=== PATIENT | female | born 1950 | race Caucasian/White ===

== ENCOUNTER → 2017-11-01 13:33 | Outpatient (CLI) | payer MEDICARE, BC, SELFPAY | PROVIDERS: Family Provider Internal Medicine; PCP Internal Medicine; Visit Provider Orthopaedic Surgery | DX: Z53.9 Procedure and treatment not carried out, unspecified reason (principal) ==

== ENCOUNTER → 2017-12-16 15:31 | Outpatient (CLI) | payer MEDICARE, BC, SELFPAY ==
[2017-12-16 17:37] LABS: Absolute Lymphocyte Count 2.44 X10^3/ul (0.83-4.51); Absolute Neutrophil Count 8.4 X10^3/uL (2.0-7.7); Basophil# 0.02 X10^3/uL; Basophil% 0.2 % (0-1); Eosinophil# 0.11 X10^3/uL; Eosinophils% 0.9 % (0-5); Hematocrit 42.9 % (37-47); Hemoglobin 13.9 g/dl (12.0-15.0); Lymphocyte # 2.44 X10^3/ul (4.0); Lymphocyte % 20.2 % (19-41); Mean Corp Hgb Conc 32.4 g/gl (32-36); Mean Corpuscular Hgb 31.2 pg (27.0-32.0); Mean Corpuscular Volume 96.2 fL (81-99); Mean Platelet Vol. 9.8 fl (6.2-12.0); Monocyte# 0.98 X10^3/uL; Monocyte% 8.1 % (0-10); Neutrophil # 8.43 X10^3/uL (2.7-7.7); Neutrophil % 69.7 % (47-70); Platelet Count 197 K/mm3 (150-450); RBC Distribution Width CV 15.1 % (11.6-14.6); RBC Distribution Width SD 51.6 fl (35.1-43.9); Red Blood Count 4.46 M/mm3 (4.2-5.4); White Blood Count 12.1 K/mm3 (4.4-11.0)
[2017-12-16 17:42] LABS: POSITIVE COUNT NO; POSITIVE DIFFERENTIAL NO; POSITIVE MORPHOLOGY NO
[2017-12-16 18:12] LABS: Anion Gap 9 (5-15); BUN 19 mg/dL (7-18); BUN/Creat Ratio 24.1 RATIO (10-20); Calcium,Total 8.1 mg/dL (8.5-10.1); Chloride 110 mmol/L (98-107); Creatinine, Serum 0.79 mg/dL (0.55-1.02); EST Glomerular Filtration Rate 78 mL/min (>60); Est Glom Filt Rate - Afr Amer 94 mL/min (>60); Glucose 142 mg/dL (74-106); Sodium Level 140 mmol/L (136-145); Thyroid Stim Hormone (TSH) 2.82 uIU/mL (0.358-3.74)
== END ==
PROVIDERS: Family Provider Family Medicine; PCP Family Medicine; Visit Provider Family Medicine
DX: I10 Essential (primary) hypertension (principal); E11.9 Type 2 diabetes mellitus without complications; E66.01 Morbid (severe) obesity due to excess calories
CPT/HCPCS: 36415; 80048; 84443; 85025

== ENCOUNTER → 2018-02-28 15:35 | Outpatient (CLI) | payer MEDICARE, BC, SELFPAY | PROVIDERS: Family Provider Family Medicine; PCP Family Medicine; Visit Provider Family Medicine | DX: R31.9 Hematuria, unspecified (principal); R80.9 Proteinuria, unspecified; R82.2 Biliuria | CPT/HCPCS: 87086; 87088; 87186 ==

== ENCOUNTER → 2019-03-29 | Outpatient (CLI) | payer MEDICARE, BC, SELFPAY ==
[2019-03-29 16:59] LABS: Absolute Lymphocyte Count 2.39 X10^3/uL (0.83-4.51); Absolute Neutrophil Count 4.1 X10^3/uL (2.0-7.7); Basophil# 0.04 X10^3/uL; Basophil% 0.5 % (0-1); Eosinophil# 0.24 X10^3/uL; Eosinophils% 3.1 % (0-5); Hematocrit 38.4 % (37-47); Hemoglobin 12.2 g/dL (12.0-15.0); Lymphocyte # 2.39 X10^3/ul (4.0); Lymphocyte % 31.4 % (19-41); Mean Corp Hgb Conc 31.8 g/dL (32-36); Mean Corpuscular Volume 97.5 fL (81-99); Mean Platelet Vol. 9.1 fl (6.2-12.0); Monocyte# 0.78 X10^3/uL; Monocyte% 10.2 % (0-10); NRBC Flagged by Analyzer 0 % (0-5); Neutrophil % 53.9 % (47-70); Platelet Count 329 K/mm3 (150-450); Red Blood Count 3.94 M/mm3 (4.2-5.4); White Blood Count 7.6 K/mm3 (4.4-11.0)
[2019-03-29 18:26] LABS: ALB/GLOB Ratio 0.7 RATIO (0.9-2.4); AST(SGOT) 27 U/L (15-37); Alanine Aminotransfer ALT/SGPT 28 U/L (13-56); Albumin, Serum 2.8 g/dL (3.2-5.0); Alkaline Phosphatase 110 U/L (45-117); Anion Gap 8 (5-15); BUN 17 mg/dL (7-18); BUN/Creat Ratio 26.2 RATIO (10-20); Calcium,Total 8.8 mg/dL (8.5-10.1); Chloride 109 mmol/L (98-107); Creatinine, Serum 0.65 mg/dL (0.55-1.02); EST Glomerular Filtration Rate 97 mL/min (>60); Est Glom Filt Rate - Afr Amer 117 mL/min (>60); Globulin 4.3 g/dL (2.2-4.2); Glucose 81 mg/dL (74-106); Potassium 3.8 mmol/L (3.5-5.1); Protein, Total 7.1 g/dL (6.4-8.2); Sodium Level 143 mmol/L (136-145); Thyroid Stim Hormone (TSH) 2.75 uIU/mL (0.358-3.74)
== END | disposition home or self-care (01) ==
LOC: BFHLAB 15:24
PROVIDERS: Family Provider Family Medicine; PCP Family Medicine; Visit Provider Family Medicine
DX: E11.9 Type 2 diabetes mellitus without complications (principal); I10 Essential (primary) hypertension; E66.01 Morbid (severe) obesity due to excess calories
CPT/HCPCS: 36415; 80053; 84443; 85025

== ENCOUNTER 2020-03-19 13:42 | Emergency (ER) | payer MEDICARE, BC, SELFPAY ==
[2020-03-19 13:43] VITALS: TEMP 36.7; BMI 62.4
[2020-03-19 14:05] VITALS: BP 100/83; PULSE 82; RESP 18; TEMP 36.7; O2SAT 97; BMI 62.4
--- NOTE | 2020-03-19 14:07 | ED.RN ---
PT ENTERED BY MISTAKE. NAME SPELLED WRONG.
[2020-03-19 14:08] VITALS: BP 100/83; PULSE 82; RESP 18; TEMP 36.7; O2SAT 97
[2020-03-19 15:07] VITALS: BP 100/83; PULSE 82; RESP 18; TEMP 36.7; O2SAT 97
[2020-03-19] MEDS: Ondansetron 4 MG/2 ML Vial IV (15:41)
[2020-03-19] MEDS: Morphine 4 MG/ML Syringe IV (15:41)
[2020-03-19] MEDS: Furosemide 40 MG/4 ML Vial IV (15:41)
[2020-03-19] MEDS: Cefazolin 1 GM/50 ML BAG IV (15:42)
[2020-03-19 16:09] VITALS: BP 132/103; PULSE 135; RESP 26; O2SAT 95
[2020-03-19 16:11] LABS: Anion Gap 9 (5-15); BUN 23 mg/dL (7-18); Calcium,Total 8.7 mg/dL (8.5-10.1); Chloride 102 mmol/L (98-107); Creatinine, Serum 1.44 mg/dL (0.55-1.02); EST Glomerular Filtration Rate 39 mL/min (>60); Est Glom Filt Rate - Afr Amer 47 mL/min (>60); Estimated Creatinine Clearance 33.65 ml/min; Glucose 82 mg/dL (74-106); Potassium 3.7 mmol/L (3.5-5.1); Sodium Level 135 mmol/L (136-145)
--- NOTE | 2020-03-19 17:47 | ED.VISSUMM ---
- ER Visit Summary Date of Service: 03/19/20 Chief Complaint: Left leg redness and swelling History of Present Illness: The patient is a 70 F who presents with redness and swelling to her left leg that has been getting worse over the past 2 days. Patient states she noted a reddened area over the anterior lower leg 2 days ago and it is gotten worse. Patient describes her pain is burning. Patient states the pain is localized to the left lower leg. Patient states nothing makes it better or worse. Patient denies any fevers or chills. Patient admits to some serous drainage from the left lower leg but denies any purulent drainage. Patient denies any abscess formation. Physical Examination: Vital signs are stable. Patient is afebrile. Patient is in no acute distress. Oral mucosa is pink and moist. Neck is supple. Trachea is midline. There is no JVD. Heart was regular rate and rhythm. Lungs are clear and equal bilaterally. Abdomen is soft. Bowel sounds are normal. There is no tenderness. Cranial nerves II through XII are intact. There are no focal motor or sensory deficits noted. Extremities are intact. There is 4+ edema of the lower extremities bilaterally. There is erythema and warmth over the anterior aspect of the left lower leg. There is some mild serous drainage. There is no abscess formation noted. There is no purulent drainage. Test Results: Basic metabolic profile shows slightly elevated creatinine of 1.44 and a BUN of 23. Potassium was normal. CBC showed a slight leukocytosis of 11.2. Emergency Department Course and Treatment: Patient was given a dose of Ancef. Patient was also given a dose of morphine and Zofran. Patient had minimal relief of her pain with this. Patient was given a dose of Dilaudid. Patient was given prescriptions for Keflex and Percocet. Patient was instructed to continue her Lasix as prescribed. Patient was instructed to keep her legs elevated. Patient was instructed to follow-up with her primary care physician in 5 to 7 days. Patient understood and was agreeable with the plan. All questions were answered. Disposition: Discharge home Impression: 1. Cellulitis left lower leg This note was generated with [employer] dictation software. It may contain incorrect words, spelling, and punctuation that were not noted in review of the chart prior to signing ED Disposition - Plan for ED Patient: Disposition: Home or Assisted Living Diagnosis: Cellulitis of left leg Instructions: ED Cellulitis Prescriptions: Cephalexin [Keflex] 500 mg PO Q6 #40 cap Prescription Printed Oxycodone HCl/Acetaminophen [Percocet 5/325] 1 tab PO Q6H PRN PRN 3 Days #12 tab PRN Reason: Pain Prescription Printed Referrals: Kenzie Aceves MD [Primary Care Provider] - 5-7 Days
[2020-03-19] MEDS: HYDROmorphone 0.5 MG/0.5 ML SYRINGE IV (17:53)
[2020-03-19 17:55] LABS: Basophil# 0.09 X10^3/uL; Eosinophil# 0.91 X10^3/uL; Hematocrit 40.8 % (37-47); Mean Corp Hgb Conc 31.9 g/dL (32-36); Mean Corpuscular Hgb 32.7 pg (27.0-32.0); Mean Corpuscular Volume 102.8 fL (81-99); Mean Platelet Vol. 8.6 fl (6.2-12.0); Monocyte# 0.29 X10^3/uL; NRBC Flagged by Analyzer 0 % (0-5); POSITIVE DIFFERENTIAL YES; POSITIVE MORPHOLOGY YES; Platelet Count 277 K/mm3 (150-450); RBC Distribution Width CV 13.4 % (11.6-14.6); RBC Distribution Width SD 51.1 fl (35.1-43.9); Red Blood Count 3.97 M/mm3 (4.2-5.4); White Blood Count 11.2 K/mm3 (4.4-11.0)
[2020-03-19 18:07] LABS: Differential Indicated SCAN CRITERIA MET
[2020-03-19 18:25] LABS: Scan Smear per Review Criteria MANUAL DIFF
[2020-03-19 18:26] VITALS: BP 125/84; PULSE 89; RESP 18; O2SAT 99
[2020-03-19 18:26] LABS: Lymphocyte 4 % (19-41); Monocyte 2 % (0-10); Neutrophil-Band 59 % (0-5); Neutrophil-Segmented 35 % (47-70)
[2020-03-19 18:27] LABS: Platelet Estimate ADEQUATE (ADEQ); Red Cell Morphology NORM C+C NORMAL (NORM C&C)
[2020-03-19 18:28] LABS: Neutrophil # 10.53 X10^3/uL (2.7-7.7)
[2020-03-19 18:29] LABS: Absolute Lymphocyte Count 0.45 X10^3/uL (0.83-4.51); Absolute Neutrophil Count 10.5 X10^3/uL (2.0-7.7); Lymphocyte # 0.45 X10^3/ul (4.0)
[2020-03-20 14:09] LABS: Pathologist Review Reviewed
== END 2020-03-19 18:27 | disposition home or self-care (01) ==
PROVIDERS: Emergency Provider Emergency Medicine; PCP Family Medicine
DX: L03.116 Cellulitis of left lower limb (principal); I11.0 Hypertensive heart disease with heart failure; I50.9 Heart failure, unspecified
CPT/HCPCS: 80048; 85025; 96365; 96375; 99284; J7050; A4216; J1940; J2405

== ENCOUNTER 2020-05-30 13:13 | Inpatient (IN) | payer MEDICARE, BC, SELFPAY ==
[2020-05-30 13:14] VITALS: BP 159/130; PULSE 95; RESP 18; TEMP 37.1; O2SAT 97; BMI 53.1
--- NOTE | 2020-05-30 13:31 | ED.DCSUM_ITS ---
History of Present Illness Chief Complaint: Edema Detail of Chief Complaint: Dyspnea and anasarca Informant: Patient, Talent Acquisition Director, SN[facility] Onset: Days Context: Gradual Onset Timing: Continuous Quality: Total body with clear fluid draining from upper extremities Location: Dental eyes Current Severity: Severe Maximum Severity: Severe Worsened by: History of obstructive sleep apnea and pulmonary hypertension Relieved by: Nothing Associated Symptoms: No chest pain, no constitutional symptoms Narrative: Patient is a morbidly obese 70-year-old woman with multiple medical problems who presents because of anasarca and shortness of breath. Her last hospitalization was at [facility]. She is presently at the [facility]. She states she was accepted at they have been you and his only been there 1 day. Per report her Lasix was discontinued. She denies fever, chills night sweats. She denies ocular, visual auditory symptoms. She denies chest pain. She does report orthopnea. She denies GI symptoms. She has an indwelling Perez. She also reports wound right leg/calf region. Prior similar symptoms: Yes Recent Illness/Hospitalization: Yes - Past Medical History (1) History of obstructive sleep apnea Status: Acute (2) Arthritis Status: Acute (3) Diabetes Status: Acute (4) GERD (gastroesophageal reflux disease) Status: Acute (5) Gall stones Status: Acute (6) History of kidney stones Status: Acute (7) Morbid obesity Status: Acute (8) Umbilical hernia Status: Acute (9) Hypertension Status: Chronic Past Medical History - Allergies and Home Meds Allergies/Adverse Reactions: Allergies hydromorphone Allergy (Verified 05/30/20 13:21) PT UNSURE OF REACTION piperacillin Allergy (Verified 05/30/20 13:21) PT UNSURE OF REACTION Primary Care Physician: Kenzie Aceves MD [STAFF PHYSICIAN] - Prior records reviewed: Yes Lives: [facility] Smoking Status: Never smoker Alcohol: None Drugs: None Review of Systems General: Reports: Malaise, - - Weight gain. Denies: Chills, Fever, Subjective, Sweats Eyes: Denies: Visual changes - bilaterally, Blurred Vision - bilaterally ENT: Denies: Bilateral ear pain, Rhinorrhea, Sore throat Cardiovascular: Denies: Chest pain, Palpitations Respiratory: Reports: Dyspnea, Orthopnea. Denies: Cough, Sputum Gastrointestinal: Denies: Abdominal pain, Nausea, Vomiting, Diarrhea Genitourinary: Reports: - - Indwelling Perez Musculoskeletal: Reports: Swelling. Denies: Myalgias, Arthralgias, Neck pain, Back pain, Extremity Pain, -, - Skin: Reports: Wounds. Denies: Rash Neurological: Reports: Weakness. Denies: Headache Psych: Reports: Depression Allergy: Denies: Uticaria, Swelling of the mouth, Swelling of the tongue Physical Exam Vital Signs/Narrative: Vital Signs Temp Pulse Resp BP Pulse Ox 05/30/20 13:14 98.8 F 95 18 159/130 H 97 General: Well nourished, Well developed, Obese, No Acute Distress Head: Normocephalic, Atraumatic Eyes: Perrl, EOMI. Negative for: Pale conjunctiva, Scleral icterus ENT: No rhinorrhea, TM's clear Neck: Supple, Nontender, No lymphadenopathy, No JVD Cardiovascular: Regular rate, Regular rhythm, No murmurs, Normal S1, Normal S2 Respiratory: No distress, Chest nontender, Rales. Negative for: CTA bilaterally Abdomen: Soft, Nontender, Nondistended, Normal bowel sounds, Umbilical hernia, Hernia reducible Rectal: Deferred Extremities: Nontender, Edema, - - And has a wound VAC medial mid left calf. Skin: Pallor. Negative for: Normal color Neurological: Alert, Oriented x3, Cranial nerves II-XII grossly intact, Normal Strength, Normal Sensation. Negative for: Normal Gait Psychological: Depressed Diagnostic/Tx/Re-eval Chest X-Ray - ED: 1 View, Read by ED Physician, Normal, Mediastinum, Bony Structures, No Acute Disease, - - X-ray was interpreted by me at 1420. Film is suboptimal due to poor inspiratory volume. There is no cephalization. There is no curly B-lines. There is no effusion. There is no obvious infiltrate. Impressions Chest X-Ray 05/30/20 13:45 IMPRESSION: Borderline cardiomegaly. Mild degree of increased linear markings at the lung bases suggests subsegmental atelectasis. Electronically Signed: Venkat Swan, at 14:23 EDT , Service support , 05/30/20 13:45 Chest 1 View (Portable) [RAD] Stat Laboratory Results 05/30/20 05/30/20 05/30/20 14:00 14:00 14:00 WBC 12.1 H RBC 2.68 L Hgb 8.3 L Hct 27.3 L MCV 101.9 H MCH 31.0 MCHC 30.4 L RDW Std Deviation 61.5 H RDW Coeff of Galindo 16.7 H Plt Count 365 MPV 7.9 Immature Gran % (Auto) 4.600 H Neut % (Auto) 65.3 Lymph % (Auto) 13.6 L Ogle % (Auto) 11.7 H Eos % (Auto) 4.2 Baso % (Auto) 0.6 Absolute Neuts (auto) 7.9 H Absolute Lymphs (auto) 1.64 Nucleated RBC % 0.2 Sodium 139 Potassium 4.5 Chloride 108 H Carbon Dioxide 28.0 Anion Gap 3 L BUN 22 H Creatinine 0.79 Estim Creat Clear Calc 52.36 Est GFR (MDRD) Af Amer 94 Est GFR (MDRD) Non-Af 77 BUN/Creatinine Ratio 28.0 H Glucose 108 H Calcium 8.3 L Total Bilirubin 0.40 AST 83 H ALT 37 Alkaline Phosphatase 113 Troponin I < 0.015 B-Natriuretic Peptide 92.4 Total Protein 5.8 L Albumin 1.4 L Globulin 4.4 H Albumin/Globulin Ratio 0.3 L Blood work is remarkable for anemia with a hemoglobin 8.3. BUN to creatinine ratio is elevated at 28-1. BNP is normal. Troponin is normal. Albumin is only 1.4. White count is elevated which is nonspecific. MCV is elevated. Therefo re doubt anemia is due to blood loss. - EKG Initial EKG Interpretation: Sinus Rhythm - Sinus rhythm with first-degree AV block. Ventricular rate is 95. CA interval is 232 ms. QRS duration 52 ms. QT duration 340 ms. Spencer is normal. There is evidence of low voltage in the limb leads. The computer is reading ST-T wave abnormality which is nonspecific. In my opinion this is artifa - Medical Decision Making Patient has anasarca. This may be due to malnutrition, obstructive sleep apnea, discontinuation of diuretic need to rule out cardiac etiology. Chest x-ray, appropriate labs were ordered. She received 40 mg of Lasix. ED Disposition - Plan for ED Patient: Disposition: Acute Care Hospital [facility] Diagnosis: Anasarca, Macrocytic anemia, Edema due to hypoalbuminemia, History of obstructive sleep apnea Referrals: Kenzie Aceves MD [STAFF PHYSICIAN] -
--- NOTE | 2020-05-30 13:45 | RAD_ITS ---
STUDY: X-RAY CHEST REASON FOR EXAM: Female, 70 years old. EDEMA TECHNIQUE: Single AP portable view of the chest. COMPARISON: None. FINDINGS: EKG electrodes are seen. A left-sided PICC line catheter is seen with the tip at the junction of the superior vena cava and left brachiocephalic vein. Minimal increased markings at the lung bases suggestive of a linear atelectasis. There is no demonstrated pleural abnormality. There is borderline cardiomegaly. Normal mediastinum and dimitrios. Normal visualized pulmonary arteries. Normal visualized aortic arch and descending thoracic aorta. There are diffuse degenerative changes of the visualized thoracic spine. Deformity of the left humeral head. There is no demonstrated abnormality of the visualized soft tissue structures of the upper abdomen. RAD/Chest 1 View (Portable) IMPRESSION: Borderline cardiomegaly. Mild degree of increased linear markings at the lung bases suggests subsegmental atelectasis. Electronically Signed: Venkat Swan, at 14:23 EDT , Service support ,
[2020-05-30] MEDS: Furosemide 40 MG/4 ML Vial IV (13:58)
[2020-05-30 14:15] LABS: Absolute Lymphocyte Count 1.64 X10^3/uL (0.83-4.51); Absolute Neutrophil Count 7.9 X10^3/uL (2.0-7.7); Basophil# 0.07 X10^3/uL; Basophil% 0.6 % (0-1); Eosinophil# 0.51 X10^3/uL; Eosinophils% 4.2 % (0-5); Hematocrit 27.3 % (37-47); Hemoglobin 8.3 g/dL (12.0-15.0); Lymphocyte # 1.64 X10^3/ul (4.0); Lymphocyte % 13.6 % (19-41); Mean Corp Hgb Conc 30.4 g/dL (32-36); Mean Corpuscular Volume 101.9 fL (81-99); Mean Platelet Vol. 7.9 fl (6.2-12.0); Monocyte# 1.41 X10^3/uL; Monocyte% 11.7 % (0-10); NRBC Flagged by Analyzer 0.2 % (0-5); Neutrophil # 7.88 X10^3/uL (2.7-7.7); Neutrophil % 65.3 % (47-70); Platelet Count 365 K/mm3 (150-450); RBC Distribution Width CV 16.7 % (11.6-14.6); RBC Distribution Width SD 61.5 fl (35.1-43.9); Red Blood Count 2.68 M/mm3 (4.2-5.4); White Blood Count 12.1 K/mm3 (4.4-11.0)
--- NOTE | 2020-05-30 14:23 | NURSING ---
NO OLD EKGS
[2020-05-30 14:31] LABS: ALB/GLOB Ratio 0.3 RATIO (0.9-2.4); AST(SGOT) 83 U/L (15-37); Alanine Aminotransfer ALT/SGPT 37 U/L (13-56); Albumin, Serum 1.4 g/dL (3.2-5.0); Alkaline Phosphatase 113 U/L (45-117); Anion Gap 3 (5-15); BUN 22 mg/dL (7-18); Calcium,Total 8.3 mg/dL (8.5-10.1); Chloride 108 mmol/L (98-107); Creatinine, Serum 0.79 mg/dL (0.55-1.02); EST Glomerular Filtration Rate 77 mL/min (>60); Est Glom Filt Rate - Afr Amer 94 mL/min (>60); Estimated Creatinine Clearance 52.36 ml/min; Globulin 4.4 g/dL (2.2-4.2); Glucose 108 mg/dL (74-106); Potassium 4.5 mmol/L (3.5-5.1); Protein, Total 5.8 g/dL (6.4-8.2); Sodium Level 139 mmol/L (136-145)
[2020-05-30 14:34] LABS: BNP,B-Type NATRIURETIC PEPTIDE 92.4 pg/mL (0-100)
[2020-05-30 14:41] VITALS: BP 110/55; PULSE 88; RESP 18; O2SAT 97
--- NOTE | 2020-05-30 14:52 | NURSING ---
DR LAMAR FOR DR HERNANDEZ
--- NOTE | 2020-05-30 15:09 | NURSING ---
MED SURG WILLARD SAMSON, EDEMA DUE TO HYPOALBUMINEMIA, MACRECYTIC ANEMIA
--- NOTE | 2020-05-30 15:36 | HP.PCM_ITS ---
Problem List (1) Hypoalbuminemia Status: Acute (2) Microcytic anemia Status: Acute (3) Anasarca Status: Acute (4) Nonhealing left calf ulcer Status: Acute (5) Cognitive impairment Status: Chronic (6) Depression Status: Chronic (7) COPD (chronic obstructive pulmonary disease) Status: Chronic (8) Hyperlipidemia Status: Chronic (9) Paroxysmal atrial fibrillation Status: Chronic (10) Chronic acquired lymphedema Status: Chronic (11) History of kidney stones Status: Chronic (12) Morbid obesity Status: Chronic (13) Hypertension Status: Chronic (14) GERD (gastroesophageal reflux disease) Status: Chronic History of Present Illness Date of Admission: 05/30/20 Chief Complaint: Leg swelling, and swelling. The patient is a 70 year old F with past medical history as mentioned above [facility] because of increasing generalized edema. [facility] because of increasing bilateral leg edema and swelling as well as swelling of both hands, associated with drainage of clear fluids from both upper and lower extremities as well as mild exertional shortness of breath and no aggravating or relieving factors. Patient states that she was taken off Lasix recently because of increasing kidney function. She denied chest pain, orthopnea or PND. She denied cough or sputum production. She denied fever or chills. She has chronic indwelling Perez catheter. She has chronic nonhealing ulcer of the posterior aspect of the left calf, status post wound VAC insertion and currently, she is on IV ciprofloxacin and IV clindamycin. She had a history of paroxysmal A. fib and she has been on digoxin and metoprolol for rate control and on Eliquis for anticoagulation. She will history of hypertension which has been under control with lisinopril and metoprolol. In the emergency department, her vital signs were stable. Her routine blood work was remarkable for WBC of 12.1, hemoglobin of 8.3 g/dL. LFT was unremarkable, serum albumin was 1.4 which is very low. EKG revealed normal sinus rhythm with low voltage QRS, no acute changes. Tr oponin and BNP were unremarkable. Chest x-ray revealed mild cardiomegaly, no obvious infiltrate or consolidation. She is being admitted for generalized edema/anasarca probably multifactorial secondary to hypoalbuminemia, discontinuation of diuretics recently and also found to have macrocytic anemia and she is being admitted for evaluation and treatment. Past Medical History Past Medical History (Chronic Problems): Chronic Problems (This Medical Record has been edited. Action required.) Cognitive impairment (Chronic) Depression (Chronic) COPD (chronic obstructive pulmonary disease) (Chronic) Hyperlipidemia (Chronic) Paroxysmal atrial fibrillation (Chronic) Chronic acquired lymphedema (Chronic) History of kidney stones (Chronic) Morbid obesity (Chronic) Hypertension (Chronic) GERD (gastroesophageal reflux disease) (Chronic) Medical History: Medical History (This Medical Record has been edited. Action required.) History of kidney stones (Chronic) Z87.442 Morbid obesity (Chronic) E66.01 Hypertension (Chronic) I10 GERD (gastroesophageal reflux disease) (Chronic) K21.9 Allergies hydromorphone Allergy (Verified 05/30/20 13:21) PT UNSURE OF REACTION piperacillin Allergy (Verified 05/30/20 13:21) PT UNSURE OF REACTION Home Medications: Ambulatory Orders Medication Instructions Recorded Lisinopril [Prinivil] 10 mg PO DAILY 03/19/20 Albuterol IH (ProAir) [Proair Hfa 2 puff INHALATION Q6H PRN PRN 05/30/20 (SP)Vent Pts] Apixaban [Eliquis] 5 mg PO BID 05/30/20 Aspirin [Aspirin, Baby] 81 mg PO DAILY@0800 05/30/20 Atorvastatin Calcium [Lipitor] 20 mg PO QHS 05/30/20 Bumetanide 1 mg PO DAILY 05/30/20 Ciprofloxacin in 5 % Dextrose 400 mg IV BID 05/30/20 [Ciprofloxacn-D5w 400 mg/200 ml] Clindamycin in 0.9 % Sod Chlor 600 mg IV TID 05/30/20 [Clindamycin 600 mg/50 ml-Ns] Digoxin 125 mcg PO DAILY 05/30/20 Gabapentin [Neurontin] 100 mg PO DAILY 05/30/20 Magnesium Oxide [Magox 400] 400 mg PO DAILY 05/30/20 Metoprolol Tartrate [Lopressor 25 mg PO BID 05/30/20 (Beta Abiola)] Montelukast Sodium 10 mg PO QHS 05/30/20 Pantoprazole Sodium [Protonix] 40 mg PO DAILY 05/30/20 Potassium Chloride 20 meq PO DAILY 05/30/20 Quetiapine Fumarate [Seroquel] 25 mg PO BID 10/30/20 traMADol [Ultram (G)] 50 mg PO Q6H PRN PRN 05/30/20 Surgical History: Surgical History (This Medical Record has been edited. Action required.) Hx of appendectomy (Inactive) Z90.49 Hx of tubal ligation (Inactive) Z98.51 Surgical History: appendectomy, - - Tubal ligation. Psychiatric History: Depression Lives: [facility] Smoking Status: Never smoker Alcohol: None Drugs: None - *Family History Maternal Family History: Family History (This Medical Record has been edited. Action required.) Sister Diabetes Mother Diabetes Father Heart disease Myocardial infarction Review of Systems Constitutional: Denies: Anorexia, Chills, Fever, Weakness Eyes: Denies: Blurred vision, Double vision, Drainage, Redness HEENT: Denies: Difficulty Hearing, Ear Pain, Eye Pain, Nasal Congestion, Sore Throat Cardiovascular: Reports: Edema. Denies: Chest Pain, Claudication, Chest Pressure, Chest Tightness, Heaviness, Light Headedness, Palpitations, Paroxysmal Noc. Dyspnea, Syncope Respiratory: Reports: Shortness of breath upon exertion. Denies: Cough, Pleuritic Pain, Shortness of Breath, Sputum production, Wheezing Gastrointestinal: Denies: Abdominal Pain, Constipation, Diarrhea, Nausea, Vomiting Genitourinary: Denies: Dysuria, Frequency, Hematuria Musculoskeletal: Denies: Arm Pain, Back Pain, Foot Pain Skin: Denies: Dryness, Rash Neurological: Denies: Balance problems, Double vision, Change in Speech, Slurred speech, Confusion, Focal weakness, Incoordination, Numbness Psychiatric: Reports: Depression. Denies: Anxiety Endocrine: Denies: Change in Body Habitus, Polydipsia, Polyuria VTE Information - Inpt Only VTE Present on Admission: No VTE Mechan Device Prophylaxis: None VTE Pharm Prophylaxis ordered?: No Patient Problems: Active and Suspected Problems (This Medical Record has been edited. Action required.) Hypoalbuminemia (Acute) Microcytic anemia (Acute) Anasarca (Acute) Nonhealing left calf ulcer (Acute) - Physical Exam Vitals/I&O's: Vital Signs Temp Pulse Resp BP Pulse Ox 98.8 F 88 18 110/55 L 97 05/30/20 13:14 05/30/20 14:41 05/30/20 14:41 05/30/20 14:41 05/30/20 14:41 Oxygen Delivery Method Room Air Weight: 339 lb 4.662 oz Body Mass Index (BMI) 53.1 General: Alert, Oriented x3, Cooperative, No apparent distress HEENT: Atraumatic, PERRLA, EOMI, Normocephalic Oral: Moist Mucosa, No Gingival or Mucosal Lesions/ Ulcerations Neck: Supple, No JVD, Negative Carotid Bruits, Trachea Midline, Thyroid Normal Size and Texture Lungs: Clear to auscultation, Normal air movement, No rhonchi, No wheeze, No rales, Diminished Cardiovascular: Regular rate, Regular Rhythm, Normal S1, Normal S2, PMI Normal Abdomen: Bowel Sounds Present, Soft, Non Tender, Non-Distended, No Hepato- splenomegaly, Obese - Morbidly obese. Extremities: No clubbing, No cyanosis, Edema - +++ Edema, lymphedema. Skin: No rashes, Ulcer/ Wound - Left leg: Large defect on the posterior aspect of the left calf, wound VAC in place. Left leg is mildly warm to palpation, minimal erythema. Lymphatic: No Cervical, Supraclavicular, or Inguinal Adenopathy Neurological: Cranial nerves II-XII grossly intact, Motor Exam 5/5 strength throughout Psych/Mental Status: Normal Affect, Appropriate, Alert and oriented to time, place, person, mood and affect Laboratory Results 05/30/20 14:00: WBC 12.1 H, RBC 2.68 L, Hgb 8.3 L, Hct 27.3 L, MCV 101.9 H, MCH 31.0, MCHC 30.4 L, RDW Std Deviation 61.5 H, RDW Coeff of Galindo 16.7 H, Plt Count 365, MPV 7.9, Immature Gran % (Auto) 4.600 H, Neut % (Auto) 65.3, Lymph % (Auto) 13.6 L, [place] % (Auto) 11.7 H, Eos % (Auto) 4.2, Baso % (Auto) 0.6, Absolute Neuts (auto) 7.9 H, Absolute Lymphs (auto) 1.64, Nucleated RBC % 0.2 05/30/20 14:00: Sodium 139, Potassium 4.5, Chloride 108 H, Carbon Dioxide 28.0, Anion Gap 3 L, BUN 22 H, Creatinine 0.79, Estim Creat Clear Calc 52.36, Est GFR (MDRD) Af Amer 94, Est GFR (MDRD) Non-Af 77, BUN/Creatinine Ratio 28.0 H, Glucose 108 H, Calcium 8.3 L, Total Bilirubin 0.40, AST 83 H, ALT 37, Alkaline Phosphatase 113, Troponin I < 0.015, Total Protein 5.8 L, Albumin 1.4 L, Globulin 4.4 H, Albumin/Globulin Ratio 0.3 L 05/30/20 14:00: B-Natriuretic Peptide 92.4 Clinical Impression(s) from Imaging Studies Chest X-Ray 05/30/20 13:45 IMPRESSION: Borderline cardiomegaly. Mild degree of increased linear markings at the lung bases suggests subsegmental atelectasis. Electronically Signed: Venkat Sosa, at 14:23 EDT , Service support , Assessment/Plan All Active Problems (This Medical Record has been edited. Action required.) Hypoalbuminemia (Acute) Microcytic anemia (Acute) Anasarca (Acute) Nonhealing left calf ulcer (Acute) This is a 70 years old female patient [facility] because of increasing bilateral leg edema and swelling as well as swelling of both hands, found to have severe hypoalbuminemia as well as microcytic anemia, had history of nonhealing left leg ulcer status post wound VAC placement and currently on IV antibiotics. #1 generalized edema/anasarca: It is probably multifactorial secondary to severe hypoalbuminemia, recent discontinuation of Lasix and her body habitus. No cardiac history, no CHF. EKG reviewed, troponin and BNP were unremarkable. Chest x-ray reviewed as well. Plan: Admit to MedSurg floor, start IV Lasix for diuresis, IV albumin, input output chart, fluid restriction to less than 1500 cc daily, urinalysis, urine culture, check TSH, repeat CBC and CMP tomorrow morning, PT OT evaluation and treatment. #2 severe hypoalbuminemia: Probably due to nutritional deficiency and hypervolemia. Plan: Check serum prealbumin, nutrition consult, IV albumin along with IV Lasix for diuresis, repeat CMP tomorrow morning. #3 microcytic anemia: This is fairly acute, hemoglobin was 13 g/dL 2 months ago. Patient denied black stool, melena or hematochezia. She does have pink urine in the urine bag, no sybil hematuria. It is microcytic anemia, MCV is high. Again, could be related to hyperkalemia. Plan: B12, RBC folate, iron, ferritin, TIBC, pro time and INR, stool for occult blood. #4 chronic nonhealing left calf ulcer status post wound VAC placement: Currently, she is on IV clindamycin and ciprofloxacin and according to [facility]iary documents, intake is May 31, it was started on May 28. She does have a wound VAC in place. She is afebrile, minimal leukocytosis. Plan: Stat wound culture, wound MRSA screen by PCR, IV clindamycin, wound care nurse consult. #5 hypertension: Blood pressure stable, continue lisinopril and metoprolol. #6 COPD: Clinically stable, pulse ox is maintained on room air. Plan for albuterol nebulizer as needed. #7 paroxysmal atrial fibrillation: Rate is controlled, continue digoxin and metoprolol for rate control. Hold Eliquis for now because of anemia, check pro time with INR. #8 GERD: Continue PPI. #9 depression: Continue Seroquel. #11 hyperlipidemia: Continue statins. #12 DVT prophylaxis: Subcu Lovenox. This note was generated with [employer] dictation software. It may contain incorrect words, spelling, and punctuation that were not noted in checking the note before signing. Inpatient E&M: 82369 Init Hosp L3
[2020-05-30 16:02] VITALS: BP 101/69; PULSE 100; RESP 18; TEMP 36.6; O2SAT 95
[2020-05-30 17:30] VITALS: PULSE 68; RESP 18; O2SAT 95; BMI 54.2
[2020-05-30 17:33] LABS: Bacteria 0 SEEN /hpf (None Seen); Mucous, Urine 0 SEEN /hpf (<or=2+); Squamous Epithelial Cells - UA 0 SEEN /hpf (5-10)
[2020-05-30 17:39] LABS: Color, Urine Yellow (Yellow); Glucose, Dipstick Normal (Normal); Ketone-Dipstick Negative (Negative); Leukocyte Esterase-Dipstick 500 /ul (Negative); Nitrite-Dipstick Negative (Negative); Occult Blood-Urine 250 /ul (Negative); Protein-Dipstick 30 mg/dl (Negative); Specific Gravity, Urine 1.005 (1.002-1.030); Urine Bilirubin Dipstick Negative (Negative); Urine Clarity Cloudy (Clear); Urine Urobilinogen Normal (Normal)
[2020-05-30 17:46] LABS: Ferritin 368 ng/mL (8-252); Iron 30 ug/dL (50-170); Iron Binding Capacity,Total 152 ug/dL (250-450); PERCENT IRON SATURATION 19.7 % (15.0-55.0); Prealbumin 8.5 mg/dL (20.0-40.0); Thyroid Stim Hormone (TSH) 6.76 uIU/mL (0.358-3.74)
[2020-05-30 17:50] LABS: Red Blood Cells-Urine > 100 SEEN /hpf (0-5)
[2020-05-30 17:51] LABS: White Blood Cells 0-5 SEEN /hpf (0-5)
[2020-05-30 17:54] LABS: International Normalized Ratio 1.4
[2020-05-30 18:18] LABS: Vitamin B12 349 pg/mL (211-911)
[2020-05-30] MEDS: Albumin Human 25% (100 mL) 25 GM/100 ML BAG IV (18:31)
[2020-05-30] MEDS: Furosemide 100 MG/10 ML Vial 60 MG IV (21:20)
[2020-05-30] MEDS: QUEtiapine 25 MG Tablet PO (22:02)
[2020-05-30] MEDS: traMADol 50 MG Tablet PO (22:02)
[2020-05-30 22:03] VITALS: PULSE 99
[2020-05-30] MEDS: Montelukast 10 MG Tablet PO (22:03)
[2020-05-30] MEDS: Metoprolol Tartrate 25 MG Tablet PO (22:03)
[2020-05-30] MEDS: Atorvastatin Calcium 20 MG Tablet PO (22:04)
[2020-05-31] VITALS (20 sets, daily range): BP systolic 83–97; BP diastolic 33–74; PULSE 38–96; RESP 16–18; TEMP 36.7–37.2; O2SAT 93–95
[2020-05-31 01:02] LABS: M R Staph aureus DNA By PCR Negative (Negative); Probe Check PASS; Specimen Processing Control PASS; Staph aureus DNA By PCR NEGATIVE (Negative)
--- NOTE | 2020-05-31 04:35 | NURSING ---
[address] Rasheed, hospitalist of [address] here for anasarca- pt BP is 94/45 with monitor. took a manual and got 92/40 Lasix scheduled 0600 60mg IV. pt albumin 1.4 yesterday. skin is seeping with fluid to the touch.....Ilir [id number].....Dr. Rasheed called this RN back and stated that he still wants to give 60mg IV lasix.
[2020-05-31] MEDS: traMADol 50 MG Tablet PO (06:29)
--- NOTE | 2020-05-31 07:22 | NURSING ---
This RN rounded with dayshift RNLacy. Discussed pts blood pressure, with the latest reading at 0631 of 94/40. Discussed contacting Dr. Rasheed about BP and scheduled 60 mg IV lasix at 0600. pts albumin was 1.4 yesterday. This RN sought opinion of [facility] of whether she wanted me to give the lasix or not. Lacy said that she would discuss with Dr. Rai during dayshift and Lacy told this RN to hold off on giving the Lasix.
[2020-05-31] MEDS: Furosemide 100 MG/10 ML Vial 60 MG IV ×3 (08:49→22:25)
[2020-05-31] MEDS: 0.9% Saline Lock 10 ML Syringe IV ×2 (08:50→22:29)
[2020-05-31] MEDS: Magnesium Chloride 64 MG Delay Rel.Tablet 128 MG PO (08:51)
[2020-05-31] MEDS: Aspirin 81 MG TAB.CHEW PO (08:52)
[2020-05-31] MEDS: Metoprolol Tartrate 25 MG Tablet PO ×2 (08:54→22:23)
[2020-05-31] MEDS: Pantoprazole Sodium 40 MG Tablet PO ×2 (08:54→08:55)
[2020-05-31] MEDS: Gabapentin 100 MG Capsule PO (08:55)
[2020-05-31] MEDS: Lisinopril 10 MG Tablet PO (08:55)
[2020-05-31] MEDS: Enoxaparin 40 MG/0.4 ML Syringe SC (08:56)
[2020-05-31] MEDS: Digoxin 125 MCG Tablet PO (08:56)
[2020-05-31 09:09] LABS: Absolute Lymphocyte Count 1.82 X10^3/uL (0.83-4.51); Absolute Neutrophil Count 5.6 X10^3/uL (2.0-7.7); Basophil# 0.07 X10^3/uL; Basophil% 0.7 % (0-1); Eosinophil# 0.68 X10^3/uL; Eosinophils% 6.9 % (0-5); Hematocrit 25.8 % (37-47); Hemoglobin 7.8 g/dL (12.0-15.0); Lymphocyte # 1.82 X10^3/ul (4.0); Lymphocyte % 18.4 % (19-41); Mean Corp Hgb Conc 30.2 g/dL (32-36); Mean Corpuscular Hgb 30.8 pg (27.0-32.0); Monocyte% 13.1 % (0-10); NRBC Flagged by Analyzer 0.2 % (0-5); Neutrophil # 5.64 X10^3/uL (2.7-7.7); Platelet Count 329 K/mm3 (150-450); RBC Distribution Width CV 16.5 % (11.6-14.6); RBC Distribution Width SD 61.1 fl (35.1-43.9); Red Blood Count 2.53 M/mm3 (4.2-5.4); White Blood Count 9.9 K/mm3 (4.4-11.0)
[2020-05-31 09:36] LABS: ALB/GLOB Ratio 0.5 RATIO (0.9-2.4); AST(SGOT) 56 U/L (15-37); Alanine Aminotransfer ALT/SGPT 28 U/L (13-56); Albumin, Serum 1.8 g/dL (3.2-5.0); Alkaline Phosphatase 92 U/L (45-117); Anion Gap 5 (5-15); BUN 23 mg/dL (7-18); BUN/Creat Ratio 28.5 RATIO (10-20); Calcium,Total 8.3 mg/dL (8.5-10.1); Chloride 108 mmol/L (98-107); Creatinine, Serum 0.81 mg/dL (0.55-1.02); EST Glomerular Filtration Rate 75 mL/min (>60); Est Glom Filt Rate - Afr Amer 91 mL/min (>60); Estimated Creatinine Clearance 59.81 ml/min; Globulin 3.7 g/dL (2.2-4.2); Glucose 86 mg/dL (74-106); Potassium 4.1 mmol/L (3.5-5.1); Protein, Total 5.5 g/dL (6.4-8.2); Sodium Level 140 mmol/L (136-145)
--- NOTE | 2020-05-31 13:00 | CASEMGMT ---
Addendum entered by Imelda White 05/31/20 13:30: Updates faxed, green sheet with transport and covid forms on chart. FLORENTINO Zartae Original Note: SW reviewed chart, met w/pt in room. Pt confirmed plan is to return to [facility] at discharge. Pt's daughter Lynn Perez([phone]) is pt's main contact, though she states her sons and are also contacts and all on the same page. SW called daughter Lynn and confirmed the plan to return to [facility]. She explains pt has been in and out of the hospital and to different facilities for months. Daughter states she thinks pt has about 20 days left under Medicare. SW did ask about plan once the days have been exhausted. Daughter states is not sure. SW encouraged daughter to speak w/vacation planner at [facility] about it, to see about if pt needs more than the last 20 days left it pt can afford to private pay or may qualify for Medicaid. SW encouraged daughter to start talking w/[facility] about this now and not wait. Daughter states understanding. SW called [facility], a COVID test will be needed prior to pt's return. SW let chargeback specialist know. SW will place green sheet, transport forms and COVID transfer tool on chart, and will fax updates to [facility] today. FLORENTINO Zarate
[2020-05-31] MEDS: Albumin Human 25% (100 mL) 25 GM/100 ML BAG IV (13:30)
--- NOTE | 2020-05-31 15:07 | PCM.PN.HOSP ---
Patient Problems: Active and Suspected Problems (This Medical Record has been edited. Action required.) Anasarca (Acute) Macrocytic anemia (Acute) Edema due to hypoalbuminemia (Acute) History of obstructive sleep apnea (Acute) Hypoalbuminemia (Acute) Microcytic anemia (Acute) Anasarca (Acute) Nonhealing left calf ulcer (Acute) Reason for Visit: anasarca Subjective: Still seeping from right arm. Vitals/I&O's: Vital Signs Temp Pulse Resp BP Pulse Ox 36.8 C 74 18 83/35 L 93 05/31/20 13:39 05/31/20 13:39 05/31/20 13:39 05/31/20 13:39 05/31/20 13:39 Oxygen Delivery Method Room Air Weight: 147.8 kg Body Mass Index (BMI) 54.2 Intake and Output for Last 24 Hours 05/29/20 05/30/20 05/31/20 23:59 23:59 23:59 Intake Total 556 / 556 756 / 756 Output Total 1450 / 1450 700 / 700 Balance -894 / -894 56 / 56 General: Alert, No apparent distress HEENT: Atraumatic, Normocephalic Neck: No Nodes, Thyroid Normal Size and Texture Lungs: Clear to auscultation, Normal air movement, No rhonchi, No wheeze, No rales Cardiovascular: Regular rate, Regular Rhythm, Normal S1, Normal S2, No murmurs Abdomen: Bowel Sounds Present, Soft, Non Tender, Non-Distended, No Hepato-splenomegaly, Obese Extremities: Edema - diffuse anasarca Skin: No rashes, No breakdown Psych/Mental Status: Normal Affect, Appropriate Microbiology Past 72 Hours 05/30/20 23:05 Wound - Leg, Left Gram Stain - Final 05/30/20 17:25 Urine Catheter - Perez Urine Culture - Preliminary Culture exhibits no growth. Laboratory Results 05/30/20 14:00: Iron 30 L, TIBC 152 L, Iron Saturation 19.7, Ferritin 368 H, Prealbumin 8.5 L, TSH 6.76 H 05/30/20 14:00: Vitamin B12 349 05/30/20 14:00: RBC Folate Hemolysate Pending, RBC Folate Pending, Hematocrit Pending 05/30/20 17:25: Urine Color Yellow, Urine Clarity Cloudy, Urine pH 7.0, Ur Specific Butner 1.005, Urine Protein 30 H, Urine Glucose (UA) Normal, Urine Ketones Negative, Urine Occult Blood 250 H, Urine Nitrite Negative, Urine Bilirubin Negative, Urine Urobilinogen Normal, Ur Leukocyte Esterase 500 H, Urine RBC > 100 SEEN, Urine WBC 0-5 SEEN, Ur Squamous Epith Cells 0 SEEN, Urine Bacteria 0 SEEN, Urine Mucus 0 SEEN 05/30/20 17:32: PT 17.0 H, INR 1.4 05/30/20 18:00: S.aureus Protein A PCR Cancelled, MRSA (PCR) Cancelled 05/30/20 23:05: S.aureus Protein A PCR NEGATIVE, MRSA (PCR) Negative 05/31/20 08:50: WBC 9.9, RBC 2.53 L, Hgb 7.8 L, Hct 25.8 L, MCV 102.0 H, MCH 30.8, MCHC 30.2 L, RDW Std Deviation 61.1 H, RDW Coeff of Galindo 16.5 H, Plt Count 329, MPV 8.0, Immature Gran % (Auto) 3.900 H, Neut % (Auto) 57.0, Lymph % (Auto) 18.4 L, Chaves % (Auto) 13.1 H, Eos % (Auto) 6.9 H, Baso % (Auto) 0.7, Absolute Neuts (auto) 5.6, Absolute Lymphs (auto) 1.82, Nucleated RBC % 0.2 05/31/20 08:50: Sodium 140, Potassium 4.1, Chloride 108 H, Carbon Dioxide 27.0, Anion Gap 5, BUN 23 H, Creatinine 0.81, Estim Creat Clear Calc 59.81, Est GFR (MDRD) Af Amer 91, Est GFR (MDRD) Non-Af 75, BUN/Creatinine Ratio 28.5 H, Glucose 86, Calcium 8.3 L, Total Bilirubin 0.60, AST 56 H, ALT 28, Alkaline Phosphatase 92, Total Protein 5.5 L, Albumin 1.8 L, Globulin 3.7, Albumin/Globulin Ratio 0.5 L 05/31/20 08:50: Total Protein (PEP) Pending, Albumin (PEP) Pending, Globulin (PEP) Pending, Albumin/Globulin (PEP) Pending, Smtvn-8-Kyqhqnpom Pending, Udyau-5-Tgupqyyfn Pending, Beta Globulins Pending, Gamma Globulins Pending, M-Jose Manuel Pending, Ur Total Protein 24 Hr Pending, Urine Total Protein Pending, Urine Albumin Pending, U Ajila-8-Zaigadpq Pending, U Jdrfr-7-Xjryuzbj Pending, U Beta Globulin Pending, U Gamma Globulin Pending Current Medications Acetaminophen (Acetaminophen 325 Mg Tablet) 650 mg PO Q6H PRN PRN PRN Reason: Pain Score 1-10/Temp > 100.7 F Albuterol Sulfate (Albuterol 2.5 Mg/3 Ml Vial.Neb.) 2.5 mg INHALATION Q4H PRN PRN PRN Reason: Shortness of breath, wheezing Aspirin (Aspirin 81 Mg Tab.Chew) 81 mg PO DAILY@0800 [facility] Last Admin: 05/31/20 08:52 Dose: 81 mg Documented by: Atorvastatin Calcium (Atorvastatin Calcium 20 Mg Tablet) 20 mg PO QHS [facility] Last Admin: 05/30/20 22:04 Dose: 20 mg Documented by: Digoxin (Digoxin 125 Mcg Tablet) 125 mcg PO DAILY [facility] Last Admin: 05/31/20 08:56 Dose: 125 mcg Documented by: Enoxaparin Sodium (Enoxaparin 40 Mg/0.4 Ml Syringe) 40 mg SC DAILY [facility] Last Admin: 05/31/20 08:56 Dose: 40 mg Documented by: Furosemide (Furosemide 100 Mg/10 Ml Vial) 60 mg IV Q8 [facility] Last Admin: 05/31/20 08:49 Dose: 60 mg Documented by: Gabapentin (Gabapentin 100 Mg Capsule) 100 mg PO DAILY [facility] Last Admin: 05/31/20 08:55 Dose: 100 mg Documented by: Clindamycin Phosphate 900 mg/ (Dextrose) 106 mls @ 150 mls/hr IV Q8 [facility] Last Infusion: 05/31/20 07:25 Dose: Infused Documented by: Lisinopril (Lisinopril 10 Mg Tablet) 10 mg PO DAILY [facility] Last Admin: 05/31/20 08:55 Dose: 10 mg Documented by: Magnesium Chloride (Magnesium Chloride 64 Mg Delay Rel.Tablet) 128 mg PO DAILY [facility] Last Admin: 05/31/20 08:51 Dose: 128 mg Documented by: Metoprolol Tartrate (Metoprolol Tartrate 25 Mg Tablet) 25 mg PO BID [facility] Last Admin: 05/31/20 08:54 Dose: 25 mg Documented by: Montelukast Sodium (Montelukast 10 Mg Tablet) 10 mg PO QHS [facility] Last Admin: 05/30/20 22:03 Dose: 10 mg Documented by: Ondansetron HCl (Ondansetron 4 Mg/2 Ml Vial) 4 mg IV Q8H PRN PRN PRN Reason: NAUSEA/VOMITING Pantoprazole Sodium (Pantoprazole Sodium 40 Mg Tablet) 40 mg PO DAILY [facility] Last Admin: 05/31/20 08:55 Dose: 40 mg Documented by: Potassium Chloride (Potassium Chloride 20 Meq Tablet) 20 meq PO DAILYCM [facility] Last Admin: 05/31/20 08:51 Dose: 20 meq Documented by: Quetiapine Fumarate (Quetiapine 25 Mg Tablet) 25 mg PO BID [facility] Last Admin: 05/31/20 09:04 Dose: Not Given Documented by: Senna/Docusate Sodium (Senna/Docusate Sodium 1 Tablet) 2 tablet PO BID PRN PRN PRN Reason: Constipation Sodium Chloride (0.9% Saline Lock 10 Ml Syringe) 10 - 40 ml IV UD PRN PRN Reason: SALINE FLUSH Last Admin: 05/31/20 08:50 Dose: 10 ml Documented by: Tramadol HCl (Tramadol 50 Mg Tablet) 50 mg PO Q6H PRN PRN PRN Reason: Pain 1-10 or Fever Last Admin: 05/31/20 06:29 Dose: 50 mg Documented by: Zolpidem Tartrate (Zolpidem Tartrate 5 Mg Tablet) 5 mg PO QHS PRN PRN PRN Reason: INSOMNIA STROKE Vital Signs/Narrative: Vital Signs Temp Pulse Resp BP Pulse Ox 05/31/20 13:39 36.8 C 74 18 83/35 L 93 05/31/20 12:36 36.9 C 73 18 89/44 L 94 Medical Necessity - Tobacco Use Smoking Status: Never smoker Assessment/Plan All Active Problems (This Medical Record has been edited. Action required.) Anasarca (Acute) Macrocytic anemia (Acute) Edema due to hypoalbuminemia (Acute) History of obstructive sleep apnea (Acute) Hypoalbuminemia (Acute) Microcytic anemia (Acute) Anasarca (Acute) Nonhealing left calf ulcer (Acute) 1. anasarca: continue with diuresis and fluid restriction. 2. proteinuria: 24 h urine protein, if greater than 3g, consult nephrology. check SPEP and UPEP. Received albumin (50g). Continue lisinopril. 3. Hypoalbuminemia: 2/2 #2. Received albumin 4. microcytic anemia: drop of Hg of 13 to 7.8. Likely anemia of CD. Iron low, but ferritin high. Start ferrous sulfate. 5. Hypothyroidism: TSH high. Check FT4 and FT3. 6. Calf ulcer: on clinda and cipro through today. Wound care 7. VTE prophylaxis: LMWH. Inpatient E&M: 89956 Subs Hosp L2
[2020-05-31 16:22] LABS: Free T3 2.3 pg/mL (2.18-3.98); T4 Free Direct 1.28 ng/dL (0.76-1.46)
[2020-05-31] MEDS: Ferrous Sulfate 325 MG Tablet PO (17:26)
[2020-05-31 21:29] LABS: Probe Check PASS; Specimen Processing Control PASS
[2020-05-31] MEDS: Atorvastatin Calcium 20 MG Tablet PO (22:23)
[2020-05-31] MEDS: QUEtiapine 25 MG Tablet PO (22:23)
[2020-05-31] MEDS: Montelukast 10 MG Tablet PO (22:23)
[2020-05-31] MEDS: Acetaminophen 325 MG Tablet 650 MG PO (22:23)
[2020-06-01] VITALS (21 sets, daily range): BP systolic 80–124; BP diastolic 28–89; PULSE 29–119; RESP 16–18; TEMP 36.6–37.6; O2SAT 91–98
--- NOTE | 2020-06-01 03:45 | NURSING ---
Respiratory called to obtain EKG on this pt d/t bradycardia.
--- NOTE | 2020-06-01 04:10 | EKG12_ITS ---
Test Reason : POSS 2ND DEGREE BLK Blood Pressure : / mmHG Vent. Rate : 075 BPM Atrial Rate : 075 BPM P-R Int : 214 ms QRS Dur : 096 ms QT Int : 362 ms P-R-T Axes : 044 033 031 degrees QTc Int : 404 ms Sinus rhythm with sinus arrhythmia with 1st degree A-V block Low voltage QRS Borderline ECG Confirmed by APUL NEUMANN, KAREN ([id number]), editor dictionary JEFF SHEPPARD ([id number]) on 06/04/2020 10:49:50 AM Referred By: DR MOYA Confirmed By:KAREN MILLER MD
--- NOTE | 2020-06-01 04:27 | PCM.PN.BLA ---
Progress Note Patient with Wenckebach on monitor. Twelve-lead EKG showed sinus rhythm with first-degree AV block. Will discontinue metoprolol. Cardiology consult. Pacer pads and monitor to be placed on patient. STROKE Vital Signs/Narrative: Vital Signs Temp Pulse Resp BP Pulse Ox 06/01/20 03:50 97.9 F 96 18 88/32 L 95 06/01/20 02:35 98 F 87 16 92/37 L 96
[2020-06-01 06:09] LABS: Absolute Lymphocyte Count 1.78 X10^3/uL (0.83-4.51); Absolute Neutrophil Count 5.2 X10^3/uL (2.0-7.7); Basophil# 0.06 X10^3/uL; Basophil% 0.6 % (0-1); Eosinophil# 0.69 X10^3/uL; Eosinophils% 7.4 % (0-5); Hematocrit 22.9 % (37-47); Hemoglobin 7.1 g/dL (12.0-15.0); Lymphocyte # 1.78 X10^3/ul (4.0); Mean Platelet Vol. 8.1 fl (6.2-12.0); Monocyte# 1.14 X10^3/uL; Monocyte% 12.2 % (0-10); NRBC Flagged by Analyzer 0.2 % (0-5); Neutrophil # 5.23 X10^3/uL (2.7-7.7); Platelet Count 297 K/mm3 (150-450); RBC Distribution Width CV 16.7 % (11.6-14.6); RBC Distribution Width SD 60.9 fl (35.1-43.9); Red Blood Count 2.29 M/mm3 (4.2-5.4); White Blood Count 9.4 K/mm3 (4.4-11.0)
[2020-06-01 06:27] LABS: Anion Gap 6 (5-15); BUN 25 mg/dL (7-18); BUN/Creat Ratio 28.1 RATIO (10-20); Calcium,Total 8.2 mg/dL (8.5-10.1); Chloride 107 mmol/L (98-107); Creatinine, Serum 0.89 mg/dL (0.55-1.02); EST Glomerular Filtration Rate 67 mL/min (>60); Est Glom Filt Rate - Afr Amer 81 mL/min (>60); Estimated Creatinine Clearance 54.44 ml/min; Glucose 87 mg/dL (74-106); Potassium 4.4 mmol/L (3.5-5.1); Sodium Level 140 mmol/L (136-145)
[2020-06-01] MEDS: Furosemide 100 MG/10 ML Vial 60 MG IV ×3 (06:51→22:28)
[2020-06-01] MEDS: 0.9% Saline Lock 10 ML Syringe IV ×3 (06:51→21:16)
--- NOTE | 2020-06-01 10:21 | PCM.CONS.C ---
Problem List (1) Paroxysmal atrial fibrillation Status: Chronic (2) Macrocytic anemia Status: Acute Reason for Consult Date of Consultation: 06/01/20 Reason for Consultation: Second-degree Wenckebach AV conduction History of Present Illness: The patient is a 70 year old F was admitted 3 days ago for weakness and swelling of the lower extremities. Incidental finding of severe anemia with macrocytic index. Compared to 2 months ago patient did have a drastic drop in H&H. She denies any chest pain. She denies any history of myocardial infarction or CVA. She is known to have obesity, hypertension and hyperlipidemia. 6 months ago patient had sepsis with cellulitis of the left leg with ulcers and renal failure. She has been in rehab for a long period of time since then. January patient was seen in [facility] and had a lot of cardiac work-up according to her. She was told that she has had paroxysmal atrial fibrillation with normal cardiac work-up otherwise. She has been put on Eliquis since then. She denies any abdominal pain, vomiting of blood or melena. On admission stool for occult blood was taken and was negative. Ferritin level and iron saturation were normal. In a good day, patient cannot walk that well because of severe degenerative arthritis of both knees and obesity. She is a non-smoker and nondrinker. There has been no history of palpitation or CVA [] Past Medical History Allergies/Adverse Reactions: Allergies hydromorphone Allergy (Verified 05/30/20 13:21) PT UNSURE OF REACTION piperacillin Allergy (Verified 05/30/20 13:21) PT UNSURE OF REACTION Home Medications: Ambulatory Orders Medication Instructions Recorded Lisinopril [Prinivil] 10 mg PO DAILY 03/19/20 Albuterol IH (ProAir) [Proair Hfa 2 puff INHALATION Q6H PRN PRN 05/30/20 (SP)Vent Pts] Apixaban [Eliquis] 5 mg PO BID 05/30/20 Aspirin [Aspirin, Baby] 81 mg PO DAILY@0800 05/30/20 Atorvastatin Calcium [Lipitor] 20 mg PO QHS 05/30/20 Bumetanide 1 mg PO DAILY 05/30/20 Ciprofloxacin in 5 % Dextrose 400 mg IV BID 05/30/20 [Ciprofloxacn-D5w 400 mg/200 ml] Clindamycin in 0.9 % Sod Chlor 600 mg IV TID 05/30/20 [Clindamycin 600 mg/50 ml-Ns] Digoxin 125 mcg PO DAILY 05/30/20 Gabapentin [Neurontin] 100 mg PO DAILY 05/30/20 Magnesium Oxide [Magox 400] 400 mg PO DAILY 05/30/20 Metoprolol Tartrate [Lopressor 25 mg PO BID 05/30/20 (Beta Abiola)] Montelukast Sodium 10 mg PO QHS 05/30/20 Pantoprazole Sodium [Protonix] 40 mg PO DAILY 05/30/20 Potassium Chloride 20 meq PO DAILY 05/30/20 Quetiapine Fumarate [Seroquel] 25 mg PO BID 05/30/20 traMADol [Ultram (G)] 50 mg PO Q6H PRN PRN 05/30/20 Past Medical History (Chronic Problems): Chronic Problems (This Medical Record has been edited. Action required.) Paroxysmal atrial fibrillation (Chronic) Cognitive impairment (Chronic) Depression (Chronic) COPD (chronic obstructive pulmonary disease) (Chronic) Hyperlipidemia (Chronic) Paroxysmal atrial fibrillation (Chronic) Chronic acquired lymphedema (Chronic) History of kidney stones (Chronic) Morbid obesity (Chronic) Hypertension (Chronic) GERD (gastroesophageal reflux disease) (Chronic) Surgical History: appendectomy, - - Tubal ligation. Psychiatric History: Depression - *Family History Maternal Family History: Family History (This Medical Record has been edited. Action required.) Sister Diabetes Mother Diabetes Father Heart disease Myocardial infarction Lives: Senior Living Smoking Status: Never smoker Alcohol: None Drugs: None Review of Systems - Review of Systems Cardiovascular: Reports: Shortness of Breath. Denies: Chest Discomfort, PND Respiratory: Reports: Shortness of Breath Gastrointestinal: Denies: Hematemesis, Hematochezia, Melena Muscoloskeletal: Reports: Muscle Weakness, - - Severe degenerative arthritis of both knees Neurological: Denies: Dizziness, Vertigo Objective: Vital Signs Temp Pulse Resp BP Pulse Ox 98.7 F 94 18 114/89 H 98 06/01/20 10:06/01/20 10:00 06/01/20 10:00 06/01/20 10:00 06/01/20 10:00 Oxygen Delivery Method Room Air Weight: 325 lb 13.491 oz Body Mass Index (BMI) 54.2 Intake and Output for Last 24 Hours 05/30/20 05/31/20 06/01/20 23:59 23:59 22:59 Intake Total 556 / 556 1268 / 1508 586 / 586 Output Total 1450 / 1450 850 / 1200 850 / 850 Balance -894 / -894 418 / 308 -264 / -264 General: Healthy Appearing, Awake, Alert, Oriented x 3, Cooperative, No Acute Distress Neck: Supple Lungs: Clear to auscultation Cardiovascular: Regular Rhythm - Heart sounds distant, Normal S1, Normal S2, No Murmurs, No Rubs, No Gallops Abdomen: Soft, Non Tender, Obese Extremities: Bilaterel Edema +4 Neurological: No Focal Motor or Sensory Deficit Psych/Mental Status: Appropriate, Normal Affect 06/01/20 05:34: WBC 9.4, RBC 2.29 L, Hgb 7.1 L, Hct 22.9 L, MCV 100.0 H, MCH 31.0, MCHC 31.0 L, Plt Count 297, MPV 8.1, Immature Gran % (Auto) 4.800 H, Neut % (Auto) 56.0, Lymph % (Auto) 19.0, Williamson % (Auto) 12.2 H, Eos % (Auto) 7.4 H, Baso % (Auto) 0.6, Absolute Neuts (auto) 5.2, Nucleated RBC % 0.2 06/01/20 05:34: Sodium 140, Potassium 4.4, Chloride 107, Carbon Dioxide 27.0, Anion Gap 6, BUN 25 H, Creatinine 0.89, Est GFR (MDRD) Af Amer 81, Est GFR (MDRD) Non-Af 67, BUN/Creatinine Ratio 28.1 H, Glucose 87, Calcium 8.2 L Rhythm: EKG: ECHO: Stress Test: Cardiac Cath: PCI: CT Surgery: Holter monitor: EPS: PPM: CXR: Chest CT Scan: Assessment/Plan #1 AV Wenckebach conduction, at this point patient does not need pacemaker. I agree with stopping the digoxin and metoprolol and continue cardiac monitoring. TSH is normal. Echocardiogram will be repeated Tuesday. Patient had a lot of cardiac work-up according to her in January [facility], she was told that everything was normal. #2 paroxysmal atrial fibrillation on Eliquis since March. Because of the severe drop in hematocrit over 2 months, Eliquis has been appropriately discontinued #3 severe drop in hemoglobin, despite the fact that it was macrocytic index, I would highly recommend GI work-up. You have put the patient appropriately on Protonix. 1 units of blood transfusion should be given because of the sinus tachycardia. Cardiology will sign off unless there is further symptomatic bradycardia arrhythmia
--- NOTE | 2020-06-01 10:44 | ECHOCS_ITS ---
Reason For Study: ATRIAL FIB-FLUTTER Procedure This was a 2D Doppler, Color Flow transthoracic echocardiogram. The study was technically difficult. Due to body habitus and arrhythmia. Contrast injection was performed. Exam performed portable in patient room. Left Ventricle Normal LV size. Left ventricular systolic function is normal. The estimated ejection fraction is 60 %. No regional wall motion abnormalities noted. Right Ventricle Normal RV size. Normal systolic function. Atria Normal left atrium. Normal right atrium. Mitral Valve Normal mitral valve. Tricuspid Valve Normal tricuspid valve. Mild (1+) tricuspid valve insufficiency. Aortic Valve Trisinus/trileaflet aortic valve. Pulmonic Valve Normal pulmonic valve. Great Vessels Normal aortic root. The pulmonary artery is normal size. Normal inferior vena cava. Pericardium/Pleural No pericardial effusion. Medication Diluted definity 5.0ml given slow IV push to enhance endocardial definition. MMode/2D Measurements & Calculations LVIDd: 4.4 cm IVSd: 0.95 cm Ao root diam: 2.9 cm LVIDs: 2.8 cm LVPWd: 1.0 cm FS: 35.9 % LAV(MOD-bp): 69.9 ml LA A4 area: 22.3 cm2 LA dimension(2D): 4.0 cm LAV(MOD-bp) Indexed: 28.7 ml/m2 LAV(MOD-sp2): 68.5 ml LAV(MOD-sp4): 68.1 ml RA A4 area: 12.8 cm2 Doppler Measurements & Calculations MV E max maria luisa: 105.1 cm/sec Ao V2 max: 157.8 cm/sec LV V1 max: 135.0 cm/sec Ao max P.0 mmHg LV V1 max P.3 mmHg PA V2 max: 128.2 cm/sec TR max maria luisa: 246.8 cm/sec TR max P.4 mmHg Interpretation Summary Normal LV size. Left ventricular systolic function is normal. The estimated ejection fraction is 60 %. Mild (1+) tricuspid valve insufficiency. Normal left atrium. Contrast injection was performed. Ordering Physician: Galo Burr Referring Physician: Owen Snyder Performed By: iVelka Wong RDCS, RVT
[2020-06-01] MEDS: Magnesium Chloride 64 MG Delay Rel.Tablet 128 MG PO (10:53)
[2020-06-01] MEDS: Gabapentin 100 MG Capsule PO (10:54)
[2020-06-01] MEDS: Aspirin 81 MG TAB.CHEW PO (10:54)
[2020-06-01] MEDS: Lisinopril 10 MG Tablet PO (10:54)
[2020-06-01] MEDS: Enoxaparin 40 MG/0.4 ML Syringe SC (10:54)
[2020-06-01] MEDS: Acetaminophen 325 MG Tablet 650 MG PO ×2 (12:04→22:45)
[2020-06-01] MEDS: Senna/Docusate Sodium 1 Tablet 2 TABLET PO (12:05)
[2020-06-01] MEDS: Ferrous Sulfate 325 MG Tablet PO (12:05)
--- NOTE | 2020-06-01 12:29 | PCM.PN.HOSP ---
<Declan Brush - Last Filed: 06/01/20 12:29> Patient Problems: Active and Suspected Problems (This Medical Record has been edited. Action required.) Anasarca (Acute) Macrocytic anemia (Acute) Edema due to hypoalbuminemia (Acute) History of obstructive sleep apnea (Acute) Hypoalbuminemia (Acute) Microcytic anemia (Acute) Anasarca (Acute) Nonhealing left calf ulcer (Acute) Reason for Visit: anasarca Subjective: upper extremity swelling improved. Pt feels legs are more swollen. no SOB or cough. No CP. catheter in place. had wenkebach overnight. back to normal now. Vitals/I&O's: Vital Signs Temp Pulse Resp BP Pulse Ox 98.7 F 94 18 114/89 H 98 06/01/20 10:00 06/01/20 10:00 06/01/20 10:00 06/01/20 10:00 06/01/20 10:00 Oxygen Delivery Method Room Air Weight: 325 lb 13.491 oz Body Mass Index (BMI) 54.2 Intake and Output for Last 24 Hours 05/30/20 05/31/20 06/01/20 23:59 23:59 22:59 Intake Total 556 / 556 1268 / 1508 986 / 986 Output Total 1450 / 1450 850 / 1200 2450 / 2450 Balance -894 / -894 418 / 308 -1464 / -1464 General: Alert, Oriented x3, Cooperative HEENT: Atraumatic, PERRLA, EOMI, Normocephalic Neck: Supple, No JVD, Negative Carotid Bruits Lungs: Clear to auscultation, Normal air movement Cardiovascular: Regular rate, No murmurs Abdomen: Bowel Sounds Present, Soft, Non Tender, Obese Extremities: Capillary Refill Less than 3 Seconds, Edema - severe upper and lower extremity edema, lower > upper. Skin: No rashes, No breakdown Musculoskeletal: No Tenderness to Palpation of Joints or Extremities Neurological: Cranial nerves II-XII grossly intact Psych/Mental Status: Normal Affect, Appropriate, Alert and oriented to time, place, person, mood and affect Microbiology Past 72 Hours 05/31/20 22:05 Stool Stool Occult Blood (SAUL) - Final 05/30/20 23:05 Wound - Leg, Left Gram Stain - Final 05/30/20 17:25 Urine Catheter - Perez Urine Culture - Preliminary Culture exhibits no growth. Laboratory Results 05/31/20 08:50: Free T4 1.28, Free T3 pg/dL 2.3 05/31/20 17:57: COVID-19 (MICHAEL) Not Detected 06/01/20 05:34: WBC 9.4, RBC 2.29 L, Hgb 7.1 L, Hct 22.9 L, MCV 100.0 H, MCH 31.0, MCHC 31.0 L, RDW Std Deviation 60.9 H, RDW Coeff of Galindo 16.7 H, Plt Count 297, MPV 8.1, Immature Gran % (Auto) 4.800 H, Neut % (Auto) 56.0, Lymph % (Auto) 19.0, [place] % (Auto) 12.2 H, Eos % (Auto) 7.4 H, Baso % (Auto) 0.6, Absolute Neuts (auto) 5.2, Absolute Lymphs (auto) 1.78, Nucleated RBC % 0.2 06/01/20 05:34: Sodium 140, Potassium 4.4, Chloride 107, Carbon Dioxide 27.0, Anion Gap 6, BUN 25 H, Creatinine 0.89, Estim Creat Clear Calc 54.44, Est GFR (MDRD) Af Amer 81, Est GFR (MDRD) Non-Af 67, BUN/Creatinine Ratio 28.1 H, Glucose 87, Calcium 8.2 L 06/01/20 08:00: Urine Collection Time Cancelled, Timed Urine Volume Cancelled, Ur Total Protein 24 Hr Cancelled, Urine Total Protein Cancelled Current Medications Acetaminophen (Acetaminophen 325 Mg Tablet) 650 mg PO Q6H PRN PRN PRN Reason: Pain Score 1-10/Temp > 100.7 F Last Admin: 06/01/20 12:04 Dose: 650 mg Documented by: Albuterol Sulfate (Albuterol 2.5 Mg/3 Ml Vial.Neb.) 2.5 mg INHALATION Q4H PRN PRN PRN Reason: Shortness of breath, wheezing Aspirin (Aspirin 81 Mg Tab.Chew) 81 mg PO DAILY@0800 [facility] Last Admin: 06/01/20 10:54 Dose: 81 mg Documented by: Atorvastatin Calcium (Atorvastatin Calcium 20 Mg Tablet) 20 mg PO QHS [facility] Last Admin: 05/31/20 22:23 Dose: 20 mg Documented by: Enoxaparin Sodium (Enoxaparin 40 Mg/0.4 Ml Syringe) 40 mg SC DAILY [facility] Last Admin: 06/01/20 10:54 Dose: 40 mg Documented by: Ferrous Sulfate (Ferrous Sulfate 325 Mg Tablet) 325 mg PO DAILY@1200 [facility] Last Admin: 06/01/20 12:05 Dose: 325 mg Documented by: Furosemide (Furosemide 100 Mg/10 Ml Vial) 60 mg IV Q8 [facility] Last Admin: 06/01/20 06:51 Dose: 60 mg Documented by: Gabapentin (Gabapentin 100 Mg Capsule) 100 mg PO DAILY [facility] Last Admin: 06/01/20 10:54 Dose: 100 mg Documented by: Lisinopril (Lisinopril 10 Mg Tablet) 10 mg PO DAILY [facility] Last Admin: 06/01/20 10:54 Dose: 10 mg Documented by: Magnesium Chloride (Magnesium Chloride 64 Mg Delay Rel.Tablet) 128 mg PO DAILY [facility] Last Admin: 06/01/20 10:53 Dose: 128 mg Documented by: Montelukast Sodium (Montelukast 10 Mg Tablet) 10 mg PO QHS [facility] Last Admin: 05/31/20 22:23 Dose: 10 mg Documented by: Ondansetron HCl (Ondansetron 4 Mg/2 Ml Vial) 4 mg IV Q8H PRN PRN PRN Reason: NAUSEA/VOMITING Pantoprazole Sodium (Pantoprazole Sodium 40 Mg Tablet) 40 mg PO DAILY [facility] Last Admin: 05/31/20 08:55 Dose: 40 mg Documented by: Potassium Chloride (Potassium Chloride 20 Meq Tablet) 20 meq PO DAILYCM [facility] Last Admin: 06/01/20 10:53 Dose: 20 meq Documented by: Quetiapine Fumarate (Quetiapine 25 Mg Tablet) 25 mg PO BID [facility] Last Admin: 06/01/20 10:56 Dose: Not Given Documented by: Senna/Docusate Sodium (Senna/Docusate Sodium 1 Tablet) 2 tablet PO BID PRN PRN PRN Reason: Constipation Last Admin: 06/01/20 12:05 Dose: 2 tablet Documented by: Sodium Chloride (0.9% Saline Lock 10 Ml Syringe) 10 - 40 ml IV UD PRN PRN Reason: SALINE FLUSH Last Admin: 06/01/20 06:51 Dose: 10 ml Documented by: Tramadol HCl (Tramadol 50 Mg Tablet) 50 mg PO Q6H PRN PRN PRN Reason: Pain 1-10 or Fever Last Admin: 05/31/20 06:29 Dose: 50 mg Documented by: Zolpidem Tartrate (Zolpidem Tartrate 5 Mg Tablet) 5 mg PO QHS PRN PRN PRN Reason: INSOMNIA STROKE Vital Signs/Narrative: Vital Signs Temp Pulse Resp BP Pulse Ox 06/01/20 10:00 98.7 F 94 18 114/89 H 98 Medical Necessity - Tobacco Use Smoking Status: Never smoker Assessment/Plan All Active Problems (This Medical Record has been edited. Action required.) Anasarca (Acute) Macrocytic anemia (Acute) Edema due to hypoalbuminemia (Acute) History of obstructive sleep apnea (Acute) Hypoalbuminemia (Acute) Microcytic anemia (Acute) Anasarca (Acute) Nonhealing left calf ulcer (Acute) 1. Anasarca - possibly due to nephrotic syndome - hypoalbuminemia. urine proteins pending. continue lasix 60 mg IV q8. mildly elevated BUN, Cr normal. UA with elevated urine protein. BNP normal. No resp symptoms. 2. 2nd degree AV block, wenkeback - cardiology consulted. resolved. metoprolol and digoxin stopped. echo pending. 3, Macrocytic anemia - b12/folate pending. stool occult neg. tsh elevated but t4/t3 normal. per cardiology transfuse 1 unit prbc. low iron, low TIBC, high ferritin, normal Iron sat. 4. pAfib - again - off metoprolol and dig as above. recently taken off eliquis due to anemia. 5. Hypotension resolved 6. 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 7. Calf ulcer - completed abx regimen DVT ppx: SCDs DC planning: Pt states difficulty walking due to swelling. will need PTOT. This patient was seen by Declan Brush PA-C under the supervision of Doctor Fredi. <Galo Rai - Last Filed: 06/01/20 13:41> Vitals/I&O's: Vital Signs Temp Pulse Resp BP Pulse Ox 37.1 C 96 18 114/89 H 98 06/01/20 10:00 06/01/20 10:00 06/01/20 10:00 06/01/20 10:00 06/01/20 10:00 Oxygen Delivery Method Room Air Weight: 147.8 kg Body Mass Index (BMI) 54.2 Intake and Output for Last 24 Hours 05/30/20 05/31/20 06/01/20 23:59 23:59 22:59 Intake Total 556 / 556 1268 / 1508 986 / 986 Output Total 1450 / 1450 850 / 1200 2450 / 2450 Balance -894 / -894 418 / 308 -1464 / -1464 General: Alert, Cooperative HEENT: Atraumatic, Normocephalic Lungs: Clear to auscultation, Normal air movement Cardiovascular: Regular rate, No murmurs Abdomen: Bowel Sounds Present, Soft, Non Tender Extremities: Capillary Refill Less than 3 Seconds, Edema Psych/Mental Status: Normal Affect, Appropriate Microbiology Past 72 Hours 05/30/20 23:05 Wound - Leg, Left Gram Stain - Final 05/30/20 23:05 Wound - Leg, Left Wound Culture - Preliminary Staphylococcus species Gram negative dasha 05/31/20 22:05 Stool Stool Occult Blood (SAUL) - Final 05/30/20 17:25 Urine Catheter - Perez Urine Culture - Preliminary Culture exhibits no growth. Laboratory Results 05/31/20 08:50: Free T4 1.28, Free T3 pg/dL 2.3 05/31/20 17:57: COVID-19 (MICHAEL) Not Detected 06/01/20 05:34: WBC 9.4, RBC 2.29 L, Hgb 7.1 L, Hct 22.9 L, MCV 100.0 H, MCH 31.0, MCHC 31.0 L, RDW Std Deviation 60.9 H, RDW Coeff of Galindo 16.7 H, Plt Count 297, MPV 8.1, Immature Gran % (Auto) 4.800 H, Neut % (Auto) 56.0, Lymph % (Auto) 19.0, [place] % (Auto) 12.2 H, Eos % (Auto) 7.4 H, Baso % (Auto) 0.6, Absolute Neuts (auto) 5.2, Absolute Lymphs (auto) 1.78, Nucleated RBC % 0.2 06/01/20 05:34: Sodium 140, Potassium 4.4, Chloride 107, Carbon Dioxide 27.0, Anion Gap 6, BUN 25 H, Creatinine 0.89, Estim Creat Clear Calc 54.44, Est GFR (MDRD) Af Amer 81, Est GFR (MDRD) Non-Af 67, BUN/Creatinine Ratio 28.1 H, Glucose 87, Calcium 8.2 L 06/01/20 08:00: Urine Collection Time Cancelled, Timed Urine Volume Cancelled, Ur Total Protein 24 Hr Cancelled, Urine Total Protein Cancelled 06/01/20 12:55: Blood Type Pending, Antibody Screen Pending, Crossmatch See Detail Current Medications Acetaminophen (Acetaminophen 325 Mg Tablet) 650 mg PO Q6H PRN PRN PRN Reason: Pain Score 1-10/Temp > 100.7 F Last Admin: 06/01/20 12:04 Dose: 650 mg Documented by: Albuterol Sulfate (Albuterol 2.5 Mg/3 Ml Vial.Neb.) 2.5 mg INHALATION Q4H PRN PRN PRN Reason: Shortness of breath, wheezing Aspirin (Aspirin 81 Mg Tab.Chew) 81 mg PO DAILY@0800 [facility] Last Admin: 06/01/20 10:54 Dose: 81 mg Documented by: Atorvastatin Calcium (Atorvastatin Calcium 20 Mg Tablet) 20 mg PO QHS [facility] Last Admin: 05/31/20 22:23 Dose: 20 mg Documented by: Ferrous Sulfate (Ferrous Sulfate 325 Mg Tablet) 325 mg PO DAILY@1200 [facility] Last Admin: 06/01/20 12:05 Dose: 325 mg Documented by: Furosemide (Furosemide 100 Mg/10 Ml Vial) 60 mg IV Q8 [facility] Last Admin: 06/01/20 06:51 Dose: 60 mg Documented by: Gabapentin (Gabapentin 100 Mg Capsule) 100 mg PO DAILY [facility] Last Admin: 06/01/20 10:54 Dose: 100 mg Documented by: Lisinopril (Lisinopril 10 Mg Tablet) 10 mg PO DAILY [facility] Last Admin: 06/01/20 10:54 Dose: 10 mg Documented by: Magnesium Chloride (Magnesium Chloride 64 Mg Delay Rel.Tablet) 128 mg PO DAILY [facility] Last Admin: 06/01/20 10:53 Dose: 128 mg Documented by: Montelukast Sodium (Montelukast 10 Mg Tablet) 10 mg PO QHS [facility] Last Admin: 05/31/20 22:23 Dose: 10 mg Documented by: Ondansetron HCl (Ondansetron 4 Mg/2 Ml Vial) 4 mg IV Q8H PRN PRN PRN Reason: NAUSEA/VOMITING Pantoprazole Sodium (Pantoprazole Sodium 40 Mg Tablet) 40 mg PO DAILY [facility] Last Admin: 05/31/20 08:55 Dose: 40 mg Documented by: Potassium Chloride (Potassium Chloride 20 Meq Tablet) 20 meq PO DAILYCM [facility] Last Admin: 06/01/20 10:53 Dose: 20 meq Documented by: Quetiapine Fumarate (Quetiapine 25 Mg Tablet) 25 mg PO BID [facility] Last Admin: 06/01/20 10:56 Dose: Not Given Documented by: Senna/Docusate Sodium (Senna/Docusate Sodium 1 Tablet) 2 tablet PO BID PRN PRN PRN Reason: Constipation Last Admin: 06/01/20 12:05 Dose: 2 tablet Documented by: Sodium Chloride (0.9% Saline Lock 10 Ml Syringe) 10 - 40 ml IV UD PRN PRN Reason: SALINE FLUSH Last Admin: 06/01/20 06:51 Dose: 10 ml Documented by: Tramadol HCl (Tramadol 50 Mg Tablet) 50 mg PO Q6H PRN PRN PRN Reason: Pain 1-10 or Fever Last Admin: 05/31/20 06:29 Dose: 50 mg Documented by: Zolpidem Tartrate (Zolpidem Tartrate 5 Mg Tablet) 5 mg PO QHS PRN PRN PRN Reason: INSOMNIA STROKE Vital Signs/Narrative: Vital Signs Temp Pulse Resp BP Pulse Ox 06/01/20 10:00 37.1 C 96 18 114/89 H 98 Assessment/Plan Patient seen and examined independently. Data reviewed. I agree with the above note by the physician dental assistant. 1. anasarca: continue with diuresis and fluid restriction. Strict Is/Os. 2. proteinuria: 24h urine collection has to be redone as was collected in wrong container. 24 h urine protein, if greater than 3g, consult nephrology. check SPEP and UPEP. Received albumin (50g). Continue lisinopril. 3. Hypoalbuminemia: 2/2 #2. Received albumin 4. microcytic anemia: drop of Hg of 13 to 7.1. Likely anemia of CD. Iron low, but ferritin high. Start ferrous sulfate. Will give 1 unit PRBCs. May need GI eval prior to DC. 5. Hypothyroidism: TSH high. Check FT4 and FT3. 6. Calf ulcer: on clinda and cipro through today. Wound care 7. VTE prophylaxis: LMWH. 8. Mobitz I Type 2 HB. hold dig and metoprolol. Cardiology seen. echo pending. Inpatient E&M: 59722 Subs Hosp L2
[2020-06-01] MEDS: traMADol 50 MG Tablet PO (21:15)
[2020-06-01] MEDS: QUEtiapine 25 MG Tablet PO (21:15)
[2020-06-01] MEDS: Atorvastatin Calcium 20 MG Tablet PO (21:15)
[2020-06-01] MEDS: Montelukast 10 MG Tablet PO (21:15)
[2020-06-02] VITALS (14 sets, daily range): BP systolic 98–129; BP diastolic 48–65; PULSE 93–110; RESP 18; TEMP 36.6–37.2; O2SAT 94–95
--- NOTE | 2020-06-02 05:19 | NURSING ---
James RN and I went into patient's room to change her PICC dressing. Patient is refusing the dressing change at this time. She said I don't know why you need to change it. Last time they didn't change it for 4 months. James and I tried to explain to patient that it was the hospital's policy to change them every 7 days but she still refused.
--- NOTE | 2020-06-02 05:28 | NURSING ---
primer charger Adriana in pt room to change her picc line drsg. explained to pt it has to be changed every 7 days to prevent infection pt refused to change her drsg and states let go of my arm.
[2020-06-02] MEDS: Furosemide 100 MG/10 ML Vial 60 MG IV ×3 (05:35→22:52)
[2020-06-02] MEDS: 0.9% Saline Lock 10 ML Syringe IV ×4 (05:36→23:04)
[2020-06-02] MEDS: traMADol 50 MG Tablet PO (05:49)
[2020-06-02 05:54] LABS: Absolute Lymphocyte Count 1.83 X10^3/uL (0.83-4.51); Absolute Neutrophil Count 5.5 X10^3/uL (2.0-7.7); Basophil# 0.08 X10^3/uL; Basophil% 0.8 % (0-1); Eosinophil# 0.59 X10^3/uL; Eosinophils% 6.1 % (0-5); Hematocrit 27.8 % (37-47); Hemoglobin 8.4 g/dL (12.0-15.0); Lymphocyte # 1.83 X10^3/ul (4.0); Lymphocyte % 18.8 % (19-41); Mean Corp Hgb Conc 30.2 g/dL (32-36); Mean Corpuscular Hgb 29.6 pg (27.0-32.0); Mean Corpuscular Volume 97.9 fL (81-99); Monocyte# 1.29 X10^3/uL; Monocyte% 13.2 % (0-10); NRBC Flagged by Analyzer 0.2 % (0-5); Neutrophil # 5.47 X10^3/uL (2.7-7.7); Neutrophil % 56.1 % (47-70); Platelet Count 330 K/mm3 (150-450); RBC Distribution Width CV 17.7 % (11.6-14.6); RBC Distribution Width SD 63.7 fl (35.1-43.9); Red Blood Count 2.84 M/mm3 (4.2-5.4); White Blood Count 9.8 K/mm3 (4.4-11.0)
[2020-06-02 06:10] LABS: Anion Gap 5 (5-15); BUN 20 mg/dL (7-18); BUN/Creat Ratio 36.2 RATIO (10-20); Calcium,Total 8.4 mg/dL (8.5-10.1); Chloride 109 mmol/L (98-107); Creatinine, Serum 0.55 mg/dL (0.55-1.02); EST Glomerular Filtration Rate 116 mL/min (>60); Est Glom Filt Rate - Afr Amer 141 mL/min (>60); Estimated Creatinine Clearance 48.45 ml/min; Glucose 86 mg/dL (74-106); Sodium Level 143 mmol/L (136-145)
[2020-06-02] MEDS: Aspirin 81 MG TAB.CHEW PO (07:51)
[2020-06-02] MEDS: Magnesium Chloride 64 MG Delay Rel.Tablet 128 MG PO (07:52)
[2020-06-02] MEDS: Pantoprazole Sodium 40 MG Tablet PO (07:52)
[2020-06-02] MEDS: Gabapentin 100 MG Capsule PO (07:53)
[2020-06-02] MEDS: Lisinopril 10 MG Tablet PO (07:53)
[2020-06-02] MEDS: Sodium Ferric Gluconat 250 MG in 0.9% Normal Saline 250 ML 135 MG IV (10:34)
--- NOTE | 2020-06-02 10:47 | NURSING ---
wound photo: left posterior lower leg
--- NOTE | 2020-06-02 10:48 | NURSING ---
wound photo: left lateral knee crease
--- NOTE | 2020-06-02 10:48 | NURSING ---
wound photo: left anterolateral lower leg
--- NOTE | 2020-06-02 10:49 | NURSING ---
wound photo: buttocks/ cleft
--- NOTE | 2020-06-02 10:50 | NURSING ---
wound photo: right lateral lower leg
--- NOTE | 2020-06-02 11:50 | CASEMGMT ---
Addendum entered by Mickie Loaiza 06/02/20 13:23: JOE faxed updated clinicals to [facility]. Original Note: Social Work Note SW updated that pt is now stating she wants a different SNF. SW in to speak with pt. SW introduced self and role at [facility]. Pt on the phone with her daughter Lynn. SW introduced self and role at [facility]. Pt confirms that she came from [facility], would like to see if [facility] has any beds available. SW asked pt if she plans on being in a SNF exterminator helper and pt denied. SW explained that this worker would have to check on bed availability. JOE placed a call to Matilde at [facility]. Matilde states pt was at [facility] for about a day or two. Matilde states pt has 98 days left for Medicare coverage. JOE then updated that physician was in to speak with pt, pt and Lynn all agreeable to returning to [facility]. SW back in to speak with pt. Pt states she doesn't know what to do and requested that this worker call her daughter Lynn. JOE placed a call to Lynn and spoke with Lynn regarding discharge plans. Lynn states she had spoken to pt and other family members who all agree pt will return to [facility] at discharge. Lynn states pt has been overwhelmed and confused about SNF process. JOE in to speak with pt. SW updated pt that Lynn and other family members agree on pt returning to [facility]. Pt states she's gotten such good care here at [facility] and it's hard to leave a five star rated facility to go to a three star rated facility. Pt states I don't want to make anyone mad if I don't return to [facility]. SW explained that it wouldn't make anyone mad, and then she has the right to choose where she goes at discharge. Pt states it seems everyone is pushing me to return there. JOE explained that typically it is recommended that when a pt comes from a facility to have the pt return to that same facility but again reiterated that pt can choose different SNF if she would like. SW explained that this worker is just providing her with her options. SW spoke with pt about how she was only at [facility] for about a day and it is hard to get a complete picture of what it will be like for her at [facility]. Pt states it was just a bunch of young people there who acted like they didn't know what they were doing. SW informed pt that she could have young staff at any SNF that she goes to. SW informed pt that this worker cannot guarantee she would get the same staff members on TCU that are working with pt on inpatient side and she too could get young staff members on TCU. Pt agreeable to returning to [facility] at this time. SW informed pt that if she decides to change her mind to let this worker know. Pt states understanding. Plan: Return to [facility] once medically cleared Mickie Loaiza FUND CONTROLLER, INTERIOR DESIGNER
[2020-06-02] MEDS: Ferrous Sulfate 325 MG Tablet PO (13:30)
--- NOTE | 2020-06-02 13:32 | PN_ITS ---
Patient Problems: Active and Suspected Problems (This Medical Record has been edited. Action required.) Anasarca (Acute) Macrocytic anemia (Acute) Edema due to hypoalbuminemia (Acute) History of obstructive sleep apnea (Acute) Hypoalbuminemia (Acute) Microcytic anemia (Acute) Anasarca (Acute) Nonhealing left calf ulcer (Acute) Reason for Visit: anasarca Subjective: upper and lower extremity edema improved. no sob, no CP. estrada in place. urine output is significant. Vitals/I&O's: Vital Signs Temp Pulse Resp BP Pulse Ox 97.8 F 95 18 129/60 H 94 06/02/20 09:30 06/02/20 11:00 06/02/20 09:30 06/02/20 09:30 06/02/20 09:30 Oxygen Flow Rate (L/min) 2 Oxygen Delivery Method Room Air Weight: 316 lb 12.868 oz Body Mass Index (BMI) 54.2 Intake and Output for Last 24 Hours 06/01/20 06/01/20 06/02/20 00:59 23:59 23:59 Intake Total 620 / 620 Output Total 3250 / 3250 Balance -2630 / -2630 General: Alert, Oriented x3, Cooperative HEENT: Atraumatic, PERRLA, EOMI, Normocephalic Neck: Supple, No JVD, Negative Carotid Bruits Lungs: Clear to auscultation, Normal air movement Cardiovascular: Regular rate, No murmurs Abdomen: Bowel Sounds Present, Soft, Non Tender, Obese Extremities: Capillary Refill Less than 3 Seconds, Edema - BL LE edema 2-3+ Skin: No rashes, No breakdown Musculoskeletal: No Tenderness to Palpation of Joints or Extremities Neurological: Cranial nerves II-XII grossly intact Psych/Mental Status: Anxious, Alert and oriented to time, place, person, mood and affect Microbiology Past 72 Hours 05/30/20 17:25 Urine Catheter - Estrada Urine Culture - Final Culture exhibits no growth. 05/30/20 23:05 Wound - Leg, Left Gram Stain - Final 05/30/20 23:05 Wound - Leg, Left Wound Culture - Preliminary Staphylococcus capitis Pseudomonas mendocina 05/31/20 22:05 Stool Stool Occult Blood (SAUL) - Final Laboratory Results 06/01/20 12:55: Blood Type A POSITIVE, Antibody Screen NEGATIVE, Crossmatch See Detail 06/02/20 05:25: WBC 9.8, RBC 2.84 L, Hgb 8.4 L, Hct 27.8 L, MCV 97.9, MCH 29.6, MCHC 30.2 L, RDW Std Deviation 63.7 H, RDW Coeff of Galindo 17.7 H, Plt Count 330, MPV 8.0, Immature Gran % (Auto) 5.000 H, Neut % (Auto) 56.1, Lymph % (Auto) 18.8 L, [place] % (Auto) 13.2 H, Eos % (Auto) 6.1 H, Baso % (Auto) 0.8, Absolute Neuts (auto) 5.5, Absolute Lymphs (auto) 1.83, Nucleated RBC % 0.2 06/02/20 05:25: Sodium 143, Potassium 4.0, Chloride 109 H, Carbon Dioxide 29.0, Anion Gap 5, BUN 20 H, Creatinine 0.55, Estim Creat Clear Calc 48.45, Est GFR (MDRD) Af Amer 141, Est GFR (MDRD) Non-Af 116, BUN/Creatinine Ratio 36.2 H, Glucose 86, Calcium 8.4 L Current Medications Acetaminophen (Acetaminophen 325 Mg Tablet) 650 mg PO Q6H PRN PRN PRN Reason: Pain Score 1-10/Temp > 100.7 F Last Admin: 06/01/20 22:45 Dose: 650 mg Documented by: Albuterol Sulfate (Albuterol 2.5 Mg/3 Ml Vial.Neb.) 2.5 mg INHALATION Q4H PRN PRN PRN Reason: Shortness of breath, wheezing Aspirin (Aspirin 81 Mg Tab.Chew) 81 mg PO DAILY@0800 [facility] Last Admin: 06/02/20 07:51 Dose: 81 mg Documented by: Atorvastatin Calcium (Atorvastatin Calcium 20 Mg Tablet) 20 mg PO QHS [facility] Last Admin: 06/01/20 21:15 Dose: 20 mg Documented by: Ferrous Sulfate (Ferrous Sulfate 325 Mg Tablet) 325 mg PO DAILY@1200 [facility] Last Admin: 06/02/20 13:30 Dose: 325 mg Documented by: Furosemide (Furosemide 100 Mg/10 Ml Vial) 60 mg IV Q8 [facility] Last Admin: 06/02/20 13:27 Dose: 60 mg Documented by: Gabapentin (Gabapentin 100 Mg Capsule) 100 mg PO DAILY [facility] Last Admin: 06/02/20 07:53 Dose: 100 mg Documented by: Lisinopril (Lisinopril 10 Mg Tablet) 10 mg PO DAILY [facility] Last Admin: 06/02/20 07:53 Dose: 10 mg Documented by: Magnesium Chloride (Magnesium Chloride 64 Mg Delay Rel.Tablet) 128 mg PO DAILY [facility] Last Admin: 06/02/20 07:52 Dose: 128 mg Documented by: Montelukast Sodium (Montelukast 10 Mg Tablet) 10 mg PO QHS [facility] Last Admin: 06/01/20 21:15 Dose: 10 mg Documented by: Ondansetron HCl (Ondansetron 4 Mg/2 Ml Vial) 4 mg IV Q8H PRN PRN PRN Reason: NAUSEA/VOMITING Pantoprazole Sodium (Pantoprazole Sodium 40 Mg Tablet) 40 mg PO DAILY [facility] Last Admin: 06/02/20 07:52 Dose: 40 mg Documented by: Potassium Chloride (Potassium Chloride 20 Meq Tablet) [facility] Last Admin: 06/02/20 07:51 Dose: 20 meq Documented by: Quetiapine Fumarate (Quetiapine 25 Mg Tablet) 25 mg PO QHS [facility] Senna/Docusate Sodium (Senna/Docusate Sodium 1 Tablet) 2 tablet PO BID PRN PRN PRN Reason: Constipation Last Admin: 06/01/20 12:05 Dose: 2 tablet Documented by: Sodium Chloride (0.9% Saline Lock 10 Ml Syringe) 10 - 40 ml IV UD PRN PRN Reason: SALINE FLUSH Last Admin: 06/02/20 10:34 Dose: 10 ml Documented by: Sodium Hypochlorite (Dakin's Luana Half Strength (=0.25%)) 1 applic TOPICAL DAILY [facility]; Protocol Tramadol HCl (Tramadol 50 Mg Tablet) 50 mg PO Q6H PRN PRN PRN Reason: Pain 1-10 or Fever Last Admin: 06/02/20 05:49 Dose: 50 mg Documented by: Zolpidem Tartrate (Zolpidem Tartrate 5 Mg Tablet) 5 mg PO QHS PRN PRN PRN Reason: INSOMNIA STROKE Vital Signs/Narrative: Vital Signs Pulse 06/02/20 11:00 95 06/02/20 10:00 95 Medical Necessity - Tobacco Use Smoking Status: Never smoker Assessment/Plan All Active Problems (This Medical Record has been edited. Action required.) Anasarca (Acute) Macrocytic anemia (Acute) Edema due to hypoalbuminemia (Acute) History of obstructive sleep apnea (Acute) Hypoalbuminemia (Acute) Microcytic anemia (Acute) Anasarca (Acute) Nonhealing left calf ulcer (Acute) 1. Anasarca - possibly due to nephrotic syndome - hypoalbuminemia. urine proteins pending. continue lasix 60 mg IV q8. mildly elevated BUN, Cr normal. UA with elevated urine protein. BNP normal. No resp symptoms. 2. 2nd degree AV block, wenkeback - cardiology consulted. resolved. metoprolol and digoxin stopped. echo pending. 3, Macrocytic anemia - b12/folate pending. stool occult neg. tsh elevated but t4/t3 normal. received 1 unit PRBC yesterday. low iron, low TIBC, high ferritin, normal Iron sat. Start Venofer. 4. pAfib - again - off metoprolol and dig as above. recently taken off eliquis due to anemia. 5. Hypotension resolved 6. 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 7. Calf ulcer (L)- completed abx regimen. resume wound vac when appropriate. wound care following. DVT ppx: SCDs DC planning: Return to SN[facility]. This patient was seen by Declan Brush PA-C under the supervision of Doctor Dubon
[2020-06-02] MEDS: 0.9 % NaCl (Sterile) Posiflush 10 mL IV ×2 (14:18→16:49)
[2020-06-02] MEDS: Acetaminophen 325 MG Tablet 650 MG PO (16:47)
[2020-06-02] MEDS: QUEtiapine 25 MG Tablet PO (22:53)
[2020-06-02] MEDS: Atorvastatin Calcium 20 MG Tablet PO (22:53)
[2020-06-03] VITALS (8 sets, daily range): BP systolic 108–119; BP diastolic 49–65; PULSE 68–120; RESP 18; TEMP 36.8; O2SAT 92–99
[2020-06-03] MEDS: traMADol 50 MG Tablet PO ×2 (00:20→07:56)
[2020-06-03] MEDS: Furosemide 100 MG/10 ML Vial 60 MG IV (05:28)
[2020-06-03] MEDS: 0.9% Saline Lock 10 ML Syringe IV ×5 (05:28→09:25)
[2020-06-03 06:34] LABS: Anion Gap 8 (5-15); BUN 17 mg/dL (7-18); BUN/Creat Ratio 32.5 RATIO (10-20); Calcium,Total 8.4 mg/dL (8.5-10.1); Chloride 106 mmol/L (98-107); Creatinine, Serum 0.52 mg/dL (0.55-1.02); EST Glomerular Filtration Rate 124 mL/min (>60); Est Glom Filt Rate - Afr Amer 150 mL/min (>60); Estimated Creatinine Clearance 48.45 ml/min; Glucose 82 mg/dL (74-106); Potassium 3.9 mmol/L (3.5-5.1); Sodium Level 141 mmol/L (136-145)
[2020-06-03] MEDS: Aspirin 81 MG TAB.CHEW PO (07:51)
[2020-06-03] MEDS: Ondansetron 4 MG/2 ML Vial IV (09:16)
[2020-06-03] MEDS: Magnesium Chloride 64 MG Delay Rel.Tablet 128 MG PO (09:21)
[2020-06-03] MEDS: Lisinopril 10 MG Tablet PO (09:21)
[2020-06-03] MEDS: Metoprolol Tartrate 25 MG Tablet PO (09:21)
[2020-06-03] MEDS: Pantoprazole Sodium 40 MG Tablet PO (09:21)
[2020-06-03] MEDS: DAKIN'S SOL HALF STRENGTH (=0.25%) 1 APPLIC TOPICAL (10:20)
--- NOTE | 2020-06-03 10:59 | PCM.EXTCARCO ---
- Diet 05/30/20 16:44 Diet: Cardiac - Heart Healthy Food consistency:: Regular Liquid Consistency:: Regular/Thin Dietary Modifications:: Sodium Restricted Fluid restriction:: 1500 mL - Routine Orders/Code Status Suppository Type: Dulcolax 10mg Suppository Frequency: Daily PRN Routine Lab Work: CBC - 5 days, BMP - 5 days, UA - 5 days Code Status: Full Code - Wound(s) left calf Wound Type: Open Surgical Wound Dressing Change: Dakins moistened gauze right calf outer aspect Wound Type: Abrasion Dressing Change: Adaptic L lateral knee Wound Type: Abrasion Dressing Change: Adaptic buttocks Wound Type: multiple open areas/skin tears left buttock Wound Type: Pressure Injury Dressing Change: new Mepilex to be applied right buttock Wound Type: Pressure Injury Dressing Change: Mepilex to be applied boogie cleft Wound Type: moisture relaed open area Dressing Change: new Mepilex to be applied left anterolateral lower leg Wound Type: Abrasion Dressing Change: Adaptic - Therapies Physical Therapy: Eval and Treat Occupational Therapy: Eval and Treat - Problem/Diagnosis (1) Anasarca Status: Acute (2) Wenckebach second degree AV block Status: Acute (3) Edema due to hypoalbuminemia Status: Acute (4) Macrocytic anemia Status: Chronic (5) History of obstructive sleep apnea Status: Acute (6) Paroxysmal atrial fibrillation Status: Chronic (7) Nonhealing left calf ulcer Status: Acute (8) Hypoalbuminemia Status: Acute (9) Cognitive impairment Status: Chronic (10) Depression Status: Chronic (11) COPD (chronic obstructive pulmonary disease) Status: Chronic (12) Hyperlipidemia Status: Chronic (13) Paroxysmal atrial fibrillation Status: Chronic (14) Chronic acquired lymphedema Status: Chronic (15) Morbid obesity Status: Chronic (16) Hypertension Status: Chronic (17) GERD (gastroesophageal reflux disease) Status: Chronic - Allergies/Procedures Done in Hospital Allergies/Adverse Reactions: Allergies hydromorphone Allergy (Verified 05/30/20 13:21) PT UNSURE OF REACTION piperacillin Allergy (Verified 05/30/20 13:21) PT UNSURE OF REACTION Procedures: 2-D Echocardiogram - Type of Care/Length of Stay Estimated LOS: Convalescent Care Less Than 30 days Type of Care Needed: Skilled Rehab Potential: Fair Prognosis: Fair - Additional Orders/Day of Discharge Day of Discharge: 06/03/20 - Dietary and Speech Recommendations Dietitian Recommendations/Changes: Will change diet to Cardiac / low sodium w/ 1500 cc fluid restriction / day. Will provide ensure pudding w/ lunch and dinner for increased pro if consumed. Will order Campos bid to help w/ healing. - Follow Up Care Primary Care Physician: Kenzie Aceves MD [STAFF PHYSICIAN] - Please follow up with your Primary Care Physician in: 2 weeks Please Follow Up With: Wound care center When: 1 week Please Follow Up With: Oj Clemens MD - afib, 2nd degree av block When: 4 weeks
[2020-06-03] MEDS: Ferrous Sulfate 325 MG Tablet PO (11:13)
--- NOTE | 2020-06-03 12:00 | CASEMGMT ---
Social Work Note Pt is medically cleared for discharge today. JOE placed a call to Matilde at [facility] and updated her on discharge today. JOE updated pt on discharge back to [facility] today, pt agreeable to returning to [facility]. SW updated pt that this worker will call her daughter Lynn and give her an update. Pt agreeable to this worker calling her daughter Lynn. Pt then asked this worker about her being able to vote. JOE updated pt that this worker is not sure, will speak with Charge Nurse. JOE placed a call to pt's daughter Lynn and updated her on discharge back to [facility] today and transportation. Lynn also asked about pt being able to vote. SW explained that this worker didn't know about voting, would speak with staff. Lynn states understanding. JOE spoke with Charge Nurse, Nurse Telephone Lineworker Jensen, voting personal regarding voting for pt. JOE updated that in order for pt to use [facility] voting, pt would've had to admit to [facility] Tuesday afternoon. Pt admitted Tuesday to [facility] so pt doesn't qualify for voting at [facility]. Board of Elections state that pt's family could've got absentee voting ballot prior for pt. This is Board of Elections Rules and Guidelines. JOE placed a call to Matilde at [facility] and updated her that pt was asking about voting and that pt didn't qualify for [facility] Voting. Matilde states ballots had already been collected at [facility] today so she is not sure if they would return to picker tender helper pt's ballot. Matilde states pt initially got ballots last Tuesday/ when pt was getting admitted to [facility]. Matilde is not sure if pt was updated on that or not. Matilde states she will speak with staff and activities to determine if pt is able to vote once pt returns to [facility]. JOE updated pt that she doesn't qualify for [facility] voting but Matilde at [facility] was checking on voting there. Pt states understanding. SW to fax discharge paperwork once completed. JOE spoke with RN, pt can transport via cot, requests transportation be arranged for 2:00pm as pt has iron running. JOE placed a call to [facility] and arranged transportation via cot for 2:00pm. Transportation form on SNF folder and copy on pt's chart. SW updated RN and pt on transportation time. Plan: Return to [facility] with [facility] transporting via cot at 2:00pm Mickie FAN, SPACE OPERATIONS OFFICER
--- NOTE | 2020-06-03 13:45 | CASEMGMT ---
Social Work Note SW faxed completed discharge paperwork to [facility] including transfer to extended care facility, signed medication list, any scripts, negative COVID test, and COVID screening tool. Original in SNF folder and copy on pt's chart. Transportation form completed and placed on SNF folder and copy on pt's chart. Plan: Return to [facility] skilled [facility] pt at 2:00pm Mickie FAN, OBSERVER GRAVITY PROSPECTING
--- NOTE | 2020-06-03 14:02 | NURSING ---
REPORT CALLED TO [facility]- TALKED WITH KEYANNA COE
--- NOTE | 2020-06-03 15:42 | PCM.DC.SUM ---
Discharge Date and Diagnosis - Problem List Patient Problems: Active and Suspected Problems (This Medical Record has been edited. Action required.) Anasarca (Acute) Edema due to hypoalbuminemia (Acute) History of obstructive sleep apnea (Acute) Wenckebach second degree AV block (Acute) Hypoalbuminemia (Acute) Microcytic anemia (Acute) Anasarca (Acute) Nonhealing left calf ulcer (Acute) Date of Admission: 05/30/20 Date of Discharge: 06/03/20 - Primary Discharge Diagnosis Acute Problems: Active Problems (This Medical Record has been edited. Action required.) Anasarca due to hypoalbuminemia Second-degree AV block, Wenckebach Paroxysmal atrial fibrillation Iron deficiency anemia Left lower extremity nonhealing wound - Secondary Discharge Diagnosis Chronic Problems: Chronic Problems (This Medical Record has been edited. Action required.) Macrocytic anemia (Chronic) Paroxysmal atrial fibrillation (Chronic) Cognitive impairment (Chronic) Depression (Chronic) COPD (chronic obstructive pulmonary disease) (Chronic) Hyperlipidemia (Chronic) Paroxysmal atrial fibrillation (Chronic) Chronic acquired lymphedema (Chronic) History of kidney stones (Chronic) Morbid obesity (Chronic) Hypertension (Chronic) GERD (gastroesophageal reflux disease) (Chronic) Hospital Course and Treatment Imaging Results: RAD/Chest 1 View (Portable) IMPRESSION: Borderline cardiomegaly. Mild degree of increased linear markings at the lung bases suggests subsegmental atelectasis. 2D TTE: Interpretation Summary Normal LV size. Left ventricular systolic function is normal. The estimated ejection fraction is 60 %. Mild (1+) tricuspid valve insufficiency. Normal left atrium. Contrast injection was performed. Consultations 05/30/20 16:42 Consult: Onc/Wound/industrial truck mechanic Routine Comment: Consults: Cardiology - Lo Operations: None Procedures: 2-D Echocardiogram Summary of Care Provided: Hospital Course: The patient is a 70 year old F past medical history as above notably for recent admission [facility] for left lower extremity wound with subsequent wound VAC placement discharge [facility] jail, who presented 1 day after being in jail for increased lower and upper extremity edema. Patient was found to have generalized anasarca with hypoalbuminemia. She had been recently taken off of Lasix due to worsening of her kidney function. She was admitted to the medical surgical floor. She was placed on IV Lasix for anasarca. She had significant improvement with IV lasix. Her home bumex dose was increased at discharge. While here she continued and completed her prior course of IV Cipro and clindamycin for her left lower extremity wound wound. TSH was elevated but t4 and t3 were normal. UA showed 30 protein. Urine protein electrophoresis is pending. She will need a repeat UA in 1 week. Also while here she had worsening of chronic macrocytic anemia. She was transfused with 1 unit PRBC. She was deficient in iron and iron was supplementation was provided. Also while here she had an episode of bradycardia with 2nd degree AV block wenkebach. Cardiology was consulted. Digoxin and metoprolol were stopped with resolution of her bradycardia. She later developed tachycardia and metoprolol was resumed. Echo was obtained with no acute findings. She was discharged back to SNF in stable condition. She will need follow up with cardiology in 3-4 weeks, PCP in 1-2 weeks, the wound care center in 1 week, and will need to continue daily dressing changes. Wound culture here showed Staph capitis and Pseudomonas mendocina. She will need to continue to utilize dakins solution daily. This patient was seen by Declan Brush PA-C under the supervision of Dr. Dubon [] Patient Problems: Active and Suspected Problems (This Medical Record has been edited. Action required.) Anasarca (Acute) Edema due to hypoalbuminemia (Acute) History of obstructive sleep apnea (Acute) Wenckebach second degree AV block (Acute) Hypoalbuminemia (Acute) Microcytic anemia (Acute) Anasarca (Acute) Nonhealing left calf ulcer (Acute) - Physical Exam Vitals/I&O's: Vital Signs Temp Pulse Resp BP Pulse Ox 98.2 F 80 18 108/65 93 06/03/20 12:42 06/03/20 12:42 06/03/20 12:42 06/03/20 12:42 06/03/20 12:42 Oxygen Flow Rate (L/min) 2 Oxygen Delivery Method Room Air Weight: 316 lb 12.868 oz Body Mass Index (BMI) 54.2 Intake and Output for Last 24 Hours 06/01/20 06/02/20 06/03/20 23:59 23:59 23:59 Intake Total 1740 / 1740 760 / 760 Output Total 4850 / 4850 750 / 750 Balance -3110 / -3110 General: Alert, Oriented x3, Cooperative HEENT: Atraumatic, PERRLA, EOMI, Normocephalic Neck: Supple, No JVD, Negative Carotid Bruits Lungs: Clear to auscultation, Normal air movement Cardiovascular: Regular rate, No murmurs Abdomen: Bowel Sounds Present, Soft, Non Tender, Obese Extremities: Capillary Refill Less than 3 Seconds, Edema - 2+ pitting edema BLE Skin: No rashes, No breakdown Musculoskeletal: No Tenderness to Palpation of Joints or Extremities Neurological: Cranial nerves II-XII grossly intact Psych/Mental Status: Normal Affect, Appropriate Microbiology Past 72 Hours 05/30/20 17:25 Urine Catheter - Perez Urine Culture - Final Culture exhibits no growth. 05/30/20 23:05 Wound - Leg, Left Gram Stain - Final 05/30/20 23:05 Wound - Leg, Left Wound Culture - Preliminary Staphylococcus capitis Pseudomonas mendocina 05/31/20 22:05 Stool Stool Occult Blood (SAUL) - Final Laboratory Results 06/03/20 05:10: Sodium 141, Potassium 3.9, Chloride 106, Carbon Dioxide 27.0, Anion Gap 8, BUN 17, Creatinine 0.52 L, Estim Creat Clear Calc 48.45, Est GFR (MDRD) Af Amer 150, Est GFR (MDRD) Non-Af 124, BUN/Creatinine Ratio 32.5 H, Glucose 82, Calcium 8.4 L Home Medications: Medications to take at Discharge Lisinopril [Prinivil] 10 mg PO DAILY 03/19/20 Albuterol IH (ProAir) [Proair Hfa] 2 puff INHALATION Q6H PRN PRN 05/30/20 Apixaban [Eliquis] 5 mg PO BID 05/30/20 Atorvastatin Calcium [Lipitor] 20 mg PO QHS 05/30/20 Magnesium Oxide [Magox 400] 400 mg PO DAILY 05/30/20 Metoprolol Tartrate [Lopressor (beta robert)] 25 mg PO BID 05/30/20 Pantoprazole Sodium [Protonix] 40 mg PO DAILY 05/30/20 Potassium Chloride 20 meq PO DAILY 05/30/20 traMADol [Ultram] 50 mg PO Q6H PRN PRN 05/30/20 Acetaminophen [Tylenol Tablet] 650 mg PO Q6H PRN PRN tab 06/03/20 Bumetanide [Bumex] 1 mg PO BID #60 tab 06/03/20 Ferrous Sulfate 325 mg PO DAILY@1200 #30 tab 06/03/20 Potassium Chloride [K-Dur] 20 meq PO DAILYCM tab 06/03/20 Quetiapine Fumarate [Seroquel] 25 mg PO QHS tab 06/03/20 Sodium Hypochlorite [Dakins Solution 0.25% (1/2 Strength)] 1 applic TOPICAL DAILY bottle 06/03/20 Following Prescriptions Were Given to Patient: Bumetanide [Bumex] 1 mg PO BID #60 tab Ferrous Sulfate 325 mg PO DAILY@1200 #30 tab Primary Care Physician: Kenzie Aceves MD [STAFF PHYSICIAN] - Please follow up with your Primary Care Physician in: 2 weeks Please Follow Up With: Wound care center When: 1 week Please Follow Up With: Oj Clemens MD - afib, 2nd degree av block When: 4 weeks Medical Necessity - Tobacco Use Smoking Status: Never smoker Meaningful Use Info Meaningful Use Diagnoses (Choose all that apply): None applicable
[2020-06-03 16:08] LABS: Folate, RBC (Hct) Test 27.6 % (34.0-46.6)
[2020-06-04 09:14] LABS: Folates, RBC Test 848 ng/mL (>498)
== END 2020-06-03 14:15 | DRG 844 ==
LOC: ED 15:16 → MS3 15:40
PROVIDERS: Physician Assistant; Admitting Provider Hospitalist; Emergency Provider Emergency Medicine; PCP Family Medicine; Visit Provider Internal Medicine
DX: E88.09 Other disorders of plasma-protein metabolism, not elsewhere classified (principal); L97.229 Non-pressure chronic ulcer of left calf with unspecified severity; Z68.43 Body mass index [BMI] 50.0-59.9, adult; E11.622 Type 2 diabetes mellitus with other skin ulcer; I44.1 Atrioventricular block, second degree; G47.33 Obstructive sleep apnea (adult) (pediatric); D50.9 Iron deficiency anemia, unspecified; I48.0 Paroxysmal atrial fibrillation; K21.9 Gastro-esophageal reflux disease without esophagitis; E66.01 Morbid (severe) obesity due to excess calories; I10 Essential (primary) hypertension; J44.9 Chronic obstructive pulmonary disease, unspecified; E78.5 Hyperlipidemia, unspecified; F32.9 Major depressive disorder, single episode, unspecified; I27.20 Pulmonary hypertension, unspecified; M19.90 Unspecified osteoarthritis, unspecified site; R41.89 Other symptoms and signs involving cognitive functions and awareness; E03.9 Hypothyroidism, unspecified; D63.8 Anemia in other chronic diseases classified elsewhere; R80.9 Proteinuria, unspecified; D53.9 Nutritional anemia, unspecified; I95.9 Hypotension, unspecified; R00.0 Tachycardia, unspecified; R00.1 Bradycardia, unspecified
CPT/HCPCS: 36415; 71045; 80048; 80053; 81001; 82274; 82607; 82728; 82747; 83540; 83550; 83880; 84134; 84165; 84166; 84439; 84443; 84481; 84484; 85014; 85025; 85610; 86850; 86900; 86901; 86920; 86922; 87070; 87077; 87086; 87184; 87186; 87205; 87635; 87640; 93005; 93306; 97110; 97162; 97166; 97535; 97802; 99285; J7040; J7050; P9016; P9047; Q9957; A4216; C8929; J1940; J2405; J2916; U0002

== ENCOUNTER 2020-06-06 18:10 | Emergency (ER) | payer MEDICARE, BC, SELFPAY ==
[2020-05-30 17:30] VITALS: BMI 54.2
[2020-06-06 18:11] VITALS: BP 105/41; PULSE 102; RESP 16; TEMP 36.8; O2SAT 94; BMI 52.8
[2020-06-06 18:18] VITALS: BP 105/41; PULSE 101; RESP 16; O2SAT 93
--- NOTE | 2020-06-06 18:27 | EKG12_ITS ---
Test Reason : EDEMA Blood Pressure : / mmHG Vent. Rate : 093 BPM Atrial Rate : 093 BPM P-R Int : 168 ms QRS Dur : 088 ms QT Int : 354 ms P-R-T Axes : 021 -25 018 degrees QTc Int : 440 ms Normal sinus rhythm Low voltage QRS Inferior infarct , age undetermined Possible Anterolateral infarct , age undetermined Abnormal ECG Confirmed by PAUL NEUMANN, KAREN ([id number]), health editor KEVIN SANDOVAL ([id number]) on 06/09/2020 2:13:49 PM Referred By: MARIE Confirmed By:KAREN MILLER MD
--- NOTE | 2020-06-06 18:35 | ED.DCSUM_ITS ---
History of Present Illness Chief Complaint: Edema Informant: Patient Narrative: 70-year-old female with extensive past medical history occluding COPD, CHF, neuropathy, depression, GERD, hypertension presents with concern for edema. Patient is currently in a nursing facility recovering from cellulitis as well as multiple open wounds. Patient states that she has had increased swelling over the past 2 days. They were concerned so sent her to the emergency department. No other symptoms including no chest pain, shortness of breath, nausea, vomiting, diaphoresis, urinary symptoms. Past Medical History - Allergies and Home Meds Allergies/Adverse Reactions: Allergies hydromorphone Allergy (Verified 06/06/20 18:11) PT UNSURE OF REACTION piperacillin Allergy (Verified 06/06/20 18:11) PT UNSURE OF REACTION Primary Care Physician: Owen Snyder MD [Primary Care Provider] - Prior records reviewed: Yes Past Medical History: - - HTN, COPD, CHF, wounds Surgical History: appendectomy, - - Tubal ligation. Lives: Correction Smoking Status: Never smoker Alcohol: None Drugs: None Review of Systems General: Denies: Chills, Fever, Sweats Eyes: Denies: Visual changes - bilaterally, Diplopia ENT: Denies: Rhinorrhea, Sore throat Cardiovascular: Denies: Chest pain, Palpitations Respiratory: Denies: Dyspnea, Cough, Dyspnea on exertion Gastrointestinal: Denies: Abdominal pain, Nausea, Vomiting, Diarrhea, Melena, Hematochezia Genitourinary: Denies: Dysuria, Hematuria, Frequency Musculoskeletal: Reports: Swelling. Denies: Back pain, Extremity Pain Skin: Denies: Rash, Wounds Neurological: Denies: Headache, Weakness, Numbness Physical Exam Vital Signs/Narrative: Vital Signs Temp Pulse Resp BP Pulse Ox 06/06/20 18:18 101 H 16 105/41 L 93 06/06/20 18:11 98.2 F 102 H 16 105/41 L 94 Inital Vital Signs reviewed: Yes General: Well nourished, Well developed, No Acute Distress Head: Normocephalic, Atraumatic Eyes: Perrl, EOMI ENT: Moist mucous membranes, No rhinorrhea Neck: Supple, Nontender Cardiovascular: Regular rate, Regular rhythm, No murmurs Respiratory: No distress, CTA bilaterally, Chest nontender Abdomen: Soft, Nontender, Nondistended, Normal bowel sounds Back: Nontender, Normal Inspection Extremities: Nontender, Edema Skin: Normal color, No rash Neurological: Alert, Oriented x3, Cranial nerves II-XII grossly intact, Normal Strength, Normal Sensation Psychological: Normal affect, Normal Mood Diagnostic/Tx/Re-eval Chest X-Ray - ED: 1 View, Read by ED Physician, Normal Clinical Impression(s) from Imaging Studies Chest X-Ray 06/06/20 19:32 IMPRESSION: No acute cardiopulmonary disease or nature interval change. Electronically Signed: Aknit Herrera DO at 19:58 EST Tel [phone], Service support , Laboratory Data 06/06/20 06/06/20 06/06/20 19:07 19:07 19:07 WBC 10.6 RBC 3.38 L Hgb 10.2 L Hct 34.0 L MCV 100.6 H MCH 30.2 MCHC 30.0 L RDW Std Deviation 63.4 H RDW Coeff of Galindo 17.8 H Plt Count 505 H MPV 8.7 Immature Gran % (Auto) 5.000 H Neut % (Auto) 58.2 Lymph % (Auto) 16.3 L [place] % (Auto) 13.5 H Eos % (Auto) 6.0 H Baso % (Auto) 1.0 Absolute Neuts (auto) 6.2 Absolute Lymphs (auto) 1.72 Nucleated RBC % 0.2 Sodium Cancelled Potassium Cancelled Chloride Cancelled Carbon Dioxide Cancelled Anion Gap Cancelled BUN Cancelled Creatinine Cancelled Estim Creat Clear Calc Cancelled Est GFR (MDRD) Af Amer Cancelled Est GFR (MDRD) Non-Af Cancelled BUN/Creatinine Ratio Cancelled Glucose Cancelled Calcium Cancelled Troponin I Cancelled B-Natriuretic Peptide 24.4 06/06/20 20:50 WBC RBC Hgb Hct MCV MCH MCHC RDW Std Deviation RDW Coeff of Galindo Plt Count MPV Immature Gran % (Auto) Neut % (Auto) Lymph % (Auto) [place] % (Auto) Eos % (Auto) Baso % (Auto) Absolute Neuts (auto) Absolute Lymphs (auto) Nucleated RBC % Sodium 142 Potassium 4.3 Chloride 103 Carbon Dioxide 31.0 Anion Gap 8 BUN 28 H Creatinine 0.68 Estim Creat Clear Calc 48.45 Est GFR (MDRD) Af Amer 110 Est GFR (MDRD) Non-Af 91 BUN/Creatinine Ratio 40.9 H Glucose 121 H Calcium 9.1 Troponin I < 0.015 B-Natriuretic Peptide - Rhythm Strip Rhythm Strip: Sinus Rhythm Rate: 93 Ectopy: None - EKG Initial EKG Interpretation: Sinus Rhythm - Sinus rhythm at 93 bpm. W[place] interval 168 ms. QTC of [address] ms. No evidence of ST elevation or depression at this time. - Medical Decision Making Appears well nontoxic. Vital signs within normal limits. Patient's wounds are in a state of healing. He has wound care at the nursing facility. BNP not significantly elevated. Chest x-ray negative. Troponin negative. EKG nonischemic. Patient will be discharged back to the nursing facility. Impression: 1. Edema 2. Chronic wounds ED Disposition - Plan for ED Patient: Disposition: Home or Assisted Living Instructions: ED Peripheral Edema, Bilateral Referrals: Owen Snyder MD [Primary Care Provider] - 2 Days
[2020-06-06 19:12] LABS: Absolute Lymphocyte Count 1.72 X10^3/uL (0.83-4.51); Absolute Neutrophil Count 6.2 X10^3/uL (2.0-7.7); Basophil# 0.11 X10^3/uL; Eosinophil# 0.63 X10^3/uL; Hemoglobin 10.2 g/dL (12.0-15.0); Lymphocyte # 1.72 X10^3/ul (4.0); Lymphocyte % 16.3 % (19-41); Mean Corpuscular Hgb 30.2 pg (27.0-32.0); Mean Corpuscular Volume 100.6 fL (81-99); Mean Platelet Vol. 8.7 fl (6.2-12.0); Monocyte# 1.43 X10^3/uL; Monocyte% 13.5 % (0-10); NRBC Flagged by Analyzer 0.2 % (0-5); Neutrophil # 6.15 X10^3/uL (2.7-7.7); Neutrophil % 58.2 % (47-70); Platelet Count 505 K/mm3 (150-450); RBC Distribution Width CV 17.8 % (11.6-14.6); RBC Distribution Width SD 63.4 fl (35.1-43.9); Red Blood Count 3.38 M/mm3 (4.2-5.4); White Blood Count 10.6 K/mm3 (4.4-11.0)
--- NOTE | 2020-06-06 19:32 | RAD_ITS ---
STUDY: X-RAY CHEST REASON FOR EXAM: Female, 70 years old. Increasing edema of all 4 extremities. TECHNIQUE: Single AP portable view of the chest. COMPARISON: 05/30/2020. FINDINGS: Telemetry wires overlie the chest. The lungs are clear and expanded. Is improved aeration at the right lung base. There is no demonstrated pleural abnormality. Normal size heart. Normal mediastinum and dimitrios. Normal visualized pulmonary arteries. Normal visualized aortic arch and descending thoracic aorta. There are diffuse degenerative changes of the visualized thoracic spine. There is degenerative osteoarthritis of the bilateral shoulders. There is no demonstrated abnormality of the visualized soft tissue structures of the upper abdomen. RAD/Chest 1 View (Portable) IMPRESSION: No acute cardiopulmonary disease or nature interval change. Electronically Signed: Ankit Herrera DO at 19:58 EST Tel [phone], Service support ,
[2020-06-06 19:37] LABS: BNP,B-Type NATRIURETIC PEPTIDE 24.4 pg/mL (0-100)
[2020-06-06 20:02] VITALS: O2SAT 96
[2020-06-06 20:41] VITALS: BP 119/58; PULSE 102; RESP 20; O2SAT 93
[2020-06-06 21:24] LABS: Anion Gap 8 (5-15); BUN 28 mg/dL (7-18); BUN/Creat Ratio 40.9 RATIO (10-20); Calcium,Total 9.1 mg/dL (8.5-10.1); Chloride 103 mmol/L (98-107); Creatinine, Serum 0.68 mg/dL (0.55-1.02); EST Glomerular Filtration Rate 91 mL/min (>60); Est Glom Filt Rate - Afr Amer 110 mL/min (>60); Estimated Creatinine Clearance 48.45 ml/min; Glucose 121 mg/dL (74-106); Potassium 4.3 mmol/L (3.5-5.1); Sodium Level 142 mmol/L (136-145)
[2020-06-06 23:13] VITALS: BP 109/58; PULSE 107; RESP 20; O2SAT 95
--- NOTE | 2020-06-06 23:14 | ED.RN ---
PT GIVEN WRITTEN AND VERBAL DISCHARGE INSTRUCTIONS AND HOME GOING PAPERWORK. PT IV D/C AND COVERED WITH 2X2 GAUZE. PT AND DAUGHTER INFORMED OF D/C INSTRUCTIONS. THIS RN CALLED REPORT BACK TO THE AVEN[facility] AND GAVE REPORT TO NURSE FONTANA. PT TO FOLLOW UP WITH PCP IN 2 DAYS. PT AWAITING TRANSPORT BACK TO [facility].
== END 2020-06-07 | disposition skilled nursing facility (03) ==
PROVIDERS: Emergency Provider Emergency Medicine; PCP Family Medicine
DX: R60.9 Edema, unspecified (principal); I11.0 Hypertensive heart disease with heart failure; I50.9 Heart failure, unspecified; K21.9 Gastro-esophageal reflux disease without esophagitis
CPT/HCPCS: 71045; 80048; 83880; 84484; 85025; 93005; 99285; A4216

== ENCOUNTER 2020-06-30 10:55 | Inpatient (IN) | payer MEDICARE, BC, SELFPAY ==
[2020-06-30] VITALS (7 sets, daily range): BP systolic 93–133; BP diastolic 50–111; PULSE 74–108; RESP 18–29; TEMP 36.4–37.2; O2SAT 93–99; BMI 49.1; BMI 49.2; BMI 47.2
--- NOTE | 2020-06-30 11:27 | ED.VIS.GEN ---
History of Present Illness Chief Complaint: Cellulitis Informant: Patient Narrative: 70-year-old female presenting with diffuse bilateral leg pain as well as wounds on her right posterior calf and left foot. She states that the pain does go all the way up her legs. She states she was recently inpatient and went to rehab but upon getting back home she is not doing as well. She feels like she is ill. She complains of nausea. She is not having chest pain, palpitations, shortness of breath. She was recently tested for Covid?19 and was negative. Her family brought her to the emergency room today in the back of a box truck to drop her off. 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 Lives: With Family Smoking Status: Never smoker Alcohol: None Drugs: None Review of Systems General: Reports: Malaise. Denies: Chills, Fever Eyes: Denies: Visual changes - bilaterally, Diplopia ENT: Denies: Rhinorrhea, Sore throat Cardiovascular: Denies: Chest pain, Palpitations Respiratory: Denies: Dyspnea, Cough, Dyspnea on exertion Gastrointestinal: Reports: Nausea, Vomiting. Denies: Abdominal pain Genitourinary: Denies: Dysuria, Hematuria Musculoskeletal: Denies: Myalgias, Arthralgias Skin: Reports: Rash, Wounds, - - Open wounds to bilateral legs. Neurological: Denies: Headache, Numbness Psych: Denies: Depression, Anxiety, Suicidal thoughts, Suicidal ideations Physical Exam Vital Signs/Narrative: Vital Signs Temp Pulse Resp BP Pulse Ox 06/30/20 10:58 97.5 F L 108 H 19 H 101/74 97 General: Unkempt, No Acute Distress Head: Normocephalic, Atraumatic Eyes: Perrl, EOMI ENT: Moist mucous membranes, No rhinorrhea Cardiovascular: Regular rate, Regular rhythm Respiratory: No distress, CTA bilaterally Abdomen: Soft, Nontender, Nondistended Extremities: - - Diffuse tenderness to palpation to the bilateral legs. This spans from the thighs all the way down to the calves. Skin: - - Patient has open wound on the right posterior calf with some cellulitic change surrounding this. She also has a wound on the left distal calf which is draining. There is no cellulitic change surrounding this wound. Neurological: Alert, Oriented x3 Psychological: Normal affect, Normal Mood Diagnostic/Tx/Re-eval Clinical Impression(s) from Imaging Studies Chest X-Ray 06/30/20 12:22 IMPRESSION: Cardiomegaly. Electronically Signed: Venkat Swan, at 14:07 EST , Service support , Laboratory Data 06/30/20 06/30/20 12:15 12:15 Urine Color Yellow Urine Clarity Clear Urine pH 5.0 Ur Specific [place] 1.015 Urine Protein 15 H Urine Glucose (UA) Normal Urine Ketones Negative Urine Occult Blood Negative Urine Nitrite Positive H Urine Bilirubin Negative Urine Urobilinogen Normal Ur Leukocyte Esterase 500 H Urine RBC 0 SEEN Urine WBC 25-50 SEEN Ur Squamous Epith Cells 0-5 SEEN Urine Bacteria 2+ Urine Mucus 0 SEEN Urine Opiates Screen NEGATIVE Urine Methadone Screen NEGATIVE Ur Barbiturates Screen NEGATIVE Ur Phencyclidine Scrn NEGATIVE Ur Amphetamines Screen NEGATIVE U Methamphetamin-MDMA NEGATIVE U Benzodiazepines Scrn NEGATIVE Urine Cocaine Screen NEGATIVE U Cannabinoids Screen NEGATIVE Ur Drug Screen Comment - Rhythm Strip Rhythm Strip: Sinus Rhythm Rate: 93 - Medical Decision Making Patient presents with draining wounds as well as cellulitic change on her right ulcer. She has diffuse pain in her legs bilaterally. She has negative DVT studies of the bilateral legs. Wounds were cleaned and redressed. Patient was found to have a urinary tract infection and Rocephin was started. After multiple attempts to obtain IV access to draw blood eventually had to call in the PICC line team. She has so much pain in her legs I can barely touch them and I felt uncomfortable trying to do a femoral stick. For this reason her care was delayed. Blood work is still pending. It was noted that she dropped her blood pressure into the 90s so fluids were ordered and lactic acid, procalcitonin, blood cultures were ordered i initial work-up. She also had a urine culture. She did have an EKG which is sinus rhythm at 93 bpm. There is no sign of ischemic change. Patient has a slight leukocytosis as well as a UTI and likely cellulitis on her right wound. She was given meropenem given her Zosyn allergy. She will be admitted to the hospital for further treatment. Impression: 1. UTI 2. Cellulitis 3. Hypotension ED Disposition - Plan for ED Patient: Referrals: Care Physician,No Primary [Primary Care Provider] -
--- NOTE | 2020-06-30 11:33 | VDLE_ITS ---
Reason For Study: Pain RIGHT LEFT GSV is normal. GSV is normal. CFV is compressible, spontaneous, phasic, CFV is compressible, spontaneous, phasic, competent and demonstrates normal competent, and demonstrates normal augmentation. augmentation. FV prox is compessible. Normal venous FV prox is comrpessible. Normal venous dopplers noted. FV mid-distal is visualized dopplers noted. FV mid-distal is visualized with color only and appears patent. with color only and appears patent. PopV and T/P Trunk are visualized with color POP V is compressible, spontaneous, phasic, only and appears patent. Normal venous competent and demonstrates normal doppler noted. augmentation. PTV is compressible. T/P Trunk is compressible. RT PerV is compressible. PTV is compressible. Procedure LT PerV is compressible. This is a venous duplex using B-mode, color flow and spectral Doppler. Exam performed portable in ED. Technically difficult study due to pt body habitus and unable to tolerate compressions. A preliminary report was called and/or faxed to [facility]. Interpretation Summary No evidence for acute deep venous thrombosis bilateral lower extremities with patent and compressible bilateral great saphenous veins. Technical limitations as noted. Body habitus and pain making visualization and compression of listed veins not possible Ordering Physician: Charly Kitchen Performed By: Mickie Riddle RVT
--- NOTE | 2020-06-30 12:22 | RAD_ITS ---
STUDY: X-RAY CHEST REASON FOR EXAM: Female, 70 years old. PAIN AND CELLULITIS BILAT LEGS, N/V THIS AM TECHNIQUE: Single AP portable view of the chest. COMPARISON: Comparison is made with prior study done 06/06/2020. FINDINGS: EKG electrodes are seen. The lungs are clear and expanded. There is no demonstrated pleural abnormality. There is moderate cardiac enlargement. Normal mediastinum and dimitrios. Normal visualized pulmonary arteries. There is atherosclerotic calcification of the aortic arch with tortuosity. There are diffuse degenerative changes of the visualized thoracic spine. 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 There is no demonstrated abnormality of the visualized soft tissue structures of the upper abdomen. RAD/Chest 1 View (Portable) IMPRESSION: Cardiomegaly. Electronically Signed: Venkat Swan, at 14:07 EST , Service support ,
[2020-06-30 12:47] LABS: Amphetamine Urine VISTA NEGATIVE (<1000 ng/mL); Barbiturate Urine VISTA NEGATIVE (< 200 ng/mL); Benzodiazepine Urine VISTA NEGATIVE (< 200 ng/mL); Cocaine Urine VISTA NEGATIVE (< 300 ng/mL); Ecstacy Urine VISTA NEGATIVE (< 500 ng/mL); Methadone Urine VISTA NEGATIVE (< 300 ng/mL); PCP Urine VISTA NEGATIVE (< 25 ng/mL); THC Urine VISTA NEGATIVE (< 50 ng/mL); Vista UDS pH Range 5
[2020-06-30 12:53] LABS: Mucous, Urine 0 SEEN /hpf (<or=2+); Red Blood Cells-Urine 0 SEEN /hpf (0-5)
[2020-06-30 13:00] LABS: Color, Urine Yellow (Yellow); Glucose, Dipstick Normal (Normal); Ketone-Dipstick Negative (Negative); Leukocyte Esterase-Dipstick 500 /ul (Negative); Nitrite-Dipstick Positive (Negative); Occult Blood-Urine Negative /ul (Negative); Protein-Dipstick 15 mg/dl (Negative); Specific Gravity, Urine 1.015 (1.002-1.030); Urine Bilirubin Dipstick Negative (Negative); Urine Clarity Clear (Clear); Urine Urobilinogen Normal (Normal)
[2020-06-30 13:15] LABS: Bacteria 2+ /hpf (None Seen); Squamous Epithelial Cells - UA 0-5 SEEN /hpf (5-10); White Blood Cells 25-50 SEEN /hpf (0-5)
--- NOTE | 2020-06-30 13:34 | ED.RN ---
Multiple attempts to get blood work from pt. Lab and three nurses have tried. Dr. Kitchen made aware. He would like to see if pt could get a picc line placed.
--- NOTE | 2020-06-30 13:42 | ED.RN ---
[employer]NAGER [employer] CONTACTED FOR VENOUS ACCESS
[2020-06-30] MEDS: Ondansetron 4 MG/2 ML Vial IV (13:46)
--- NOTE | 2020-06-30 13:50 | CM.ED ---
Social Work Consult: No PCP Informant: Self Referral Met with patient in room. Introduced self and social insurance administrator role. Patient agreeable to speak with this social insurance administrator. Patient reports to have recently discharged from [facility] about a week ago. Patient states to be wheelchair bound. Patient states to have a wheelchair, 3-in-1 commode, and Cricket lift in the home. Patient states to be working on getting a hospital bed set up. Patient unsure if patient has home health services for wound care. Patient states a [facility] was out to the home. Patient state to live at home with spouse and two adult sons. Patient states that patient children are patient's HCPOA's. Patient states to have been brought to the hospital today via box truck as we were not able to get a wheelchair van. This social insurance administrator inquiring about patient calling 911 as patient needed to come to the ED. Patient states to have not wanted to call 911 as patient wanted to come to [facility] and patient lives in [place] [facility]. This social insurance administrator voiced understanding but engaged with patient in conversation about safety for transportation. Patient agreeable to this social insurance administrator calling patient [facility] to discuss further wheelchair transportation options. Patient reports to be unsure of who patient will be following for primary care physician. Patient states to have had a optical effects layout person appointment today but to have missed this due to ED visit. Patient also is working on getting set up with a Warehouse Distribution Manager, Urologist, and Wound Center. Patient unsure of which doctors as my family knows all that. Patient state that patient children provide all care for patient and do such a good job. Patient states main concern is wound care management. Patient is not interested in returning to a shelter setting and plans to return to home with family once medically cleared. Telephone call to patient [facility]. Introduced self and social insurance administrator role. Best agreeable to speak with this social insurance administrator. Best confirms to provide all care for patient and to be changing patient dressings daily. Best states concern with transportation as well and confirms that patient was transported in a box truck in a wheelchair to the ED today. Best states to have secured the wheelchair. This social insurance administrator able to provide Best with contact information for [facility] transportation. This social insurance administrator was able to confirm that [facility] would provide nonemergent transportation for patient to appointments. Best states concern for patient catheter and possibly needing this changed. This social insurance administrator educated Best that nursing will be notified of catheter concerns. Best states that patient has home health nursing through [facility] and [facility] the nurse was out this week. Best reports to be working on getting patient set up with multiple specialist and a primary care physician. Best denies need for information and appears to understand resources and who needs contacted as evidenced by Best being able to identify multiple specialist and PCP options and voicing to have Warehouse Distribution Manager appointment set up in a few weeks. Best also reports that patient has appointment with Wound Center tomorrow. Best denies concerns on patient returning to home and ability to be able to care for patient but more concerned with getting patient to doctors appointments. Best thanked this social insurance administrator for transportation option. This social insurance administrator updated nursing staff on Best concerns about catheter. Medical team updated on above. PLAN: Undetermined. Pending medical work-up. Will continue to follow as needed. Abraham FAN, FLORENTINO
[2020-06-30] MEDS: Ceftriaxone 1 GM/50 ML BAG IV (15:26)
[2020-06-30] MEDS: traMADol 50 MG Tablet PO ×2 (15:27→21:46)
--- NOTE | 2020-06-30 15:37 | EKG12_ITS ---
Test Reason : DYSRHYTHMIA Blood Pressure : / mmHG Vent. Rate : 093 BPM Atrial Rate : 093 BPM P-R Int : 174 ms QRS Dur : 088 ms QT Int : 382 ms P-R-T Axes : 036 -29 035 degrees QTc Int : 474 ms Normal sinus rhythm Inferior infarct , age undetermined Abnormal ECG Confirmed by RANI NEUMANN, KATT ([id number]), order editor JEFF SHEPPARD ([id number]) on 07/02/2020 9:37:30 AM Referred By: MARITZA Confirmed By:KATT SARAVIA MD
[2020-06-30] MEDS: 0.9% Normal Saline 1,000 ML 999 ML IV (16:14)
[2020-06-30 16:17] LABS: Absolute Lymphocyte Count 1.57 X10^3/uL (0.83-4.51); Absolute Neutrophil Count 9.4 X10^3/uL (2.0-7.7); Basophil# 0.07 X10^3/uL; Basophil% 0.5 % (0-1); Eosinophil# 0.35 X10^3/uL; Eosinophils% 2.7 % (0-5); Hematocrit 41.3 % (37-47); Hemoglobin 13.1 g/dL (12.0-15.0); Lymphocyte # 1.57 X10^3/ul (4.0); Lymphocyte % 12.2 % (19-41); Mean Corp Hgb Conc 31.7 g/dL (32-36); Mean Corpuscular Hgb 30.5 pg (27.0-32.0); Mean Corpuscular Volume 96.3 fL (81-99); Mean Platelet Vol. 8.7 fl (6.2-12.0); Monocyte# 1.13 X10^3/uL; Monocyte% 8.8 % (0-10); NRBC Flagged by Analyzer 0 % (0-5); Neutrophil # 9.43 X10^3/uL (2.7-7.7); Neutrophil % 73.7 % (47-70); Platelet Count 457 K/mm3 (150-450); RBC Distribution Width CV 16.3 % (11.6-14.6); RBC Distribution Width SD 57.1 fl (35.1-43.9); Red Blood Count 4.29 M/mm3 (4.2-5.4); White Blood Count 12.8 K/mm3 (4.4-11.0)
[2020-06-30 16:29] LABS: ALB/GLOB Ratio 0.4 RATIO (0.9-2.4); AST(SGOT) 35 U/L (15-37); Alanine Aminotransfer ALT/SGPT 27 U/L (13-56); Albumin, Serum 2.3 g/dL (3.2-5.0); Alkaline Phosphatase 128 U/L (45-117); Anion Gap 6 (5-15); BUN 68 mg/dL (7-18); BUN/Creat Ratio 58.1 RATIO (10-20); Calcium,Total 10.3 mg/dL (8.5-10.1); Chloride 101 mmol/L (98-107); Creatinine, Serum 1.17 mg/dL (0.55-1.02); EST Glomerular Filtration Rate 49 mL/min (>60); Est Glom Filt Rate - Afr Amer 59 mL/min (>60); Estimated Creatinine Clearance 41.41 ml/min; Globulin 6.3 g/dL (2.2-4.2); Glucose 103 mg/dL (74-106); Potassium 4.2 mmol/L (3.5-5.1); Protein, Total 8.6 g/dL (6.4-8.2); Sodium Level 138 mmol/L (136-145)
[2020-06-30 16:37] LABS: Procalcitonin 0.44 ng/mL (0.00-0.09)
--- NOTE | 2020-06-30 16:44 | PCM.HP.STD ---
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 (8) Hypoalbuminemia Status: Chronic (9) Microcytic anemia Status: Chronic (10) Nonhealing left calf ulcer Status: Chronic (11) Cognitive impairment Status: Chronic (12) Depression Status: Chronic (13) COPD (chronic obstructive pulmonary disease) Status: Chronic (14) Hyperlipidemia Status: Chronic (15) Paroxysmal atrial fibrillation Status: Chronic (16) Morbid obesity Status: Chronic (17) Hypertension Status: Chronic (18) GERD (gastroesophageal reflux disease) Status: Chronic History of Present Illness Date of Admission: 06/30/20 Chief Complaint: leg pain The patient is a 70 year old F with pmhx of chronic BL LE calf wounds, morbid obesity, debility, chronically nonambulatory, multiple other issues as above, who presents to the ER with leg pain and malaise. She was recently admitted for anasarca and treated with aggressive diuresis. She had recently completed abx for her LE wounds and was provided wound care. She was dischargd to SNF. She left the SNF about a week ago stating that they did not do anything for her there and wouldnt address her legs. She states the pain in her legs bilaterally has worsened. It is severe at night. She also states she just does not feel right and thinks she is sick. She feels as if she is having fevers and chills. She states she is very weak and fatigued. She has a catheter that she states was never changed at the SNF. She denies abdominal pain. She has no nausea/vomiting/diarrhea. She states her family has been taking care of her and changing her wound dressings since going home from SNF. [] Past Medical History Past Medical History (Chronic Problems): Chronic Problems (This Medical Record has been edited. Action required.) Anasarca (Chronic) Macrocytic anemia (Chronic) Edema due to hypoalbuminemia (Chronic) History of obstructive sleep apnea (Chronic) Paroxysmal atrial fibrillation (Chronic) Wenckebach second degree AV block (Chronic) Hypoalbuminemia (Chronic) Microcytic anemia (Chronic) Nonhealing left calf ulcer (Chronic) Cognitive impairment (Chronic) Depression (Chronic) COPD (chronic obstructive pulmonary disease) (Chronic) Hyperlipidemia (Chronic) Paroxysmal atrial fibrillation (Chronic) Chronic acquired lymphedema (Chronic) History of kidney stones (Chronic) Morbid obesity (Chronic) Hypertension (Chronic) GERD (gastroesophageal reflux disease) (Chronic) Medical History: Medical History (This Medical Record has been edited. Action required.) History of kidney stones (Chronic) Z87.442 Morbid obesity (Chronic) E66.01 Hypertension (Chronic) I10 GERD (gastroesophageal reflux disease) (Chronic) K21.9 Allergies hydromorphone Allergy (Verified 06/30/20 11:17) PT UNSURE OF REACTION piperacillin Allergy (Verified 06/30/20 11:17) PT UNSURE OF REACTION Home Medications: Ambulatory Orders Medication Instructions Recorded Lisinopril [Prinivil] 10 mg PO DAILY 03/19/20 Atorvastatin Calcium [Lipitor] 20 mg PO QHS 05/30/20 Magnesium Oxide [Magox 400] 400 mg PO DAILY 05/30/20 traMADol [Ultram] 50 mg PO Q6H PRN PRN 05/30/20 Bumetanide 1 mg PO BID 06/06/20 Ferrous Sulfate 325 mg PO DAILY 06/06/20 Multivitamin 1 tab PO DAILY 06/06/20 Potassium Chloride [K-Dur] 20 meq PO DAILYCM 06/06/20 Acetaminophen [Tylenol Extra 1,000 mg PO BID 06/30/20 Strength] Metoprolol Tartrate 25 mg PO DAILY 06/30/20 Surgical History: Surgical History (This Medical Record has been edited. Action required.) Hx of appendectomy (Inactive) Z90.49 Hx of tubal ligation (Inactive) Z98.51 Surgical History: appendectomy, - - Tubal ligation. Psychiatric History: Depression CASH PROCESSING SPECIALIST History: No pertinent CASH PROCESSING SPECIALIST history Lives: With Family Smoking Status: Never smoker Alcohol: None Drugs: None - *Family History Maternal Family History: Family History (This Medical Record has been edited. Action required.) Sister Diabetes Mother Diabetes Father Heart disease Myocardial infarction Review of Systems Constitutional: Reports: Chills, Fever, Malaise, Weakness, Fatigue. Denies: Weight Change HEENT: Denies: Head Aches, Sinus Congestion, Sinus Drainage Cardiovascular: Denies: Chest Pain, Light Headedness, Palpitations Respiratory: Denies: Cough, Shortness of Breath, Shortness of breath at rest, Sputum production Gastrointestinal: Denies: Abdominal Pain, Diarrhea, Nausea, Vomiting Genitourinary: Reports: - - has estrada cath. Denies: Dysuria, Hesitancy, Urgency Musculoskeletal: Reports: Leg Pain. Denies: Joint Pain, Joint Tenderness, Muscle pain Skin: Reports: Wounds. Denies: Lesions, Rash Neurological: Denies: Numbness, Tingling, Focal weakness Psychiatric: Denies: Anxiety, Depression, Homicidal Ideations, Suicidal Ideations Hematologic/ Lymphatic: Denies: Easy Bruising, Easy Bleeding VTE Information - Inpt Only VTE Present on Admission: No VTE Mechan Device Prophylaxis: None VTE Pharm Prophylaxis ordered?: Yes - Physical Exam Vitals/I&O's: Vital Signs Temp Pulse Resp BP Pulse Ox 98.0 F 97 26 H 93/74 95 06/30/20 16:12 06/30/20 16:12 06/30/20 16:12 06/30/20 16:12 06/30/20 16:12 Oxygen Delivery Method Room Air Weight: 295 lb 10.238 oz Body Mass Index (BMI) 49.1 Intake and Output for Last 24 Hours 06/28/20 06/29/20 06/30/20 23:59 23:59 23:59 Intake Total 550 / 550 Balance 550 / 550 General: Alert, Oriented x3, Cooperative HEENT: Atraumatic, PERRLA, EOMI, Normocephalic Neck: Supple, No JVD, Negative Carotid Bruits Lungs: Clear to auscultation, Normal air movement Cardiovascular: Regular rate, No murmurs Abdomen: Bowel Sounds Present, Soft, Non Tender, Obese Extremities: No edema, Capillary Refill Less than 3 Seconds Skin: No rashes, No breakdown, Ulcer/ Wound - open wounds with no sybil discharge. mild erythema at wound borders. no increased warmth. severe tenderness to light palp around outside of wounds Musculoskeletal: No Tenderness to Palpation of Joints or Extremities Neurological: Cranial nerves II-XII grossly intact Psych/Mental Status: Normal Affect, Appropriate, Alert and oriented to time, place, person, mood and affect Laboratory Results 06/30/20 12:15: Urine Opiates Screen NEGATIVE, Urine Methadone Screen NEGATIVE, Ur Barbiturates Screen NEGATIVE, Ur Phencyclidine Scrn NEGATIVE, Ur Amphetamines Screen NEGATIVE, U Methamphetamin-MDMA NEGATIVE, U Benzodiazepines Scrn NEGATIVE, Urine Cocaine Screen NEGATIVE, U Cannabinoids Screen NEGATIVE, Ur Drug Screen Comment 06/30/20 12:15: Urine Color Yellow, Urine Clarity Clear, Urine pH 5.0, Ur Specific [place] 1.015, Urine Protein 15 H, Urine Glucose (UA) Normal, Urine Ketones Negative, Urine Occult Blood Negative, Urine Nitrite Positive H, Urine Bilirubin Negative, Urine Urobilinogen Normal, Ur Leukocyte Esterase 500 H, Urine RBC 0 SEEN, Urine WBC 25-50 SEEN, Ur Squamous Epith Cells 0-5 SEEN, Urine Bacteria 2+, Urine Mucus 0 SEEN 06/30/20 15:55: WBC 12.8 H, RBC 4.29, Hgb 13.1, Hct 41.3, MCV 96.3, MCH 30.5, MCHC 31.7 L, RDW Std Deviation 57.1 H, RDW Coeff of [place] 16.3 H, Plt Count 457 H, MPV 8.7, Immature Gran % (Auto) 2.100 H, Neut % (Auto) 73.7 H, Lymph % (Auto) 12.2 L, [place] % (Auto) 8.8, Eos % (Auto) 2.7, Baso % (Auto) 0.5, Absolute Neuts (auto) 9.4 H, Absolute Lymphs (auto) 1.57, Nucleated RBC % 0 06/30/20 15:55: Sodium 138, Potassium 4.2, Chloride 101, Carbon Dioxide 31.0, Anion Gap 6, BUN 68 H, Creatinine 1.17 H, Estim Creat Clear Calc 41.41, Est GFR (MDRD) Af Amer 59 L, Est GFR (MDRD) Non-Af 49 L, BUN/Creatinine Ratio 58.1 H, Glucose 103, Calcium 10.3 H, Total Bilirubin 0.50, AST 35, ALT 27, Alkaline Phosphatase 128 H, Total Protein 8.6 H, Albumin 2.3 L, Globulin 6.3 H, Albumin/Globulin Ratio 0.4 L 06/30/20 15:55: Lactic Acid Pending 06/30/20 15:55: Procalcitonin 0.44 H 06/30/20 15:55: Troponin I < 0.015 Current Medications Meropenem 1 gm/ Sodium (Chloride) 120 mls @ 33 mls/hr IV X1 ONE Stop: 06/30/20 20:04 Assessment/Plan All Active Problems (This Medical Record has been edited. Action required.) UTI (urinary tract infection) (Acute) Sepsis (Acute) Anasarca (Acute) 1. Acute sepsis 2/2 cellulitis/chronic wounds, possible UTI - hx multiple Pseudomonas species, Staph capitis. allergic to zosyn. consult ID. start shaw in the meantime. Obtain wound cultures, MRSA/MSSA screen. Sepsis as evidenced by leukocytosis, pulse >90, cellulitis. Consult wound care. Culture urine. Change estrada. Covid neg, CXR neg. -venous duplex LE is negative for dvt. 2. Hx Anasarca/Lymphedema, hypoalbuminemia - continue bumex 3. Hx pAfib, 2nd degree AV block - metoprolol, not on OAC. 4. Hx iron def anemia - continue ferrous sulfate 5. Chronic debility - chronically nonambulatory 6. COPD - no exacerbation - prn aerosols. 7. Morbid obesity - philosophy specialist eval DVT ppx: Lovenox [place] planning: [place] return [place] at [place], recently left SNF. This patient was seen by Declan Brush PA-C under the supervision of Dr. Dubon.
[2020-06-30 16:47] LABS: Lactic Acid 2.1 mmol/L (0.4-1.9)
[2020-06-30] MEDS: 0.9% Normal Saline 1,000 ML 75 ML IV (19:46)
[2020-06-30] MEDS: Acetaminophen 325 MG Tablet 650 MG PO (19:52)
[2020-06-30 20:08] LABS: Reflex Lactate? Y
[2020-06-30 21:32] LABS: Lactic Acid 1.6 mmol/L (0.4-1.9)
[2020-06-30] MEDS: APIXABAN 5 MG TABLET PO (21:45)
[2020-06-30] MEDS: Bumetanide 0.5 MG Tablet PO (21:46)
[2020-06-30] MEDS: Menthol/Lanolin/Calamine/Znox 113 GM Tube 1 APPLIC TOPICAL (21:46)
[2020-06-30] MEDS: Atorvastatin Calcium 20 MG Tablet PO (21:46)
[2020-07-01 02:30] VITALS: BP 114/60; PULSE 98; RESP 18; TEMP 36; O2SAT 94
[2020-07-01 05:45] LABS: Absolute Lymphocyte Count 1.79 X10^3/uL (0.83-4.51); Absolute Neutrophil Count 7.4 X10^3/uL (2.0-7.7); Basophil# 0.06 X10^3/uL; Basophil% 0.5 % (0-1); Eosinophil# 0.71 X10^3/uL; Eosinophils% 6.2 % (0-5); Hematocrit 31.7 % (37-47); Hemoglobin 9.8 g/dL (12.0-15.0); Lymphocyte # 1.79 X10^3/ul (4.0); Lymphocyte % 15.7 % (19-41); Mean Corp Hgb Conc 30.9 g/dL (32-36); Mean Corpuscular Hgb 30.1 pg (27.0-32.0); Mean Corpuscular Volume 97.2 fL (81-99); Mean Platelet Vol. 8.7 fl (6.2-12.0); Monocyte# 1.18 X10^3/uL; Monocyte% 10.4 % (0-10); NRBC Flagged by Analyzer 0 % (0-5); Neutrophil # 7.42 X10^3/uL (2.7-7.7); Neutrophil % 65.3 % (47-70); Platelet Count 383 K/mm3 (150-450); RBC Distribution Width CV 16.3 % (11.6-14.6); RBC Distribution Width SD 58.4 fl (35.1-43.9); Red Blood Count 3.26 M/mm3 (4.2-5.4); White Blood Count 11.4 K/mm3 (4.4-11.0)
[2020-07-01 06:13] LABS: Anion Gap 3 (5-15); BUN 63 mg/dL (7-18); BUN/Creat Ratio 58.9 RATIO (10-20); Calcium,Total 8.9 mg/dL (8.5-10.1); Chloride 106 mmol/L (98-107); Creatinine, Serum 1.07 mg/dL (0.55-1.02); EST Glomerular Filtration Rate 54 mL/min (>60); Est Glom Filt Rate - Afr Amer 66 mL/min (>60); Estimated Creatinine Clearance 45.28 ml/min; Glucose 84 mg/dL (74-106); Potassium 4.6 mmol/L (3.5-5.1); Sodium Level 137 mmol/L (136-145)
[2020-07-01] MEDS: Multivitamins,Therapeutic Tablet 1 TABLET PO (08:05)
[2020-07-01] MEDS: 0.9% Normal Saline 1,000 ML 75 ML IV ×2 (08:06→20:54)
[2020-07-01] MEDS: traMADol 50 MG Tablet PO ×2 (08:12→20:54)
[2020-07-01 09:00] VITALS: BP 118/70; PULSE 88; RESP 18; TEMP 37.2; O2SAT 95
--- NOTE | 2020-07-01 09:49 | NURSING ---
wound photo: right lateral lower leg
--- NOTE | 2020-07-01 09:50 | NURSING ---
wound photo: left posterior lower leg
--- NOTE | 2020-07-01 09:53 | NURSING ---
While providing wound care to bilateral lower legs, patient states she left the [facility] because their food was awful, and they were not doing anything for me. Pt told this nurse numerous things she did not like about the prison and states my sons take much better care of me. Pt states she has not been able to stand for over a year and a half d/t arthritic knees. patient very painful with minimal movement. discussed with patient that with arthritis often, the more movement you get the better. asked about therapy. pt states I don't like the therapy here. they make me do too much. pt was scheduled to go to the wound center today and states she will reschedule after discharge. states she is hoping to be able to get more home health when she gets home.
[2020-07-01 10:03] VITALS: BP 114/70; PULSE 82
[2020-07-01] MEDS: Lisinopril 10 MG Tablet PO (10:03)
[2020-07-01] MEDS: Acetaminophen 500 MG Tablet 1000 MG PO ×2 (10:03→21:22)
[2020-07-01] MEDS: Metoprolol Tartrate 25 MG Tablet PO (10:03)
[2020-07-01] MEDS: Menthol/Lanolin/Calamine/Znox 113 GM Tube 1 APPLIC TOPICAL ×2 (10:03→20:56)
[2020-07-01] MEDS: Magnesium Chloride 64 MG Delay Rel.Tablet 128 MG PO (10:04)
[2020-07-01] MEDS: Bumetanide 0.5 MG Tablet PO ×2 (10:04→18:53)
[2020-07-01] MEDS: APIXABAN 5 MG TABLET PO ×2 (10:04→21:22)
[2020-07-01 10:53] LABS: M R Staph aureus DNA By PCR Negative (Negative); Probe Check PASS; Specimen Processing Control PASS; Staph aureus DNA By PCR NEGATIVE (Negative)
--- NOTE | 2020-07-01 12:28 | CON.PCM_ITS ---
Problem List (1) Nonhealing left calf ulcer Status: Chronic Reason for Consult: L calf ulcer Consulted by: Dr. Dubon History of Present Illness: The patient is a 70 year old F with obesity, 4 admissions to different hospitals since March with worsening Bilat calf ulcers. Left [facility] about 4 days ago, repeated covid tests neg there. Has chronic estrada in place, no new dysuria or abd pain. Does report some new chills, nausea, aches over past few days. Came to ED, started on meropenem. Feeling a little better today. Full ROS performed and neg except as noted above. - Medical History Past Medical History (Chronic Problems): Chronic Problems (This Medical Record has been edited. Action required.) Anasarca (Chronic) Macrocytic anemia (Chronic) Edema due to hypoalbuminemia (Chronic) History of obstructive sleep apnea (Chronic) Paroxysmal atrial fibrillation (Chronic) Wenckebach second degree AV block (Chronic) Hypoalbuminemia (Chronic) Microcytic anemia (Chronic) Nonhealing left calf ulcer (Chronic) Cognitive impairment (Chronic) Depression (Chronic) COPD (chronic obstructive pulmonary disease) (Chronic) Hyperlipidemia (Chronic) Paroxysmal atrial fibrillation (Chronic) Chronic acquired lymphedema (Chronic) History of kidney stones (Chronic) Morbid obesity (Chronic) Hypertension (Chronic) GERD (gastroesophageal reflux disease) (Chronic) Allergies/Adverse Reactions: Allergies hydromorphone Allergy (Verified 06/30/20 11:17) PT UNSURE OF REACTION piperacillin Allergy (Verified 06/30/20 11:17) PT UNSURE OF REACTION Home Medications: Ambulatory Orders Medication Instructions Recorded Lisinopril [Prinivil] 10 mg PO DAILY 03/19/20 Atorvastatin Calcium [Lipitor] 20 mg PO QHS 05/30/20 traMADol [Ultram] 50 mg PO Q6H PRN PRN 05/30/20 Bumetanide 1 mg PO BID 06/06/20 Potassium Chloride [K-Dur] 20 meq PO DAILYCM 06/06/20 Acetaminophen [Tylenol Extra 1,000 mg PO BID PRN PRN 06/30/20 Strength] Apixaban [Eliquis] 5 mg PO BID 06/30/20 Metoprolol Tartrate 25 mg PO DAILY 06/30/20 - Social History Tobacco Use: non-smoker Vital Signs Temp Pulse Resp BP Pulse Ox 96.8 F L 82 18 114/70 94 12/01/20 02:30 07/01/20 10:03 07/01/20 02:30 07/01/20 10:03 07/01/20 02:30 Oxygen Delivery Method Room Air Weight: 128.6 kg Body Mass Index (BMI) 47.2 Microbiology Past 72 Hours 07/01/20 08:40 Gram Stain - Final Wound - Aerobic & Anaerobic Swabs Laboratory Tests Past 24 Hrs 06/30/20 06/30/20 06/30/20 12:15 12:15 15:55 WBC 12.8 H RBC 4.29 Hgb 13.1 Hct 41.3 MCV 96.3 MCH 30.5 MCHC 31.7 L RDW Std Deviation 57.1 H RDW Coeff of Galindo 16.3 H Plt Count 457 H MPV 8.7 Immature Gran % (Auto) 2.100 H Neut % (Auto) 73.7 H Lymph % (Auto) 12.2 L [place] % (Auto) 8.8 Eos % (Auto) 2.7 Baso % (Auto) 0.5 Absolute Neuts (auto) 9.4 H Absolute Lymphs (auto) 1.57 Nucleated RBC % 0 Sodium Potassium Chloride Carbon Dioxide Anion Gap BUN Creatinine Estim Creat Clear Calc Est GFR (MDRD) Af Amer Est GFR (MDRD) Non-Af BUN/Creatinine Ratio Glucose Lactic Acid Calcium Total Bilirubin AST ALT Alkaline Phosphatase Troponin I Total Protein Albumin Globulin Albumin/Globulin Ratio Procalcitonin Urine Color Yellow Urine Clarity Clear Urine pH 5.0 Ur Specific [place] 1.015 Urine Protein 15 H Urine Glucose (UA) Normal Urine Ketones Negative Urine Occult Blood Negative Urine Nitrite Positive H Urine Bilirubin Negative Urine Urobilinogen Normal Ur Leukocyte Esterase 500 H Urine RBC 0 SEEN Urine WBC 25-50 SEEN Ur Squamous Epith Cells 0-5 SEEN Urine Bacteria 2+ Urine Mucus 0 SEEN Urine Opiates Screen NEGATIVE Urine Methadone Screen NEGATIVE Ur Barbiturates Screen NEGATIVE Ur Phencyclidine Scrn NEGATIVE Ur Amphetamines Screen NEGATIVE U Methamphetamin-MDMA NEGATIVE U Benzodiazepines Scrn NEGATIVE Urine Cocaine Screen NEGATIVE U Cannabinoids Screen NEGATIVE S.aureus Protein A PCR MRSA (PCR) 06/30/20 06/30/20 06/30/20 15:55 15:55 15:55 WBC RBC Hgb Hct MCV MCH MCHC RDW Std Deviation RDW Coeff of Galindo Plt Count MPV Immature Gran % (Auto) Neut % (Auto) Lymph % (Auto) [place] % (Auto) Eos % (Auto) Baso % (Auto) Absolute Neuts (auto) Absolute Lymphs (auto) Nucleated RBC % Sodium 138 Potassium 4.2 Chloride 101 Carbon Dioxide 31.0 Anion Gap 6 BUN 68 H Creatinine 1.17 H Estim Creat Clear Calc 41.41 Est GFR (MDRD) Af Amer 59 L Est GFR (MDRD) Non-Af 49 L BUN/Creatinine Ratio 58.1 H Glucose 103 Lactic Acid 2.1 H* Calcium 10.3 H Total Bilirubin 0.50 AST 35 ALT 27 Alkaline Phosphatase 128 H Troponin I Total Protein 8.6 H Albumin 2.3 L Globulin 6.3 H Albumin/Globulin Ratio 0.4 L Procalcitonin 0.44 H Urine Color Urine Clarity Urine pH Ur Specific [place] Urine Protein Urine Glucose (UA) Urine Ketones Urine Occult Blood Urine Nitrite Urine Bilirubin Urine Urobilinogen Ur Leukocyte Esterase Urine RBC Urine WBC Ur Squamous Epith Cells Urine Bacteria Urine Mucus Urine Opiates Screen Urine Methadone Screen Ur Barbiturates Screen Ur Phencyclidine Scrn Ur Amphetamines Screen U Methamphetamin-MDMA U Benzodiazepines Scrn Urine Cocaine Screen U Cannabinoids Screen S.aureus Protein A PCR MRSA (PCR) 06/30/20 06/30/20 07/01/20 15:55 20:49 05:18 WBC 11.4 H RBC 3.26 L Hgb 9.8 L Hct 31.7 L MCV 97.2 MCH 30.1 MCHC 30.9 L RDW Std Deviation 58.4 H RDW Coeff of Galindo 16.3 H Plt Count 383 MPV 8.7 Immature Gran % (Auto) 1.900 H Neut % (Auto) 65.3 Lymph % (Auto) 15.7 L [place] % (Auto) 10.4 H Eos % (Auto) 6.2 H Baso % (Auto) 0.5 Absolute Neuts (auto) 7.4 Absolute Lymphs (auto) 1.79 Nucleated RBC % 0 Sodium Potassium Chloride Carbon Dioxide Anion Gap BUN Creatinine Estim Creat Clear Calc Est GFR (MDRD) Af Amer Est GFR (MDRD) Non-Af BUN/Creatinine Ratio Glucose Lactic Acid 1.6 Calcium Total Bilirubin AST ALT Alkaline Phosphatase Troponin I < 0.015 Total Protein Albumin Globulin Albumin/Globulin Ratio Procalcitonin Urine Color Urine Clarity Urine pH Ur Specific [place] Urine Protein Urine Glucose (UA) Urine Ketones Urine Occult Blood Urine Nitrite Urine Bilirubin Urine Urobilinogen Ur Leukocyte Esterase Urine RBC Urine WBC Ur Squamous Epith Cells Urine Bacteria Urine Mucus Urine Opiates Screen Urine Methadone Screen Ur Barbiturates Screen Ur Phencyclidine Scrn Ur Amphetamines Screen U Methamphetamin-MDMA U Benzodiazepines Scrn Urine Cocaine Screen U Cannabinoids Screen S.aureus Protein A PCR MRSA (PCR) 07/01/20 07/01/20 05:18 08:40 WBC RBC Hgb Hct MCV MCH MCHC RDW Std Deviation RDW Coeff of Galindo Plt Count MPV Immature Gran % (Auto) Neut % (Auto) Lymph % (Auto) [place] % (Auto) Eos % (Auto) Baso % (Auto) Absolute Neuts (auto) Absolute Lymphs (auto) Nucleated RBC % Sodium 137 Potassium 4.6 Chloride 106 Carbon Dioxide 28.0 Anion Gap 3 L BUN 63 H Creatinine 1.07 H Estim Creat Clear Calc 45.28 Est GFR (MDRD) Af Amer 66 Est GFR (MDRD) Non-Af 54 L BUN/Creatinine Ratio 58.9 H Glucose 84 Lactic Acid Calcium 8.9 Total Bilirubin AST ALT Alkaline Phosphatase Troponin I Total Protein Albumin Globulin Albumin/Globulin Ratio Procalcitonin Urine Color Urine Clarity Urine pH Ur Specific [place] Urine Protein Urine Glucose (UA) Urine Ketones Urine Occult Blood Urine Nitrite Urine Bilirubin Urine Urobilinogen Ur Leukocyte Esterase Urine RBC Urine WBC Ur Squamous Epith Cells Urine Bacteria Urine Mucus Urine Opiates Screen Urine Methadone Screen Ur Barbiturates Screen Ur Phencyclidine Scrn Ur Amphetamines Screen U Methamphetamin-MDMA U Benzodiazepines Scrn Urine Cocaine Screen U Cannabinoids Screen S.aureus Protein A PCR NEGATIVE MRSA (PCR) Negative - Other Studies Radiology: [] reviewed Other Studies: [] Route of nutrition/ use of supplements: [] Nutritional Intake: [] IV Site: [] Estrada Catheter: [] - Physical Exam General: Alert, Oriented x3, Cooperative, No apparent distress HEENT: Atraumatic, PERRLA, EOMI Neck: Supple, No Nodes Lungs: Clear to auscultation, Normal air movement Cardiovascular: Tachycardic Abdomen: Soft, Non Tender, Non-Distended Extremities: Edema Skin: Ulcer/ Wound - Large ulcer on L calf, smaller on R calf IV Site: Peripheral, without redness Musculoskeletal: No Tenderness to Palpation of Joints or Extremities Neurological: Cranial nerves II-XII grossly intact - Assessment/Plan Antibiotics: [] Assessment/Plan: [] Active and Suspected Problems (This Medical Record has been edited. Action required.) UTI (urinary tract infection) (Acute) Sepsis (Acute) Chronic estrada, so abnormal UA may just represent colonization. No ucx sent, will order one now. Several months of worsening bilat calf ulcers, particularly on L. Wound cx here 05/30/20 with MR-CoNs and Pseudomonas x2, but gram stain with no organisms or purulence seen so hard to know if those were true pathogens. Wound cx now is pending. Given extent of the ulcer, will consult Dr. Pedersen for eval. Will follow, thank you
[2020-07-01] MEDS: Doxycycline 100 MG CAPSULE PO ×2 (12:40→21:21)
[2020-07-01] MEDS: Ferrous Sulfate 325 MG Tablet PO (12:40)
--- NOTE | 2020-07-01 12:56 | CASEMGMT ---
Addendum entered by Mickie San 07/01/20 13:17: Received call from Pooja at Tomeka Adams's office. Patient is new and active. RN ROCÍO will updated PCP information in system. RN ROCÍO updated patient regarding PCP information. Original Note: SARAVANAN ALFORD called [facility] to confirm services. Patient is active with [facility] for mcc, PT, SW, [employer]LECT[employer]ER , and wound care. PCP signing for [facility] is Tomeka Adams CNP. SARAVANAN ALFORD called and left message with Tomeka Adams' medical scribe. CM will continue to follow this patient and plan for a safe discharge.
--- NOTE | 2020-07-01 14:42 | NURSING ---
Pt had large amount of purulent drainage noted around catheter this am. pt denies burning or itching. states she has noticed the drainage for the last couple of days. laura care provided at that time.
--- NOTE | 2020-07-01 14:55 | PN_ITS ---
<Declan Brush - Last Filed: 07/01/20 14:55> Patient Problems: Active and Suspected Problems (This Medical Record has been edited. Action required.) UTI (urinary tract infection) (Acute) Sepsis (Acute) Reason for Visit: UTI, nonhealing leg wounds Subjective: Ongoing LE pain. Catheter was changed and there was noted a large amount of pus/discharge around the catheter and legs. No fever/chills overnight. No SOB/cough. No n/v/d. Pt states her legs have severe nerve pain that feels like s he is being stung by a swarm of bees. Vitals/I&O's: Vital Signs Temp Pulse Resp BP Pulse Ox 96.8 F L 82 18 114/70 94 07/01/20 02:30 07/01/20 10:03 07/01/20 02:30 07/01/20 10:03 07/01/20 02:30 Oxygen Delivery Method Room Air Weight: 283 lb 8.231 oz Body Mass Index (BMI) 47.2 Intake and Output for Last 24 Hours 06/29/20 06/30/20 07/01/20 23:59 23:59 23:59 Intake Total 2230 / 2230 1735 / 1735 Output Total 1400 / 1400 Balance 2230 / 1780 335 / 335 General: Alert, Oriented x3, Cooperative HEENT: Atraumatic, PERRLA, EOMI, Normocephalic Neck: Supple, No JVD, Negative Carotid Bruits Lungs: Clear to auscultation, Normal air movement Cardiovascular: Regular rate, No murmurs Abdomen: Bowel Sounds Present, Soft, Non Tender, Obese Extremities: No edema, Capillary Refill Less than 3 Seconds Skin: - - wounds without significant surrounding cellulitic changes. Musculoskeletal: No Tenderness to Palpation of Joints or Extremities Neurological: Cranial nerves II-XII grossly intact Psych/Mental Status: Normal Affect, Appropriate Microbiology Past 72 Hours 07/01/20 08:40 Wound - Aerobic & Anaerobic Swabs Gram Stain - Final Laboratory Results 06/30/20 15:55: WBC 12.8 H, RBC 4.29, Hgb 13.1, Hct 41.3, MCV 96.3, MCH 30.5, MCHC 31.7 L, RDW Std Deviation 57.1 H, RDW Coeff of Galindo 16.3 H, Plt Count 457 H, MPV 8.7, Immature Gran % (Auto) 2.100 H, Neut % (Auto) 73.7 H, Lymph % (Auto) 12.2 L, [place] % (Auto) 8.8, Eos % (Auto) 2.7, Baso % (Auto) 0.5, Absolute Neuts (auto) 9.4 H, Absolute Lymphs (auto) 1.57, Nucleated RBC % 0 06/30/20 15:55: Sodium 138, Potassium 4.2, Chloride 101, Carbon Dioxide 31.0, Anion Gap 6, BUN 68 H, Creatinine 1.17 H, Estim Creat Clear Calc 41.41, Est GFR (MDRD) Af Amer 59 L, Est GFR (MDRD) Non-Af 49 L, BUN/Creatinine Ratio 58.1 H, Glucose 103, Calcium 10.3 H, Total Bilirubin 0.50, AST 35, ALT 27, Alkaline P hosphatase 128 H, Total Protein 8.6 H, Albumin 2.3 L, Globulin 6.3 H, Albumin/Globulin Ratio 0.4 L 06/30/20 15:55: Lactic Acid 2.1 H* 06/30/20 15:55: Procalcitonin 0.44 H 06/30/20 15:55: Troponin I < 0.015 06/30/20 20:49: Lactic Acid 1.6 07/01/20 05:18: WBC 11.4 H, RBC 3.26 L, Hgb 9.8 L, Hct 31.7 L, MCV 97.2, MCH 30.1, MCHC 30.9 L, RDW Std Deviation 58.4 H, RDW Coeff of Galindo 16.3 H, Plt Count 383, MPV 8.7, Immature Gran % (Auto) 1.900 H, Neut % (Auto) 65.3, Lymph % (Auto) 15.7 L, [place] % (Auto) 10.4 H, Eos % (Auto) 6.2 H, Baso % (Auto) 0.5, Absolute Neuts (auto) 7.4, Absolute Lymphs (auto) 1.79, Nucleated RBC % 0 07/01/20 05:18: Sodium 137, Potassium 4.6, Chloride 106, Carbon Dioxide 28.0, Anion Gap 3 L, BUN 63 H, Creatinine 1.07 H, Estim Creat Clear Calc 45.28, Est GFR (MDRD) Af Amer 66, Est GFR (MDRD) Non-Af 54 L, BUN/Creatinine Ratio 58.9 H, Glucose 84, Calcium 8.9 07/01/20 08:40: S.aureus Protein A PCR NEGATIVE, MRSA (PCR) Negative Current Medications Acetaminophen (Acetaminophen 500 Mg Tablet) 1,000 mg PO BID [facility] Last Admin: 07/01/20 10:03 Dose: 1,000 mg Documented by: Acetaminophen (Acetaminophen 325 Mg Tablet) 650 mg PO Q6H PRN PRN PRN Reason: Pain Score 1-10/Temp > 100.7 F Last Admin: 06/30/20 19:52 Dose: 650 mg Documented by: Apixaban (Apixaban 5 Mg Tablet) 5 mg PO BID [facility] Last Admin: 07/01/20 10:04 Dose: 5 mg Documented by: Atorvastatin Calcium (Atorvastatin Calcium 20 Mg Tablet) 20 mg PO QHS [facility] Last Admin: 06/30/20 21:46 Dose: 20 mg Documented by: Bumetanide (Bumetanide 0.5 Mg Tablet) 0.5 mg PO BIDLX [facility] Last Admin: 07/01/20 10:04 Dose: 0.5 mg Documented by: Calamine/Phenol (Menthol/Lanolin/Calamine/Znox 113 Gm Tube) 1 applic TOPICAL BID [facility]; Protocol Last Admin: 07/01/20 10:03 Dose: 1 applicatio Documented by: Doxycycline Monohydrate (Doxycycline 100 Mg Capsule) 100 mg PO BID [facility] Last Admin: 07/01/20 12:40 Dose: 100 mg Documented by: Ferrous Sulfate (Ferrous Sulfate 325 Mg Tablet) 325 mg PO DAILY@1200 [facility] Last Admin: 07/01/20 12:40 Dose: 325 mg Documented by: Meropenem 500 mg/ Sodium (Chloride) 60 mls @ 100 mls/hr IV Q8 [facility] Last Admin: 07/01/20 14:25 Dose: 100 mls/hr Documented by: Sodium Chloride () 1,000 mls @ 75 mls/hr IV .[id number] [facility] Last Admin: 07/01/20 08:06 Dose: 75 mls/hr Documented by: Lisinopril (Lisinopril 10 Mg Tablet) 10 mg PO DAILY [facility] Last Admin: 07/01/20 10:03 Dose: 10 mg Documented by: Magnesium Chloride (Magnesium Chloride 64 Mg Delay Rel.Tablet) 128 mg PO DAILY [facility] Last Admin: 07/01/20 10:04 Dose: 128 mg Documented by: Metoprolol Tartrate (Metoprolol Tartrate 25 Mg Tablet) 25 mg PO DAILY [facility] Last Admin: 07/01/20 10:03 Dose: 25 mg Documented by: Multivitamins (Multivitamins,Therapeutic Tablet) 1 tablet PO DAILY@0800 [facility] Last Admin: 07/01/20 08:05 Dose: 1 tablet Documented by: Ondansetron HCl (Ondansetron 4 Mg/2 Ml Vial) 4 mg IV Q8H PRN PRN PRN Reason: NAUSEA/VOMITING Potassium Chloride (Potassium Chloride 20 Meq Tablet) 20 meq PO DAILYCM [facility] Last Admin: 07/01/20 08:04 Dose: 20 meq Documented by: Sodium Chloride (0.9% Saline Lock 10 Ml Syringe) 10 - 40 ml IV UD PRN PRN Reason: SALINE FLUSH Sodium Hypochlorite (Dakin's Luana Half Strength (=0.25%)) 1 applic TOPICAL BID [facility]; Protocol Last Admin: 07/01/20 12:35 Dose: Not Given Documented by: Tramadol HCl (Tramadol 50 Mg Tablet) 50 mg PO Q6H PRN PRN PRN Reason: Pain 1-10 Last Admin: 07/01/20 08:12 Dose: 50 mg Documented by: Medical Necessity - Tobacco Use Smoking Status: Never smoker Assessment/Plan All Active Problems (This Medical Record has been edited. Action required.) UTI (urinary tract infection) (Acute) Sepsis (Acute) Anasarca (Acute) 1. Acute sepsis 2/2 cellulitis/chronic wounds, possible UTI - hx multiple Pseudomonas species, Staph capitis. allergic to zosyn. consult ID. On shaw, doxy. minimal cellulitic changes around wounds. Perez changed, notably pus around site and legs. Urine culture pending. Blood cx pending. ID has placed consult to Dr. Pedersen. Prior wound debridement was at [facility]. -WBC improved. -Afebrile. -LA resolved. 2. Hx Anasarca/Lymphedema, hypoalbuminemia - continue bumex 3. Hx pAfib, 2nd degree AV block - metoprolol, not on OAC. 4. Hx iron def anemia - continue ferrous sulfate. Hgb 13.1-->9.8 overnight with no obvious bleeding. Recheck CBC in AM. 5. Chronic debility - chronically nonambulatory 6. COPD - no exacerbation - prn aerosols. 7. Morbid obesity - brands editor eval DVT ppx: Lovenox [place] planning: [place], recently left SNF. This patient was seen by Declan Brush PA-C under the supervision of Dr. Capps <Scarlet Capps - Last Filed: 07/01/20 15:20> Vitals/I&O's: Vital Signs Temp Pulse Resp BP Pulse Ox 96.8 F L 82 18 114/70 94 07/01/20 02:30 07/01/20 10:03 07/01/20 02:30 07/01/20 10:03 07/01/20 02:30 Oxygen Delivery Method Room Air Weight: 283 lb 8.231 oz Body Mass Index (BMI) 47.2 Intake and Output for Last 24 Hours 06/29/20 06/30/20 07/01/20 23:59 23:59 23:59 Intake Total 2230 / 2230 1735 / 1735 Output Total 1400 / 1400 Balance 2230 / 1780 335 / 335 Microbiology Past 72 Hours 07/01/20 08:40 Wound - Aerobic & Anaerobic Swabs Gram Stain - Final Laboratory Results 06/30/20 15:55: WBC 12.8 H, RBC 4.29, Hgb 13.1, Hct 41.3, MCV 96.3, MCH 30.5, MCHC 31.7 L, RDW Std Deviation 57.1 H, RDW Coeff of Galindo 16.3 H, Plt Count 457 H, MPV 8.7, Immature Gran % (Auto) 2.100 H, Neut % (Auto) 73.7 H, Lymph % (Auto) 12.2 L, [place] % (Auto) 8.8, Eos % (Auto) 2.7, Baso % (Auto) 0.5, Absolute Neuts (auto) 9.4 H, Absolute Lymphs (auto) 1.57, Nucleated RBC % 0 06/30/20 15:55: Sodium 138, Potassium 4.2, Chloride 101, Carbon Dioxide 31.0, Anion Gap 6, BUN 68 H, Creatinine 1.17 H, Estim Creat Clear Calc 41.41, Est GFR (MDRD) Af Amer 59 L, Est GFR (MDRD) Non-Af 49 L, BUN/Creatinine Ratio 58.1 H, Glucose 103, Calcium 10.3 H, Total Bilirubin 0.50, AST 35, ALT 27, Alkaline Phosphatase 128 H, Total Protein 8.6 H, Albumin 2.3 L, Globulin 6.3 H, Albumin/Globulin Ratio 0.4 L 06/30/20 15:55: Lactic Acid 2.1 H* 06/30/20 15:55: Procalcitonin 0.44 H 06/30/20 15:55: Troponin I < 0.015 06/30/20 20:49: Lactic Acid 1.6 07/01/20 05:18: WBC 11.4 H, RBC 3.26 L, Hgb 9.8 L, Hct 31.7 L, MCV 97.2, MCH 30.1, MCHC 30.9 L, RDW Std Deviation 58.4 H, RDW Coeff of Galindo 16.3 H, Plt Count 383, MPV 8.7, Immature Gran % (Auto) 1.900 H, Neut % (Auto) 65.3, Lymph % (Auto) 15.7 L, [place] % (Auto) 10.4 H, Eos % (Auto) 6.2 H, Baso % (Auto) 0.5, Absolute Neuts (auto) 7.4, Absolute Lymphs (auto) 1.79, Nucleated RBC % 0 07/01/20 05:18: Sodium 137, Potassium 4.6, Chloride 106, Carbon Dioxide 28.0, Anion Gap 3 L, BUN 63 H, Creatinine 1.07 H, Estim Creat Clear Calc 45.28, Est GFR (MDRD) Af Amer 66, Est GFR (MDRD) Non-Af 54 L, BUN/Creatinine Ratio 58.9 H, Glucose 84, Calcium 8.9 07/01/20 08:40: S.aureus Protein A PCR NEGATIVE, MRSA (PCR) Negative Current Medications Acetaminophen (Acetaminophen 500 Mg Tablet) 1,000 mg PO BID [facility] Last Admin: 07/01/20 10:03 Dose: 1,000 mg Documented by: Acetaminophen (Acetaminophen 325 Mg Tablet) 650 mg PO Q6H PRN PRN PRN Reason: Pain Score 1-10/Temp > 100.7 F Last Admin: 06/30/20 19:52 Dose: 650 mg Documented by: Albuterol Sulfate (Albuterol 2.5 Mg/3 Ml Vial.Neb.) 2.5 mg INHALATION Q2H PRN PRN PRN Reason: SOB &/OR WHEEZING Apixaban (Apixaban 5 Mg Tablet) 5 mg PO BID [facility] Last Admin: 07/01/20 10:04 Dose: 5 mg Documented by: Atorvastatin Calcium (Atorvastatin Calcium 20 Mg Tablet) 20 mg PO QHS [facility] Last Admin: 06/30/20 21:46 Dose: 20 mg Documented by: Bumetanide (Bumetanide 0.5 Mg Tablet) 0.5 mg PO BIDLX [facility] Last Admin: 07/01/20 10:04 Dose: 0.5 mg Documented by: Calamine/Phenol (Menthol/Lanolin/Calamine/Znox 113 Gm Tube) 1 applic TOPICAL BID [facility]; Protocol Last Admin: 07/01/20 10:03 Dose: 1 applicatio Documented by: Doxycycline Monohydrate (Doxycycline 100 Mg Capsule) 100 mg PO BID [facility] Last Admin: 07/01/20 12:40 Dose: 100 mg Documented by: Ferrous Sulfate (Ferrous Sulfate 325 Mg Tablet) 325 mg PO DAILY@1200 [facility] Last Admin: 07/01/20 12:40 Dose: 325 mg Documented by: Gabapentin (Gabapentin 100 Mg Capsule) 100 mg PO BIDCM [facility] Meropenem 500 mg/ Sodium (Chloride) 60 mls @ 100 mls/hr IV Q8 [facility] Last Admin: 07/01/20 14:25 Dose: 100 mls/hr Documented by: Sodium Chloride () 1,000 mls @ 75 mls/hr IV .[id number] [facility] Last Admin: 07/01/20 08:06 Dose: 75 mls/hr Documented by: Lisinopril (Lisinopril 10 Mg Tablet) 10 mg PO DAILY [facility] Last Admin: 07/01/20 10:03 Dose: 10 mg Documented by: Magnesium Chloride (Magnesium Chloride 64 Mg Delay Rel.Tablet) 128 mg PO DAILY [facility] Last Admin: 07/01/20 10:04 Dose: 128 mg Documented by: Metoprolol Tartrate (Metoprolol Tartrate 25 Mg Tablet) 25 mg PO DAILY [facility] Last Admin: 07/01/20 10:03 Dose: 25 mg Documented by: Multivitamins (Multivitamins,Therapeutic Tablet) 1 tablet PO DAILY@0800 [facility] Last Admin: 07/01/20 08:05 Dose: 1 tablet Documented by: Ondansetron HCl (Ondansetron 4 Mg/2 Ml Vial) 4 mg IV Q8H PRN PRN PRN Reason: NAUSEA/VOMITING Potassium Chloride (Potassium Chloride 20 Meq Tablet) 20 meq PO DAILYCM [facility] Last Admin: 07/01/20 08:04 Dose: 20 meq Documented by: Sodium Chloride (0.9% Saline Lock 10 Ml Syringe) 10 - 40 ml IV UD PRN PRN Reason: SALINE FLUSH Sodium Hypochlorite (Dakin's Luana Half Strength (=0.25%)) 1 applic TOPICAL BID [facility]; Protocol Last Admin: 07/01/20 12:35 Dose: Not Given Documented by: Tramadol HCl (Tramadol 50 Mg Tablet) 50 mg PO Q6H PRN PRN PRN Reason: Pain 1-10 Last Admin: 07/01/20 08:12 Dose: 50 mg Documented by: Assessment/Plan Patient seen by Declan Brush PA-C under my supervision Patient was admitted with a complaint of bilateral lower extremity pain. She has been admitted for sepsis due to cellulitis of the lower extremities. She does have a history of cellulitis of the lower extremities and she is currently on IV meropenem and doxycycline. Patient seen and examined. She still complains of pain in her lower extremities and says this is chronic. She was recently in a [facility] but says she left AMA because they were not doing anything for her. She denies any fever, chills, nausea vomiting and review of systems otherwise negative. O/E: Vital Signs Temp Pulse Resp BP Pulse Ox 96.8 F L 82 18 114/70 94 07/01/20 02:30 07/01/20 10:03 07/01/20 02:30 07/01/20 10:03 07/01/20 02:30 General: Alert, Oriented x3, Cooperative, morbidly obese HEENT: Atraumatic, PERRLA, EOMI, Normocephalic Neck: Supple, No JVD, Negative Carotid Bruits Lungs: Clear to auscultation, Normal air movement Cardiovascular: Regular rate, No murmurs Abdomen: Bowel Sounds Present, Soft, Non Tender, Obese Extremities: No edema, Capillary Refill Less than 3 Seconds Skin: - - both LEs wrapped in ADEN bandage. Musculoskeletal: No Tenderness to Palpation of Joints or Extremities Neurological: Cranial nerves II-XII grossly intact Psych/Mental Status: Normal Affect, Appropriate Plan is continue IV antibiotics. Await wound and blood cultures. ID on board. Urine cultures ordered. Plastic surgery consulted for evaluation due to extent of lower extremity wounds. PT OT on board. Wound care consulted. Rest as per Declan Brush PA-C's notes which I reviewed and endorsed. Inpatient E&M: [id number] Subs Hosp L2
--- NOTE | 2020-07-01 15:30 | CON.PCM_ITS ---
Reason for Consult Date of Consultation: 07/01/20 Reason for Consultation: Nonhealing infected ulcers bilateral legs. REFERRING PHYSICIAN: Dr. Capps. SHIPPING SUPPORT CLERK: Dr. Pedersen. History of Present Illness: The patient is a 70 year old F who was admitted for sepsis and cellulitis bilateral leg ulcers. She has a history of chronic venous insufficiency. She states she hasn't been able to ambulate for the past 2 years. She was recently in an ECF. She had a recent wound culture on 05/30/20 which showed Methicillin resistant Staphylococcus capitis and Pseudomonas mendocina. Her WBC was 12.8. Lactate was 2.1. She was started on Meropenem. Wound care was started with Dakin's dressing changes. Venous doppler ultrasound was negative for DVT. [facility] for [facility] that was cancelled due to the admission. I was asked to evaluate the patient for surgical options for treatment. Past Medical History Past Medical History (Chronic Problems): Chronic Problems (This Medical Record has been edited. Action required.) Venous insufficiency of both lower extremities (Chronic) On apixaban therapy (Chronic) Anasarca (Chronic) Macrocytic anemia (Chronic) Edema due to hypoalbuminemia (Chronic) History of obstructive sleep apnea (Chronic) Paroxysmal atrial fibrillation (Chronic) Wenckebach second degree AV block (Chronic) Hypoalbuminemia (Chronic) Microcytic anemia (Chronic) Nonhealing left calf ulcer (Chronic) Cognitive impairment (Chronic) Depression (Chronic) COPD (chronic obstructive pulmonary disease) (Chronic) Hyperlipidemia (Chronic) Paroxysmal atrial fibrillation (Chronic) Chronic acquired lymphedema (Chronic) History of kidney stones (Chronic) Morbid obesity (Chronic) Hypertension (Chronic) GERD (gastroesophageal reflux disease) (Chronic) Medical History: Medical History (This Medical Record has been edited. Action required.) History of kidney stones (Chronic) Z87.442 Morbid obesity (Chronic) E66.01 Hypertension (Chronic) I10 GERD (gastroesophageal reflux disease) (Chronic) K21.9 Allergies hydromorphone Allergy (Verified 06/30/20 11:17) PT UNSURE OF REACTION piperacillin Allergy (Verified 06/30/20 11:17) PT UNSURE OF REACTION Home Medications: Ambulatory Orders Medication Instructions Recorded Lisinopril [Prinivil] 10 mg PO DAILY 03/19/20 Atorvastatin Calcium [Lipitor] 20 mg PO QHS 05/30/20 traMADol [Ultram] 50 mg PO Q6H PRN PRN 05/30/20 Bumetanide 1 mg PO BID 06/06/20 Potassium Chloride [K-Dur] 20 meq PO DAILYCM 06/06/20 Acetaminophen [Tylenol Extra 1,000 mg PO BID PRN PRN 06/30/20 Strength] Apixaban [Eliquis] 5 mg PO BID 06/30/20 Metoprolol Tartrate 25 mg PO DAILY 06/30/20 Surgical History: Surgical History (This Medical Record has been edited. Action required.) Hx of appendectomy (Inactive) Z90.49 Hx of tubal ligation (Inactive) Z98.51 Surgical History: appendectomy, - - Tubal ligation. 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 Action required.) Sister Diabetes Mother Diabetes Father Heart disease Myocardial infarction Review of Systems Comment: Constitutional: Reports: Chills, Fever, Malaise, Weakness, Fatigue. D enies: Weight Change. HEENT: Denies: Head Aches, Sinus Congestion, Sinus Drainage. Cardiovascular: Denies: Chest Pain, Light Headedness, Palpitations. Respiratory: Denies: Cough, Shortness of Breath, Shortness of breath at rest, Sputum production. Gastrointestinal: Denies: Abdominal Pain, Diarrhea, Nausea, Vomiting. Genitourinary: Reports: - - has estrada cath. Denies: Dysuria, Hesitancy, Urgency. Musculoskeletal: Reports: Leg Pain. Denies: Joint Pain, Joint Tenderness, Muscle pain. Skin: Reports: Wounds. Denies: Lesions, Rash. Neurological: Denies: Numbness, Tingling, Focal weakness. Psychiatric: Denies: Anxiety, Depression, Homicidal Ideations, Suicidal Ideations. Hematologic/ Lymphatic: Denies: Easy Bruising, Easy Bleeding Patient Problems: Active and Suspected Problems (This Medical Record has been edited. Action required.) UTI (urinary tract infection) (Acute) Sepsis (Acute) - Physical Exam Vitals/I&O's: General: Alert, Oriented x3, Cooperative HEENT: PERRLA, EOMI. Neck: Supple, nontender. No cervical adenopathy. Lungs: Clear to auscultation. Cardiovascular: Regular rate. Abdomen: Soft, Nondistended, Obese. Extremities: Mild edema. On the left posterior leg is a nonhealing ulcer. Some exudate present. Some nonviable tissue present. Tender to palpation. Surrounding cellulitis. Measures 8 x 10 x 3 cm. On the right lateral leg is a nonhealing ulcer. Skin necrosis present. Tender to palpation. Surrounding cellulitis. Measures 6 x 2.2 cm. Neurological: Cranial nerves II-XII grossly intact. Psych/Mental Status: Normal Affect, Appropriate. Vital Signs Temp Pulse Resp BP Pulse Ox 96.8 F L 82 18 114/70 94 07/01/20 02:30 07/01/20 10:03 07/01/20 02:30 07/01/20 10:03 07/01/20 02:30 Oxygen Delivery Method Room Air Weight: 283 lb 8.231 oz Body Mass Index (BMI) 47.2 Intake and Output for Last 24 Hours 06/29/20 06/30/20 07/01/20 23:59 23:59 23:59 Intake Total 2230 / 2230 1735 / 1735 Output Total 1400 / 1400 Balance 2230 / 1780 335 / 335 Microbiology Past 72 Hours 07/01/20 08:40 Wound - Aerobic & Anaerobic Swabs Gram Stain - Final Laboratory Results 06/30/20 15:55: WBC 12.8 H, RBC 4.29, Hgb 13.1, Hct 41.3, MCV 96.3, MCH 30.5, MCHC 31.7 L, RDW Std Deviation 57.1 H, RDW Coeff of Galindo 16.3 H, Plt Count 457 H, MPV 8.7, Immature Gran % (Auto) 2.100 H, Neut % (Auto) 73.7 H, Lymph % (Auto) 12.2 L, Antelope % (Auto) 8.8, Eos % (Auto) 2.7, Baso % (Auto) 0.5, Absolute Neuts (auto) 9.4 H, Absolute Lymphs (auto) 1.57, Nucleated RBC % 0 06/30/20 15:55: Sodium 138, Potassium 4.2, Chloride 101, Carbon Dioxide 31.0, Anion Gap 6, BUN 68 H, Creatinine 1.17 H, Estim Creat Clear Calc 41.41, Est GFR (MDRD) Af Amer 59 L, Est GFR (MDRD) Non-Af 49 L, BUN/Creatinine Ratio 58.1 H, Glucose 103, Calcium 10.3 H, Total Bilirubin 0.50, AST 35, ALT 27, Alkaline Phosphatase 128 H, Total Protein 8.6 H, Albumin 2.3 L, Globulin 6.3 H, Albumin/Globulin Ratio 0.4 L 06/30/20 15:55: Lactic Acid 2.1 H* 06/30/20 15:55: Procalcitonin 0.44 H 06/30/20 15:55: Troponin I < 0.015 06/30/20 20:49: Lactic Acid 1.6 07/01/20 05:18: WBC 11.4 H, RBC 3.26 L, Hgb 9.8 L, Hct 31.7 L, MCV 97.2, MCH 30.1, MCHC 30.9 L, RDW Std Deviation 58.4 H, RDW Coeff of Galindo 16.3 H, Plt Count 383, MPV 8.7, Immature Gran % (Auto) 1.900 H, Neut % (Auto) 65.3, Lymph % (Auto) 15.7 L, Antelope % (Auto) 10.4 H, Eos % (Auto) 6.2 H, Baso % (Auto) 0.5, Absolute Neuts (auto) 7.4, Absolute Lymphs (auto) 1.79, Nucleated RBC % 0 07/01/20 05:18: Sodium 137, Potassium 4.6, Chloride 106, Carbon Dioxide 28.0, Anion Gap 3 L, BUN 63 H, Creatinine 1.07 H, Estim Creat Clear Calc 45.28, Est GFR (MDRD) Af Amer 66, Est GFR (MDRD) Non-Af 54 L, BUN/Creatinine Ratio 58.9 H, Glucose 84, Calcium 8.9 07/01/20 08:40: S.aureus Protein A PCR NEGATIVE, MRSA (PCR) Negative Current Medications Acetaminophen (Acetaminophen 500 Mg Tablet) 1,000 mg PO BID LIBIA Last Admin: 07/01/20 10:03 Dose: 1,000 mg Documented by: Acetaminophen (Acetaminophen 325 Mg Tablet) 650 mg PO Q6H PRN PRN PRN Reason: Pain Score 1-10/Temp > 100.7 F Last Admin: 06/30/20 19:52 Dose: 650 mg Documented by: Albuterol Sulfate (Albuterol 2.5 Mg/3 Ml Vial.Neb.) 2.5 mg INHALATION Q2H PRN PRN PRN Reason: SOB &/OR WHEEZING Apixaban (Apixaban 5 Mg Tablet) 5 mg PO BID [facility] Last Admin: 07/01/20 10:04 Dose: 5 mg Documented by: Atorvastatin Calcium (Atorvastatin Calcium 20 Mg Tablet) 20 mg PO QHS [facility] Last Admin: 06/30/20 21:46 Dose: 20 mg Documented by: Bumetanide (Bumetanide 0.5 Mg Tablet) 0.5 mg PO BIDLX [facility] Last Admin: 07/01/20 10:04 Dose: 0.5 mg Documented by: Calamine/Phenol (Menthol/Lanolin/Calamine/Znox 113 Gm Tube) 1 applic TOPICAL BID [facility]; Protocol Last Admin: 07/01/20 10:03 Dose: 1 applicatio Documented by: Doxycycline Monohydrate (Doxycycline 100 Mg Capsule) 100 mg PO BID [facility] Last Admin: 07/01/20 12:40 Dose: 100 mg Documented by: Ferrous Sulfate (Ferrous Sulfate 325 Mg Tablet) 325 mg PO DAILY@1200 [facility] Last Admin: 07/01/20 12:40 Dose: 325 mg Documented by: Gabapentin (Gabapentin 100 Mg Capsule) 100 mg PO BIDCM [facility] Meropenem 500 mg/ Sodium (Chloride) 60 mls @ 100 mls/hr IV Q8 [facility] Last Admin: 07/01/20 14:25 Dose: 100 mls/hr Documented by: Sodium Chloride () 1,000 mls @ 75 mls/hr IV .[id number] [facility] Last Admin: 07/01/20 08:06 Dose: 75 mls/hr Documented by: Lisinopril (Lisinopril 10 Mg Tablet) 10 mg PO DAILY [facility] Last Admin: 07/01/20 10:03 Dose: 10 mg Documented by: Magnesium Chloride (Magnesium Chloride 64 Mg Delay Rel.Tablet) 128 mg PO DAILY [facility] Last Admin: 07/01/20 10:04 Dose: 128 mg Documented by: Metoprolol Tartrate (Metoprolol Tartrate 25 Mg Tablet) 25 mg PO DAILY [facility] Last Admin: 07/01/20 10:03 Dose: 25 mg Documented by: Multivitamins (Multivitamins,Therapeutic Tablet) 1 tablet PO DAILY@0800 [facility] Last Admin: 12/01/20 08:05 Dose: 1 tablet Documented by: Ondansetron HCl (Ondansetron 4 Mg/2 Ml Vial) 4 mg IV Q8H PRN PRN PRN Reason: NAUSEA/VOMITING Potassium Chloride (Potassium Chloride 20 Meq Tablet) 20 meq PO DAILYCM [facility] Last Admin: 07/01/20 08:04 Dose: 20 meq Documented by: Sodium Chloride (0.9% Saline Lock 10 Ml Syringe) 10 - 40 ml IV UD PRN PRN Reason: SALINE FLUSH Sodium Hypochlorite (Dakin's Luana Half Strength (=0.25%)) 1 applic TOPICAL BID [facility]; Protocol Last Admin: 07/01/20 12:35 Dose: Not Given Documented by: Tramadol HCl (Tramadol 50 Mg Tablet) 50 mg PO Q6H PRN PRN PRN Reason: Pain 1-10 Last Admin: 07/01/20 08:12 Dose: 50 mg Documented by: Assessment/Plan All Active Problems (This Medical Record has been edited. Action required.) Cellulitis of right lower leg (Acute) Skin necrosis (Acute) Cellulitis of left lower leg (Acute) Nonhealing ulcer of right lower extremity with fat layer exposed (Acute) Nonhealing ulcer of left lower extremity with fat layer exposed (Acute) UTI (urinary tract infection) (Acute) Sepsis (Acute) Anasarca (Acute) 1. Nonhealing painful infected ulcer left posterior leg. 2. Nonhealing painful infected ulcer right lateral leg with skin necrosis. 3. Sepsis. 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 5. Chronic venous insufficiency with ulceration. 6. Obesity. Continue Meropenem. Wound culture is pending. Previous culture in May showed Methicillin resistant Staphylococcus capitis and Pseudomonas mendocina. Continue Dakin's dressing changes. She will need operative intervention with surgical preparation bilateral legs with incision and drainage and excisional debridement nonhealing infected ulcers with skin necrosis. Will send tissue to Pathology for analysis to rule out carcinoma and to Microbiology for culture. A positive culture will necessitate antibiotic therapy. Postoperative wound care will be with the VAC. After discharge will followup at the [facility]. If there is a plateau in the healing process, can proceed with delayed closure with skin grafting. Anticipate increased metabolic demands from the infection. Will check a Prealbumin and encourage nutritional supplementation with protein to help the healing process. Patient was informed of the risks and complications of the procedure including alternatives to surgery. These were discussed with the patient personally. Patient voices understanding and wishes to proceed. Will schedule the surgery in a few days under general anesthesia. Inpatient E&M: 84311 Init Hosp L2 - ICD-10 - L97.912, L03.115, I96, L97.922, L03.116, A41.9, Z79.01, I87.2, E66.01
[2020-07-01] MEDS: Gabapentin 100 MG Capsule PO (16:07)
[2020-07-01 16:15] VITALS: BP 95/51; PULSE 82; RESP 18; TEMP 36.6; O2SAT 95
[2020-07-01 20:50] VITALS: BP 110/57; PULSE 88; RESP 16; TEMP 36.4; O2SAT 94
[2020-07-01] MEDS: Nystatin Powder 15gm Bottle 1 APPLIC TOPICAL (20:56)
[2020-07-01] MEDS: DAKIN'S SOL HALF STRENGTH (=0.25%) 1 APPLIC TOPICAL (21:17)
[2020-07-01] MEDS: Atorvastatin Calcium 20 MG Tablet PO (21:22)
[2020-07-02 02:30] VITALS: BP 109/47; PULSE 82; RESP 16; TEMP 36.9; O2SAT 95
[2020-07-02] MEDS: traMADol 50 MG Tablet PO (05:09)
[2020-07-02] MEDS: 0.9% Saline Lock 10 ML Syringe IV (05:16)
[2020-07-02 06:48] LABS: Absolute Lymphocyte Count 1.77 X10^3/uL (0.83-4.51); Absolute Neutrophil Count 6.8 X10^3/uL (2.0-7.7); Basophil# 0.07 X10^3/uL; Basophil% 0.6 % (0-1); Eosinophil# 0.82 X10^3/uL; Eosinophils% 7.6 % (0-5); Hematocrit 31.2 % (37-47); Hemoglobin 9.6 g/dL (12.0-15.0); Lymphocyte # 1.77 X10^3/ul (4.0); Lymphocyte % 16.4 % (19-41); Mean Corp Hgb Conc 30.8 g/dL (32-36); Mean Corpuscular Hgb 30.6 pg (27.0-32.0); Mean Corpuscular Volume 99.4 fL (81-99); Mean Platelet Vol. 8.5 fl (6.2-12.0); Monocyte# 1.05 X10^3/uL; Monocyte% 9.7 % (0-10); NRBC Flagged by Analyzer 0 % (0-5); Neutrophil # 6.82 X10^3/uL (2.7-7.7); Neutrophil % 63.3 % (47-70); Platelet Count 382 K/mm3 (150-450); RBC Distribution Width CV 16.3 % (11.6-14.6); RBC Distribution Width SD 59.5 fl (35.1-43.9); Red Blood Count 3.14 M/mm3 (4.2-5.4); White Blood Count 10.8 K/mm3 (4.4-11.0)
[2020-07-02 07:10] LABS: Anion Gap 5 (5-15); BUN 60 mg/dL (7-18); BUN/Creat Ratio 63.3 RATIO (10-20); Chloride 107 mmol/L (98-107); Creatinine, Serum 0.95 mg/dL (0.55-1.02); EST Glomerular Filtration Rate 62 mL/min (>60); Est Glom Filt Rate - Afr Amer 75 mL/min (>60); Glucose 86 mg/dL (74-106); Potassium 4.2 mmol/L (3.5-5.1); Sodium Level 138 mmol/L (136-145)
[2020-07-02 07:56] VITALS: BP 94/52; PULSE 98; RESP 16; TEMP 36.6; O2SAT 95
[2020-07-02] MEDS: Multivitamins,Therapeutic Tablet 1 TABLET PO (08:07)
[2020-07-02] MEDS: Acetaminophen 500 MG Tablet 1000 MG PO ×2 (08:07→20:21)
[2020-07-02] MEDS: Gabapentin 100 MG Capsule PO ×2 (08:07→17:37)
[2020-07-02] MEDS: 0.9% Normal Saline 1,000 ML 75 ML IV (10:48)
[2020-07-02] MEDS: Bumetanide 0.5 MG Tablet PO ×2 (10:50→17:37)
[2020-07-02] MEDS: Doxycycline 100 MG CAPSULE PO ×2 (10:51→20:21)
[2020-07-02] MEDS: Menthol/Lanolin/Calamine/Znox 113 GM Tube 1 APPLIC TOPICAL ×2 (10:51→20:23)
[2020-07-02] MEDS: APIXABAN 5 MG TABLET PO ×2 (10:52→20:22)
[2020-07-02 10:53] VITALS: PULSE 98
[2020-07-02] MEDS: Metoprolol Tartrate 25 MG Tablet PO (10:53)
[2020-07-02] MEDS: Magnesium Chloride 64 MG Delay Rel.Tablet 128 MG PO (10:53)
[2020-07-02] MEDS: Lisinopril 10 MG Tablet PO (10:54)
[2020-07-02] MEDS: Nystatin Powder 15gm Bottle 1 APPLIC TOPICAL ×2 (10:54→20:23)
[2020-07-02] MEDS: Ferrous Sulfate 325 MG Tablet PO (10:55)
--- NOTE | 2020-07-02 13:16 | PCM.PN.HOSP ---
<Declan Brush - Last Filed: 07/02/20 13:16> Patient Problems: Active and Suspected Problems (This Medical Record has been edited. Action required.) UTI (urinary tract infection) (Acute) Sepsis (Acute) Reason for Visit: wound pain Subjective: Pain overnight. When examined today she denied any pain. No fever/chills. No cough/SOB. Vitals/I&O's: Vital Signs Temp Pulse Resp BP Pulse Ox 97.8 F 98 16 94/52 L 95 07/02/20 07:56 07/02/20 10:53 07/02/20 07:56 07/02/20 07:56 07/02/20 07:56 Oxygen Flow Rate (L/min) 2 Oxygen Delivery Method Room Air Weight: 283 lb 8.231 oz Body Mass Index (BMI) 47.2 Intake and Output for Last 24 Hours 06/30/20 07/01/20 07/02/20 23:59 23:59 23:59 Intake Total 2230 / 2230 3565 / 3565 1060 / 1060 Output Total 2650 / 2650 250 / 250 Balance 2230 / 1780 915 / 915 810 / 810 General: Alert, Oriented x3, Cooperative HEENT: Atraumatic, PERRLA, EOMI, Normocephalic Neck: Supple, No JVD, Negative Carotid Bruits Lungs: Clear to auscultation, Normal air movement Cardiovascular: Regular rate, No murmurs Abdomen: Bowel Sounds Present, Soft, Non Tender Extremities: No edema, Capillary Refill Less than 3 Seconds Skin: No rashes, No breakdown Musculoskeletal: No Tenderness to Palpation of Joints or Extremities Neurological: Cranial nerves II-XII grossly intact Psych/Mental Status: Normal Affect, Appropriate, Alert and oriented to time, place, person, mood and affect Microbiology Past 72 Hours 07/01/20 08:40 Wound - Aerobic & Anaerobic Swabs Gram Stain - Final 07/01/20 08:40 Wound - Aerobic & Anaerobic Swabs Wound Culture - Preliminary GNR Poss Pseudomonas sp Laboratory Results 07/02/20 06:44: WBC 10.8, RBC 3.14 L, Hgb 9.6 L, Hct 31.2 L, MCV 99.4 H, MCH 30.6, MCHC 30.8 L, RDW Std Deviation 59.5 H, RDW Coeff of Galindo 16.3 H, Plt Count 382, MPV 8.5, Immature Gran % (Auto) 2.400 H, Neut % (Auto) 63.3, Lymph % (Auto) 16.4 L, Greer % (Auto) 9.7, Eos % (Auto) 7.6 H, Baso % (Auto) 0.6, Absolute Neuts (auto) 6.8, Absolute Lymphs (auto) 1.77, Nucleated RBC % 0 07/02/20 06:44: Sodium 138, Potassium 4.2, Chloride 107, Carbon Dioxide 26.0, Anion Gap 5, BUN 60 H, Creatinine 0.95, Estim Creat Clear Calc 51.00, Est GFR (MDRD) Af Amer 75, Est GFR (MDRD) Non-Af 62, BUN/Creatinine Ratio 63.3 H, Glucose 86, Calcium 9.0 Current Medications Acetaminophen (Acetaminophen 500 Mg Tablet) 1,000 mg PO BID [facility] Last Admin: 07/02/20 08:07 Dose: 1,000 mg Documented by: Acetaminophen (Acetaminophen 325 Mg Tablet) 650 mg PO Q6H PRN PRN PRN Reason: Pain Score 1-10/Temp > 100.7 F Last Admin: 06/30/20 19:52 Dose: 650 mg Documented by: Albuterol Sulfate (Albuterol 2.5 Mg/3 Ml Vial.Neb.) 2.5 mg INHALATION Q2H PRN PRN PRN Reason: SOB &/OR WHEEZING Apixaban (Apixaban 5 Mg Tablet) 5 mg PO BID [facility] Last Admin: 07/02/20 10:52 Dose: 5 mg Documented by: Atorvastatin Calcium (Atorvastatin Calcium 20 Mg Tablet) 20 mg PO QHS [facility] Last Admin: 07/01/20 21:22 Dose: 20 mg Documented by: Bumetanide (Bumetanide 0.5 Mg Tablet) 0.5 mg PO BIDLX [facility] Last Admin: 07/02/20 10:50 Dose: 0.5 mg Documented by: Calamine/Phenol (Menthol/Lanolin/Calamine/Znox 113 Gm Tube) 1 applic TOPICAL BID [facility]; Protocol Last Admin: 07/02/20 10:51 Dose: 1 applicatio Documented by: Doxycycline Monohydrate (Doxycycline 100 Mg Capsule) 100 mg PO BID [facility] Last Admin: 07/02/20 10:51 Dose: 100 mg Documented by: Ferrous Sulfate (Ferrous Sulfate 325 Mg Tablet) 325 mg PO DAILY@1200 [facility] Last Admin: 07/02/20 10:55 Dose: 325 mg Documented by: Gabap[facility] ([facility] 100 [facility]ule) [facility] Last Admin: 07/02/20 08:07 Dose: 100 mg Documented by: Meropenem 500 mg/ Sodium (Chloride) 60 mls @ 100 mls/hr IV Q8 [facility] Last Infusion: 07/02/20 05:52 Dose: Infused Documented by: Sodium Chloride () 1,000 mls @ 75 mls/hr IV .[id number] [facility] Last Admin: 07/02/20 10:48 Dose: 75 mls/hr Documented by: Lisinopril (Lisinopril 10 Mg Tablet) 10 mg PO DAILY [facility] Last Admin: 07/02/20 10:54 Dose: 10 mg Documented by: Magnesium Chloride (Magnesium Chloride 64 Mg Delay Rel.Tablet) 128 mg PO DAILY [facility] Last Admin: 07/02/20 10:53 Dose: 128 mg Documented by: Metoprolol Tartrate (Metoprolol Tartrate 25 Mg Tablet) 25 mg PO DAILY [facility] Last Admin: 07/02/20 10:53 Dose: 25 mg Documented by: Multivitamins (Multivitamins,Therapeutic Tablet) 1 tablet PO DAILY@0800 [facility] Last Admin: 07/02/20 08:07 Dose: 1 tablet Documented by: Nystatin (Nystatin Powder 15gm Bottle) 1 applic TOPICAL BID [facility]; Protocol Last Admin: 07/02/20 10:54 Dose: 1 applicatio Documented by: Ondansetron HCl (Ondansetron 4 Mg/2 Ml Vial) 4 mg IV Q8H PRN PRN PRN Reason: NAUSEA/VOMITING Potassium Chloride (Potassium Chloride 20 Meq Tablet) [facility] Last Admin: 07/02/20 08:07 Dose: 20 meq Documented by: Sodium Chloride (0.9% Saline Lock 10 Ml Syringe) 10 - 40 ml IV UD PRN PRN Reason: SALINE FLUSH Last Admin: 07/02/20 05:16 Dose: 10 ml Documented by: Sodium Hypochlorite (Dakin's Luana Half Strength (=0.25%)) 1 applic TOPICAL BID [facility]; Protocol Last Admin: 07/01/20 21:17 Dose: 1 applicatio Documented by: Tramadol HCl (Tramadol 50 Mg Tablet) 50 mg PO Q6H PRN PRN PRN Reason: Pain 1-10 Last Admin: 07/02/20 05:09 Dose: 50 mg Documented by: STROKE Vital Signs/Narrative: Vital Signs Pulse 07/02/20 10:53 98 Medical Necessity - Tobacco Use Smoking Status: Never smoker Assessment/Plan All Active Problems (This Medical Record has been edited. Action required.) Cellulitis of right lower leg (Acute) Skin necrosis (Acute) Cellulitis of left lower leg (Acute) Nonhealing ulcer of right lower extremity with fat layer exposed (Acute) Nonhealing ulcer of left lower extremity with fat layer exposed (Acute) UTI (urinary tract infection) (Acute) Sepsis (Acute) Anasarca (Acute) 1. Acute sepsis 2/2 cellulitis/chronic wounds, possible UTI - hx multiple Pseudomonas species, Staph capitis. allergic to zosyn. consult ID. On shaw, doxy. minimal cellulitic changes around wounds. Perez changed, notably pus around site and legs. Urine culture pending. Blood cx pending. ID has placed consult to Dr. Pedersen. Prior wound debridement was at [facility]. -WBC improved. -Afebrile. -LA resolved. -pain improved with gabapentin. 2. Hx Anasarca/Lymphedema, hypoalbuminemia - continue bumex 3. Hx pAfib, 2nd degree AV block - metoprolol, not on OAC. 4. Hx iron def anemia - continue ferrous sulfate. Hgb 13.1-->9.8 --> 9.6. Trend CBC 5. Chronic debility - chronically nonambulatory 6. COPD - no exacerbation - prn aerosols. 7. 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 Pts physical activity goal is to be able to transfer into her scooter. This patient was seen by Declan Brush PA-C under the supervision of Dr. Capps <Scarlet Capps - Last Filed: 07/02/20 17:49> Vitals/I&O's: Vital Signs Temp Pulse Resp BP Pulse Ox 97.8 F 82 16 91/58 L 96 07/02/20 14:14 07/02/20 14:14 07/02/20 14:14 07/02/20 14:14 07/02/20 14:14 Oxygen Flow Rate (L/min) 2 Oxygen Delivery Method Room Air Weight: 283 lb 8.231 oz Body Mass Index (BMI) 47.2 Intake and Output for Last 24 Hours 06/30/20 07/01/20 07/02/20 23:59 23:59 23:59 Intake Total 2230 / 2230 3565 / 3565 1060 / 1060 Output Total 2650 / 2650 250 / 250 Balance 2230 / 1780 915 / 915 810 / 810 Microbiology Past 72 Hours 07/01/20 08:40 Wound - Aerobic & Anaerobic Swabs Gram Stain - Final 07/01/20 08:40 Wound - Aerobic & Anaerobic Swabs Wound Culture - Preliminary GNR Poss Pseudomonas sp Laboratory Results 07/02/20 06:44: WBC 10.8, RBC 3.14 L, Hgb 9.6 L, Hct 31.2 L, MCV 99.4 H, MCH 30.6, MCHC 30.8 L, RDW Std Deviation 59.5 H, RDW Coeff of Galindo 16.3 H, Plt Count 382, MPV 8.5, Immature Gran % (Auto) 2.400 H, Neut % (Auto) 63.3, Lymph % (Auto) 16.4 L, Greer % (Auto) 9.7, Eos % (Auto) 7.6 H, Baso % (Auto) 0.6, Absolute Neuts (auto) 6.8, Absolute Lymphs (auto) 1.77, Nucleated RBC % 0 07/02/20 06:44: Sodium 138, Potassium 4.2, Chloride 107, Carbon Dioxide 26.0, Anion Gap 5, BUN 60 H, Creatinine 0.95, Estim Creat Clear Calc 51.00, Est GFR (MDRD) Af Amer 75, Est GFR (MDRD) Non-Af 62, BUN/Creatinine Ratio 63.3 H, Glucose 86, Calcium 9.0 Current Medications Acetaminophen (Acetaminophen 500 Mg Tablet) 1,000 mg PO BID [facility] Last Admin: 07/02/20 08:07 Dose: 1,000 mg Documented by: Acetaminophen (Acetaminophen 325 Mg Tablet) 650 mg PO Q6H PRN PRN PRN Reason: Pain Score 1-10/Temp > 100.7 F Last Admin: 06/30/20 19:52 Dose: 650 mg Documented by: Albuterol Sulfate (Albuterol 2.5 Mg/3 Ml Vial.Neb.) 2.5 mg INHALATION Q2H PRN PRN PRN Reason: SOB &/OR WHEEZING Apixaban (Apixaban 5 Mg Tablet) 5 mg PO BID [facility] Last Admin: 07/02/20 10:52 Dose: 5 mg Documented by: Atorvastatin Calcium (Atorvastatin Calcium 20 Mg Tablet) 20 mg PO QHS [facility] Last Admin: 07/01/20 21:22 Dose: 20 mg Documented by: Bumetanide (Bumetanide 0.5 Mg Tablet) 0.5 mg PO BIDLX [facility] Last Admin: 07/02/20 17:37 Dose: 0.5 mg Documented by: Calamine/Phenol (Menthol/Lanolin/Calamine/Znox 113 Gm Tube) 1 applic TOPICAL BID [facility]; Protocol Last Admin: 07/02/20 10:51 Dose: 1 applicatio Documented by: Doxycycline Monohydrate (Doxycycline 100 Mg Capsule) 100 mg PO BID [facility] Last Admin: 07/02/20 10:51 Dose: 100 mg Documented by: Ferrous Sulfate (Ferrous Sulfate 325 Mg Tablet) 325 mg PO DAILY@1200 [facility] Last Admin: 07/02/20 10:55 Dose: 325 mg Documented by: Gabapentin (Gabapentin 100 Mg Capsule) 100 mg PO BIDCM [facility] Last Admin: 07/02/20 17:37 Dose: 100 mg Documented by: Meropenem 500 mg/ Sodium (Chloride) 60 mls @ 100 mls/hr IV Q8 [facility] Last Infusion: 07/02/20 05:52 Dose: Infused Documented by: Sodium Chloride () 1,000 mls @ 75 mls/hr IV .[id number] [facility] Last Admin: 07/02/20 10:48 Dose: 75 mls/hr Documented by: Lisinopril (Lisinopril 10 Mg Tablet) 10 mg PO DAILY [facility] Last Admin: 07/02/20 10:54 Dose: 10 mg Documented by: Magnesium Chloride (Magnesium Chloride 64 Mg Delay Rel.Tablet) 128 mg PO DAILY [facility] Last Admin: 07/02/20 10:53 Dose: 128 mg Documented by: Metoprolol Tartrate (Metoprolol Tartrate 25 Mg Tablet) 25 mg PO DAILY [facility] Last Admin: 07/02/20 10:53 Dose: 25 mg Documented by: Multivitamins (Multivitamins,Therapeutic Tablet) 1 tablet PO DAILY@0800 [facility] Last Admin: 07/02/20 08:07 Dose: 1 tablet Documented by: Nystatin (Nystatin Powder 15gm Bottle) 1 applic TOPICAL BID [facility]; Protocol Last Admin: 07/02/20 10:54 Dose: 1 applicatio Documented by: Ondansetron HCl (Ondansetron 4 Mg/2 Ml Vial) 4 mg IV Q8H PRN PRN PRN Reason: NAUSEA/VOMITING Potassium Chloride (Potassium Chloride 20 Meq Tablet) 20 meq PO DAILYCM [facility] Last Admin: 07/02/20 08:07 Dose: 20 meq Documented by: Sodium Chloride (0.9% Saline Lock 10 Ml Syringe) 10 - 40 ml IV UD PRN PRN Reason: SALINE FLUSH Last Admin: 07/02/20 05:16 Dose: 10 ml Documented by: Sodium Hypochlorite (Dakin's Luana Half Strength (=0.25%)) 1 applic TOPICAL BID [facility]; Protocol Last Admin: 07/01/20 21:17 Dose: 1 applicatio Documented by: Tramadol HCl (Tramadol 50 Mg Tablet) 50 mg PO Q6H PRN PRN PRN Reason: Pain 1-10 Last Admin: 07/02/20 05:09 Dose: 50 mg Documented by: STROKE Vital Signs/Narrative: Vital Signs Temp Pulse Resp BP Pulse Ox 07/02/20 14:14 97.8 F 82 16 91/58 L 96 Assessment/Plan Patient seen by Declan Brush PA-C under my supervision Patient seen and examined. She says she had a bad night on account of pain in her lower extremities. Review of systems otherwise negative. O/E: Vital Signs Temp Pulse Resp BP Pulse Ox 97.8 F 82 16 91/58 L 96 07/02/20 14:14 07/02/20 14:14 07/02/20 14:14 07/02/20 14:14 07/02/20 14:14 General: Alert, Oriented x3, Cooperative, morbidly obese HEENT: Atraumatic, PERRLA, EOMI, Normocephalic Neck: Supple, No JVD, Negative Carotid Bruits Lungs: Clear to auscultation, Normal air movement Cardiovascular: Regular rate, No murmurs Abdomen: Bowel Sounds Present, Soft, Non Tender, Obese Extremities: No edema, Capillary Refill Less than 3 Seconds Skin: - - both LEs wrapped in ADEN bandage. Musculoskeletal: No Tenderness to Palpation of Joints or Extremities Neurological: Cranial nerves II-XII grossly intact Psych/Mental Status: Normal Affect, Appropriate Plastic surgery consulted. Patient to have debridement by [place]. Continue IV meropenem and doxycycline. Started on gabapentin for pain in her lower extremities and pain is improving. Rest as per Declan Brush PA-C's notes which I reviewed and endorsed. Inpatient E&M: 96229 Subs Hosp L2
[2020-07-02 14:14] VITALS: BP 91/58; PULSE 82; RESP 16; TEMP 36.6; O2SAT 96
--- NOTE | 2020-07-02 16:37 | NURSING ---
AccessRN called at this time for PICC line placement. Will call back with time for nurse arrival for placement.
--- NOTE | 2020-07-02 16:47 | PCM.PN.ID ---
Patient Problems: Active and Suspected Problems (This Medical Record has been edited. Action required.) UTI (urinary tract infection) (Acute) Sepsis (Acute) Subjective: Feeling ok but having a lot of leg pain. No n/v/d. No fever. - Physical Exam Vitals/I&O's: Vital Signs Temp Pulse Resp BP Pulse Ox 97.8 F 82 16 91/58 L 96 07/02/20 14:14 07/02/20 14:14 07/02/20 14:14 07/02/20 14:14 07/02/20 14:14 Oxygen Flow Rate (L/min) 2 Oxygen Delivery Method Room Air Weight: 128.6 kg Body Mass Index (BMI) 47.2 Intake and Output for Last 24 Hours 06/30/20 07/01/20 07/02/20 23:59 23:59 23:59 Intake Total 2230 / 2230 3565 / 3565 1060 / 1060 Output Total 2650 / 2650 250 / 250 Balance 2230 / 1780 915 / 915 810 / 810 General: Alert, Cooperative, No apparent distress Lungs: Clear to auscultation, Normal air movement Cardiovascular: Regular rate, Regular Rhythm Abdomen: Soft, Non Tender, Non-Distended Skin: No rashes Microbiology Past 72 Hours 07/01/20 08:40 Wound - Aerobic & Anaerobic Swabs Gram Stain - Final 07/01/20 08:40 Wound - Aerobic & Anaerobic Swabs Wound Culture - Preliminary GNR Poss Pseudomonas sp Laboratory Results 07/02/20 06:44: WBC 10.8, RBC 3.14 L, Hgb 9.6 L, Hct 31.2 L, MCV 99.4 H, MCH 30.6, MCHC 30.8 L, RDW Std Deviation 59.5 H, RDW Coeff of Galindo 16.3 H, Plt Count 382, MPV 8.5, Immature Gran % (Auto) 2.400 H, Neut % (Auto) 63.3, Lymph % (Auto) 16.4 L, [place] % (Auto) 9.7, Eos % (Auto) 7.6 H, Baso % (Auto) 0.6, Absolute Neuts (auto) 6.8, Absolute Lymphs (auto) 1.77, Nucleated RBC % 0 07/02/20 06:44: Sodium 138, Potassium 4.2, Chloride 107, Carbon Dioxide 26.0, Anion Gap 5, BUN 60 H, Creatinine 0.95, Estim Creat Clear Calc 51.00, Est GFR (MDRD) Af Amer 75, Est GFR (MDRD) Non-Af 62, BUN/Creatinine Ratio 63.3 H, Glucose 86, Calcium 9.0 Current Medications Acetaminophen (Acetaminophen 500 Mg Tablet) 1,000 mg PO BID [facility] Last Admin: 07/02/20 08:07 Dose: 1,000 mg Documented by: Acetaminophen (Acetaminophen 325 Mg Tablet) 650 mg PO Q6H PRN PRN PRN Reason: Pain Score 1-10/Temp > 100.7 F Last Admin: 06/30/20 19:52 Dose: 650 mg Documented by: Albuterol Sulfate (Albuterol 2.5 Mg/3 Ml Vial.Neb.) 2.5 mg INHALATION Q2H PRN PRN PRN Reason: SOB &/OR WHEEZING Apixaban (Apixaban 5 Mg Tablet) 5 mg PO BID [facility] Last Admin: 07/02/20 10:52 Dose: 5 mg Documented by: Atorvastatin Calcium (Atorvastatin Calcium 20 Mg Tablet) 20 mg PO QHS [facility] Last Admin: 07/01/20 21:22 Dose: 20 mg Documented by: Bumetanide (Bumetanide 0.5 Mg Tablet) 0.5 mg PO BIDLX [facility] Last Admin: 07/02/20 10:50 Dose: 0.5 mg Documented by: Calamine/Phenol (Menthol/Lanolin/Calamine/Znox 113 Gm Tube) 1 applic TOPICAL BID [facility]; Protocol Last Admin: 07/02/20 10:51 Dose: 1 applicatio Documented by: Doxycycline Monohydrate (Doxycycline 100 Mg Capsule) 100 mg PO BID [facility] Last Admin: 07/02/20 10:51 Dose: 100 mg Documented by: Ferrous Sulfate (Ferrous Sulfate 325 Mg Tablet) 325 mg PO DAILY@1200 [facility] Last Admin: 07/02/20 10:55 Dose: 325 mg Documented by: Gabapentin (Gabapentin 100 Mg Capsule) 100 mg PO BIDCM [facility] Last Admin: 07/02/20 08:07 Dose: 100 mg Documented by: Meropenem 500 mg/ Sodium (Chloride) 60 mls @ 100 mls/hr IV Q8 [facility] Last Infusion: 07/02/20 05:52 Dose: Infused Documented by: Sodium Chloride () 1,000 mls @ 75 mls/hr IV .[id number] [facility] Last Admin: 07/02/20 10:48 Dose: 75 mls/hr Documented by: Lisinopril (Lisinopril 10 Mg Tablet) 10 mg PO DAILY [facility] Last Admin: 07/02/20 10:54 Dose: 10 mg Documented by: Magnesium Chloride (Magnesium Chloride 64 Mg Delay Rel.Tablet) 128 mg PO DAILY [facility] Last Admin: 07/02/20 10:53 Dose: 128 mg Documented by: Metoprolol Tartrate (Metoprolol Tartrate 25 Mg Tablet) 25 mg PO DAILY [facility] Last Admin: 07/02/20 10:53 Dose: 25 mg Documented by: Multivitamins (Multivitamins,Therapeutic Tablet) 1 tablet PO DAILY@0800 [facility] Last Admin: 07/02/20 08:07 Dose: 1 tablet Documented by: Nystatin (Nystatin Powder 15gm Bottle) 1 applic TOPICAL BID [facility]; Protocol Last Admin: 07/02/20 10:54 Dose: 1 applicatio Documented by: Ondansetron HCl (Ondansetron 4 Mg/2 Ml Vial) 4 mg IV Q8H PRN PRN PRN Reason: NAUSEA/VOMITING Potassium Chloride (Potassium Chloride 20 Meq Tablet) 20 meq PO DAILYCM [facility] Last Admin: 07/02/20 08:07 Dose: 20 meq Documented by: Sodium Chloride (0.9% Saline Lock 10 Ml Syringe) 10 - 40 ml IV UD PRN PRN Reason: SALINE FLUSH Last Admin: 07/02/20 05:16 Dose: 10 ml Documented by: Sodium Hypochlorite (Dakin's Luana Half Strength (=0.25%)) 1 applic TOPICAL BID [facility]; Protocol Last Admin: 07/01/20 21:17 Dose: 1 applicatio Documented by: Tramadol HCl (Tramadol 50 Mg Tablet) 50 mg PO Q6H PRN PRN PRN Reason: Pain 1-10 Last Admin: 07/02/20 05:09 Dose: 50 mg Documented by: Medical Necessity - Tobacco Use Smoking Status: Never smoker Route of nutrition/ use of supplements: [] Nutritional Intake: [] IV Site: [] Estrada Catheter: [] - Assessment/Plan Antibiotics: [] Assessment/Plan: [] Active and Suspected Problems (This Medical Record has been edited. Action required.) UTI (urinary tract infection) (Acute) Sepsis (Acute) Chronic estrada, so abnormal UA may just represent colonization. Ucx pending. Several months of worsening bilat calf ulcers, particularly on L. Wound cx here 05/30/20 with MR-CoNs and Pseudomonas x2, but gram stain with no organisms or purulence seen so hard to know if those were true pathogens. Wound cx now with some pseudomonas. Given extent of the ulcer, consulted Dr. Pedersen, OR planned for 07/04. Will follow
[2020-07-02 20:18] VITALS: BP 97/50; PULSE 78; RESP 16; TEMP 36.5; O2SAT 97
[2020-07-02] MEDS: Atorvastatin Calcium 20 MG Tablet PO (20:21)
[2020-07-02] MEDS: DAKIN'S SOL HALF STRENGTH (=0.25%) 1 APPLIC TOPICAL (20:22)
[2020-07-03 02:18] VITALS: BP 109/57; PULSE 96; RESP 16; TEMP 36.7; O2SAT 96
[2020-07-03] MEDS: traMADol 50 MG Tablet PO ×4 (06:58→23:13)
[2020-07-03 07:40] LABS: Absolute Lymphocyte Count 1.96 X10^3/uL (0.83-4.51); Absolute Neutrophil Count 6.8 X10^3/uL (2.0-7.7); Basophil# 0.07 X10^3/uL; Basophil% 0.7 % (0-1); Eosinophil# 0.88 X10^3/uL; Eosinophils% 8.2 % (0-5); Hematocrit 36.6 % (37-47); Hemoglobin 10.8 g/dL (12.0-15.0); Lymphocyte # 1.96 X10^3/ul (4.0); Lymphocyte % 18.3 % (19-41); Mean Corp Hgb Conc 29.5 g/dL (32-36); Mean Corpuscular Volume 98.1 fL (81-99); Mean Platelet Vol. 8.7 fl (6.2-12.0); Monocyte# 0.87 X10^3/uL; Monocyte% 8.1 % (0-10); NRBC Flagged by Analyzer 0 % (0-5); Neutrophil # 6.75 X10^3/uL (2.7-7.7); Neutrophil % 62.8 % (47-70); Platelet Count 436 K/mm3 (150-450); RBC Distribution Width CV 16.3 % (11.6-14.6); RBC Distribution Width SD 58.7 fl (35.1-43.9); Red Blood Count 3.73 M/mm3 (4.2-5.4); White Blood Count 10.7 K/mm3 (4.4-11.0)
[2020-07-03 08:08] LABS: Anion Gap 3 (5-15); BUN 59 mg/dL (7-18); BUN/Creat Ratio 66.4 RATIO (10-20); Calcium,Total 9.3 mg/dL (8.5-10.1); Chloride 108 mmol/L (98-107); Creatinine, Serum 0.89 mg/dL (0.55-1.02); EST Glomerular Filtration Rate 67 mL/min (>60); Est Glom Filt Rate - Afr Amer 81 mL/min (>60); Estimated Creatinine Clearance 54.44 ml/min; Glucose 79 mg/dL (74-106); Potassium 4.8 mmol/L (3.5-5.1); Prealbumin 12.8 mg/dL (20.0-40.0); Sodium Level 139 mmol/L (136-145)
[2020-07-03 09:16] VITALS: BP 101/54; PULSE 105; RESP 18; TEMP 36.3; O2SAT 93
[2020-07-03 09:20] VITALS: PULSE 105
[2020-07-03] MEDS: Bumetanide 0.5 MG Tablet PO ×2 (09:20→17:10)
[2020-07-03] MEDS: Gabapentin 100 MG Capsule PO ×2 (09:20→17:10)
[2020-07-03] MEDS: Metoprolol Tartrate 25 MG Tablet PO (09:20)
[2020-07-03] MEDS: Doxycycline 100 MG CAPSULE PO ×2 (09:20→21:45)
[2020-07-03] MEDS: Multivitamins,Therapeutic Tablet 1 TABLET PO (09:20)
[2020-07-03] MEDS: Lisinopril 10 MG Tablet PO (09:21)
[2020-07-03] MEDS: Acetaminophen 500 MG Tablet 1000 MG PO ×2 (09:21→23:13)
[2020-07-03] MEDS: Magnesium Chloride 64 MG Delay Rel.Tablet 128 MG PO (09:21)
[2020-07-03] MEDS: Nystatin Powder 15gm Bottle 1 APPLIC TOPICAL ×2 (09:21→21:38)
[2020-07-03] MEDS: APIXABAN 5 MG TABLET PO (09:22)
[2020-07-03] MEDS: Menthol/Lanolin/Calamine/Znox 113 GM Tube 1 APPLIC TOPICAL ×2 (09:22→21:35)
[2020-07-03] MEDS: DAKIN'S SOL HALF STRENGTH (=0.25%) 1 APPLIC TOPICAL (09:23)
--- NOTE | 2020-07-03 09:45 | PCM.PN.SRG ---
Patient Problems: Active and Suspected Problems (This Medical Record has been edited. Action required.) UTI (urinary tract infection) (Acute) Sepsis (Acute) Subjective: Patient resting in bed. - Physical Exam Vitals/I&O's: Vital Signs Temp Pulse Resp BP Pulse Ox 97.3 F L 105 H 18 101/54 L 93 07/03/20 09:16 07/03/20 09:20 07/03/20 09:16 07/03/20 09:16 07/03/20 09:16 Oxygen Flow Rate (L/min) 2 Oxygen Delivery Method Room Air Weight: 283 lb 8.231 oz Body Mass Index (BMI) 47.2 Intake and Output for Last 24 Hours 07/01/20 07/02/20 07/03/20 23:59 23:59 23:59 Intake Total 3565 / 3565 2010 / 2490 780 / 780 Output Total 2650 / 2650 250 / 650 750 / 750 Balance 915 / 915 1760 / 1840 30 / 30 General: Alert, Oriented x3, Cooperative HEENT: Atraumatic Oral: Moist Mucosa Lungs: Normal air movement Cardiovascular: Regular rate Abdomen: Obese Extremities: Edema, Tenderness Skin: Ulcer/ Wound - Right lateral leg ulcer with eschar present. Wound nurse placed adaptic and Dakin's solution wet to dry dressing. Left lateral leg ulcer is painful with significant amount of slough, surrounded by redness. Dakin's moistened gauze dressing applied. Musculoskeletal: Tenderness Neurological: Cranial nerves II-XII grossly intact Psych/Mental Status: Normal Affect, Appropriate Microbiology Past 72 Hours 07/01/20 16:20 Urine Catheter - Perez Urine Culture - Final Culture exhibits no growth. 06/30/20 17:20 Blood Culture (Wb) - Arm Left Blood Culture - Preliminary No growth in 48 hours. 06/30/20 15:55 Blood Culture (Wb) - Right Forearm Blood Culture - Preliminary No growth in 48 hours. 07/01/20 08:40 Wound - Aerobic & Anaerobic Swabs Gram Stain - Final 07/01/20 08:40 Wound - Aerobic & Anaerobic Swabs Wound Culture - Final Pseudomonas aeroginosa 07/01/20 08:40 Wound - Aerobic & Anaerobic Swabs Anaerobic Culture - Preliminary Checking for anaerobes, further studies to follow. Laboratory Results 07/03/20 06:45: WBC 10.7, RBC 3.73 L, Hgb 10.8 L, Hct 36.6 L, MCV 98.1, MCH 29.0, MCHC 29.5 L, RDW Std Deviation 58.7 H, RDW Coeff of Galindo 16.3 H, Plt Count 436, MPV 8.7, Immature Gran % (Auto) 1.900 H, Neut % (Auto) 62.8, Lymph % (Auto) 18.3 L, [place] % (Auto) 8.1, Eos % (Auto) 8.2 H, Baso % (Auto) 0.7, Absolute Neuts (auto) 6.8, Absolute Lymphs (auto) 1.96, Nucleated RBC % 0 07/03/20 06:45: Sodium 139, Potassium 4.8, Chloride 108 H, Carbon Dioxide 28.0, Anion Gap 3 L, BUN 59 H, Creatinine 0.89, Estim Creat Clear Calc 54.44, Est GFR (MDRD) Af Amer 81, Est GFR (MDRD) Non-Af 67, BUN/Creatinine Ratio 66.4 H, Glucose 79, Calcium 9.3, Prealbumin 12.8 L Current Medications Acetaminophen (Acetaminophen 500 Mg Tablet) 1,000 mg PO BID [facility] Last Admin: 07/03/20 09:21 Dose: 1,000 mg Documented by: Acetaminophen (Acetaminophen 325 Mg Tablet) 650 mg PO Q6H PRN PRN PRN Reason: Pain Score 1-10/Temp > 100.7 F Last Admin: 06/30/20 19:52 Dose: 650 mg Documented by: Albuterol Sulfate (Albuterol 2.5 Mg/3 Ml Vial.Neb.) 2.5 mg INHALATION Q2H PRN PRN PRN Reason: SOB &/OR WHEEZING Apixaban (Apixaban 5 Mg Tablet) 5 mg PO BID [facility] Last Admin: 07/03/20 09:22 Dose: 5 mg Documented by: Atorvastatin Calcium (Atorvastatin Calcium 20 Mg Tablet) 20 mg PO QHS [facility] Last Admin: 07/02/20 20:21 Dose: 20 mg Documented by: Bumetanide (Bumetanide 0.5 Mg Tablet) 0.5 mg PO BIDLX [facility] Last Admin: 07/03/20 09:20 Dose: 0.5 mg Documented by: Calamine/Phenol (Menthol/Lanolin/Calamine/Znox 113 Gm Tube) 1 applic TOPICAL BID [facility]; Protocol Last Admin: 07/03/20 09:22 Dose: 1 applicatio Documented by: Doxycycline Monohydrate (Doxycycline 100 Mg Capsule) 100 mg PO BID [facility] Last Admin: 07/03/20 09:20 Dose: 100 mg Documented by: Ferrous Sulfate (Ferrous Sulfate 325 Mg Tablet) 325 mg PO DAILY@1200 [facility] Last Admin: 07/02/20 10:55 Dose: 325 mg Documented by: [facility] ([facility]) [facility] Last Admin: 07/03/20 09:20 Dose: 100 mg Documented by: Meropenem 500 mg/ Sodium (Chloride) 60 mls @ 100 mls/hr IV Q8 [facility] Last Admin: 07/03/20 05:29 Dose: Not Given Documented by: Sodium Chloride () 1,000 mls @ 75 mls/hr IV .[id number] [facility] Last Admin: 07/02/20 23:29 Dose: Not Given Documented by: Lisinopril (Lisinopril 10 Mg Tablet) 10 mg PO DAILY [facility] Last Admin: 07/03/20 09:21 Dose: 10 mg Documented by: Magnesium Chloride (Magnesium Chloride 64 Mg Delay Rel.Tablet) 128 mg PO DAILY [facility] Last Admin: 07/03/20 09:21 Dose: 128 mg Documented by: Metoprolol Tartrate (Metoprolol Tartrate 25 Mg Tablet) 25 mg PO DAILY [facility] Last Admin: 07/03/20 09:20 Dose: 25 mg Documented by: Multivitamins (Multivitamins,Therapeutic Tablet) 1 tablet PO DAILY@0800 [facility] Last Admin: 07/03/20 09:20 Dose: 1 tablet Documented by: Nystatin (Nystatin Powder 15gm Bottle) 1 applic TOPICAL BID [facility]; Protocol Last Admin: 07/03/20 09:21 Dose: 1 applicatio Documented by: Ondansetron HCl (Ondansetron 4 Mg/2 Ml Vial) 4 mg IV Q8H PRN PRN PRN Reason: NAUSEA/VOMITING Potassium Chloride (Potassium Chloride 20 Meq Tablet) [facility] Last Admin: 07/03/20 09:19 Dose: 20 meq Documented by: Sodium Chloride (0.9% Saline Lock 10 Ml Syringe) 10 - 40 ml IV UD PRN PRN Reason: SALINE FLUSH Last Admin: 07/02/20 05:16 Dose: 10 ml Documented by: Sodium Hypochlorite (Dakin's Luana Half Strength (=0.25%)) 1 applic TOPICAL BID [facility]; Protocol Last Admin: 07/03/20 09:23 Dose: 1 applicatio Documented by: Tramadol HCl (Tramadol 50 Mg Tablet) 50 mg PO Q6H PRN PRN PRN Reason: Pain 1-10 Last Admin: 07/03/20 06:58 Dose: 50 mg Documented by: Medical Necessity - Tobacco Use Smoking Status: Never smoker Assessment/Plan All Active Problems (This Medical Record has been edited. Action required.) Cellulitis of right lower leg (Acute) Skin necrosis (Acute) Cellulitis of left lower leg (Acute) Nonhealing ulcer of right lower extremity with fat layer exposed (Acute) Nonhealing ulcer of left lower extremity with fat layer exposed (Acute) UTI (urinary tract infection) (Acute) Sepsis (Acute) Anasarca (Acute) 1. Nonhealing painful infected ulcer left posterior leg. 2. Nonhealing painful infected ulcer right lateral leg with skin necrosis. 3. Sepsis. 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 5. Chronic venous insufficiency with ulceration. 6. Obesity. Continue Meropenem. Wound culture positive for Pseudomonas aeroginosa. Previous culture in May showed Methicillin resistant Staphylococcus capitis and Pseudomonas mendocina. Continue Dakin's dressing changes. She will need operative intervention with surgical preparation bilateral legs with incision and drainage and excisional debridement nonhealing infected ulcers with skin necrosis. Will send tissue to Pathology for analysis to rule out carcinoma and to Microbiology for culture. A positive culture will necessitate antibiotic therapy. Postoperative wound care will be with the [facility]. After discharge will followup [facility]. If there is a plateau in the healing process, can proceed with delayed closure with skin grafting. Anticipate increased metabolic demands from the infection. Prealbumin 12.8 today, encourage nutritional supplementation with protein to help the healing process. Patient was informed of the risks and complications of the procedure including alternatives to surgery. These were discussed with the patient personally. Patient voices understanding and wishes to proceed. Surgery scheduled for tomorrow under general anesthesia. Inpatient E&M: [id number] [facility] L1
[2020-07-03] MEDS: Ferrous Sulfate 325 MG Tablet PO (11:36)
--- NOTE | 2020-07-03 12:31 | PN_ITS ---
<Soumya Pena BOBBIN DUMPER - Last Filed: 07/03/20 12:44> Patient Problems: Active and Suspected Problems (This Medical Record has been edited. Action req uired.) UTI (urinary tract infection) (Acute) Sepsis (Acute) Subjective: Patient seen and examined. Reports significant left lower extremity pain following dressing change. Denies fever, chills. Denies other current complaints. - Physical Exam Vitals/I&O's: Vital Signs Temp Pulse Resp BP Pulse Ox 97.3 F L 105 H 18 101/54 L 93 07/03/20 09:16 07/03/20 09:20 07/03/20 09:16 07/03/20 09:16 07/03/20 09:16 Oxygen Flow Rate (L/min) 2 Oxygen Delivery Method Room Air Weight: 283 lb 8.231 oz Body Mass Index (BMI) 47.2 Intake and Output for Last 24 Hours 07/01/20 07/02/20 07/03/20 23:59 23:59 23:59 Intake Total 3565 / 3565 2010 / 2490 1260 / 1260 Output Total 2650 / 2650 250 / 650 750 / 750 Balance 915 / 915 1760 / 1840 510 / 510 General: Alert, Oriented x3, Cooperative HEENT: Atraumatic, PERRLA, EOMI, Normocephalic Neck: Supple, No JVD, Negative Carotid Bruits Lungs: Clear to auscultation, Normal air movement Cardiovascular: Regular rate, No murmurs Abdomen: Bowel Sounds Present, Soft, Non Tender, Non-Distended, Obese Extremities: No clubbing, No cyanosis, No edema Skin: No rashes, No breakdown, - - Bilateral lower extremity dressings intact. Musculoskeletal: No Tenderness to Palpation of Joints or Extremities Neurological: Cranial nerves II-XII grossly intact, Neuro grossly intact Psych/Mental Status: Normal Affect, Appropriate Microbiology Past 72 Hours 07/01/20 16:20 Urine Catheter - Perez Urine Culture - Final Culture exhibits no growth. 06/30/20 17:20 Blood Culture (Wb) - Arm Left Blood Culture - Preliminary No growth in 48 hours. 06/30/20 15:55 Blood Culture (Wb) - Right Forearm Blood Culture - Preliminary No growth in 48 hours. 07/01/20 08:40 Wound - Aerobic & Anaerobic Swabs Gram Stain - Final 07/01/20 08:40 Wound - Aerobic & Anaerobic Swabs Wound Culture - Final Pseudomonas aeroginosa 07/01/20 08:40 Wound - Aerobic & Anaerobic Swabs Anaerobic Culture - Preliminary Checking for anaerobes, further studies to follow. Laboratory Results 07/03/20 06:45: WBC 10.7, RBC 3.73 L, Hgb 10.8 L, Hct 36.6 L, MCV 98.1, MCH 29.0, MCHC 29.5 L, RDW Std Deviation 58.7 H, RDW Coeff of Galindo 16.3 H, Plt Count 436, MPV 8.7, Immature Gran % (Auto) 1.900 H, Neut % (Auto) 62.8, Lymph % (Auto) 18.3 L, [place] % (Auto) 8.1, Eos % (Auto) 8.2 H, Baso % (Auto) 0.7, Absolute Neuts (auto) 6.8, Absolute Lymphs (auto) 1.96, Nucleated RBC % 0 07/03/20 06:45: Sodium 139, Potassium 4.8, Chloride 108 H, Carbon Dioxide 28.0, Anion Gap 3 L, BUN 59 H, Creatinine 0.89, Estim Creat Clear Calc 54.44, Est GFR (MDRD) Af Amer 81, Est GFR (MDRD) Non-Af 67, BUN/Creatinine Ratio 66.4 H, Glucose 79, Calcium 9.3, Prealbumin 12.8 L Current Medications Acetaminophen (Acetaminophen 500 Mg Tablet) 1,000 mg PO BID [facility] Last Admin: 07/03/20 09:21 Dose: 1,000 mg Documented by: Acetaminophen (Acetaminophen 325 Mg Tablet) 650 mg PO Q6H PRN PRN PRN Reason: Pain Score 1-10/Temp > 100.7 F Last Admin: 06/30/20 19:52 Dose: 650 mg Documented by: Albuterol Sulfate (Albuterol 2.5 Mg/3 Ml Vial.Neb.) 2.5 mg INHALATION Q2H PRN PRN PRN Reason: SOB &/OR WHEEZING Apixaban (Apixaban 5 Mg Tablet) 5 mg PO BID [facility] Last Admin: 07/03/20 09:22 Dose: 5 mg Documented by: Atorvastatin Calcium (Atorvastatin Calcium 20 Mg Tablet) 20 mg PO QHS [facility] Last Admin: 07/02/20 20:21 Dose: 20 mg Documented by: Bumetanide (Bumetanide 0.5 Mg Tablet) 0.5 mg PO BIDLX [facility] Last Admin: 07/03/20 09:20 Dose: 0.5 mg Documented by: Calamine/Phenol (Menthol/Lanolin/Calamine/Znox 113 Gm Tube) 1 applic TOPICAL BID [facility]; Protocol Last Admin: 07/03/20 09:22 Dose: 1 applicatio Documented by: Doxycycline Monohydrate (Doxycycline 100 Mg Capsule) 100 mg PO BID [facility] Last Admin: 07/03/20 09:20 Dose: 100 mg Documented by: Ferrous Sulfate (Ferrous Sulfate 325 Mg Tablet) 325 mg PO DAILY@1200 [facility] Last Admin: 07/03/20 11:36 Dose: 325 mg Documented by: Gabapentin (Gabapentin 100 Mg Capsule) 100 mg PO BIDCM [facility] Last Admin: 07/03/20 09:20 Dose: 100 mg Documented by: Meropenem 500 mg/ Sodium (Chloride) 60 mls @ 100 mls/hr IV Q8 [facility] Last Admin: 07/03/20 05:29 Dose: Not Given Documented by: Sodium Chloride () 1,000 mls @ 75 mls/hr IV .[id number] [facility] Last Admin: 07/02/20 23:29 Dose: Not Given Documented by: Lisinopril (Lisinopril 10 Mg Tablet) 10 mg PO DAILY [facility] Last Admin: 07/03/20 09:21 Dose: 10 mg Documented by: Magnesium Chloride (Magnesium Chloride 64 Mg Delay Rel.Tablet) 128 mg PO DAILY [facility] Last Admin: 07/03/20 09:21 Dose: 128 mg Documented by: Metoprolol Tartrate (Metoprolol Tartrate 25 Mg Tablet) 25 mg PO DAILY [facility] Last Admin: 07/03/20 09:20 Dose: 25 mg Documented by: Multivitamins (Multivitamins,Therapeutic Tablet) 1 tablet PO DAILY@0800 [facility] Last Admin: 07/03/20 09:20 Dose: 1 tablet Documented by: Nystatin (Nystatin Powder 15gm Bottle) 1 applic TOPICAL BID [facility]; Protocol Last Admin: 07/03/20 09:21 Dose: 1 applicatio Documented by: Ondansetron HCl (Ondansetron 4 Mg/2 Ml Vial) 4 mg IV Q8H PRN PRN PRN Reason: NAUSEA/VOMITING Potassium Chloride (Potassium Chloride 20 Meq Tablet) 20 meq PO DAILYCM [facility] Last Admin: 07/03/20 09:19 Dose: 20 meq Documented by: Sodium Chloride (0.9% Saline Lock 10 Ml Syringe) 10 - 40 ml IV UD PRN PRN Reason: SALINE FLUSH Last Admin: 07/02/20 05:16 Dose: 10 ml Documented by: Sodium Hypochlorite (Dakin's Luana Half Strength (=0.25%)) 1 applic TOPICAL BID [facility]; Protocol Last Admin: 07/03/20 09:23 Dose: 1 applicatio Documented by: Tramadol HCl (Tramadol 50 Mg Tablet) 50 mg PO Q6H PRN PRN PRN Reason: Pain 1-10 Last Admin: 07/03/20 06:58 Dose: 50 mg Documented by: Medical Necessity - Tobacco Use Smoking Status: Never smoker Assessment/Plan All Active Problems (This Medical Record has been edited. Action required.) Cellulitis of right lower leg (Acute) Skin necrosis (Acute) Cellulitis of left lower leg (Acute) Nonhealing ulcer of right lower extremity with fat layer exposed (Acute) Nonhealing ulcer of left lower extremity with fat layer exposed (Acute) UTI (urinary tract infection) (Acute) Sepsis (Acute) Anasarca (Acute) 1. Acute sepsis secondary to nonhealing infected ulcers of the left posterior leg and right lateral leg with associated cellulitis-UTI ruled out. ID and plastics following. Plan for surgical wound debridement tomorrow. On IV meropenem, oral doxy. Urine and blood cultures negative. Wound culture preliminary growing Pseudomonas. Wound RN consult. 2. Chronic lymphedema/anasarca-continue Bumex. 3. Paroxysmal atrial fibrillation/second-degree AV block-on metoprolol, Eliquis. 4. Iron deficiency anemia-stable, trend CBC. 5. Chronic COPD-as needed albuterol aerosol. 6. Morbid obesity-encourage diet lifestyle modifications. 7. Chronic debility- PT/OT. Recent DC from SNF. DVT prophylaxis-Eliquis This patient was seen by Soumya Pena NP-C under the supervision of Dr. Capps. <Scarlet Capps - Last Filed: 07/03/20 16:39> - Physical Exam Vitals/I&O's: Vital Signs Temp Pulse Resp BP Pulse Ox 96.8 F L 89 16 99/45 L 95 12/03/20 14:19 07/03/20 14:19 07/03/20 14:19 07/03/20 14:19 07/03/20 14:19 Oxygen Flow Rate (L/min) 2 Oxygen Delivery Method Room Air Weight: 283 lb 8.231 oz Body Mass Index (BMI) 47.2 Intake and Output for Last 24 Hours 07/01/20 07/02/20 07/03/20 23:59 23:59 23:59 Intake Total 3565 / 3565 2009 / 2490 1320 / 1320 Output Total 2650 / 2650 250 / 650 750 / 750 Balance 915 / 915 1760 / 1840 570 / 570 Microbiology Past 72 Hours 07/03/20 14:27 Mucosa - Nose SARS-CoV-2 Antigen (Rapid) - Final 07/01/20 16:20 Urine Catheter - Perez Urine Culture - Final Culture exhibits no growth. 06/30/20 17:20 Blood Culture (Wb) - Arm Left Blood Culture - Preliminary No growth in 48 hours. 06/30/20 15:55 Blood Culture (Wb) - Right Forearm Blood Culture - Preliminary No growth in 48 hours. 07/01/20 08:40 Wound - Aerobic & Anaerobic Swabs Gram Stain - Final 07/01/20 08:40 Wound - Aerobic & Anaerobic Swabs Wound Culture - Final Pseudomonas aeroginosa 07/01/20 08:40 Wound - Aerobic & Anaerobic Swabs Anaerobic Culture - Preliminary Checking for anaerobes, further studies to follow. Laboratory Results 07/03/20 06:45: WBC 10.7, RBC 3.73 L, Hgb 10.8 L, Hct 36.6 L, MCV 98.1, MCH 29.0, MCHC 29.5 L, RDW Std Deviation 58.7 H, RDW Coeff of Galindo 16.3 H, Plt Count 436, MPV 8.7, Immature Gran % (Auto) 1.900 H, Neut % (Auto) 62.8, Lymph % (Auto) 18.3 L, [place] % (Auto) 8.1, Eos % (Auto) 8.2 H, Baso % (Auto) 0.7, Absolute Neuts (auto) 6.8, Absolute Lymphs (auto) 1.96, Nucleated RBC % 0 07/03/20 06:45: Sodium 139, Potassium 4.8, Chloride 108 H, Carbon Dioxide 28.0, Anion Gap 3 L, BUN 59 H, Creatinine 0.89, Estim Creat Clear Calc 54.44, Est GFR (MDRD) Af Amer 81, Est GFR (MDRD) Non-Af 67, BUN/Creatinine Ratio 66.4 H, Glucose 79, Calcium 9.3, Prealbumin 12.8 L Current Medications Acetaminophen (Acetaminophen 500 Mg Tablet) 1,000 mg PO BID [facility] Last Admin: 07/03/20 09:21 Dose: 1,000 mg Documented by: Acetaminophen (Acetaminophen 325 Mg Tablet) 650 mg PO Q6H PRN PRN PRN Reason: Pain Score 1-10/Temp > 100.7 F Last Admin: 06/30/20 19:52 Dose: 650 mg Documented by: Albuterol Sulfate (Albuterol 2.5 Mg/3 Ml Vial.Neb.) 2.5 mg INHALATION Q2H PRN PRN PRN Reason: SOB &/OR WHEEZING Atorvastatin Calcium (Atorvastatin Calcium 20 Mg Tablet) 20 mg PO QHS [facility] Last Admin: 07/02/20 20:21 Dose: 20 mg Documented by: Bumetanide (Bumetanide 0.5 Mg Tablet) 0.5 mg PO BIDLX [facility] Last Admin: 07/03/20 09:20 Dose: 0.5 mg Documented by: Calamine/Phenol (Menthol/Lanolin/Calamine/Znox 113 Gm Tube) 1 applic TOPICAL BID [facility]; Protocol Last Admin: 07/03/20 09:22 Dose: 1 applicatio Documented by: Doxycycline Monohydrate (Doxycycline 100 Mg Capsule) 100 mg PO BID [facility] Last Admin: 07/03/20 09:20 Dose: 100 mg Documented by: Ferrous Sulfate (Ferrous Sulfate 325 Mg Tablet) 325 mg PO DAILY@1200 [facility] Last Admin: 07/03/20 11:36 Dose: 325 mg Documented by: Gabapentin (Gabapentin 100 Mg Capsule) 100 mg PO BIDCM [facility] Last Admin: 07/03/20 09:20 Dose: 100 mg Documented by: Meropenem 500 mg/ Sodium (Chloride) 60 mls @ 100 mls/hr IV Q8 [facility] Last Infusion: 07/03/20 14:59 Dose: Infused Documented by: Sodium Chloride () 1,000 mls @ 75 mls/hr IV .[id number] [facility] Last Admin: 07/03/20 15:00 Dose: Not Given Documented by: Lisinopril (Lisinopril 10 Mg Tablet) 10 mg PO DAILY [facility] Last Admin: 07/03/20 09:21 Dose: 10 mg Documented by: Magnesium Chloride (Magnesium Chloride 64 Mg Delay Rel.Tablet) 128 mg PO DAILY [facility] Last Admin: 07/03/20 09:21 Dose: 128 mg Documented by: Metoprolol Tartrate (Metoprolol Tartrate 25 Mg Tablet) 25 mg PO DAILY [facility] Last Admin: 07/03/20 09:20 Dose: 25 mg Documented by: Multivitamins (Multivitamins,Therapeutic Tablet) 1 tablet PO DAILY@0800 [facility] Last Admin: 07/03/20 09:20 Dose: 1 tablet Documented by: Nystatin (Nystatin Powder 15gm Bottle) 1 applic TOPICAL BID [facility]; Protocol Last Admin: 07/03/20 09:21 Dose: 1 applicatio Documented by: Ondansetron HCl (Ondansetron 4 Mg/2 Ml Vial) 4 mg IV Q8H PRN PRN PRN Reason: NAUSEA/VOMITING Potassium Chloride (Potassium Chloride 20 Meq Tablet) [facility] Last Admin: 07/03/20 09:19 Dose: 20 meq Documented by: Sodium Chloride (0.9% Saline Lock 10 Ml Syringe) 10 - 40 ml IV UD PRN PRN Reason: SALINE FLUSH Last Admin: 07/02/20 05:16 Dose: 10 ml Documented by: Sodium Hypochlorite (Dakin's Luana Half Strength (=0.25%)) 1 applic TOPICAL BID [facility]; Protocol Last Admin: 07/03/20 09:23 Dose: 1 applicatio Documented by: Tramadol HCl (Tramadol 50 Mg Tablet) 50 mg PO Q6H PRN PRN PRN Reason: Pain 1-10 Last Admin: 07/03/20 06:58 Dose: 50 mg Documented by: Assessment/Plan Patient seen by Soumya Pena NP-see under my supervision Patient seen and examined. She complains of pain in her lower extremities ove rnight. Review of symptoms otherwise negative. She is for surgical wound debridement tomorrow by plastic surgery. She has remained hemodynamically stable. Patient is concerned that she may be high risk for surgery and is wondering if she should go ahead with the surgery. Patient counseled that yes in light of her extensive comorbidities, she would be high risk for any surgery but she would have to decide after weighing the benefits of the surgery. Patient thought about this and decided she wanted to go ahead with the surgery. O/E: Vital Signs Temp Pulse Resp BP Pulse Ox 96.8 F L 89 16 99/45 L 95 07/03/20 14:19 07/03/20 14:19 07/03/20 14:19 07/03/20 14:19 07/03/20 14:19 General: Alert, Oriented x3, Cooperative, morbidly obese HEENT: Atraumatic, PERRLA, EOMI, Normocephalic Neck: Supple, No JVD, Negative Carotid Bruits Lungs: Clear to auscultation, Normal air movement Cardiovascular: Regular rate, No murmurs Abdomen: Bowel Sounds Present, Soft, Non Tender, Obese Extremities: No edema, Capillary Refill Less than 3 Seconds Skin: - - both LEs wrapped in bandage. Musculoskeletal: No Tenderness to Palpation of Joints or Extremities Neurological: Cranial nerves II-XII grossly intact Psych/Mental Status: Normal Affect, Appropriate Plan is continue IV meropenem and doxycycline. Continue gabapentin for pain as well as tramadol. PT OT on board. For debridement by plastic surgery tomorrow. Rest as per Soumya Pena BOBBIN DUMPER-C's note, which I have reviewed and endorsed. Inpatient E&M: 73099 Subs Hosp L2
[2020-07-03 14:19] VITALS: BP 99/45; PULSE 89; RESP 16; TEMP 36; O2SAT 95
[2020-07-03 21:39] VITALS: BP 96/45; PULSE 78; RESP 16; TEMP 36.7; O2SAT 100
[2020-07-03] MEDS: Atorvastatin Calcium 20 MG Tablet PO (21:45)
[2020-07-03 21:47] VITALS: O2SAT 100
[2020-07-03] MEDS: 0.9% Normal Saline 1,000 ML 75 ML IV (23:15)
[2020-07-04] VITALS (21 sets, daily range): BP systolic 74–143; BP diastolic 34–123; PULSE 100–115; RESP 16–20; TEMP 36.2–36.7; O2SAT 93–99; BMI 47.2; BMI 49.2
--- NOTE | 2020-07-04 | UL_PTH ---
PATIENT: WALESKA BAILEY LOC: MS3 U#:[id number] AGE/SX: 70/F ROOM: [facility] [place] RE06/30/[address]: Dr. Galo Rai DO : 1950 BED: 1 DIS: 07/08/2020 SPEC #: [id number] RECD: 07/04/20 07:43 STATUS: LOLIS REQ #: [id number] EMILY: 07/04/20 00:[address]: Ming Pedersen DEPT: SURGICAL PATHOLOGY RECD BY: Maicol Mckeon ENTERED: 07/07/20 08:50 SP TYPE: ULCER OTHR DR: DO Dr. Ming Sanchez MD Dr. Mark Tereletsky, MD Tomeka Vargas Dr., FLIGHT OPERATIONS MANAGER-C Tissues: A - ULCER B - ULCER Procedures: Surgery Specimen Level IV Comments: @ Ordering doctor for SUIII edited from to @ by NAHUN at 07/07/20 0940 @ Submitting doctor edited from to @ by RGOOLEGARIO at 07/07/2040 HEADER OPERATION: Incision, drainage abscess, infected ulcers, posterior legs PRE-OP DIAGNOSIS: Nonhealing painful, infected ulcer left posterior leg and right lateral leg with necrosis; sepsis TISSUE SUBMITTED: A - Soft tissue ulcer left leg, B - Soft tissue ulcer right leg MICROSCOPIC DIAGNOSIS A. Skin and soft tissue of left leg, excision: Ulceration with associated acute and chronic inflammation, granulation, fat necrosis and Dystrophic microcalcifications. B. Skin and soft tissue of right leg, excision: Ulceration with associated acute and chronic inflammation, granulation, fat necrosis and Dystrophic microcalcifications. AM:kike 07/08/20 MICROSCOPIC DESCRIPTION Slides are reviewed. GROSS DESCRIPTION A - Received in fixative is one container labeled with the patient's name and designated soft tissue ulcer left leg. The specimen consists of two irregular fragments of skin with adherent galarza-yellow fibrofatty tissue that in aggregate measure 14 x 10 cm and a depth of excision measuring 1.5 cm on average. The cutaneous surface contains an irregular ulcer measuring 8 cm in greatest dimension. Serial sections do not reveal mass lesions. Hobbing Press Operator sections are submitted in three cassettes. B - Received in fixative is one container labeled with the patient's name and designated soft tissue ulcer right leg. The specimen consists of one irregular fragment of skin with adherent galarza-yellow fibrofatty tissue measuring 11 x 5.5 cm and a depth of excision measuring 1.7 cm on average. The cutaneous surface contains two irregular ulcers ranging in size from 2 to 4.5 cm. Serial sections do not reveal mass lesions. Hobbing Press Operator sections are submitted in three cassettes. / AM:kike 07/07/20 TC:2 CPT: 46674 x2
[2020-07-04] MEDS: DAKIN'S SOL HALF STRENGTH (=0.25%) 1 APPLIC TOPICAL (00:10)
[2020-07-04] MEDS: Acetaminophen 325 MG Tablet 650 MG PO (03:54)
[2020-07-04] MEDS: traMADol 50 MG Tablet PO ×2 (05:28→21:58)
[2020-07-04 06:45] LABS: Anion Gap 3 (5-15); BUN 51 mg/dL (7-18); BUN/Creat Ratio 75.1 RATIO (10-20); Calcium,Total 9.6 mg/dL (8.5-10.1); Chloride 110 mmol/L (98-107); Creatinine, Serum 0.68 mg/dL (0.55-1.02); EST Glomerular Filtration Rate 92 mL/min (>60); Est Glom Filt Rate - Afr Amer 111 mL/min (>60); Estimated Creatinine Clearance 48.45 ml/min; Glucose 95 mg/dL (74-106); Potassium 4.3 mmol/L (3.5-5.1); Sodium Level 140 mmol/L (136-145)
[2020-07-04 06:48] LABS: Hematocrit 35.4 % (37-47); Hemoglobin 10.7 g/dL (12.0-15.0); Mean Corp Hgb Conc 30.2 g/dL (32-36); Mean Corpuscular Hgb 29.3 pg (27.0-32.0); Mean Platelet Vol. 8.6 fl (6.2-12.0); Platelet Count 441 K/mm3 (150-450); RBC Distribution Width CV 16.2 % (11.6-14.6); RBC Distribution Width SD 58.2 fl (35.1-43.9); Red Blood Count 3.65 M/mm3 (4.2-5.4)
[2020-07-04 06:52] LABS: International Normalized Ratio 1.4; Partial Thromboplast Time 32.5 Seconds (24.1-36.2); Prothrombin Time (Protime)PT. 16.6 SECONDS (11.7-14.9)
--- NOTE | 2020-07-04 07:50 | NURSING ---
Pt going for surgery today so will leave dressings to bilateral lower legs intact.
--- NOTE | 2020-07-04 07:50 | NURSING ---
Home wound VAC forms initiated. awaiting approval at this time.
[2020-07-04] MEDS: Menthol/Lanolin/Calamine/Znox 113 GM Tube 1 APPLIC TOPICAL ×2 (10:33→22:00)
--- NOTE | 2020-07-04 10:49 | PN_ITS ---
<JeanSoumya UTILIZATION ENGINEER - Last Filed: 07/04/20 10:52> Patient Problems: Active and Suspected Problems (This Medical Record has been edited. Action req uired.) UTI (urinary tract infection) (Acute) Sepsis (Acute) Subjective: Patient seen and examined. Reports pain is improved this morning. To undergo surgical wound debridement later today. Denies current symptoms or complaints. - Physical Exam Vitals/I&O's: Vital Signs Temp Pulse Resp BP Pulse Ox 98.1 F 102 H 16 95/48 L 96 07/04/20 10:10 07/04/20 10:10 07/04/20 10:10 07/04/20 10:10 07/04/20 10:10 Oxygen Flow Rate (L/min) 2 Oxygen Delivery Method Room Air Weight: 283 lb 8.231 oz Body Mass Index (BMI) 47.2 Intake and Output for Last 24 Hours 07/02/20 07/03/20 07/04/20 23:59 23:59 23:59 Intake Total 2009 / 2490 1880 / 2180 1228.75 / 1228.75 Output Total 250 / 650 1550 / 2550 1500 / 1500 Balance 1760 / 1840 330 / -370 -271.25 / -271.25 General: Alert, Oriented x3, Cooperative HEENT: Atraumatic, PERRLA, EOMI, Normocephalic Neck: Supple, No JVD, Negative Carotid Bruits Lungs: Clear to auscultation, Normal air movement Cardiovascular: Regular rate, No murmurs Abdomen: Bowel Sounds Present, Soft, Non Tender Extremities: No clubbing, No cyanosis, No edema, Capillary Refill Less than 3 S econds Skin: No rashes, No breakdown, - - Bilateral lower extremity dressings intact. Musculoskeletal: No Tenderness to Palpation of Joints or Extremities Neurological: Cranial nerves II-XII grossly intact, Neuro grossly intact Psych/Mental Status: Normal Affect, Appropriate Microbiology Past 72 Hours 07/01/20 08:40 Wound - Aerobic & Anaerobic Swabs Gram Stain - Final 07/01/20 08:40 Wound - Aerobic & Anaerobic Swabs Wound Culture - Final Pseudomonas aeroginosa 07/01/20 08:40 Wound - Aerobic & Anaerobic Swabs Anaerobic Culture - Final No anaerobic bacteria isolated. 07/03/20 14:27 Mucosa - Nose SARS-CoV-2 Antigen (Rapid) - Final 07/01/20 16:20 Urine Catheter - Perez Urine Culture - Final Culture exhibits no growth. 06/30/20 17:20 Blood Culture (Wb) - Arm Left Blood Culture - Preliminary No growth in 48 hours. 06/30/20 15:55 Blood Culture (Wb) - Right Forearm Blood Culture - Preliminary No growth in 48 hours. Laboratory Results 07/04/20 06:08: WBC 11.0, RBC 3.65 L, Hgb 10.7 L, Hct 35.4 L, MCV 97.0, MCH 29.3, MCHC 30.2 L, RDW Std Deviation 58.2 H, RDW Coeff of Galindo 16.2 H, Plt Count 441, MPV 8.6 07/04/20 06:08: Sodium 140, Potassium 4.3, Chloride 110 H, Carbon Dioxide 27.0, Anion Gap 3 L, BUN 51 H, Creatinine 0.68, Estim Creat Clear Calc 48.45, Est GFR (MDRD) Af Amer 111, Est GFR (MDRD) Non-Af 92, BUN/Creatinine Ratio 75.1 H, Glucose 95, Calcium 9.6 07/04/20 06:08: PT 16.6 H, INR 1.4, APTT 32.5 Current Medications Acetaminophen (Acetaminophen 500 Mg Tablet) 1,000 mg PO BID [facility] Last Admin: 07/03/20 23:13 Dose: 1,000 mg Documented by: Acetaminophen (Acetaminophen 325 Mg Tablet) 650 mg PO Q6H PRN PRN PRN Reason: Pain Score 1-10/Temp > 100.7 F Last Admin: 07/04/20 03:54 Dose: 650 mg Documented by: Albuterol Sulfate (Albuterol 2.5 Mg/3 Ml Vial.Neb.) 2.5 mg INHALATION Q2H PRN PRN PRN Reason: SOB &/OR WHEEZING Atorvastatin Calcium (Atorvastatin Calcium 20 Mg Tablet) 20 mg PO QHS [facility] Last Admin: 07/03/20 21:45 Dose: 20 mg Documented by: Bumetanide (Bumetanide 0.5 Mg Tablet) 0.5 mg PO BIDLX [facility] Last Admin: 07/03/20 17:10 Dose: 0.5 mg Documented by: Calamine/Phenol (Menthol/Lanolin/Calamine/Znox 113 Gm Tube) 1 applic TOPICAL BID [facility]; Protocol Last Admin: 07/04/20 10:33 Dose: 1 applicatio Documented by: Doxycycline Monohydrate (Doxycycline 100 Mg Capsule) 100 mg PO BID [facility] Last Admin: 07/03/20 21:45 Dose: 100 mg Documented by: Ferrous Sulfate (Ferrous Sulfate 325 Mg Tablet) 325 mg PO DAILY@1200 [facility] Last Admin: 07/03/20 11:36 Dose: 325 mg Documented by: [facility]ap[facility] ([facility] 100 [facility]apsule) [facility] Admin: 07/04/20 10:10 Dose: Not Given Documented by: Meropenem 500 mg/ Sodium (Chloride) 60 mls @ 100 mls/hr IV Q8 [facility] Last Infusion: 07/04/20 06:01 Dose: Infused Documented by: Sodium Chloride () 1,000 mls @ 75 mls/hr IV .[id number] [facility] Last Infusion: 07/04/20 10:38 Dose: 0 mls/hr Documented by: Lisinopril (Lisinopril 10 Mg Tablet) 10 mg PO DAILY [facility] Last Admin: 07/03/20 09:21 Dose: 10 mg Documented by: Magnesium Chloride (Magnesium Chloride 64 Mg Delay Rel.Tablet) 128 mg PO DAILY [facility] Last Admin: 07/03/20 09:21 Dose: 128 mg Documented by: Metoprolol Tartrate (Metoprolol Tartrate 25 Mg Tablet) 25 mg PO DAILY [facility] Last Admin: 07/03/20 09:20 Dose: 25 mg Documented by: Multivitamins (Multivitamins,Therapeutic Tablet) 1 tablet PO DAILY@0800 [facility] Last Admin: 07/04/20 10:10 Dose: Not Given Documented by: Nystatin (Nystatin Powder 15gm Bottle) 1 applic TOPICAL BID [facility]; Protocol Last Admin: 07/03/20 21:38 Dose: 1 applicatio Documented by: Ondansetron HCl (Ondansetron 4 Mg/2 Ml Vial) 4 mg IV Q8H PRN PRN PRN Reason: NAUSEA/VOMITING Potassium Chloride (Potassium Chloride 20 Meq Tablet) [facility] Last Admin: 07/04/20 10:10 Dose: Not Given Documented by: Sodium Chloride (0.9% Saline Lock 10 Ml Syringe) 10 - 40 ml IV UD PRN PRN Reason: SALINE FLUSH Last Admin: 07/02/20 05:16 Dose: 10 ml Documented by: Sodium Hypochlorite (Dakin's Luana Half Strength (=0.25%)) 1 applic TOPICAL BID [facility]; Protocol Last Admin: 07/04/20 10:34 Dose: Not Given Documented by: Tramadol HCl (Tramadol 50 Mg Tablet) 50 mg PO Q6H PRN PRN PRN Reason: Pain 1-10 Last Admin: 07/04/20 05:28 Dose: 50 mg Documented by: Medical Necessity - Tobacco Use Smoking Status: Never smoker Assessment/Plan All Active Problems (This Medical Record has been edited. Action required.) Cellulitis of right lower leg (Acute) Skin necrosis (Acute) Cellulitis of left lower leg (Acute) Nonhealing ulcer of right lower extremity with fat layer exposed (Acute) Nonhealing ulcer of left lower extremity with fat layer exposed (Acute) UTI (urinary tract infection) (Acute) Sepsis (Acute) Anasarca (Acute) 1. Acute sepsis secondary to nonhealing infected ulcers of the left posterior leg and right lateral leg with associated cellulitis-UTI ruled out. ID and plastics following. Plan for surgical wound debridement 07/04/2020. On IV meropenem, oral doxy. Urine and blood cultures negative. Wound culture preliminary growing Pseudomonas. Wound RN consult. 2. Chronic lymphedema/anasarca-continue Bumex. 3. Paroxysmal atrial fibrillation/second-degree AV block-on metoprolol, Eliquis. Eliquis on hold prior to surgery. 4. Iron deficiency anemia-stable, trend CBC. 5. Chronic COPD-as needed albuterol aerosol. 6. Morbid obesity-encourage diet lifestyle modifications. 7. Chronic debility- PT/OT. Recent DC from SNF. DVT prophylaxis-Eliquis on hold due to planned surgery This patient was seen by TREY Arrington under the supervision of Dr. Capps. <Scarlet Capps - Last Filed: 07/04/20 16:42> - Physical Exam Vitals/I&O's: Vital Signs Temp Pulse Resp BP Pulse Ox 97.2 F L 102 H 16 90/56 L 98 07/04/20 16:11 07/04/20 16:11 07/04/20 16:11 07/04/20 16:11 07/04/20 16:11 Oxygen Flow Rate (L/min) 2 Oxygen Delivery Method Room Air Weight: 283 lb 8.231 oz Body Mass Index (BMI) 47.2 Intake and Output for Last 24 Hours 07/02/20 07/03/20 07/04/20 23:59 23:59 23:59 Intake Total 2009 1880 / 2180 1288.75 / 1288.75 Output Total 250 / 650 1550 / 2550 1750 / 1750 Balance 1760 / 1840 330 / -370 -461.25 / -461.25 Microbiology Past 72 Hours 07/01/20 08:40 Wound - Aerobic & Anaerobic Swabs Gram Stain - Final 07/01/20 08:40 Wound - Aerobic & Anaerobic Swabs Wound Culture - Final Pseudomonas aeroginosa 07/01/20 08:40 Wound - Aerobic & Anaerobic Swabs Anaerobic Culture - Final No anaerobic bacteria isolated. 07/03/20 14:27 Mucosa - Nose SARS-CoV-2 Antigen (Rapid) - Final 07/01/20 16:20 Urine Catheter - Perez Urine Culture - Final Culture exhibits no growth. 06/30/20 17:20 Blood Culture (Wb) - Arm Left Blood Culture - Preliminary No growth in 48 hours. 06/30/20 15:55 Blood Culture (Wb) - Right Forearm Blood Culture - Preliminary No growth in 48 hours. Laboratory Results 07/04/20 06:08: WBC 11.0, RBC 3.65 L, Hgb 10.7 L, Hct 35.4 L, MCV 97.0, MCH 29.3, MCHC 30.2 L, RDW Std Deviation 58.2 H, RDW Coeff of Galindo 16.2 H, Plt Count 441, MPV 8.6 07/04/20 06:08: Sodium 140, Potassium 4.3, Chloride 110 H, Carbon Dioxide 27.0, Anion Gap 3 L, BUN 51 H, Creatinine 0.68, Estim Creat Clear Calc 48.45, Est GFR (MDRD) Af Amer 111, Est GFR (MDRD) Non-Af 92, BUN/Creatinine Ratio 75.1 H, Glucose 95, Calcium 9.6 07/04/20 06:08: PT 16.6 H, INR 1.4, APTT 32.5 Current Medications Acetaminophen (Acetaminophen 500 Mg Tablet) 1,000 mg PO BID [facility] Last Admin: 07/03/20 23:13 Dose: 1,000 mg Documented by: Acetaminophen (Acetaminophen 325 Mg Tablet) 650 mg PO Q6H PRN PRN PRN Reason: Pain Score 1-10/Temp > 100.7 F Last Admin: 07/04/20 03:54 Dose: 650 mg Documented by: Albuterol Sulfate (Albuterol 2.5 Mg/3 Ml Vial.Neb.) 2.5 mg INHALATION Q2H PRN PRN PRN Reason: SOB &/OR WHEEZING Last Admin: 07/04/20 15:24 Dose: 2.5 mg Documented by: Atorvastatin Calcium (Atorvastatin Calcium 20 Mg Tablet) 20 mg PO QHS [facility] Last Admin: 07/03/20 21:45 Dose: 20 mg Documented by: Bumetanide (Bumetanide 0.5 Mg Tablet) 0.5 mg PO BIDLX [facility] Last Admin: 07/04/20 15:19 Dose: Not Given Documented by: Calamine/Phenol (Menthol/Lanolin/Calamine/Znox 113 Gm Tube) 1 applic TOPICAL BID [facility]; Protocol Last Admin: 07/04/20 10:33 Dose: 1 applicatio Documented by: Doxycycline Monohydrate (Doxycycline 100 Mg Capsule) 100 mg PO BID [facility] Last Admin: 07/03/20 21:45 Dose: 100 mg Documented by: Ferrous Sulfate (Ferrous Sulfate 325 Mg Tablet) 325 mg PO DAILY@1200 [facility] Last Admin: 07/03/20 11:36 Dose: 325 mg Documented by: Gabapentin (Gabapentin 100 Mg Capsule) 100 mg PO BIDCM [facility] Last Admin: 07/04/20 10:10 Dose: Not Given Documented by: Meropenem 500 mg/ Sodium (Chloride) 60 mls @ 100 mls/hr IV Q8 [facility] Last Infusion: 07/04/20 13:44 Dose: Infused Documented by: Sodium Chloride () 1,000 mls @ 75 mls/hr IV .[id number] [facility] Last Admin: 07/04/20 15:52 Dose: 75 mls/hr Documented by: Lisinopril (Lisinopril 10 Mg Tablet) 10 mg PO DAILY [facility] Last Admin: 07/03/20 09:21 Dose: 10 mg Documented by: Magnesium Chloride (Magnesium Chloride 64 Mg Delay Rel.Tablet) 128 mg PO DAILY [facility] Last Admin: 07/03/20 09:21 Dose: 128 mg Documented by: Metoprolol Tartrate (Metoprolol Tartrate 25 Mg Tablet) 25 mg PO DAILY [facility] Last Admin: 07/03/20 09:20 Dose: 25 mg Documented by: Morphine Sulfate (Morphine 2 Mg/Ml Syringe) 1 mg IV Q2H PRN PRN PRN Reason: Pain Score 6-10 Multivitamins (Multivitamins,Therapeutic Tablet) 1 tablet PO DAILY@0800 [facility] Last Admin: 07/04/20 10:10 Dose: Not Given Documented by: Nystatin (Nystatin Powder 15gm Bottle) 1 applic TOPICAL BID [facility]; Protocol Last Admin: 07/03/20 21:38 Dose: 1 applicatio Documented by: Ondansetron HCl (Ondansetron 4 Mg/2 Ml Vial) 4 mg IV Q8H PRN PRN PRN Reason: NAUSEA/VOMITING Oxycodone HCl (Oxycodone 5 Mg Tablet) 5 mg PO Q6H PRN PRN PRN Reason: Pain Score 6-10 Potassium Chloride (Potassium Chloride 20 Meq Tablet) [facility] Last Admin: 07/04/20 10:10 Dose: Not Given Documented by: Sodium Chloride (0.9% Saline Lock 10 Ml Syringe) 10 - 40 ml IV UD PRN PRN Reason: SALINE FLUSH Last Admin: 07/02/20 05:16 Dose: 10 ml Documented by: Sodium Hypochlorite (Dakin's Luana Half Strength (=0.25%)) 1 applic TOPICAL BID [facility]; Protocol Last Admin: 07/04/20 10:34 Dose: Not Given Documented by: Tramadol HCl (Tramadol 50 Mg Tablet) 50 mg PO Q6H PRN PRN PRN Reason: Pain 1-5 Last Admin: 07/04/20 05:28 Dose: 50 mg Documented by: Assessment/Plan Patient seen by Soumya Pena NP-see under my supervision Patient seen and examined. She had a good night, and has no complaints today. She is for debridement by plastic surgery today. Review of systems otherwise negative. O/E: Vital Signs Temp Pulse Resp BP Pulse Ox 96.8 F L 89 16 99/45 L 95 07/03/20 14:19 07/03/20 14:19 07/03/20 14:19 07/03/20 14:19 07/03/20 14:19 General: Alert, Oriented x3, Cooperative, morbidly obese HEENT: Atraumatic, PERRLA, EOMI, Normocephalic Neck: Supple, No JVD, Negative Carotid Bruits Lungs: Clear to auscultation, Normal air movement Cardiovascular: Regular rate, No murmurs Abdomen: Bowel Sounds Present, Soft, Non Tender, Obese Extremities: No edema, Capillary Refill Less than 3 Seconds Skin: - - both LEs wrapped in bandage. Musculoskeletal: No Tenderness to Palpation of Joints or Extremities Neurological: Cranial nerves II-XII grossly intact Psych/Mental Status: Normal Affect, Appropriate Plan is continue IV meropenem and doxycycline. Continue gabapentin for pain as well as tramadol. PT OT on board. For debridement by plastic surgery today. Eliquis held prior to surgery today. Rest as per Soumya Pena UTILIZATION ENGINEER-C's note, which I have reviewed and endorsed. Inpatient E&M: 99530 Subs Hosp L2 Inpatient E&M: 22077 Subs Hosp L2
--- NOTE | 2020-07-04 14:02 | CASEMGMT ---
Addendum entered by Mickie San 07/04/20 14:20: Contact information for [facility] fax: [phone] Original Note: RN ROCÍO updated by ID that patient may discharge on oral antibiotics. SARAVANAN ALFORD called and updated [facility] regarding possible discharge over the weekend and wound vac at discharge. Updated clinicals and resumption order faxed to [facility]. CM left message for cameron Hodge with contact information and requested call back to updated regarding discharge planning. CM will continue to follow this patient and plan for a safe discharge.
--- NOTE | 2020-07-04 14:24 | PCM.OPRPT ---
Report of Operation Date of Procedure: 07/04/20 Pre-Operative Diagnosis: 1. Nonhealing painful infected ulcer left posterior leg. 2. Nonhealing painful infected ulcer right lateral leg with skin necrosis. 3. Sepsis. 4. group home use of anticoagulant - Eliquis. 5. Chronic venous insufficiency with ulceration. 6. Obesity. Post-Operative Diagnosis: 1. Nonhealing painful infected necrotic ulcer left posterior leg. 2. Nonhealing painful infected necrotic ulcer right lateral leg. 3. Sepsis. 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 5. Chronic venous insufficiency with ulceration. 6. Obesity. Surgery/Procedure Performed:: 1. Surgical preparation left posterior leg with incision and drainage and excisional debridement nonhealing painful infected necrotic ulcer (130 cm2). 2. Surgical preparation right lateral leg with incision and drainage and excisional debridement nonhealing painful infected necrotic ulcer (80 cm2). Description of Surgical Findings:: The patient is a 70 year old F who was admitted for sepsis and cellulitis bilateral leg ulcers. She has a history of chronic venous insufficiency. She states she hasn't been able to ambulate for the past 2 years. She was recently in an ECF. She had a recent wound culture on 05/30/20 which showed Methicillin resistant Staphylococcus capitis and Pseudomonas mendocina. Her WBC was 12.8. Lactate was 2.1. She was started on Meropenem. Wound care was started with Dakin's dressing changes. Venous doppler ultrasound was negative for DVT. She had an appointment at the [facility] for evaluation that was cancelled due to the admission. I was asked to evaluate the patient for surgical options for treatment. Patient was informed of the risks and complications of the procedure including alternatives to surgery. These were discussed with the patient personally. Patient voices understanding and wishes to proceed. Size of defect left posterior leg - 13 x 10 x 2.5 cm. Size of defect right lateral leg - 10 x 8 x 2 cm. software design analyst: None Type of Anesthesia:: General Specimen's removed: 1. Nonhealing painful infected necrotic ulcer left posterior leg to Pathology and Microbiology. 2. Nonhealing painful infected necrotic ulcer right lateral leg to Pathology and Microbiology. Drains: None. Estimated Blood Loss (mL): 350 ml. Description of Procedure: Patient was taken to OR in supine position and was placed under general anesthesia. Both legs were prepped and draped in the usual fashion. SCD's were placed for DVT prophylaxis. Perioperative antibiotics were given intravenously. For the procedure, I wore an N95 mask and wore proper eyewear protection. After intubation, the patient had some blood pressure issues that Anesthesia managed and the patient was placed in Trendelenburg position. Initially the patient was going to be placed in the lateral position for the surgical debridement. It was felt the patient may not tolerate too much movement during the surgery especially since she would have to be placed in both lateral positions (so two separate setups). So we managed to proceed with the debridement with the patient in the supine position. I first started on the right lateral leg and then went to the left posterior leg. Using a scalpel, an incision was made around the infected ulcer with skin necrosis down into the subcutaneous tissue. Pus was seen. It was thickened. A lot of induration and fat necrosis was present. The infection extended down to the muscle and involved the muscle. The muscle appeared viable. The indurated tissue and fat necrosis was excised and debrided and sent to Pathology for analysis and to Microbiology for culture. A positive culture will necessitate antibiotic therapy. The wound was irrigated with saline. Hemostasis was obtained with electrocautery. The size of the defect after incision and drainage and excisional debridement was 10 x 8 x 2 cm or 80 cm2. I then went to the left posterior leg infected ulcer. Using a scalpel, an incision was made around the infected ulcer down into the subcutaneous tissue. Pus was seen. It was thickened. A lot of induration and fat necrosis was present. The infection extended down to the muscle and involved the muscle. The muscle appeared viable but severely bruised. I palpated proximally and distally and no pus was seen in the surrounding muscles and tendons. By the end of the surgery, the muscles became pinker. Some of the muscle was excised and debrided along with the induration and fat necrosis. I palpated deep to the muscles and no additional pus was noted deep to the muscles. The muscles involved with the excisional debridement were the soleus muscle and Achilles tendon. The indurated tissue and fat necrosis was excised and debrided and sent to Pathology for analysis and to Microbiology for culture. A positive culture will necessitate antibiotic therapy. The wound was irrigated with saline. Hemostasis was obtained with electrocautery. The size of the defect after incision and drainage and excisional debridement was 13 x 10 x 2.5 cm or 130 cm2. The wounds were dressed with Mepitel nonadherent dressing followed by Betadine gauze. This was followed by dry Kerlix gauze and ABD pads and compression cam wraps. Patient tolerated the procedure well and was sent to PACU in satisfactory condition. Patient will be sent upstairs for continued postop care. The VAC will be applied postoperatively. After discharge, she will followup at the Wound Center. She will keep her legs elevated during the initial postoperative period. If there is a plateau in the healing process, can proceed with delayed closure with skin grafting. Grafts/Implants Used: None. - Complications None. - Admit VTE Documentation VTE Present on Admission: No - Is on Eliquis. VTE Mechan Device Prophylaxis: SCD's VTE Pharm Prophylaxis ordered?: Yes Surgery Charges CPT - 03539 ICD-10 - L97.912, L03.115, I96, L98.8, A41.9, Z79.01, I87.2, E66.01 [id number] L03.115, I96, L97.912, L98.8, A41.9, Z79.01, I87.2, E66.01 20861-29 L97.922, L03.116, L98.8, A41.9, Z79.01, I87.2, E66.01 69958 L97.922, L03.116, L98.8, A41.9, Z79.01, I87.2, E66.01 [id number] L03.116, L98.8, L97.922, A41.9, Z79.01, I87.2, E66.01
--- NOTE | 2020-07-04 14:55 | CASEMGMT ---
Received call back from cameron Hodge and confirmed discharge plans for home with [facility]. Son states patient will need transport setup for discharge home. CM will continue to follow this patient and plan for a safe discharge.
--- NOTE | 2020-07-04 15:08 | EKG12_ITS ---
Test Reason : POST OP Blood Pressure : / mmHG Vent. Rate : 105 BPM Atrial Rate : 105 BPM P-R Int : 184 ms QRS Dur : 090 ms QT Int : 352 ms P-R-T Axes : 041 -29 046 degrees QTc Int : 465 ms Sinus tachycardia Low voltage QRS Inferior infarct , age undetermined Poor R wave progression Abnormal ECG Confirmed by PAUL NEUMANN, KAREN ([id number]), school photograph editor JEFF SHEPPARD ([id number]) on 07/09/2020 1:12:53 PM Referred By: TK Confirmed By:KAREN MILLER MD
[2020-07-04] MEDS: Albuterol 2.5 MG/3 ML VIAL.NEB. INHALATION (15:24)
--- NOTE | 2020-07-04 15:25 | PN.ID_ITS ---
Patient Problems: Active and Suspected Problems (This Medical Record has been edited. Action required.) UTI (urinary tract infection) (Acute) Sepsis (Acute) - Physical Exam Vitals/I&O's: Vital Signs Temp Pulse Resp BP Pulse Ox 97.1 F L 104 H 16 84/51 L 96 07/04/20 14:38 07/04/20 15:24 07/04/20 15:24 07/04/20 15:00 07/04/20 15:00 Oxygen Flow Rate (L/min) 2 Oxygen Delivery Method Room Air Weight: 128.6 kg Body Mass Index (BMI) 47.2 Intake and Output for Last 24 Hours 07/02/20 07/03/20 07/04/20 23:59 23:59 23:59 Intake Total 2010 / 2490 1880 / 2180 1288.75 / 1288.75 Output Total 250 / 650 1550 / 2550 1500 / 1500 Balance 1760 / 1840 330 / -370 -211.25 / -211.25 Microbiology Past 72 Hours 07/01/20 08:40 Wound - Aerobic & Anaerobic Swabs Gram Stain - Final 07/01/20 08:40 Wound - Aerobic & Anaerobic Swabs Wound Culture - Final Pseudomonas aeroginosa 07/01/20 08:40 Wound - Aerobic & Anaerobic Swabs Anaerobic Culture - Final No anaerobic bacteria isolated. 07/03/20 14:27 Mucosa - Nose SARS-CoV-2 Antigen (Rapid) - Final 07/01/20 16:20 Urine Catheter - Estrada Urine Culture - Final Culture exhibits no growth. 06/30/20 17:20 Blood Culture (Wb) - Arm Left Blood Culture - Preliminary No growth in 48 hours. 06/30/20 15:55 Blood Culture (Wb) - Right Forearm Blood Culture - Preliminary No growth in 48 hours. Laboratory Results 07/04/20 06:08: WBC 11.0, RBC 3.65 L, Hgb 10.7 L, Hct 35.4 L, MCV 97.0, MCH 29.3, MCHC 30.2 L, RDW Std Deviation 58.2 H, RDW Coeff of Galindo 16.2 H, Plt Count 441, MPV 8.6 07/04/20 06:08: Sodium 140, Potassium 4.3, Chloride 110 H, Carbon Dioxide 27.0, Anion Gap 3 L, BUN 51 H, Creatinine 0.68, Estim Creat Clear Calc 48.45, Est GFR (MDRD) Af Amer 111, Est GFR (MDRD) Non-Af 92, BUN/Creatinine Ratio 75.1 H, Glucose 95, Calcium 9.6 07/04/20 06:08: PT 16.6 H, INR 1.4, APTT 32.5 Current Medications Acetaminophen (Acetaminophen 500 Mg Tablet) 1,000 mg PO BID [facility] Last Admin: 07/03/20 23:13 Dose: 1,000 mg Documented by: Acetaminophen (Acetaminophen 325 Mg Tablet) 650 mg PO Q6H PRN PRN PRN Reason: Pain Score 1-10/Temp > 100.7 F Last Admin: 07/04/20 03:54 Dose: 650 mg Documented by: Albuterol Sulfate (Albuterol 2.5 Mg/3 Ml Vial.Neb.) 2.5 mg INHALATION Q2H PRN PRN PRN Reason: SOB &/OR WHEEZING Last Admin: 07/04/20 15:24 Dose: 2.5 mg Documented by: Atorvastatin Calcium (Atorvastatin Calcium 20 Mg Tablet) 20 mg PO QHS [facility] Last Admin: 07/03/20 21:45 Dose: 20 mg Documented by: Bumetanide (Bumetanide 0.5 Mg Tablet) 0.5 mg PO BIDLX [facility] Last Admin: 07/04/20 15:19 Dose: Not Given Documented by: Calamine/Phenol (Menthol/Lanolin/Calamine/Znox 113 Gm Tube) 1 applic TOPICAL BID [facility]; Protocol Last Admin: 07/04/20 10:33 Dose: 1 applicatio Documented by: Doxycycline Monohydrate (Doxycycline 100 Mg Capsule) 100 mg PO BID [facility] Last Admin: 07/03/20 21:45 Dose: 100 mg Documented by: Ferrous Sulfate (Ferrous Sulfate 325 Mg Tablet) 325 mg PO DAILY@1200 [facility] Last Admin: 07/03/20 11:36 Dose: 325 mg Documented by: Gabapentin (Gabapentin 100 Mg Capsule) 100 mg PO BIDCM [facility] Last Admin: 07/04/20 10:10 Dose: Not Given Documented by: Meropenem 500 mg/ Sodium (Chloride) 60 mls @ 100 mls/hr IV Q8 [facility] Last Infusion: 07/04/20 13:44 Dose: Infused Documented by: Sodium Chloride () 1,000 mls @ 75 mls/hr IV .[id number] [facility] Last Infusion: 07/04/20 10:38 Dose: 0 mls/hr Documented by: Lisinopril (Lisinopril 10 Mg Tablet) 10 mg PO DAILY [facility] Last Admin: 07/03/20 09:21 Dose: 10 mg Documented by: Magnesium Chloride (Magnesium Chloride 64 Mg Delay Rel.Tablet) 128 mg PO DAILY [facility] Last Admin: 07/03/20 09:21 Dose: 128 mg Documented by: Metoprolol Tartrate (Metoprolol Tartrate 25 Mg Tablet) 25 mg PO DAILY [facility] Last Admin: 07/03/20 09:20 Dose: 25 mg Documented by: Morphine Sulfate (Morphine 2 Mg/Ml Syringe) 1 mg IV Q2H PRN PRN PRN Reason: Pain Score 6-10 Multivitamins (Multivitamins,Therapeutic Tablet) 1 tablet PO DAILY@0800 [facility] Last Admin: 07/04/20 10:10 Dose: Not Given Documented by: Nystatin (Nystatin Powder 15gm Bottle) 1 applic TOPICAL BID [facility]; Protocol Last Admin: 07/03/20 21:38 Dose: 1 applicatio Documented by: Ondansetron HCl (Ondansetron 4 Mg/2 Ml Vial) 4 mg IV Q8H PRN PRN PRN Reason: NAUSEA/VOMITING Oxycodone HCl (Oxycodone 5 Mg Tablet) 5 mg PO Q6H PRN PRN PRN Reason: Pain Score 6-10 Potassium Chloride (Potassium Chloride 20 Meq Tablet) 20 meq PO DAILYCM [facility] Last Admin: 07/04/20 10:10 Dose: Not Given Documented by: Sodium Chloride (0.9% Saline Lock 10 Ml Syringe) 10 - 40 ml IV UD PRN PRN Reason: SALINE FLUSH Last Admin: 07/02/20 05:16 Dose: 10 ml Documented by: Sodium Hypochlorite (Dakin's Luana Half Strength (=0.25%)) 1 applic TOPICAL BID [facility]; Protocol Last Admin: 07/04/20 10:34 Dose: Not Given Documented by: Tramadol HCl (Tramadol 50 Mg Tablet) 50 mg PO Q6H PRN PRN PRN Reason: Pain 1-5 Last Admin: 07/04/20 05:28 Dose: 50 mg Documented by: Medical Necessity - Tobacco Use Smoking Status: Never smoker Route of nutrition/ use of supplements: [] Nutritional Intake: [] IV Site: [] Estrada Catheter: [] - Assessment/Plan Antibiotics: [] Assessment/Plan: [] Active and Suspected Problems (This Medical Record has been edited. Action required.) UTI (urinary tract infection) (Acute) Sepsis (Acute) Chronic estrada, so abnormal UA may just represent colonization. Ucx pending. Several months of worsening bilat calf ulcers, particularly on L. Wound cx here 05/30/20 with MR-CoNs and Pseudomonas x2, but gram stain with no organisms or purulence seen so hard to know if those were true pathogens. Wound cx now with pseudomonas. Given extent of the ulcer, consulted Dr. Pedersen, OR today 07/04. Pt gone to OR this afternoon. Would be candidate for discharge on po cipro for 7 day course based on susceptibility results and now having good source control. QTC was 474. Will follow, d/w classification case manager
[2020-07-04] MEDS: 0.9% Normal Saline 1,000 ML 75 ML IV (15:52)
[2020-07-04] MEDS: Morphine 2 MG/ML Syringe 1 MG IV (16:54)
[2020-07-04] MEDS: Nystatin Powder 15gm Bottle 1 APPLIC TOPICAL ×2 (16:58→22:01)
[2020-07-04] MEDS: Gabapentin 100 MG Capsule PO (17:01)
[2020-07-04] MEDS: Morphine 2 MG/ML Syringe IV ×2 (18:24→19:51)
[2020-07-04] MEDS: Bumetanide 0.5 MG Tablet PO (18:31)
[2020-07-04] MEDS: oxyCODONE 5 MG Tablet PO (19:14)
--- NOTE | 2020-07-04 19:56 | NURSING ---
Pt's daughter, Lynn Perez, called in wanting to know what type of surgery the pt had. I explained that she had an I&D on each leg. She gave me the impression that they were still awaiting a call from the surgeon. Pt's daughter also talked to pt's primary RN, Mane.
[2020-07-04] MEDS: 0.9% Normal Saline 1,000 ML 500 ML IV (21:52)
[2020-07-04] MEDS: Atorvastatin Calcium 20 MG Tablet PO (22:00)
[2020-07-04] MEDS: Doxycycline 100 MG CAPSULE PO (22:00)
[2020-07-04] MEDS: Acetaminophen 500 MG Tablet 1000 MG PO (22:00)
[2020-07-05] VITALS (9 sets, daily range): BP systolic 86–115; BP diastolic 46–60; PULSE 87–116; RESP 18; TEMP 36.4–37.1; O2SAT 93–98; BMI 49.2
[2020-07-05] MEDS: 0.9% Normal Saline 1,000 ML 500 ML IV (00:02)
[2020-07-05] MEDS: Morphine 4 MG/ML Syringe IV (02:12)
[2020-07-05] MEDS: 0.9% Normal Saline 1,000 ML 75 ML IV ×2 (02:15→14:21)
[2020-07-05] MEDS: Gabapentin 100 MG Capsule PO ×2 (09:02→14:24)
[2020-07-05] MEDS: Bumetanide 0.5 MG Tablet PO ×2 (09:02→17:48)
[2020-07-05] MEDS: Multivitamins,Therapeutic Tablet 1 TABLET PO (09:02)
[2020-07-05] MEDS: Doxycycline 100 MG CAPSULE PO ×2 (09:03→21:44)
[2020-07-05] MEDS: Menthol/Lanolin/Calamine/Znox 113 GM Tube 1 APPLIC TOPICAL ×2 (09:03→21:41)
[2020-07-05] MEDS: Nystatin Powder 15gm Bottle 1 APPLIC TOPICAL ×2 (09:04→21:42)
[2020-07-05] MEDS: Acetaminophen 500 MG Tablet 1000 MG PO ×3 (09:05→21:44)
[2020-07-05] MEDS: Magnesium Chloride 64 MG Delay Rel.Tablet 128 MG PO (09:06)
[2020-07-05] MEDS: Ferrous Sulfate 325 MG Tablet PO (09:07)
[2020-07-05] MEDS: 0.9% Saline Lock 10 ML Syringe IV (09:11)
[2020-07-05 09:29] LABS: Hematocrit 30.7 % (37-47); Hemoglobin 9.5 g/dL (12.0-15.0); Mean Corp Hgb Conc 30.9 g/dL (32-36); Mean Corpuscular Hgb 30.4 pg (27.0-32.0); Mean Corpuscular Volume 98.1 fL (81-99); Mean Platelet Vol. 8.6 fl (6.2-12.0); Platelet Count 406 K/mm3 (150-450); RBC Distribution Width CV 16.4 % (11.6-14.6); RBC Distribution Width SD 59.1 fl (35.1-43.9); Red Blood Count 3.13 M/mm3 (4.2-5.4)
--- NOTE | 2020-07-05 09:35 | NURSING ---
dr triana in and nurse assisted w/ ble dressing changes-pt tolerated well
--- NOTE | 2020-07-05 09:43 | PN.SURG_ITS ---
Patient Problems: Active and Suspected Problems (This Medical Record has been edited. Action required.) UTI (urinary tract infection) (Acute) Sepsis (Acute) Subjective: Postop #1 Patient has wound pain. Tolerated the Betadine dressing changes reasonably well. - Physical Exam Vitals/I&O's: Vital Signs Temp Pulse Resp BP Pulse Ox 97.8 F 98 18 97/53 L 93 07/05/20 09:41 07/05/20 09:41 07/05/20 09:41 07/05/20 09:41 07/05/20 09:41 Oxygen Flow Rate (L/min) 2 Oxygen Delivery Method Room Air Weight: 283 lb 8.231 oz Body Mass Index (BMI) 47.2 Intake and Output for Last 24 Hours 07/03/20 07/04/20 07/05/20 23:59 23:59 23:59 Intake Total 1880 / 2180 3308.75 / 3308.75 1300 / 1300 Output Total 1550 / 2550 1900 / 1900 50 / 50 Balance 330 / -370 1408.75 / 1408.75 1250 / 1250 General: Alert, Oriented x3 HEENT: PERRLA, EOMI Oral: Moist Mucosa Neck: Supple Abdomen: Soft, Non-Distended Skin: Ulcer/ Wound - Bilateral leg wounds are stable. No active bleeding seen. Wounds redressed with Betadine dressing changes. VAC will be applied on Tuesday. Neurological: Cranial nerves II-XII grossly intact Psych/Mental Status: Normal Affect, Appropriate Microbiology Past 72 Hours 07/01/20 08:40 Wound - Aerobic & Anaerobic Swabs Gram Stain - Final 07/01/20 08:40 Wound - Aerobic & Anaerobic Swabs Wound Culture - Final Pseudomonas aeroginosa 07/01/20 08:40 Wound - Aerobic & Anaerobic Swabs Anaerobic Culture - Final No anaerobic bacteria isolated. 07/03/20 14:27 Mucosa - Nose SARS-CoV-2 Antigen (Rapid) - Final 07/01/20 16:20 Urine Catheter - Perez Urine Culture - Final Culture exhibits no growth. 06/30/20 17:20 Blood Culture (Wb) - Arm Left Blood Culture - Preliminary No growth in 48 hours. 06/30/20 15:55 Blood Culture (Wb) - Right Forearm Blood Culture - Preliminary No growth in 48 hours. Laboratory Results 07/05/20 09:10: WBC 15.0 H, RBC 3.13 L, Hgb 9.5 L, Hct 30.7 L, MCV 98.1, MCH 30.4, MCHC 30.9 L, RDW Std Deviation 59.1 H, RDW Coeff of Galindo 16.4 H, Plt Count 406, MPV 8.6 07/05/20 09:10: Sodium Pending, Potassium Pending, Chloride Pending, Carbon Dioxide Pending, Anion Gap Pending, BUN Pending, Creatinine Pending, Est GFR (MDRD) Af Amer Pending, Est GFR (MDRD) Non-Af Pending, BUN/Creatinine Ratio Pending, Glucose Pending, Calcium Pending Current Medications Acetaminophen (Acetaminophen 500 Mg Tablet) 1,000 mg PO BID [facility] Last Admin: 07/05/20 09:05 Dose: 1,000 mg Documented by: Acetaminophen (Acetaminophen 325 Mg Tablet) 650 mg PO Q6H PRN PRN PRN Reason: Pain Score 1-10/Temp > 100.7 F Last Admin: 07/04/20 03:54 Dose: 650 mg Documented by: Albuterol Sulfate (Albuterol 2.5 Mg/3 Ml Vial.Neb.) 2.5 mg INHALATION Q2H PRN PRN PRN Reason: SOB &/OR WHEEZING Last Admin: 07/04/20 15:24 Dose: 2.5 mg Documented by: Atorvastatin Calcium (Atorvastatin Calcium 20 Mg Tablet) 20 mg PO QHS [facility] Last Admin: 07/04/20 22:00 Dose: 20 mg Documented by: Bumetanide (Bumetanide 0.5 Mg Tablet) 0.5 mg PO BIDLX [facility] Last Admin: 07/05/20 09:02 Dose: 0.5 mg Documented by: Calamine/Phenol (Menthol/Lanolin/Calamine/Znox 113 Gm Tube) 1 applic TOPICAL BID [facility]; Protocol Last Admin: 07/05/20 09:03 Dose: 1 applicatio Documented by: Doxycycline Monohydrate (Doxycycline 100 Mg Capsule) 100 mg PO BID [facility] Last Admin: 07/05/20 09:03 Dose: 100 mg Documented by: Ferrous Sulfate (Ferrous Sulfate 325 Mg Tablet) 325 mg PO DAILY@1200 [facility] Last Admin: 07/05/20 09:07 Dose: 325 mg Documented by: [facility]ap[facility]) [facility] Admin: 07/05/20 09:02 Dose: 100 mg Documented by: Meropenem 500 mg/ Sodium (Chloride) 60 mls @ 100 mls/hr IV Q8 [facility] Last Infusion: 07/05/20 06:55 Dose: Infused Documented by: Sodium Chloride () 1,000 mls @ 75 mls/hr IV .[id number] [facility] Last Admin: 07/05/20 02:15 Dose: 75 mls/hr Documented by: Lisinopril (Lisinopril 10 Mg Tablet) 10 mg PO DAILY [facility] Last Admin: 07/05/20 09:06 Dose: Not Given Documented by: Magnesium Chloride (Magnesium Chloride 64 Mg Delay Rel.Tablet) 128 mg PO DAILY [facility] Last Admin: 07/05/20 09:06 Dose: 128 mg Documented by: Metoprolol Tartrate (Metoprolol Tartrate 25 Mg Tablet) 25 mg PO DAILY [facility] Last Admin: 07/05/20 09:04 Dose: Not Given Documented by: Morphine Sulfate (Morphine 2 Mg/Ml Syringe) 2 - 4 mg IV Q2H PRN PRN PRN Reason: Pain Score 6-10 Last Admin: 07/04/20 19:51 Dose: 2 mg Documented by: Morphine Sulfate (Morphine 4 Mg/Ml Syringe) 2 - 4 mg IV Q2H PRN PRN PRN Reason: Pain Score 6-10 Last Admin: 07/05/20 02:12 Dose: 4 mg Documented by: Multivitamins (Multivitamins,Therapeutic Tablet) 1 tablet PO DAILY@0800 [facility] Last Admin: 07/05/20 09:02 Dose: 1 tablet Documented by: Nystatin (Nystatin Powder 15gm Bottle) 1 applic TOPICAL BID [facility]; Protocol Last Admin: 07/05/20 09:04 Dose: 1 applicatio Documented by: Ondansetron HCl (Ondansetron 4 Mg/2 Ml Vial) 4 mg IV Q8H PRN PRN PRN Reason: NAUSEA/VOMITING Oxycodone HCl (Oxycodone 5 Mg Tablet) 5 mg PO Q6H PRN PRN PRN Reason: Pain Score 6-10 Last Admin: 07/04/20 19:14 Dose: 5 mg Documented by: Potassium Chloride (Potassium Chloride 20 Meq Tablet) 20 meq PO DAILYCM [facility] Last Admin: 07/05/20 09:01 Dose: 20 meq Documented by: Sodium Chloride (0.9% Saline Lock 10 Ml Syringe) 10 - 40 ml IV UD PRN PRN Reason: SALINE FLUSH Last Admin: 07/05/20 09:11 Dose: 20 ml Documented by: Sodium Hypochlorite (Dakin's Luana Half Strength (=0.25%)) 1 applic TOPICAL BID [facility]; Protocol Last Admin: 07/05/20 09:03 Dose: Not Given Documented by: Tramadol HCl (Tramadol 50 Mg Tablet) 50 mg PO Q6H PRN PRN PRN Reason: Pain 1-5 Last Admin: 07/04/20 21:58 Dose: 50 mg Documented by: Medical Necessity - Tobacco Use Smoking Status: Never smoker Assessment/Plan All Active Problems (This Medical Record has been edited. Action required.) Necrosis of subcutaneous tissue (Acute) Cellulitis of right lower leg (Acute) Skin necrosis (Acute) Cellulitis of left lower leg (Acute) Nonhealing ulcer of right lower extremity with fat layer exposed (Acute) Nonhealing ulcer of left lower extremity with fat layer exposed (Acute) UTI (urinary tract infection) (Acute) Sepsis (Acute) Anasarca (Acute) 1. Nonhealing painful infected ulcer left posterior leg. 2. Nonhealing painful infected ulcer right lateral leg with skin necrosis. 3. Sepsis. 4. residential use of anticoagulant - Eliquis. 5. Chronic venous insufficiency with ulceration. 6. Obesity. Continue Meropenem and Doxycycline Preop wound culture shows Pseudomonas aeroginosa. Operative cultures are pending. Bilateral leg wounds are stable. No active bleeding seen. Redressed with Betadine dressing change. VAC to be applied on Tuesday. Prealbumin was 12.8. Encourage nutritional supplementation with protein to help the healing process. After discharge [facility]. If there is a plateau in the healing process, can proceed with delayed closure with skin grafting.
[2020-07-05 09:47] LABS: Anion Gap 5 (5-15); BUN 48 mg/dL (7-18); BUN/Creat Ratio 52.3 RATIO (10-20); Calcium,Total 8.9 mg/dL (8.5-10.1); Chloride 109 mmol/L (98-107); Creatinine, Serum 0.92 mg/dL (0.55-1.02); EST Glomerular Filtration Rate 65 mL/min (>60); Est Glom Filt Rate - Afr Amer 78 mL/min (>60); Estimated Creatinine Clearance 52.66 ml/min; Glucose 83 mg/dL (74-106); Potassium 4.6 mmol/L (3.5-5.1); Sodium Level 139 mmol/L (136-145)
[2020-07-05] MEDS: oxyCODONE 5 MG Tablet PO (10:58)
--- NOTE | 2020-07-05 11:39 | PN_ITS ---
<Soumya Pena GRAD INTERN - Last Filed: 07/05/20 11:54> Patient Problems: Active and Suspected Problems (This Medical Record has been edited. Action req uired.) UTI (urinary tract infection) (Acute) Sepsis (Acute) Subjective: Patient seen and examined. Complains of sinus pressure and ear pressure. Pain tolerable at this time. Denies other symptoms or complaints. - Physical Exam Vitals/I&O's: Vital Signs Temp Pulse Resp BP Pulse Ox 97.8 F 98 18 97/53 L 93 07/05/20 09:41 07/05/20 09:41 07/05/20 09:41 07/05/20 09:41 07/05/20 09:41 Oxygen Flow Rate (L/min) 2 Oxygen Delivery Method Room Air Weight: 283 lb 8.231 oz Body Mass Index (BMI) 47.2 Intake and Output for Last 24 Hours 07/03/20 07/04/20 07/05/20 23:59 23:59 23:59 Intake Total 1880 / 2180 3308.75 / 3308.75 1300 / 1300 Output Total 1550 / 2550 1900 / 1900 50 / 50 Balance 330 / -370 1408.75 / 1408.75 1250 / 1250 General: Alert, Oriented x3, Cooperative HEENT: Atraumatic, PERRLA, EOMI, Normocephalic Neck: Supple, No JVD, Negative Carotid Bruits Lungs: Clear to auscultation, Normal air movement Cardiovascular: Regular rate, No murmurs Abdomen: Bowel Sounds Present, Soft, Non Tender, Non-Distended, Obese Extremities: No clubbing, No cyanosis, Capillary Refill Less than 3 Seconds, E amy - Chronic lower extremity Skin: No rashes, No breakdown, - - Bilateral lower extremity dressings intact. Musculoskeletal: No Tenderness to Palpation of Joints or Extremities Neurological: Cranial nerves II-XII grossly intact, Neuro grossly intact Psych/Mental Status: Normal Affect, Appropriate Microbiology Past 72 Hours 07/04/20 14:36 Other - Other Gram Stain - Final 07/01/20 08:40 Wound - Aerobic & Anaerobic Swabs Gram Stain - Final 07/01/20 08:40 Wound - Aerobic & Anaerobic Swabs Wound Culture - Final Pseudomonas aeroginosa 07/01/20 08:40 Wound - Aerobic & Anaerobic Swabs Anaerobic Culture - Final No anaerobic bacteria isolated. 07/03/20 14:27 Mucosa - Nose SARS-CoV-2 Antigen (Rapid) - Final 07/01/20 16:20 Urine Catheter - Perez Urine Culture - Final Culture exhibits no growth. 06/30/20 17:20 Blood Culture (Wb) - Arm Left Blood Culture - Preliminary No growth in 48 hours. 06/30/20 15:55 Blood Culture (Wb) - Right Forearm Blood Culture - Preliminary No growth in 48 hours. Laboratory Results 07/05/20 09:10: WBC 15.0 H, RBC 3.13 L, Hgb 9.5 L, Hct 30.7 L, MCV 98.1, MCH 30.4, MCHC 30.9 L, RDW Std Deviation 59.1 H, RDW Coeff of Galindo 16.4 H, Plt Count 406, MPV 8.6 07/05/20 09:10: Sodium 139, Potassium 4.6, Chloride 109 H, Carbon Dioxide 25.0, Anion Gap 5, BUN 48 H, Creatinine 0.92, Estim Creat Clear Calc 52.66, Est GFR (MDRD) Af Amer 78, Est GFR (MDRD) Non-Af 65, BUN/Creatinine Ratio 52.3 H, Glucose 83, Calcium 8.9 Current Medications Acetaminophen (Acetaminophen 500 Mg Tablet) 1,000 mg PO BID [facility] Last Admin: 07/05/20 09:05 Dose: 1,000 mg Documented by: Acetaminophen (Acetaminophen 325 Mg Tablet) 650 mg PO Q6H PRN PRN PRN Reason: Pain Score 1-10/Temp > 100.7 F Last Admin: 07/04/20 03:54 Dose: 650 mg Documented by: Albuterol Sulfate (Albuterol 2.5 Mg/3 Ml Vial.Neb.) 2.5 mg INHALATION Q2H PRN PRN PRN Reason: SOB &/OR WHEEZING Last Admin: 07/04/20 15:24 Dose: 2.5 mg Documented by: Atorvastatin Calcium (Atorvastatin Calcium 20 Mg Tablet) 20 mg PO QHS [facility] Last Admin: 07/04/20 22:00 Dose: 20 mg Documented by: Bumetanide (Bumetanide 0.5 Mg Tablet) 0.5 mg PO BIDLX [facility] Last Admin: 07/05/20 09:02 Dose: 0.5 mg Documented by: Calamine/Phenol (Menthol/Lanolin/Calamine/Znox 113 Gm Tube) 1 applic TOPICAL BID [facility]; Protocol Last Admin: 07/05/20 09:03 Dose: 1 applicatio Documented by: Doxycycline Monohydrate (Doxycycline 100 Mg Capsule) 100 mg PO BID [facility] Last Admin: 07/05/20 09:03 Dose: 100 mg Documented by: Ferrous Sulfate (Ferrous Sulfate 325 Mg Tablet) 325 mg PO DAILY@1200 [facility] Last Admin: 07/05/20 09:07 Dose: 325 mg Documented by: Gabapentin (Gabapentin 100 Mg Capsule) 100 mg PO BIDCM [facility] Last Admin: 07/05/20 09:02 Dose: 100 mg Documented by: Meropenem 500 mg/ Sodium (Chloride) 60 mls @ 100 mls/hr IV Q8 [facility] Last Infusion: 07/05/20 06:55 Dose: Infused Documented by: Sodium Chloride () 1,000 mls @ 75 mls/hr IV .[id number] [facility] Last Admin: 07/05/20 02:15 Dose: 75 mls/hr Documented by: Lisinopril (Lisinopril 10 Mg Tablet) 10 mg PO DAILY [facility] Last Admin: 07/05/20 09:06 Dose: Not Given Documented by: Magnesium Chloride (Magnesium Chloride 64 Mg Delay Rel.Tablet) 128 mg PO DAILY [facility] Last Admin: 07/05/20 09:06 Dose: 128 mg Documented by: Metoprolol Tartrate (Metoprolol Tartrate 25 Mg Tablet) 25 mg PO DAILY [facility] Last Admin: 07/05/20 09:04 Dose: Not Given Documented by: Morphine Sulfate (Morphine 2 Mg/Ml Syringe) 2 - 4 mg IV Q2H PRN PRN PRN Reason: Pain Score 6-10 Last Admin: 07/04/20 19:51 Dose: 2 mg Documented by: Morphine Sulfate (Morphine 4 Mg/Ml Syringe) 2 - 4 mg IV Q2H PRN PRN PRN Reason: Pain Score 6-10 Last Admin: 07/05/20 02:12 Dose: 4 mg Documented by: Multivitamins (Multivitamins,Therapeutic Tablet) 1 tablet PO DAILY@0800 [facility] Last Admin: 07/05/20 09:02 Dose: 1 tablet Documented by: Nystatin (Nystatin Powder 15gm Bottle) 1 applic TOPICAL BID [facility]; Protocol Last Admin: 07/05/20 09:04 Dose: 1 applicatio Documented by: Ondansetron HCl (Ondansetron 4 Mg/2 Ml Vial) 4 mg IV Q8H PRN PRN PRN Reason: NAUSEA/VOMITING Oxycodone HCl (Oxycodone 5 Mg Tablet) 5 mg PO Q6H PRN PRN PRN Reason: Pain Score 6-10 Last Admin: 07/05/20 10:58 Dose: 5 mg Documented by: Potassium Chloride (Potassium Chloride 20 Meq Tablet) 20 meq PO DAILYCM [facility] Last Admin: 07/05/20 09:01 Dose: 20 meq Documented by: Sodium Chloride (0.9% Saline Lock 10 Ml Syringe) 10 - 40 ml IV UD PRN PRN Reason: SALINE FLUSH Last Admin: 07/05/20 09:11 Dose: 20 ml Documented by: Sodium Hypochlorite (Dakin's Luana Half Strength (=0.25%)) 1 applic TOPICAL BID [facility]; Protocol Last Admin: 07/05/20 09:03 Dose: Not Given Documented by: Tramadol HCl (Tramadol 50 Mg Tablet) 50 mg PO Q6H PRN PRN PRN Reason: Pain 1-5 Last Admin: 07/04/20 21:58 Dose: 50 mg Documented by: Medical Necessity - Tobacco Use Smoking Status: Never smoker Assessment/Plan All Active Problems (This Medical Record has been edited. Action required.) Cellulitis of right lower leg (Acute) Skin necrosis (Acute) Cellulitis of left lower leg (Acute) Nonhealing ulcer of right lower extremity with fat layer exposed (Acute) Nonhealing ulcer of left lower extremity with fat layer exposed (Acute) UTI (urinary tract infection) (Acute) Sepsis (Acute) Anasarca (Acute) 1. Acute sepsis secondary to nonhealing infected ulcers of the left posterior leg and right lateral leg with associated cellulitis-UTI ruled out. ID and plastics following. Surgical wound debridement 07/04/2020. On IV meropenem, oral doxy. Urine and blood cultures negative. Wound culture growing Pseudomonas. Postop cultures pending. Wound RN consult. Plan for wound VAC and home health at discharge. Possible discharge on Cipro for 7-day course pending final culture and sensitivities. 2. Chronic lymphedema/anasarca-continue Bumex. 3. Paroxysmal atrial fibrillation/second-degree AV block-on metoprolol, Eliquis. Eliquis held prior to surgery. Resume Eliquis when okay per surgery. 4. Iron deficiency anemia-stable, trend CBC. 5. Chronic COPD-as needed albuterol aerosol. 6. Morbid obesity-encourage diet lifestyle modifications. 7. Chronic debility- PT/OT. Recent DC from SNF. DVT prophylaxis-resume Eliquis when okay per surgery Discharge planning: Home with home health and wound VAC pending wound VAC set up and final cultures and sensitivities. This patient was seen by TREY Arrington under the supervision of Dr. Capps. <Scarlet Capps - Last Filed: 07/05/20 17:13> - Physical Exam Vitals/I&O's: Vital Signs Temp Pulse Resp BP Pulse Ox 97.8 F 88 18 102/60 95 07/05/20 14:00 07/05/20 14:00 07/05/20 14:00 07/05/20 14:00 07/05/20 14:00 Oxygen Flow Rate (L/min) 2 Oxygen Delivery Method Room Air Weight: 283 lb 8.231 oz Body Mass Index (BMI) 47.2 Intake and Output for Last 24 Hours 07/03/20 07/04/20 07/05/20 23:59 23:59 23:59 Intake Total 1880 / 2180 3308.75 / 3308.75 2417.5 / 2417.5 Output Total 1550 / 2550 1900 / 1900 250 / 250 Balance 330 / -370 1408.75 / 1408.75 2167.5 / 2167.5 Microbiology Past 72 Hours 07/04/20 14:36 Other - Other Gram Stain - Final 07/04/20 14:36 Other - Other Wound Culture - Preliminary Gram positive organism 07/04/20 14:36 Other - Other Gram Stain - Final 07/04/20 14:36 Other - Other Wound Culture - Preliminary Gram positive organism Gram negative dasha 07/01/20 08:40 Wound - Aerobic & Anaerobic Swabs Gram Stain - Final 07/01/20 08:40 Wound - Aerobic & Anaerobic Swabs Wound Culture - Final Pseudomonas aeroginosa 07/01/20 08:40 Wound - Aerobic & Anaerobic Swabs Anaerobic Culture - Final No anaerobic bacteria isolated. 07/03/20 14:27 Mucosa - Nose SARS-CoV-2 Antigen (Rapid) - Final 07/01/20 16:20 Urine Catheter - Perez Urine Culture - Final Culture exhibits no growth. 06/30/20 17:20 Blood Culture (Wb) - Arm Left Blood Culture - Preliminary No growth in 48 hours. 06/30/20 15:55 Blood Culture (Wb) - Right Forearm Blood Culture - Preliminary No growth in 48 hours. Laboratory Results 07/05/20 09:10: WBC 15.0 H, RBC 3.13 L, Hgb 9.5 L, Hct 30.7 L, MCV 98.1, MCH 30.4, MCHC 30.9 L, RDW Std Deviation 59.1 H, RDW Coeff of Galindo 16.4 H, Plt Count 406, MPV 8.6 07/05/20 09:10: Sodium 139, Potassium 4.6, Chloride 109 H, Carbon Dioxide 25.0, Anion Gap 5, BUN 48 H, Creatinine 0.92, Estim Creat Clear Calc 52.66, Est GFR (MDRD) Af Amer 78, Est GFR (MDRD) Non-Af 65, BUN/Creatinine Ratio 52.3 H, Glucose 83, Calcium 8.9 Current Medications Acetaminophen (Acetaminophen 500 Mg Tablet) 1,000 mg PO TID [facility] Last Admin: 07/05/20 14:23 Dose: 1,000 mg Documented by: Albuterol Sulfate (Albuterol 2.5 Mg/3 Ml Vial.Neb.) 2.5 mg INHALATION Q2H PRN PRN PRN Reason: SOB &/OR WHEEZING Last Admin: 07/04/20 15:24 Dose: 2.5 mg Documented by: Atorvastatin Calcium (Atorvastatin Calcium 20 Mg Tablet) 20 mg PO QHS [facility] Last Admin: 07/04/20 22:00 Dose: 20 mg Documented by: Bumetanide (Bumetanide 0.5 Mg Tablet) 0.5 mg PO BIDLX [facility] Last Admin: 07/05/20 09:02 Dose: 0.5 mg Documented by: Calamine/Phenol (Menthol/Lanolin/Calamine/Znox 113 Gm Tube) 1 applic TOPICAL BID [facility]; Protocol Last Admin: 07/05/20 09:03 Dose: 1 applicatio Documented by: Doxycycline Monohydrate (Doxycycline 100 Mg Capsule) 100 mg PO BID [facility] Last Admin: 07/05/20 09:03 Dose: 100 mg Documented by: Ferrous Sulfate (Ferrous Sulfate 325 Mg Tablet) 325 mg PO DAILY@1200 [facility] Last Admin: 07/05/20 09:07 Dose: 325 mg Documented by: Fluticasone Propionate (Fluticasone 0.05% 1 Tofte Nasal.Sry) 1 spray NASAL BID [facility] Last Admin: 07/05/20 14:21 Dose: Not Given Documented by: Gabapentin ([facility] 100 Mg [facility]apsule) [facility] Last Admin: 07/05/20 14:24 Dose: 100 mg Documented by: Meropenem 500 mg/ Sodium (Chloride) 60 mls @ 100 mls/hr IV Q8 [facility] Last Infusion: 07/05/20 14:58 Dose: Infused Documented by: Sodium Chloride () 1,000 mls @ 75 mls/hr IV .[id number] [facility] Last Admin: 07/05/20 14:21 Dose: 75 mls/hr Documented by: Lisinopril (Lisinopril 10 Mg Tablet) 10 mg PO DAILY [facility] Last Admin: 07/05/20 09:06 Dose: Not Given Documented by: Magnesium Chloride (Magnesium Chloride 64 Mg Delay Rel.Tablet) 128 mg PO DAILY [facility] Last Admin: 07/05/20 09:06 Dose: 128 mg Documented by: Metoprolol Tartrate (Metoprolol Tartrate 25 Mg Tablet) 25 mg PO DAILY [facility] Last Admin: 07/05/20 09:04 Dose: Not Given Documented by: Morphine Sulfate (Morphine 2 Mg/Ml Syringe) 1 - 2 mg IV Q2H PRN PRN PRN Reason: Pain Score 6-10 Multivitamins (Multivitamins,Therapeutic Tablet) 1 tablet PO DAILY@0800 [facility] Last Admin: 07/05/20 09:02 Dose: 1 tablet Documented by: Nystatin (Nystatin Powder 15gm Bottle) 1 applic TOPICAL BID [facility]; Protocol Last Admin: 07/05/20 09:04 Dose: 1 applicatio Documented by: Ondansetron HCl (Ondansetron 4 Mg/2 Ml Vial) 4 mg IV Q8H PRN PRN PRN Reason: NAUSEA/VOMITING Oxycodone HCl (Oxycodone 5 Mg Tablet) 5 mg PO Q6H PRN PRN PRN Reason: Pain Score 6-10 Last Admin: 07/05/20 10:58 Dose: 5 mg Documented by: Potassium Chloride (Potassium Chloride 20 Meq Tablet) [facility] Last Admin: 07/05/20 09:01 Dose: 20 meq Documented by: Sodium Chloride (0.9% Saline Lock 10 Ml Syringe) 10 - 40 ml IV UD PRN PRN Reason: SALINE FLUSH Last Admin: 07/05/20 09:11 Dose: 20 ml Documented by: Sodium Hypochlorite (Dakin's Luana Half Strength (=0.25%)) 1 applic TOPICAL BID [facility]; Protocol Last Admin: 07/05/20 09:03 Dose: Not Given Documented by: Tramadol HCl (Tramadol 50 Mg Tablet) 50 mg PO Q6H PRN PRN PRN Reason: Pain 1-5 Last Admin: 07/04/20 21:58 Dose: 50 mg Documented by: Assessment/Plan Patient seen by TREY Arrington under my supervision Patient seen and examined. She had debridement of her LE ulcers by plastic surgery yesterday. She complains of poorly controlled pain. Review of systems otherwise negative. O/E: Vital Signs Temp Pulse Resp BP Pulse Ox 96.8 F L 89 16 99/45 L 95 07/03/20 14:19 07/03/20 14:19 07/03/20 14:19 07/03/20 14:19 07/03/20 14:19 General: Alert, Oriented x3, Cooperative, morbidly obese, uncomfortable due to pain HEENT: Atraumatic, PERRLA, EOMI, Normocephalic Neck: Supple, No JVD, Negative Carotid Bruits Lungs: Clear to auscultation, Normal air movement Cardiovascular: Regular rate, No murmurs Abdomen: Bowel Sounds Present, Soft, Non Tender, Obese Extremities: No edema, Capillary Refill Less than 3 Seconds Skin: - - both LEs wrapped in bandage. Musculoskeletal: No Tenderness to Palpation of Joints or Extremities Neurological: Cranial nerves II-XII grossly intact Psych/Mental Status: Normal Affect, Appropriate Plan is continue IV meropenem and doxycycline. Continue gabapentin for pain as well as tramadol. IV morphine prn. PT OT on board. Will need wound VAC placement prior to discharge. Cultures from debridement are pending. Eliquis is on hold. To resume when okay with plastic surgery. Rest as per Soumya YANG's note, which I have reviewed and endorsed. Inpatient E&M: 43433 Subs Hosp L2
[2020-07-05] MEDS: traMADol 50 MG Tablet PO (21:24)
[2020-07-05] MEDS: Atorvastatin Calcium 20 MG Tablet PO (21:43)
[2020-07-06] VITALS (10 sets, daily range): BP systolic 106–121; BP diastolic 47–62; PULSE 86–100; RESP 18; TEMP 36.7–37.4; O2SAT 88–100
[2020-07-06] MEDS: 0.9% Normal Saline 1,000 ML 75 ML IV ×2 (05:52→19:11)
[2020-07-06] MEDS: Acetaminophen 500 MG Tablet 1000 MG PO ×3 (05:55→21:09)
[2020-07-06 06:09] LABS: Hematocrit 30.4 % (37-47); Mean Corp Hgb Conc 29.6 g/dL (32-36); Mean Corpuscular Hgb 29.2 pg (27.0-32.0); Mean Corpuscular Volume 98.7 fL (81-99); Mean Platelet Vol. 8.6 fl (6.2-12.0); Platelet Count 389 K/mm3 (150-450); RBC Distribution Width CV 16.1 % (11.6-14.6); RBC Distribution Width SD 58.7 fl (35.1-43.9); Red Blood Count 3.08 M/mm3 (4.2-5.4); White Blood Count 15.2 K/mm3 (4.4-11.0)
[2020-07-06 06:38] LABS: Anion Gap 4 (5-15); BUN 43 mg/dL (7-18); BUN/Creat Ratio 71.1 RATIO (10-20); Calcium,Total 8.6 mg/dL (8.5-10.1); Chloride 111 mmol/L (98-107); EST Glomerular Filtration Rate 105 mL/min (>60); Est Glom Filt Rate - Afr Amer 127 mL/min (>60); Estimated Creatinine Clearance 48.45 ml/min; Glucose 84 mg/dL (74-106); Potassium 4.3 mmol/L (3.5-5.1); Sodium Level 140 mmol/L (136-145)
[2020-07-06] MEDS: Multivitamins,Therapeutic Tablet 1 TABLET PO (09:55)
[2020-07-06] MEDS: Gabapentin 100 MG Capsule PO ×2 (09:56→14:19)
[2020-07-06] MEDS: Bumetanide 0.5 MG Tablet PO ×2 (09:56→18:23)
[2020-07-06] MEDS: Doxycycline 100 MG CAPSULE PO ×2 (09:57→21:09)
[2020-07-06] MEDS: Menthol/Lanolin/Calamine/Znox 113 GM Tube 1 APPLIC TOPICAL ×2 (09:57→21:11)
[2020-07-06] MEDS: Magnesium Chloride 64 MG Delay Rel.Tablet 128 MG PO (09:58)
[2020-07-06] MEDS: Nystatin Powder 15gm Bottle 1 APPLIC TOPICAL ×2 (09:58→21:12)
[2020-07-06] MEDS: Metoprolol Tartrate 25 MG Tablet PO (09:58)
[2020-07-06] MEDS: Ferrous Sulfate 325 MG Tablet PO (09:59)
[2020-07-06] MEDS: Fluticasone 0.05% 1 SPRAY NASAL.SRY NASAL ×2 (11:05→21:12)
[2020-07-06] MEDS: Lisinopril 10 MG Tablet PO (11:06)
--- NOTE | 2020-07-06 12:13 | PCM.PROGNOTE ---
<Soumya Pena SENIOR COMPENSATION ANALYST - Last Filed: 07/06/20 12:17> Patient Problems: Active and Suspected Problems (This Medical Record has been edited. Action required.) UTI (urinary tract infection) (Acute) Sepsis (Acute) Subjective: Patient seen and examined. Complains of sore throat. Examined mouth and throat and patient appears to have thrush. Initiated on oral nystatin. Otherwise denies current symptoms or complaints. - Physical Exam Vitals/I&O's: Vital Signs Temp Pulse Resp BP Pulse Ox 98.1 F 90 18 115/58 L 94 07/06/20 10:47 07/06/20 10:47 07/06/20 10:47 07/06/20 10:47 07/06/20 10:47 Oxygen Flow Rate (L/min) 3 Oxygen Delivery Method Room Air Weight: 283 lb 8.231 oz Body Mass Index (BMI) 47.2 Intake and Output for Last 24 Hours 07/04/20 07/05/20 07/06/20 23:59 23:59 23:59 Intake Total 3308.75 / 3308.75 3477.5 / 3477.5 1560 / 1560 Output Total 1900 / 1900 1250 / 1250 1450 / 1450 Balance 1408.75 / 1408.75 2227.5 / 2227.5 110 / 110 General: Alert, Oriented x3, Cooperative HEENT: Atraumatic, PERRLA, EOMI, Normocephalic Neck: Supple, No JVD, Negative Carotid Bruits Lungs: Clear to auscultation, Normal air movement Cardiovascular: Regular rate, No murmurs Abdomen: Bowel Sounds Present, Soft, Non Tender, Non-Distended, Obese Extremities: No clubbing, No cyanosis, Edema - bilateral lower extremity, Denis wraps in place Skin: - - Bilateral lower extremity dressings intact. Musculoskeletal: No Tenderness to Palpation of Joints or Extremities Neurological: Cranial nerves II-XII grossly intact, Neuro grossly intact Psych/Mental Status: Normal Affect, Appropriate Microbiology Past 72 Hours 06/30/20 17:20 Blood Culture (Wb) - Arm Left Blood Culture - Final No growth in 5 days. 06/30/20 15:55 Blood Culture (Wb) - Right Forearm Blood Culture - Final No growth in 5 days. 07/04/20 14:36 Other - Other Gram Stain - Final 07/04/20 14:36 Other - Other Wound Culture - Preliminary Gram positive organism 07/04/20 14:36 Other - Other Gram Stain - Final 07/04/20 14:36 Other - Other Wound Culture - Preliminary Gram positive organism Gram negative dasha 07/01/20 08:40 Wound - Aerobic & Anaerobic Swabs Gram Stain - Final 07/01/20 08:40 Wound - Aerobic & Anaerobic Swabs Wound Culture - Final Pseudomonas aeroginosa 07/01/20 08:40 Wound - Aerobic & Anaerobic Swabs Anaerobic Culture - Final No anaerobic bacteria isolated. 07/03/20 14:27 Mucosa - Nose SARS-CoV-2 Antigen (Rapid) - Final 07/01/20 16:20 Urine Catheter - Perez Urine Culture - Final Culture exhibits no growth. Laboratory Results 07/06/20 05:30: WBC 15.2 H, RBC 3.08 L, Hgb 9.0 L, Hct 30.4 L, MCV 98.7, MCH 29.2, MCHC 29.6 L, RDW Std Deviation 58.7 H, RDW Coeff of Galindo 16.1 H, Plt Count 389, MPV 8.6 07/06/20 05:30: Sodium 140, Potassium 4.3, Chloride 111 H, Carbon Dioxide 25.0, Anion Gap 4 L, BUN 43 H, Creatinine 0.60, Estim Creat Clear Calc 48.45, Est GFR (MDRD) Af Amer 127, Est GFR (MDRD) Non-Af 105, BUN/Creatinine Ratio 71.1 H, Glucose 84, Calcium 8.6 Current Medications Acetaminophen (Acetaminophen 500 Mg Tablet) 1,000 mg PO TID [facility] Last Admin: 07/06/20 05:55 Dose: 1,000 mg Documented by: Albuterol Sulfate (Albuterol 2.5 Mg/3 Ml Vial.Neb.) 2.5 mg INHALATION Q2H PRN PRN PRN Reason: SOB &/OR WHEEZING Last Admin: 07/04/20 15:24 Dose: 2.5 mg Documented by: Atorvastatin Calcium (Atorvastatin Calcium 20 Mg Tablet) 20 mg PO QHS [facility] Last Admin: 07/05/20 21:43 Dose: 20 mg Documented by: Bumetanide (Bumetanide 0.5 Mg Tablet) 0.5 mg PO BIDLX [facility] Last Admin: 07/06/20 09:56 Dose: 0.5 mg Documented by: Calamine/Phenol (Menthol/Lanolin/Calamine/Znox 113 Gm Tube) 1 applic TOPICAL BID [facility]; Protocol Last Admin: 07/06/20 09:57 Dose: 1 applicatio Documented by: Doxycycline Monohydrate (Doxycycline 100 Mg Capsule) 100 mg PO BID [facility] Last Admin: 07/06/20 09:57 Dose: 100 mg Documented by: Ferrous Sulfate (Ferrous Sulfate 325 Mg Tablet) 325 mg PO DAILY@1200 [facility] Last Admin: 07/06/20 09:59 Dose: 325 mg Documented by: Fluticasone Propionate (Fluticasone 0.05% 1 [place] Nasal.Sry) 1 spray NASAL BID [facility] Last Admin: 07/06/20 11:05 Dose: 2 sprays Documented by: Gabapentin (Gabapentin 100 Mg Capsule) 100 mg PO BIDCM [facility] Last Admin: 07/06/20 09:56 Dose: 100 mg Documented by: Meropenem 500 mg/ Sodium (Chloride) 60 mls @ 100 mls/hr IV Q8 [facility] Last Infusion: 07/06/20 06:28 Dose: Infused Documented by: Sodium Chloride () 1,000 mls @ 75 mls/hr IV .[id number] [facility] Last Admin: 07/06/20 05:52 Dose: 75 mls/hr Documented by: Lisinopril (Lisinopril 10 Mg Tablet) 10 mg PO DAILY [facility] Last Admin: 07/06/20 11:06 Dose: 10 mg Documented by: Magnesium Chloride (Magnesium Chloride 64 Mg Delay Rel.Tablet) 128 mg PO DAILY [facility] Last Admin: 07/06/20 09:58 Dose: 128 mg Documented by: Metoprolol Tartrate (Metoprolol Tartrate 25 Mg Tablet) 25 mg PO DAILY [facility] Last Admin: 07/06/20 09:58 Dose: 25 mg Documented by: Morphine Sulfate (Morphine 2 Mg/Ml Syringe) 1 - 2 mg IV Q2H PRN PRN PRN Reason: Pain Score 6-10 Multivitamins (Multivitamins,Therapeutic Tablet) 1 tablet PO DAILY@0800 [facility] Last Admin: 07/06/20 09:55 Dose: 1 tablet Documented by: Nystatin (Nystatin Powder 15gm Bottle) 1 applic TOPICAL BID [facility]; Protocol Last Admin: 07/06/20 09:58 Dose: 1 applicatio Documented by: Ondansetron HCl (Ondansetron 4 Mg/2 Ml Vial) 4 mg IV Q8H PRN PRN PRN Reason: NAUSEA/VOMITING Oxycodone HCl (Oxycodone 5 Mg Tablet) 5 mg PO Q6H PRN PRN PRN Reason: Pain Score 6-10 Last Admin: 07/05/20 10:58 Dose: 5 mg Documented by: Potassium Chloride (Potassium Chloride 20 Meq Tablet) 20 meq PO DAILYCM [facility] Last Admin: 07/06/20 09:55 Dose: 20 meq Documented by: Sodium Chloride (0.9% Saline Lock 10 Ml Syringe) 10 - 40 ml IV UD PRN PRN Reason: SALINE FLUSH Last Admin: 07/05/20 09:11 Dose: 20 ml Documented by: Sodium Hypochlorite (Dakin's Luana Half Strength (=0.25%)) 1 applic TOPICAL BID [facility]; Protocol Last Admin: 07/06/20 09:57 Dose: Not Given Documented by: Tramadol HCl (Tramadol 50 Mg Tablet) 50 mg PO Q6H PRN PRN PRN Reason: Pain 1-5 Last Admin: 07/05/20 21:24 Dose: 50 mg Documented by: Medical Necessity - Tobacco Use Smoking Status: Never smoker Assessment/Plan All Active Problems (This Medical Record has been edited. Action required.) Cellulitis of right lower leg (Acute) Skin necrosis (Acute) Cellulitis of left lower leg (Acute) Nonhealing ulcer of right lower extremity with fat layer exposed (Acute) Nonhealing ulcer of left lower extremity with fat layer exposed (Acute) UTI (urinary tract infection) (Acute) Sepsis (Acute) Anasarca (Acute) 1. Acute sepsis secondary to nonhealing infected ulcers of the left posterior leg and right lateral leg with associated cellulitis-UTI ruled out. ID and plastics following. Surgical wound debridement 07/04/2020. On IV meropenem, oral doxy. Urine and blood cultures negative. Wound culture growing Pseudomonas. Postop cultures pending. Wound RN consult. Plan for wound VAC and home health at discharge. Possible discharge on Cipro for 7-day course pending final culture and sensitivities. 2. Chronic lymphedema/anasarca-continue Bumex. 3. Paroxysmal atrial fibrillation/second-degree AV block-on metoprolol, Eliquis. Eliquis held prior to surgery. Resume Eliquis when okay per surgery. 4. Iron deficiency anemia-stable, trend CBC. 5. Chronic COPD-as needed albuterol aerosol. 6. Morbid obesity-encourage diet lifestyle modifications. 7. Chronic debility- PT/OT. Recent DC from SNF. 8. Oral thrush-initiated on nystatin swish and swallow. DVT prophylaxis-resume Eliquis when okay per surgery Discharge planning: Home with home health and wound VAC pending wound VAC set up and final cultures and sensitivities. Patient is agreeable to TCU at discharge however otherwise does not want to go to any other SNF. Will discuss with social work Tuesday a.m. This patient was seen by TREY Arrington under the supervision of Dr. Capps. <Scarlet Capps - Last Filed: 07/06/20 14:59> - Physical Exam Vitals/I&O's: Vital Signs Temp Pulse Resp BP Pulse Ox 98.1 F 90 18 115/58 L 94 07/06/20 10:47 07/06/20 10:47 07/06/20 10:47 07/06/20 10:47 07/06/20 10:47 Oxygen Flow Rate (L/min) 3 Oxygen Delivery Method Room Air Weight: 283 lb 8.231 oz Body Mass Index (BMI) 47.2 Intake and Output for Last 24 Hours 07/04/20 07/05/20 07/06/20 23:59 23:59 23:59 Intake Total 3308.75 / 3308.75 3477.5 / 3477.5 1810 / 1810 Output Total 1900 / 1900 1250 / 1250 2650 / 2650 Balance 1408.75 / 1408.75 2227.5 / 2227.5 -840 / -840 Microbiology Past 72 Hours 06/30/20 17:20 Blood Culture (Wb) - Arm Left Blood Culture - Final No growth in 5 days. 06/30/20 15:55 Blood Culture (Wb) - Right Forearm Blood Culture - Final No growth in 5 days. 07/04/20 14:36 Other - Other Gram Stain - Final 07/04/20 14:36 Other - Other Wound Culture - Preliminary Gram positive organism 07/04/20 14:36 Other - Other Gram Stain - Final 07/04/20 14:36 Other - Other Wound Culture - Preliminary Gram positive organism Gram negative dasha 07/01/20 08:40 Wound - Aerobic & Anaerobic Swabs Gram Stain - Final 07/01/20 08:40 Wound - Aerobic & Anaerobic Swabs Wound Culture - Final Pseudomonas aeroginosa 07/01/20 08:40 Wound - Aerobic & Anaerobic Swabs Anaerobic Culture - Final No anaerobic bacteria isolated. 07/03/20 14:27 Mucosa - Nose SARS-CoV-2 Antigen (Rapid) - Final Laboratory Results 07/06/20 05:30: WBC 15.2 H, RBC 3.08 L, Hgb 9.0 L, Hct 30.4 L, MCV 98.7, MCH 29.2, MCHC 29.6 L, RDW Std Deviation 58.7 H, RDW Coeff of Galindo 16.1 H, Plt Count 389, MPV 8.6 07/06/20 05:30: Sodium 140, Potassium 4.3, Chloride 111 H, Carbon Dioxide 25.0, Anion Gap 4 L, BUN 43 H, Creatinine 0.60, Estim Creat Clear Calc 48.45, Est GFR (MDRD) Af Amer 127, Est GFR (MDRD) Non-Af 105, BUN/Creatinine Ratio 71.1 H, Glucose 84, Calcium 8.6 Current Medications Acetaminophen (Acetaminophen 500 Mg Tablet) 1,000 mg PO TID [facility] Last Admin: 07/06/20 14:18 Dose: 1,000 mg Documented by: Albuterol Sulfate (Albuterol 2.5 Mg/3 Ml Vial.Neb.) 2.5 mg INHALATION Q2H PRN PRN PRN Reason: SOB &/OR WHEEZING Last Admin: 07/04/20 15:24 Dose: 2.5 mg Documented by: Atorvastatin Calcium (Atorvastatin Calcium 20 Mg Tablet) 20 mg PO QHS [facility] Last Admin: 07/05/20 21:43 Dose: 20 mg Documented by: Bumetanide (Bumetanide 0.5 Mg Tablet) 0.5 mg PO BIDLX [facility] Last Admin: 07/06/20 09:56 Dose: 0.5 mg Documented by: Calamine/Phenol (Menthol/Lanolin/Calamine/Znox 113 Gm Tube) 1 applic TOPICAL BID [facility]; Protocol Last Admin: 07/06/20 09:57 Dose: 1 applicatio Documented by: Doxycycline Monohydrate (Doxycycline 100 Mg Capsule) 100 mg PO BID [facility] Last Admin: 07/06/20 09:57 Dose: 100 mg Documented by: Ferrous Sulfate (Ferrous Sulfate 325 Mg Tablet) 325 mg PO DAILY@1200 [facility] Last Admin: 07/06/20 09:59 Dose: 325 mg Documented by: Fluticasone Propionate (Fluticasone 0.05% 1 [place] Nasal.Sry) 1 spray NASAL BID [facility] Last Admin: 07/06/20 11:05 Dose: 2 sprays Documented by: Gabapentin (Gabapentin 100 Mg Capsule) 100 mg PO BIDCM [facility] Last Admin: 07/06/20 14:19 Dose: 100 mg Documented by: Meropenem 500 mg/ Sodium (Chloride) 60 mls @ 100 mls/hr IV Q8 [facility] Last Admin: 07/06/20 14:18 Dose: 100 mls/hr Documented by: Sodium Chloride () 1,000 mls @ 75 mls/hr IV .[id number] [facility] Last Admin: 07/06/20 05:52 Dose: 75 mls/hr Documented by: Lisinopril (Lisinopril 10 Mg Tablet) 10 mg PO DAILY [facility] Last Admin: 07/06/20 11:06 Dose: 10 mg Documented by: Magnesium Chloride (Magnesium Chloride 64 Mg Delay Rel.Tablet) 128 mg PO DAILY [facility] Last Admin: 07/06/20 09:58 Dose: 128 mg Documented by: Metoprolol Tartrate (Metoprolol Tartrate 25 Mg Tablet) 25 mg PO DAILY [facility] Last Admin: 07/06/20 09:58 Dose: 25 mg Documented by: Morphine Sulfate (Morphine 2 Mg/Ml Syringe) 1 - 2 mg IV Q2H PRN PRN PRN Reason: Pain Score 6-10 Multivitamins (Multivitamins,Therapeutic Tablet) 1 tablet PO DAILY@0800 [facility] Last Admin: 07/06/20 09:55 Dose: 1 tablet Documented by: Nystatin (Nystatin Powder 15gm Bottle) 1 applic TOPICAL BID [facility]; Protocol Last Admin: 07/06/20 09:58 Dose: 1 applicatio Documented by: Nystatin (Nystatin 500,000 Unit/5 Ml Udc) 500,000 unit PO 4X/DAY [facility] Last Admin: 07/06/20 14:25 Dose: Not Given Documented by: Ondansetron HCl (Ondansetron 4 Mg/2 Ml Vial) 4 mg IV Q8H PRN PRN PRN Reason: NAUSEA/VOMITING Oxycodone HCl (Oxycodone 5 Mg Tablet) 5 mg PO Q6H PRN PRN PRN Reason: Pain Score 6-10 Last Admin: 07/05/20 10:58 Dose: 5 mg Documented by: Potassium Chloride (Potassium Chloride 20 Meq Tablet) 20 meq PO DAILYCM [facility] Last Admin: 07/06/20 09:55 Dose: 20 meq Documented by: Sodium Chloride (0.9% Saline Lock 10 Ml Syringe) 10 - 40 ml IV UD PRN PRN Reason: SALINE FLUSH Last Admin: 07/05/20 09:11 Dose: 20 ml Documented by: Tramadol HCl (Tramadol 50 Mg Tablet) 50 mg PO Q6H PRN PRN PRN Reason: Pain 1-5 Last Admin: 07/05/20 21:24 Dose: 50 mg Documented by: Assessment/Plan Patient seen by Soumya Pena SENIOR COMPENSATION ANALYST-see under my supervision Patient seen and examined. She still complains of pain in her lower extremities though she did look quite comfortable. Review of signs otherwise negative. She has remained hemodynamically stable. O/E: Vital Signs Temp Pulse Resp BP Pulse Ox 96.8 F L 89 16 99/45 L 95 07/03/20 14:19 07/03/20 14:19 07/03/20 14:19 07/03/20 14:19 07/03/20 14:19 General: Alert, Oriented x3, Cooperative, morbidly obese HEENT: Atraumatic, PERRLA, EOMI, Normocephalic Neck: Supple, No JVD, Negative Carotid Bruits Lungs: Clear to auscultation, Normal air movement Cardiovascular: Regular rate, No murmurs Abdomen: Bowel Sounds Present, Soft, Non Tender, Obese Extremities: No edema, Capillary Refill Less than 3 Seconds Skin: - - both LEs wrapped in bandage. Musculoskeletal: No Tenderness to Palpation of Joints or Extremities Neurological: Cranial nerves II-XII grossly intact Psych/Mental Status: Normal Affect, Appropriate Plan is continue IV meropenem and doxycycline. Continue gabapentin for pain as well as tramadol. PT OT on board. Today's postop day 1 for debridement of lower extremities. Will need wound VAC set up. Wound cultures are growing gram-positive organisms and gram-negative rods. One sample is growing Pseudomonas. Continue meropenem and doxycycline. Blood cultures are negative after 5 days. Rest as per Soumya YANG's notes which I have reviewed and endorsed. Inpatient E&M: [id number] Subs Hosp L2
[2020-07-06] MEDS: NYSTATIN 500,000 UNIT/5 ML UDC 500000 UNIT PO ×2 (18:23→22:17)
[2020-07-06] MEDS: oxyCODONE 5 MG Tablet PO (21:08)
[2020-07-06] MEDS: Atorvastatin Calcium 20 MG Tablet PO (21:09)
[2020-07-07] VITALS (17 sets, daily range): BP systolic 98–115; BP diastolic 54–71; PULSE 99–138; RESP 16–18; TEMP 36.5–37.2; O2SAT 95–97
[2020-07-07] MEDS: Morphine 2 MG/ML Syringe IV ×2 (00:53→09:25)
--- NOTE | 2020-07-07 01:44 | EKG12_ITS ---
Test Reason : TACHY Blood Pressure : / mmHG Vent. Rate : 137 BPM Atrial Rate : 115 BPM P-R Int : 000 ms QRS Dur : 084 ms QT Int : 318 ms P-R-T Axes : 000 -38 050 degrees QTc Int : 480 ms Atrial fibrillation Left axis deviation Low voltage QRS Poor R wave progression Abnormal ECG Confirmed by PAUL NEUMANN, KAREN ([id number]), editor school photograph JEFF SHEPPARD ([id number]) on 07/09/2020 1:30:29 PM Referred By: DR MOYA Confirmed By:KAREN MILLER MD
[2020-07-07] MEDS: Metoprolol Tartrate 5 MG/5 ML Vial IV ×3 (01:52→04:30)
[2020-07-07] MEDS: Acetaminophen 500 MG Tablet 1000 MG PO ×3 (05:45→21:09)
[2020-07-07 06:24] LABS: Hematocrit 30.4 % (37-47); Hemoglobin 9.5 g/dL (12.0-15.0); Mean Corp Hgb Conc 31.3 g/dL (32-36); Mean Corpuscular Hgb 30.2 pg (27.0-32.0); Mean Corpuscular Volume 96.5 fL (81-99); Mean Platelet Vol. 8.8 fl (6.2-12.0); Platelet Count 407 K/mm3 (150-450); RBC Distribution Width CV 16.2 % (11.6-14.6); RBC Distribution Width SD 57.3 fl (35.1-43.9); Red Blood Count 3.15 M/mm3 (4.2-5.4); White Blood Count 14.9 K/mm3 (4.4-11.0)
[2020-07-07 06:48] LABS: Anion Gap 4 (5-15); BUN 30 mg/dL (7-18); Calcium,Total 8.6 mg/dL (8.5-10.1); Chloride 111 mmol/L (98-107); Creatinine, Serum 0.44 mg/dL (0.55-1.02); EST Glomerular Filtration Rate 153 mL/min (>60); Est Glom Filt Rate - Afr Amer 185 mL/min (>60); Estimated Creatinine Clearance 48.45 ml/min; Glucose 85 mg/dL (74-106); Potassium 3.6 mmol/L (3.5-5.1); Sodium Level 141 mmol/L (136-145)
[2020-07-07] MEDS: 0.9% Normal Saline 1,000 ML 75 ML IV ×2 (08:46→21:17)
[2020-07-07] MEDS: Nystatin Powder 15gm Bottle 1 APPLIC TOPICAL ×2 (09:01→21:02)
[2020-07-07] MEDS: NYSTATIN 500,000 UNIT/5 ML UDC 500000 UNIT PO ×4 (09:01→21:03)
[2020-07-07] MEDS: Menthol/Lanolin/Calamine/Znox 113 GM Tube 1 APPLIC TOPICAL ×2 (09:01→21:02)
[2020-07-07] MEDS: Metoprolol Tartrate 25 MG Tablet PO (11:00)
[2020-07-07] MEDS: Doxycycline 100 MG CAPSULE PO ×2 (11:00→21:04)
[2020-07-07] MEDS: Multivitamins,Therapeutic Tablet 1 TABLET PO (11:00)
[2020-07-07] MEDS: Gabapentin 100 MG Capsule PO ×2 (11:00→17:11)
[2020-07-07] MEDS: Magnesium Chloride 64 MG Delay Rel.Tablet 128 MG PO (11:00)
[2020-07-07] MEDS: Bumetanide 0.5 MG Tablet PO ×2 (11:00→17:11)
[2020-07-07] MEDS: Ferrous Sulfate 325 MG Tablet PO (11:01)
[2020-07-07] MEDS: Fluticasone 0.05% 1 SPRAY NASAL.SRY NASAL ×2 (11:01→21:03)
--- NOTE | 2020-07-07 11:18 | NURSING ---
wound photo: left posterior lower leg
--- NOTE | 2020-07-07 11:18 | NURSING ---
wound photo: right posterolateral lower leg
--- NOTE | 2020-07-07 12:05 | CASEMGMT ---
Social Work Note SW updated that pt is agreeable to [facility]. OJE placed a call to referral line and spoke with Etta. Etta states she will review referral, may or may not have a bed available tomorrow. JOE will follow up with Etta tomorrow to confirm bed availability. Plan: TBD pending bed availability in TCU Mickie Loaiza MSW, OIL FIELD OPERATOR
--- NOTE | 2020-07-07 13:35 | PCM.PROGNOTE ---
<Soumya Pena [employer] - Last Filed: 07/07/20 13:44> Patient Problems: Active and Suspected Problems (This Medical Record has been edited. Action required.) Nonhealing ulcer of right lower extremity with fat layer exposed (Acute) Nonhealing ulcer of left lower extremity with fat layer exposed (Acute) UTI (urinary tract infection) (Acute) Sepsis (Acute) Subjective: Patient seen and examined. States she had a rough night. Patient heart rate elevated overnight which caused frequent nursing care. Now stable. Patient agreeable to TCU at discharge pending acceptance. States sore throat is improved with treatment of thrush. - Physical Exam Vitals/I&O's: Vital Signs Temp Pulse Resp BP Pulse Ox 98.3 F 119 H 18 99/58 L 97 07/07/20 08:50 07/07/20 11:00 07/07/20 08:50 07/07/20 08:50 07/07/20 08:50 Oxygen Flow Rate (L/min) 2 Oxygen Delivery Method Room Air Weight: 283 lb 8.231 oz Body Mass Index (BMI) 47.2 Intake and Output for Last 24 Hours 07/05/20 07/06/20 07/07/20 23:59 23:59 23:59 Intake Total 3477.5 / 3477.5 3114.58 / 3314.58 1610 / 1610 Output Total 1250 / 1250 3750 / 4950 2600 / 2600 Balance 2227.5 / 2227.5 -635.42 / -1635.42 -990 / -990 General: Alert, Oriented x3, Cooperative HEENT: Atraumatic, PERRLA, EOMI, Normocephalic Oral: - - Thrush present Neck: Supple, No JVD, Negative Carotid Bruits Lungs: Clear to auscultation, Normal air movement Cardiovascular: - - Atrial fibrillation, rate controlled Abdomen: Bowel Sounds Present, Soft, Non Tender, Non-Distended, Obese Extremities: No clubbing, No cyanosis, Edema - Bilateral lower extremity lymphedema Skin: - - Bilateral lower extremity wounds, dressings intact Musculoskeletal: No Tenderness to Palpation of Joints or Extremities Neurological: Cranial nerves II-XII grossly intact, Neuro grossly intact Psych/Mental Status: Normal Affect, Appropriate Microbiology Past 72 Hours 07/04/20 14:36 Other - Other Gram Stain - Final 07/04/20 14:36 Other - Other Wound Culture - Final Staphylococcus capitis Corynebacterium striatum 07/04/20 14:36 Other - Other Anaerobic Culture - Preliminary 07/04/20 14:36 Other - Other Gram Stain - Final 07/04/20 14:36 Other - Other Wound Culture - Preliminary Pseudomonas aeroginosa Corynebacterium striatum Gram negative dasha 07/04/20 14:36 Other - Other Anaerobic Culture - Preliminary Checking for anaerobes, further studies to follow. 06/30/20 17:20 Blood Culture (Wb) - Arm Left Blood Culture - Final No growth in 5 days. 06/30/20 15:55 Blood Culture (Wb) - Right Forearm Blood Culture - Final No growth in 5 days. Laboratory Results 07/07/20 05:22: WBC 14.9 H, RBC 3.15 L, Hgb 9.5 L, Hct 30.4 L, MCV 96.5, MCH 30.2, MCHC 31.3 L D, RDW Std Deviation 57.3 H, RDW Coeff of Galindo 16.2 H, Plt Count 407, MPV 8.8 07/07/20 05:22: Sodium 141, Potassium 3.6, Chloride 111 H, Carbon Dioxide 26.0, Anion Gap 4 L, BUN 30 H, Creatinine 0.44 L, Estim Creat Clear Calc 48.45, Est GFR (MDRD) Af Amer 185, Est GFR (MDRD) Non-Af 153, BUN/Creatinine Ratio 69.0 H, Glucose 85, Calcium 8.6 Current Medications Acetaminophen (Acetaminophen 500 Mg Tablet) 1,000 mg PO TID [facility] Last Admin: 07/07/20 05:45 Dose: 1,000 mg Documented by: Albuterol Sulfate (Albuterol 2.5 Mg/3 Ml Vial.Neb.) 2.5 mg INHALATION Q2H PRN PRN PRN Reason: SOB &/OR WHEEZING Last Admin: 07/04/20 15:24 Dose: 2.5 mg Documented by: Atorvastatin Calcium (Atorvastatin Calcium 20 Mg Tablet) 20 mg PO QHS [facility] Last Admin: 07/06/20 21:09 Dose: 20 mg Documented by: Bumetanide (Bumetanide 0.5 Mg Tablet) 0.5 mg PO BIDLX [facility] Last Admin: 07/07/20 11:00 Dose: 0.5 mg Documented by: Calamine/Phenol (Menthol/Lanolin/Calamine/Znox 113 Gm Tube) 1 applic TOPICAL BID [facility]; Protocol Last Admin: 07/07/20 09:01 Dose: 1 applicatio Documented by: Doxycycline Monohydrate (Doxycycline 100 Mg Capsule) 100 mg PO BID [facility] Last Admin: 07/07/20 11:00 Dose: 100 mg Documented by: Ferrous Sulfate (Ferrous Sulfate 325 Mg Tablet) 325 mg PO DAILY@1200 [facility] Last Admin: 07/07/20 11:01 Dose: 325 mg Documented by: Fluticasone Propionate (Fluticasone 0.05% 1 [place] Nasal.Sry) 1 spray NASAL BID [facility] Last Admin: 07/07/20 11:01 Dose: 1 sprays Documented by: Gabapentin (Gabapentin 100 Mg Capsule) 100 mg PO BIDCM [facility] Last Admin: 07/07/20 11:00 Dose: 100 mg Documented by: Meropenem 500 mg/ Sodium (Chloride) 60 mls @ 100 mls/hr IV Q8 [facility] Last Infusion: 07/07/20 06:18 Dose: Infused Documented by: Sodium Chloride () 1,000 mls @ 75 mls/hr IV .[id number] [facility] Last Admin: 07/07/20 08:46 Dose: 75 mls/hr Documented by: Lisinopril (Lisinopril 10 Mg Tablet) 10 mg PO DAILY [facility] Last Admin: 07/07/20 09:04 Dose: Not Given Documented by: Magnesium Chloride (Magnesium Chloride 64 Mg Delay Rel.Tablet) 128 mg PO DAILY [facility] Last Admin: 07/07/20 11:00 Dose: 128 mg Documented by: Metoprolol Tartrate (Metoprolol Tartrate 25 Mg Tablet) 25 mg PO DAILY [facility] Last Admin: 07/07/20 11:00 Dose: 25 mg Documented by: Morphine Sulfate (Morphine 2 Mg/Ml Syringe) 1 - 2 mg IV Q2H PRN PRN PRN Reason: Pain Score 6-10 Last Admin: 07/07/20 09:25 Dose: 2 mg Documented by: Multivitamins (Multivitamins,Therapeutic Tablet) 1 tablet PO DAILY@0800 [facility] Last Admin: 07/07/20 11:00 Dose: 1 tablet Documented by: Nystatin (Nystatin Powder 15gm Bottle) 1 applic TOPICAL BID [facility]; Protocol Last Admin: 07/07/20 09:01 Dose: 1 applicatio Documented by: Nystatin (Nystatin 500,000 Unit/5 Ml Udc) 500,000 unit PO 4X/DAY [facility] Last Admin: 07/07/20 09:01 Dose: 500,000 unit Documented by: Ondansetron HCl (Ondansetron 4 Mg/2 Ml Vial) 4 mg IV Q8H PRN PRN PRN Reason: NAUSEA/VOMITING Oxycodone HCl (Oxycodone 5 Mg Tablet) 5 mg PO Q6H PRN PRN PRN Reason: Pain Score 6-10 Last Admin: 07/06/20 21:08 Dose: 5 mg Documented by: Potassium Chloride (Potassium Chloride 20 Meq Tablet) 20 meq PO DAILYCM [facility] Last Admin: 07/07/20 11:00 Dose: 20 meq Documented by: Sodium Chloride (0.9% Saline Lock 10 Ml Syringe) 10 - 40 ml IV UD PRN PRN Reason: SALINE FLUSH Last Admin: 07/05/20 09:11 Dose: 20 ml Documented by: Tramadol HCl (Tramadol 50 Mg Tablet) 50 mg PO Q6H PRN PRN PRN Reason: Pain 1-5 Last Admin: 07/05/20 21:24 Dose: 50 mg Documented by: Medical Necessity - Tobacco Use Smoking Status: Never smoker Assessment/Plan All Active Problems (This Medical Record has been edited. Action required.) Necrosis of subcutaneous tissue (Acute) Cellulitis of right lower leg (Acute) Skin necrosis (Acute) Cellulitis of left lower leg (Acute) Nonhealing ulcer of right lower extremity with fat layer exposed (Acute) Nonhealing ulcer of left lower extremity with fat layer exposed (Acute) UTI (urinary tract infection) (Acute) Sepsis (Acute) Anasarca (Acute) 1. Acute sepsis secondary to nonhealing infected ulcers of the left posterior leg and right lateral leg with associated cellulitis-UTI ruled out. ID and plastics following. Surgical wound debridement 07/04/2020. On IV meropenem, oral doxy. Urine and blood cultures negative. Wound culture growing Pseudomonas, Corynebacterium, gram-negative dasha, staph. Await further ID antibiotic recommendations. Wound RN consult. Wound VAC placed 07/07/2020. Plan for TCU pending acceptance. 2. Chronic lymphedema/anasarca-continue Bumex. 3. Paroxysmal atrial fibrillation/second-degree AV block-on metoprolol, Eliquis. Patient with RVR overnight requiring IV metoprolol. Now stable. 4. Iron deficiency anemia-stable, trend CBC. 5. Chronic COPD-as needed albuterol aerosol. 6. Morbid obesity-encourage diet lifestyle modifications. 7. Chronic debility- PT/OT. TCU pending acceptance. 8. Oral thrush-initiated on nystatin swish and swallow. DVT prophylaxis-Eliquis Discharge planning: TCU pending acceptance This patient was seen by TREY Arrington under the supervision of Dr. Rai. <Galo Rai - Last Filed: 07/08/20 16:34> - Physical Exam Vitals/I&O's: Vital Signs Temp Pulse Resp BP Pulse Ox 37.2 C 99 18 102/59 L 97 07/07/20 14:10 07/07/20 15:55 07/07/20 14:10 07/07/20 14:10 07/07/20 14:10 Oxygen Flow Rate (L/min) 2 Oxygen Delivery Method Room Air Weight: 128.6 kg Body Mass Index (BMI) 47.2 Intake and Output for Last 24 Hours 07/05/20 07/06/20 07/07/20 23:59 23:59 23:59 Intake Total 3477.5 / 3477.5 3114.58 / 3314.58 1670 / 1670 Output Total 1250 / 1250 3750 / 4950 2600 / 2600 Balance 2227.5 / 2227.5 -635.42 / -1635.42 -930 / -930 General: Alert, Cooperative HEENT: Atraumatic, Normocephalic Oral: - Lungs: Clear to auscultation, Normal air movement Cardiovascular: - Abdomen: Bowel Sounds Present, Soft, Non Tender, Non-Distended, Obese Extremities: No clubbing, No cyanosis, Edema Skin: - Musculoskeletal: No Tenderness to Palpation of Joints or Extremities Neurological: Cranial nerves II-XII grossly intact, Neuro grossly intact Psych/Mental Status: Normal Affect, Appropriate Microbiology Past 72 Hours 07/04/20 14:36 Other - Other Gram Stain - Final 07/04/20 14:36 Other - Other Wound Culture - Final Staphylococcus capitis Corynebacterium striatum 07/04/20 14:36 Other - Other Anaerobic Culture - Preliminary 07/04/20 14:36 Other - Other Gram Stain - Final 07/04/20 14:36 Other - Other Wound Culture - Preliminary Pseudomonas aeroginosa Corynebacterium striatum Gram negative dasha 07/04/20 14:36 Other - Other Anaerobic Culture - Preliminary Checking for anaerobes, further studies to follow. 06/30/20 17:20 Blood Culture (Wb) - Arm Left Blood Culture - Final No growth in 5 days. 06/30/20 15:55 Blood Culture (Wb) - Right Forearm Blood Culture - Final No growth in 5 days. Laboratory Results 07/07/20 05:22: WBC 14.9 H, RBC 3.15 L, Hgb 9.5 L, Hct 30.4 L, MCV 96.5, MCH 30.2, MCHC 31.3 L D, RDW Std Deviation 57.3 H, RDW Coeff of Galindo 16.2 H, Plt Count 407, MPV 8.8 07/07/20 05:22: Sodium 141, Potassium 3.6, Chloride 111 H, Carbon Dioxide 26.0, Anion Gap 4 L, BUN 30 H, Creatinine 0.44 L, Estim Creat Clear Calc 48.45, Est GFR (MDRD) Af Amer 185, Est GFR (MDRD) Non-Af 153, BUN/Creatinine Ratio 69.0 H, Glucose 85, Calcium 8.6 Current Medications Acetaminophen (Acetaminophen 500 Mg Tablet) 1,000 mg PO TID [facility] Last Admin: 07/07/20 14:11 Dose: 1,000 mg Documented by: Albuterol Sulfate (Albuterol 2.5 Mg/3 Ml Vial.Neb.) 2.5 mg INHALATION Q2H PRN PRN PRN Reason: SOB &/OR WHEEZING Last Admin: 07/04/20 15:24 Dose: 2.5 mg Documented by: Apixaban (Apixaban 5 Mg Tablet) 5 mg PO BID [facility] Atorvastatin Calcium (Atorvastatin Calcium 20 Mg Tablet) 20 mg PO QHS [facility] Last Admin: 07/06/20 21:09 Dose: 20 mg Documented by: Bumetanide (Bumetanide 0.5 Mg Tablet) 0.5 mg PO BIDLX [facility] Last Admin: 07/07/20 17:11 Dose: 0.5 mg Documented by: Calamine/Phenol (Menthol/Lanolin/Calamine/Znox 113 Gm Tube) 1 applic TOPICAL BID [facility]; Protocol Last Admin: 07/07/20 09:01 Dose: 1 applicatio Documented by: Doxycycline Monohydrate (Doxycycline 100 Mg Capsule) 100 mg PO BID [facility] Last Admin: 07/07/20 11:00 Dose: 100 mg Documented by: Ferrous Sulfate (Ferrous Sulfate 325 Mg Tablet) 325 mg PO DAILY@1200 [facility] Last Admin: 07/07/20 11:01 Dose: 325 mg Documented by: Fluticasone Propionate (Fluticasone 0.05% 1 [place] Nasal.Sry) 1 spray NASAL BID [facility] Last Admin: 07/07/20 11:01 Dose: 1 sprays Documented by: Gabapentin (Gabapentin 100 Mg Capsule) 100 mg PO BIDCM [facility] Last Admin: 07/07/20 17:11 Dose: 100 mg Documented by: Meropenem 500 mg/ Sodium (Chloride) 60 mls @ 100 mls/hr IV Q8 [facility] Last Infusion: 07/07/20 14:49 Dose: Infused Documented by: Sodium Chloride () 1,000 mls @ 75 mls/hr IV .[id number] [facility] Last Admin: 07/07/20 08:46 Dose: 75 mls/hr Documented by: Lisinopril (Lisinopril 10 Mg Tablet) 10 mg PO DAILY [facility] Last Admin: 07/07/20 09:04 Dose: Not Given Documented by: Magnesium Chloride (Magnesium Chloride 64 Mg Delay Rel.Tablet) 128 mg PO DAILY [facility] Last Admin: 07/07/20 11:00 Dose: 128 mg Documented by: Metoprolol Tartrate (Metoprolol Tartrate 25 Mg Tablet) 25 mg PO DAILY [facility] Last Admin: 07/07/20 11:00 Dose: 25 mg Documented by: Morphine Sulfate (Morphine 2 Mg/Ml Syringe) 1 - 2 mg IV Q2H PRN PRN PRN Reason: Pain Score 6-10 Last Admin: 07/07/20 09:25 Dose: 2 mg Documented by: Multivitamins (Multivitamins,Therapeutic Tablet) 1 tablet PO DAILY@0800 [facility] Last Admin: 07/07/20 11:00 Dose: 1 tablet Documented by: Nystatin (Nystatin Powder 15gm Bottle) 1 applic TOPICAL BID [facility]; Protocol Last Admin: 07/07/20 09:01 Dose: 1 applicatio Documented by: Nystatin (Nystatin 500,000 Unit/5 Ml Udc) 500,000 unit PO 4X/DAY [facility] Last Admin: 07/07/20 17:11 Dose: 500,000 unit Documented by: Ondansetron HCl (Ondansetron 4 Mg/2 Ml Vial) 4 mg IV Q8H PRN PRN PRN Reason: NAUSEA/VOMITING Last Admin: 07/07/20 16:16 Dose: 4 mg Documented by: Oxycodone HCl (Oxycodone 5 Mg Tablet) 5 mg PO Q6H PRN PRN PRN Reason: Pain Score 6-10 Last Admin: 07/06/20 21:08 Dose: 5 mg Documented by: Potassium Chloride (Potassium Ch[facility] 20 [facility]t) [facility] Last Admin: 07/07/20 11:00 Dose: 20 meq Documented by: Sodium Chloride (0.9% Saline Lock 10 Ml Syringe) 10 - 40 ml IV UD PRN PRN Reason: SALINE FLUSH Last Admin: 07/05/20 09:11 Dose: 20 ml Documented by: Tramadol HCl (Tramadol 50 Mg Tablet) 50 mg PO Q6H PRN PRN PRN Reason: Pain 1-5 Last Admin: 07/05/20 21:24 Dose: 50 mg Documented by: Assessment/Plan All review of systems were negative except as mentioned above in the history of present illness and the other review of systems. 1. Sepsis: 2/2 ulcers. 2. Infected LE ulcers: continue abx. ID consult 3. Lymphedema Inpatient E&M: [id number] [facility] L2
[2020-07-07] MEDS: Ondansetron 4 MG/2 ML Vial IV (16:16)
--- NOTE | 2020-07-07 16:47 | PCM.PN.ID ---
Patient Problems: Active and Suspected Problems (This Medical Record has been edited. Action required.) UTI (urinary tract infection) (Acute) Sepsis (Acute) Subjective: Feeling ok s/p OR. No fever, no n/v/d. - Physical Exam Vitals/I&O's: Vital Signs Temp Pulse Resp BP Pulse Ox 99.0 F 99 18 102/59 L 97 07/07/20 14:10 07/07/20 15:55 07/07/20 14:10 07/07/20 14:10 07/07/20 14:10 Oxygen Flow Rate (L/min) 2 Oxygen Delivery Method Room Air Weight: 128.6 kg Body Mass Index (BMI) 47.2 Intake and Output for Last 24 Hours 07/05/20 07/06/20 07/07/20 23:59 23:59 23:59 Intake Total 3477.5 / 3477.5 3114.58 / 3314.58 1670 / 1670 Output Total 1250 / 1250 3750 / 4950 2600 / 2600 Balance 2227.5 / 2227.5 -635.42 / -1635.42 -930 / -930 General: Alert, Cooperative, No apparent distress Lungs: Clear to auscultation, Normal air movement Cardiovascular: Regular rate, Regular Rhythm Abdomen: Soft, Non Tender, Non-Distended Skin: Ulcer/ Wound - reviewed photos Microbiology Past 72 Hours 07/04/20 14:36 Other - Other Gram Stain - Final 07/04/20 14:36 Other - Other Wound Culture - Final Staphylococcus capitis Corynebacterium striatum 07/04/20 14:36 Other - Other Anaerobic Culture - Preliminary 07/04/20 14:36 Other - Other Gram Stain - Final 07/04/20 14:36 Other - Other Wound Culture - Preliminary Pseudomonas aeroginosa Corynebacterium striatum Gram negative dasha 07/04/20 14:36 Other - Other Anaerobic Culture - Preliminary Checking for anaerobes, further studies to follow. 06/30/20 17:20 Blood Culture (Wb) - Arm Left Blood Culture - Final No growth in 5 days. 06/30/20 15:55 Blood Culture (Wb) - Right Forearm Blood Culture - Final No growth in 5 days. Laboratory Results 07/07/20 05:22: WBC 14.9 H, RBC 3.15 L, Hgb 9.5 L, Hct 30.4 L, MCV 96.5, MCH 30.2, MCHC 31.3 L D, RDW Std Deviation 57.3 H, RDW Coeff of Galindo 16.2 H, Plt Count 407, MPV 8.8 07/07/20 05:22: Sodium 141, Potassium 3.6, Chloride 111 H, Carbon Dioxide 26.0, Anion Gap 4 L, BUN 30 H, Creatinine 0.44 L, Estim Creat Clear Calc 48.45, Est GFR (MDRD) Af Amer 185, Est GFR (MDRD) Non-Af 153, BUN/Creatinine Ratio 69.0 H, Glucose 85, Calcium 8.6 Current Medications Acetaminophen (Acetaminophen 500 Mg Tablet) 1,000 mg PO TID [facility] Last Admin: 07/07/20 14:11 Dose: 1,000 mg Documented by: Albuterol Sulfate (Albuterol 2.5 Mg/3 Ml Vial.Neb.) 2.5 mg INHALATION Q2H PRN PRN PRN Reason: SOB &/OR WHEEZING Last Admin: 07/04/20 15:24 Dose: 2.5 mg Documented by: Apixaban (Apixaban 5 Mg Tablet) 5 mg PO BID [facility] Atorvastatin Calcium (Atorvastatin Calcium 20 Mg Tablet) 20 mg PO QHS [facility] Last Admin: 07/06/20 21:09 Dose: 20 mg Documented by: Bumetanide (Bumetanide 0.5 Mg Tablet) 0.5 mg PO BIDLX [facility] Last Admin: 07/07/20 11:00 Dose: 0.5 mg Documented by: Calamine/Phenol (Menthol/Lanolin/Calamine/Znox 113 Gm Tube) 1 applic TOPICAL BID [facility]; Protocol Last Admin: 07/07/20 09:01 Dose: 1 applicatio Documented by: Doxycycline Monohydrate (Doxycycline 100 Mg Capsule) 100 mg PO BID [facility] Last Admin: 07/07/20 11:00 Dose: 100 mg Documented by: Ferrous Sulfate (Ferrous Sulfate 325 Mg Tablet) 325 mg PO DAILY@1200 [facility] Last Admin: 07/07/20 11:01 Dose: 325 mg Documented by: Fluticasone Propionate (Fluticasone 0.05% 1 [place] Nasal.Sry) 1 spray NASAL BID [facility] Last Admin: 07/07/20 11:01 Dose: 1 sprays Documented by: Gabapentin (Gabapentin 100 Mg Capsule) 100 mg PO BIDCM [facility] Last Admin: 07/07/20 11:00 Dose: 100 mg Documented by: Meropenem 500 mg/ Sodium (Chloride) 60 mls @ 100 mls/hr IV Q8 [facility] Last Infusion: 07/07/20 14:49 Dose: Infused Documented by: Sodium Chloride () 1,000 mls @ 75 mls/hr IV .[id number] [facility] Last Admin: 07/07/20 08:46 Dose: 75 mls/hr Documented by: Lisinopril (Lisinopril 10 Mg Tablet) 10 mg PO DAILY [facility] Last Admin: 07/07/20 09:04 Dose: Not Given Documented by: Magnesium Chloride (Magnesium Chloride 64 Mg Delay Rel.Tablet) 128 mg PO DAILY [facility] Last Admin: 07/07/20 11:00 Dose: 128 mg Documented by: Metoprolol Tartrate (Metoprolol Tartrate 25 Mg Tablet) 25 mg PO DAILY [facility] Last Admin: 07/07/20 11:00 Dose: 25 mg Documented by: Morphine Sulfate (Morphine 2 Mg/Ml Syringe) 1 - 2 mg IV Q2H PRN PRN PRN Reason: Pain Score 6-10 Last Admin: 07/07/20 09:25 Dose: 2 mg Documented by: Multivitamins (Multivitamins,Therapeutic Tablet) 1 tablet PO DAILY@0800 [facility] Last Admin: 07/07/20 11:00 Dose: 1 tablet Documented by: Nystatin (Nystatin Powder 15gm Bottle) 1 applic TOPICAL BID [facility]; Protocol Last Admin: 07/07/20 09:01 Dose: 1 applicatio Documented by: Nystatin (Nystatin 500,000 Unit/5 Ml Ud) 500,000 unit PO 4X/DAY [facility] Last Admin: 07/07/20 14:15 Dose: 500,000 unit Documented by: Ondansetron HCl (Ondansetron 4 Mg/2 Ml Vial) 4 mg IV Q8H PRN PRN PRN Reason: NAUSEA/VOMITING Last Admin: 07/07/20 16:16 Dose: 4 mg Documented by: Oxycodone HCl (Oxycodone 5 Mg Tablet) 5 mg PO Q6H PRN PRN PRN Reason: Pain Score 6-10 Last Admin: 07/06/20 21:08 Dose: 5 mg Documented by: Potassium Chloride (Potassium Chloride 20 Meq Tablet) 20 meq PO DAILY [facility] Last Admin: 07/07/20 11:00 Dose: 20 meq Documented by: Sodium Chloride (0.9% Saline Lock 10 Ml Syringe) 10 - 40 ml IV UD PRN PRN Reason: SALINE FLUSH Last Admin: 07/05/20 09:11 Dose: 20 ml Documented by: Tramadol HCl (Tramadol 50 Mg Tablet) 50 mg PO Q6H PRN PRN PRN Reason: Pain 1-5 Last Admin: 07/05/20 21:24 Dose: 50 mg Documented by: Medical Necessity - Tobacco Use Smoking Status: Never smoker Route of nutrition/ use of supplements: [] Nutritional Intake: [] IV Site: [] Estrada Catheter: [] - Assessment/Plan Antibiotics: [] Assessment/Plan: [] Active and Suspected Problems (This Medical Record has been edited. Action required.) UTI (urinary tract infection) (Acute) Sepsis (Acute) Chronic estrada, so abnormal UA may just represent colonization. Ucx pending. Several months of worsening bilat calf ulcers, particularly on L. Wound cx here 05/30/20 with MR-CoNs and Pseudomonas x2, but gram stain with no organisms or purulence seen so hard to know if those were true pathogens. Wound cx now with pseudomonas. Given extent of the ulcer, consulted Dr. Pedersen, OR 07/04. Surg cx with CoNS, PsA, GNR, corynebacteria. PsA from surg cx with I susc to cipro. POD 3 today, will continue meropenem and doxy for now. Would like for her to get at least a few more days of iv abx, then could consider changing to high dose cipro with other oral coverage. Will follow, d/w case management assistant
[2020-07-07] MEDS: APIXABAN 5 MG TABLET PO (21:04)
[2020-07-07] MEDS: Atorvastatin Calcium 20 MG Tablet PO (21:09)
[2020-07-07] MEDS: 0.9% Saline Lock 10 ML Syringe IV (21:28)
[2020-07-07] MEDS: oxyCODONE 5 MG Tablet PO (23:13)
[2020-07-08] VITALS (8 sets, daily range): BP systolic 100–123; BP diastolic 48–89; PULSE 97–130; RESP 16–18; TEMP 37.1–37.4; O2SAT 92–97
[2020-07-08] MEDS: Acetaminophen 500 MG Tablet 1000 MG PO ×2 (05:41→14:11)
[2020-07-08] MEDS: Metoprolol Tartrate 25 MG Tablet PO (05:57)
[2020-07-08] MEDS: Multivitamins,Therapeutic Tablet 1 TABLET PO (08:56)
[2020-07-08] MEDS: Gabapentin 100 MG Capsule PO (08:56)
[2020-07-08] MEDS: Bumetanide 0.5 MG Tablet PO (09:10)
[2020-07-08] MEDS: Nystatin Powder 15gm Bottle 1 APPLIC TOPICAL (09:10)
[2020-07-08] MEDS: APIXABAN 5 MG TABLET PO (09:10)
[2020-07-08] MEDS: NYSTATIN 500,000 UNIT/5 ML UDC 500000 UNIT PO ×2 (09:10→14:11)
[2020-07-08] MEDS: Menthol/Lanolin/Calamine/Znox 113 GM Tube 1 APPLIC TOPICAL (09:10)
[2020-07-08] MEDS: Doxycycline 100 MG CAPSULE PO (09:10)
[2020-07-08] MEDS: Fluticasone 0.05% 1 SPRAY NASAL.SRY NASAL (09:11)
[2020-07-08] MEDS: Lisinopril 10 MG Tablet PO (09:12)
[2020-07-08] MEDS: Magnesium Chloride 64 MG Delay Rel.Tablet 128 MG PO (09:12)
[2020-07-08] MEDS: Ferrous Sulfate 325 MG Tablet PO (09:14)
[2020-07-08] MEDS: oxyCODONE 5 MG Tablet PO (09:20)
--- NOTE | 2020-07-08 09:24 | CASEMGMT ---
Addendum entered by Mickie Loaiza 07/08/20 10:56: SW in to speak with pt. SW updated pt that TCU has a bed available and pt will discharge today to TCU. Pt states understandning. Pt gave this worker permission to call her son Naveen to update him on discharge. SW placed a call to pt's son Naveen and updated him that pt will be discharged to TCU today. Naveen states understanding. Plan: TCU today Mickie FAN, VICTORINO Original Note: Social Work Note JOE placed a call to Etta in TCU, TCU will have a bed available for pt today. Mickie FAN, MONOTYPER
--- NOTE | 2020-07-08 10:29 | TREXTCA.CO_ITS ---
- Diet 07/04/20 17:35 Diet: Regular - General Dietary Modifications:: Sodium Restricted Is pt able to select menu?: Yes Diet Comments: Campos BID mixed w/ cranberry juice at lunch and dinner - Routine Orders/Code Status Enema Type: Fleetz Enema Frequency: Daily PRN Suppository Type: Dulcolax 10mg Suppository Frequency: Daily PRN O2 Liters per Minute: 2 O2 Frequency: PRN Keep PO Greater than or Equal to (%): 90 Routine Lab Work: CBC, BMP, - - Q Week - Wound(s) left lower leg Wound Type: Open Surgical Wound Dressing Change: applied KCI wound VAC rt lower leg Wound Type: Open Surgical Wound Dressing Change: applied KCI wound VAC left knee Wound Type: Skin Tear sacrum Wound Type: Pressure Injury - Suggestions for Active Care Change Position every (hours): 2 Times a day to sit in chair: 3 - Therapies Physical Therapy: Eval and Treat Occupational Therapy: Eval and Treat - Problem/Diagnosis (1) Nonhealing ulcer of right lower extremity with fat layer exposed Status: Acute (2) Nonhealing ulcer of left lower extremity with fat layer exposed Status: Acute (3) Anasarca Status: Chronic (4) History of obstructive sleep apnea Status: Chronic (5) Paroxysmal atrial fibrillation Status: Chronic (6) COPD (chronic obstructive pulmonary disease) Status: Chronic (7) Paroxysmal atrial fibrillation Status: Chronic (8) Hypertension Status: Chronic (9) GERD (gastroesophageal reflux disease) Status: Chronic - Allergies/Procedures Done in Hospital Allergies/Adverse Reactions: Allergies hydromorphone Allergy (Verified 06/30/20 11:17) PT UNSURE OF REACTION piperacillin Allergy (Verified 06/30/20 11:17) PT UNSURE OF REACTION Procedures: - - Incision and drainage infected necrotic left lateral leg ulcer - Type of Care/Length of Stay Estimated LOS: Convalescent Care Less Than 30 days Type of Care Needed: Skilled Rehab Potential: Fair Prognosis: Fair - Additional Orders/Day of Discharge Additional Orders: Wound RN consult. Wound VAC to bilateral legs at 150 mmHg continuous suction, 3 dressing changes per week. Continue IV meropenem and oral doxycycline for 3 more days, then stop on 07/11/2020. H&P will serve as current which was dated: 06/30/20 Day of Discharge: 07/08/20 - Dietary and Speech Recommendations Dietitian Recommendations/Changes: Continue sodium-restricted diet with Campos B ID for wound healing. - Follow Up Care Primary Care Physician: Care Physician,No Primary [NON-STAFF] - Please follow up with your Primary Care Physician in: 1 Week Please Follow Up With: Ming Pedersen MD - Wound Center When: At DC from [facility]
--- NOTE | 2020-07-08 10:43 | PCM.DC.SUM ---
<Soumya Pena [employer] - Last Filed: 07/08/20 13:19> Discharge Date and Diagnosis - Problem List Patient Problems: Active and Suspected Problems (This Medical Record has been edited. Action required.) Nonhealing ulcer of right lower extremity with fat layer exposed (Acute) Nonhealing ulcer of left lower extremity with fat layer exposed (Acute) UTI (urinary tract infection) (Acute) Sepsis (Acute) Date of Admission: 06/30/20 Date of Discharge: 07/08/20 - Primary Discharge Diagnosis Acute Problems: Active Problems (This Medical Record has been edited. Action required.) 1. Acute sepsis secondary to nonhealing infected ulcers of the left posterior leg and right lateral leg with associated cellulitis 2. Chronic lymphedema/anasarca 3. Paroxysmal atrial fibrillation/second-degree AV block 4. Iron deficiency anemia 5. Chronic COPD 6. Morbid obesity 7. Chronic debility 8. Oral thrush - Secondary Discharge Diagnosis Chronic Problems: Chronic Problems (This Medical Record has been edited. Action required.) Venous insufficiency of both lower extremities (Chronic) On apixaban therapy (Chronic) Anasarca (Chronic) Macrocytic anemia (Chronic) Edema due to hypoalbuminemia (Chronic) History of obstructive sleep apnea (Chronic) Paroxysmal atrial fibrillation (Chronic) Wenckebach second degree AV block (Chronic) Hypoalbuminemia (Chronic) Microcytic anemia (Chronic) Nonhealing left calf ulcer (Chronic) Cognitive impairment (Chronic) Depression (Chronic) COPD (chronic obstructive pulmonary disease) (Chronic) Hyperlipidemia (Chronic) Paroxysmal atrial fibrillation (Chronic) Chronic acquired lymphedema (Chronic) History of kidney stones (Chronic) Morbid obesity (Chronic) Hypertension (Chronic) GERD (gastroesophageal reflux disease) (Chronic) Hospital Course and Treatment Imaging Results: Diagnostic Data Diagnostic Data Chest X-Ray 06/30/20 12:22 IMPRESSION: Cardiomegaly. Electronically Signed: Venkat Swan, at 14:07 EST , Service support , Consultations 06/30/20 17:56 Consult: Onc/Wound/can inspector Routine Comment: Dr. Mensah- ID Dr. Pedersen- plastic surgery Operations: - - Surgical preparation right lateral leg with incision and drainage and excisional debridement nonhealing painful infected necrotic ulcer Procedures: None Summary of Care Provided: The patient is a 70 year old F admitted 06/30/2020 due to lower extremity pain. 1. Acute sepsis secondary to nonhealing infected ulcers of the left posterior leg and right lateral leg with associated cellulitis-UTI ruled out. ID and plastics consulted during admission. Surgical wound debridement left and right lower extremity wound 07/04/2020. On IV meropenem, oral doxy. Urine and blood cultures negative. Wound culture growing Pseudomonas, Corynebacterium, gram-negative dasha, staph. Wound VAC placed 07/07/2020. Wound RN consult. TCU at discharge. Continue IV meropenem and oral doxycycline with stop date 07/11/2020 per ID recommendations. 2. Chronic lymphedema/anasarca-continue Bumex. 3. Paroxysmal atrial fibrillation/second-degree AV block-on metoprolol, Eliquis. 4. Iron deficiency anemia-stable, trend CBC. 5. Chronic COPD-as needed albuterol aerosol. 6. Morbid obesity-encourage diet lifestyle modifications. 7. Chronic debility- PT/OT. TCU at discharge. 8. Oral thrush-initiated on nystatin swish and swallow, continue to complete course. General: Alert, Oriented x3, Cooperative HEENT: Atraumatic, PERRLA, EOMI, Normocephalic Oral: - - Thrush present Neck: Supple, No JVD, Negative Carotid Bruits Lungs: Clear to auscultation, Normal air movement Cardiovascular: - - Atrial fibrillation, rate controlled Abdomen: Bowel Sounds Present, Soft, Non Tender, Non-Distended, Obese Extremities: No clubbing, No cyanosis, Edema - Bilateral lower extremity lymphedema Skin: - - Bilateral lower extremity wounds, dressings intact Musculoskeletal: No Tenderness to Palpation of Joints or Extremities Neurological: Cranial nerves II-XII grossly intact, Neuro grossly intact Psych/Mental Status: Normal Affect, Appropriate Patient seen and examined prior to discharge. Physical assessment as noted above. Patient is stable for discharge with follow up recommendations as noted above. This patient was seen by TREY Arrington under the supervision of Dr. Rai. Patient Problems: Active and Suspected Problems (This Medical Record has been edited. Action required.) Nonhealing ulcer of right lower extremity with fat layer exposed (Acute) Nonhealing ulcer of left lower extremity with fat layer exposed (Acute) UTI (urinary tract infection) (Acute) Sepsis (Acute) - Physical Exam Vitals/I&O's: Vital Signs Temp Pulse Resp BP Pulse Ox 99.4 F H 120 H 16 123/89 H 96 07/08/20 09:00 07/08/20 09:00 07/08/20 09:00 07/08/20 09:00 07/08/20 09:00 Oxygen Flow Rate (L/min) 2 Oxygen Delivery Method Room Air Weight: 283 lb 8.231 oz Body Mass Index (BMI) 47.2 Intake and Output for Last 24 Hours 07/06/20 07/07/20 07/08/20 23:59 23:59 23:59 Intake Total 3114.58 / 3314.58 3668.75 / 3668.75 645 / 645 Output Total 3750 / 4950 4150 / 4150 600 / 600 Balance -635.42 / -1635.42 -481.25 / -481.25 45 / 45 Microbiology Past 72 Hours 07/04/20 14:36 Other - Other Gram Stain - Final 07/04/20 14:36 Other - Other Wound Culture - Preliminary Pseudomonas aeroginosa Corynebacterium striatum Pseudomonas mendocina 07/04/20 14:36 Other - Other Anaerobic Culture - Preliminary Checking for anaerobes, further studies to follow. 07/04/20 14:36 Other - Other Gram Stain - Final 07/04/20 14:36 Other - Other Wound Culture - Final Staphylococcus capitis Corynebacterium striatum 07/04/20 14:36 Other - Other Anaerobic Culture - Preliminary 06/30/20 17:20 Blood Culture (Wb) - Arm Left Blood Culture - Final No growth in 5 days. 06/30/20 15:55 Blood Culture (Wb) - Right Forearm Blood Culture - Final No growth in 5 days. Current Medications Acetaminophen (Acetaminophen 500 Mg Tablet) 1,000 mg PO TID [facility] Last Admin: 07/08/20 05:41 Dose: 1,000 mg Documented by: Albuterol Sulfate (Albuterol 2.5 Mg/3 Ml Vial.Neb.) 2.5 mg INHALATION Q2H PRN PRN PRN Reason: SOB &/OR WHEEZING Last Admin: 07/04/20 15:24 Dose: 2.5 mg Documented by: Apixaban (Apixaban 5 Mg Tablet) 5 mg PO BID [facility] Last Admin: 07/08/20 09:10 Dose: 5 mg Documented by: Atorvastatin Calcium (Atorvastatin Calcium 20 Mg Tablet) 20 mg PO QHS [facility] Last Admin: 07/07/20 21:09 Dose: 20 mg Documented by: Bumetanide (Bumetanide 0.5 Mg Tablet) 0.5 mg PO BIDLX [facility] Last Admin: 07/08/20 09:10 Dose: 0.5 mg Documented by: Calamine/Phenol (Menthol/Lanolin/Calamine/Znox 113 Gm Tube) 1 applic TOPICAL BID [facility]; Protocol Last Admin: 07/08/20 09:10 Dose: 1 applicatio Documented by: Doxycycline Monohydrate (Doxycycline 100 Mg Capsule) 100 mg PO BID [facility] Last Admin: 07/08/20 09:10 Dose: 100 mg Documented by: Ferrous Sulfate (Ferrous Sulfate 325 Mg Tablet) 325 mg PO DAILY@1200 [facility] Last Admin: 07/08/20 09:14 Dose: 325 mg Documented by: Fluticasone Propionate (Fluticasone 0.05% 1 [place] Nasal.Sry) 1 spray NASAL BID [facility] Last Admin: 07/08/20 09:11 Dose: 1 sprays Documented by: Gabapentin (Gabapentin 100 Mg Capsule) 100 mg PO BIDCM [facility] Last Admin: 07/08/20 08:56 Dose: 100 mg Documented by: Meropenem 500 mg/ Sodium (Chloride) 60 mls @ 100 mls/hr IV Q8 [facility] Last Infusion: 07/08/20 06:16 Dose: Infused Documented by: Sodium Chloride () 1,000 mls @ 75 mls/hr IV .[id number] [facility] Last Infusion: 07/08/20 06:16 Dose: 75 mls/hr Documented by: Lisinopril (Lisinopril 10 Mg Tablet) 10 mg PO DAILY [facility] Last Admin: 07/08/20 09:12 Dose: 10 mg Documented by: Magnesium Chloride (Magnesium Chloride 64 Mg Delay Rel.Tablet) 128 mg PO DAILY [facility] Last Admin: 07/08/20 09:12 Dose: 128 mg Documented by: Metoprolol Tartrate (Metoprolol Tartrate 25 Mg Tablet) 25 mg PO DAILY [facility] Last Admin: 07/08/20 05:57 Dose: 25 mg Documented by: Morphine Sulfate (Morphine 2 Mg/Ml Syringe) 1 - 2 mg IV Q2H PRN PRN PRN Reason: Pain Score 6-10 Last Admin: 07/07/20 09:25 Dose: 2 mg Documented by: Multivitamins (Multivitamins,Therapeutic Tablet) 1 tablet PO DAILY@0800 [facility] Last Admin: 07/08/20 08:56 Dose: 1 tablet Documented by: Nystatin (Nystatin Powder 15gm Bottle) 1 applic TOPICAL BID [facility]; Protocol Last Admin: 07/08/20 09:10 Dose: 1 applicatio Documented by: Nystatin (Nystatin 500,000 Unit/5 Ml Udc) 500,000 unit PO 4X/DAY [facility] Last Admin: 07/08/20 09:10 Dose: 500,000 unit Documented by: Ondansetron HCl (Ondansetron 4 Mg/2 Ml Vial) 4 mg IV Q8H PRN PRN PRN Reason: NAUSEA/VOMITING Last Admin: 07/07/20 16:16 Dose: 4 mg Documented by: Oxycodone HCl (Oxycodone 5 Mg Tablet) 5 mg PO Q6H PRN PRN PRN Reason: Pain Score 6-10 Last Admin: 07/08/20 09:20 Dose: 5 mg Documented by: Potassium Chloride (Potassium Ch[facility] 20 M[facility]t) [facility] Last Admin: 07/08/20 08:55 Dose: 20 meq Documented by: Sodium Chloride (0.9% Saline Lock 10 Ml Syringe) 10 - 40 ml IV UD PRN PRN Reason: SALINE FLUSH Last Admin: 07/07/20 21:28 Dose: 10 ml Documented by: Tramadol HCl (Tramadol 50 Mg Tablet) 50 mg PO Q6H PRN PRN PRN Reason: Pain 1-5 Last Admin: 07/05/20 21:24 Dose: 50 mg Documented by: Home Medications: Medications to take at Discharge Lisinopril [Prinivil] 10 mg PO DAILY 03/19/20 Atorvastatin Calcium [Lipitor] 20 mg PO QHS 05/30/20 traMADol [Ultram] 50 mg PO Q6H PRN PRN 05/30/20 Bumetanide 1 mg PO BID 06/06/20 Potassium Chloride [K-Dur] 20 meq PO DAILYCM 06/06/20 Apixaban [Eliquis] 5 mg PO BID 06/30/20 Metoprolol Tartrate 25 mg PO DAILY 06/30/20 Acetaminophen [Tylenol] 1,000 mg PO TID PRN tab 07/08/20 Doxycycline 100 mg PO BID cap 07/08/20 Ferrous Sulfate 325 mg PO DAILY@1200 tab 07/08/20 Fluticasone 0.05% [Flonase Nasal [place]] 1 spray NASAL BID nasal.sry 07/08/20 Meropenem [Merrem] 500 mg IV Q8 vial 07/08/20 Nystatin 500,000 unit PO 4X/DAY [facility] 07/08/20 Nystatin Powder [Mycostatin Powder] 1 applic TOPICAL BID bottle 07/08/20 Oxycodone [Oxyir] 5 mg PO Q6H PRN PRN 2 Days #2 tab 07/08/20 Primary Care Physician: Care Physician,No Primary [NON-STAFF] - Please follow up with your Primary Care Physician in: 1 Week Please Follow Up With: Ming Pedersen MD When: At DC from TCU Disposition: Jail facility Minutes spent on discharge:: 35 Patient Condition:: Stable Medical Necessity - Tobacco Use Smoking Status: Never smoker Meaningful Use Info Meaningful Use Diagnoses (Choose all that apply): None applicable <Galo Rai - Last Filed: 07/08/20 13:40> Discharge Date and Diagnosis - Primary Discharge Diagnosis Acute Problems: Active Problems (This Medical Record has been edited. Action required.) Nonhealing ulcer of right lower extremity with fat layer exposed (Acute) Nonhealing ulcer of left lower extremity with fat layer exposed (Acute) UTI (urinary tract infection) (Acute) Sepsis (Acute) - Secondary Discharge Diagnosis Chronic Problems: Chronic Problems (This Medical Record has been edited. Action required.) Venous insufficiency of both lower extremities (Chronic) On apixaban therapy (Chronic) Anasarca (Chronic) Macrocytic anemia (Chronic) Edema due to hypoalbuminemia (Chronic) History of obstructive sleep apnea (Chronic) Paroxysmal atrial fibrillation (Chronic) Wenckebach second degree AV block (Chronic) Hypoalbuminemia (Chronic) Microcytic anemia (Chronic) Nonhealing left calf ulcer (Chronic) Cognitive impairment (Chronic) Depression (Chronic) COPD (chronic obstructive pulmonary disease) (Chronic) Hyperlipidemia (Chronic) Paroxysmal atrial fibrillation (Chronic) Chronic acquired lymphedema (Chronic) History of kidney stones (Chronic) Morbid obesity (Chronic) Hypertension (Chronic) GERD (gastroesophageal reflux disease) (Chronic) Hospital Course and Treatment Consultations 06/30/20 17:56 Consult: Onc/Wound/can inspector Routine Comment: Operations: - Procedures: None Summary of Care Provided: Patient seen and examined independently. Data reviewed. I agree with the above note by the physician project construction assistant manager. The patient is a 70 year old F presents with leg pain. Patient had nonhealing ulcers of her lower extremities and underwent debridement bilateral wounds on the fourth. Cultures grew out Pseudomonas, corynebacterium gram-negative rods. Patient was seen in consultation by infectious disease who recommended IV meropenem and doxycycline through the . Patient to be discharged to the transitional care unit in stable condition. [] - Physical Exam Vitals/I&O's: Vital Signs Temp Pulse Resp BP Pulse Ox 37.4 C H 120 H 16 123/89 H 92 07/08/20 09:00 07/08/20 09:00 07/08/20 09:00 07/08/20 09:00 07/08/20 09:30 Oxygen Flow Rate (L/min) 2 Oxygen Delivery Method Room Air Weight: 128.6 kg Body Mass Index (BMI) 47.2 Intake and Output for Last 24 Hours 07/06/20 07/07/20 07/08/20 23:59 23:59 23:59 Intake Total 3114.58 / 3314.58 3668.75 / 3668.75 1060 / 1060 Output Total 3750 / 4950 4150 / 4150 1300 / 1300 Balance -635.42 / -1635.42 -481.25 / -481.25 -240 / -240 General: Alert, Cooperative, No apparent distress HEENT: Atraumatic, Normocephalic Oral: Moist Mucosa, No Gingival or Mucosal Lesions/ Ulcerations Neck: No Nodes, Thyroid Normal Size and Texture Lungs: Clear to auscultation, Normal air movement, No rhonchi, No wheeze, No rales Cardiovascular: Regular rate, Regular Rhythm, Normal S1, Normal S2, No murmurs Abdomen: Bowel Sounds Present, Soft, Non Tender, Non-Distended, No Hepato-splenomegaly Extremities: - - legs wrapped--did not remove. Microbiology Past 72 Hours 07/04/20 14:36 Other - Other Gram Stain - Final 07/04/20 14:36 Other - Other Wound Culture - Preliminary Pseudomonas aeroginosa Corynebacterium striatum Pseudomonas mendocina 07/04/20 14:36 Other - Other Anaerobic Culture - Preliminary Checking for anaerobes, further studies to follow. 07/04/20 14:36 Other - Other Gram Stain - Final 07/04/20 14:36 Other - Other Wound Culture - Final Staphylococcus capitis Corynebacterium striatum 07/04/20 14:36 Other - Other Anaerobic Culture - Preliminary 06/30/20 17:20 Blood Culture (Wb) - Arm Left Blood Culture - Final No growth in 5 days. 06/30/20 15:55 Blood Culture (Wb) - Right Forearm Blood Culture - Final No growth in 5 days. Current Medications Acetaminophen (Acetaminophen 500 Mg Tablet) 1,000 mg PO TID [facility] Last Admin: 07/08/20 05:41 Dose: 1,000 mg Documented by: Albuterol Sulfate (Albuterol 2.5 Mg/3 Ml Vial.Neb.) 2.5 mg INHALATION Q2H PRN PRN PRN Reason: SOB &/OR WHEEZING Last Admin: 07/04/20 15:24 Dose: 2.5 mg Documented by: Apixaban (Apixaban 5 Mg Tablet) 5 mg PO BID [facility] Last Admin: 07/08/20 09:10 Dose: 5 mg Documented by: Atorvastatin Calcium (Atorvastatin Calcium 20 Mg Tablet) 20 mg PO QHS [facility] Last Admin: 07/07/20 21:09 Dose: 20 mg Documented by: Bumetanide (Bumetanide 0.5 Mg Tablet) 0.5 mg PO BIDLX [facility] Last Admin: 07/08/20 09:10 Dose: 0.5 mg Documented by: Calamine/Phenol (Menthol/Lanolin/Calamine/Znox 113 Gm Tube) 1 applic TOPICAL BID [facility]; Protocol Last Admin: 07/08/20 09:10 Dose: 1 applicatio Documented by: Doxycycline Monohydrate (Doxycycline 100 Mg Capsule) 100 mg PO BID [facility] Last Admin: 07/08/20 09:10 Dose: 100 mg Documented by: Ferrous Sulfate (Ferrous Sulfate 325 Mg Tablet) 325 mg PO DAILY@1200 [facility] Last Admin: 07/08/20 09:14 Dose: 325 mg Documented by: Fluticasone Propionate (Fluticasone 0.05% 1 [place] Nasal.Sry) 1 spray NASAL BID [facility] Last Admin: 07/08/20 09:11 Dose: 1 sprays Documented by: Gabapentin (Gabapentin 100 Mg Capsule) 100 mg PO BIDCM [facility] Last Admin: 07/08/20 08:56 Dose: 100 mg Documented by: Meropenem 500 mg/ Sodium (Chloride) 60 mls @ 100 mls/hr IV Q8 [facility] Last Infusion: 07/08/20 06:16 Dose: Infused Documented by: Sodium Chloride () 1,000 mls @ 75 mls/hr IV .[id number] [facility] Last Infusion: 07/08/20 11:48 Dose: Infused Documented by: Lisinopril (Lisinopril 10 Mg Tablet) 10 mg PO DAILY [facility] Last Admin: 07/08/20 09:12 Dose: 10 mg Documented by: Magnesium Chloride (Magnesium Chloride 64 Mg Delay Rel.Tablet) 128 mg PO DAILY [facility] Last Admin: 07/08/20 09:12 Dose: 128 mg Documented by: Metoprolol Tartrate (Metoprolol Tartrate 25 Mg Tablet) 25 mg PO DAILY [facility] Last Admin: 07/08/20 05:57 Dose: 25 mg Documented by: Morphine Sulfate (Morphine 2 Mg/Ml Syringe) 1 - 2 mg IV Q2H PRN PRN PRN Reason: Pain Score 6-10 Last Admin: 07/07/20 09:25 Dose: 2 mg Documented by: Multivitamins (Multivitamins,Therapeutic Tablet) 1 tablet PO DAILY@0800 [facility] Last Admin: 07/08/20 08:56 Dose: 1 tablet Documented by: Nystatin (Nystatin Powder 15gm Bottle) 1 applic TOPICAL BID [facility]; Protocol Last Admin: 07/08/20 09:10 Dose: 1 applicatio Documented by: Nystatin (Nystatin 500,000 Unit/5 Ml Udc) 500,000 unit PO 4X/DAY [facility] Last Admin: 07/08/20 09:10 Dose: 500,000 unit Documented by: Ondansetron HCl (Ondansetron 4 Mg/2 Ml Vial) 4 mg IV Q8H PRN PRN PRN Reason: NAUSEA/VOMITING Last Admin: 07/07/20 16:16 Dose: 4 mg Documented by: Oxycodone HCl (Oxycodone 5 Mg Tablet) 5 mg PO Q6H PRN PRN PRN Reason: Pain Score 6-10 Last Admin: 07/08/20 09:20 Dose: 5 mg Documented by: Potassium Chloride (Potassium Chloride 20 Meq Tablet) 20 meq PO DAILYCM [facility] Last Admin: 07/08/20 08:55 Dose: 20 meq Documented by: Sodium Chloride (0.9% Saline Lock 10 Ml Syringe) 10 - 40 ml IV UD PRN PRN Reason: SALINE FLUSH Last Admin: 07/07/20 21:28 Dose: 10 ml Documented by: Tramadol HCl (Tramadol 50 Mg Tablet) 50 mg PO Q6H PRN PRN PRN Reason: Pain 1-5 Last Admin: 07/05/20 21:24 Dose: 50 mg Documented by: Discharge Diet: No Restrictions Disposition: Jail facility Minutes spent on discharge:: 35 Patient Condition:: Stable Medical Necessity - Tobacco Use Smoking Status: Never smoker Meaningful Use Info Meaningful Use Diagnoses (Choose all that apply): None applicable Inpatient E&M: 40503 Disch Hosp
--- NOTE | 2020-07-08 11:23 | PCM.PN.ID ---
Patient Problems: Active and Suspected Problems (This Medical Record has been edited. Action required.) Nonhealing ulcer of right lower extremity with fat layer exposed (Acute) Nonhealing ulcer of left lower extremity with fat layer exposed (Acute) UTI (urinary tract infection) (Acute) Sepsis (Acute) Subjective: Feeling better, no fever, no n/v/d. - Physical Exam Vitals/I&O's: Vital Signs Temp Pulse Resp BP Pulse Ox 99.4 F H 120 H 16 123/89 H 96 07/08/20 09:00 07/08/20 09:00 07/08/20 09:00 07/08/20 09:00 07/08/20 09:00 Oxygen Flow Rate (L/min) 2 Oxygen Delivery Method Room Air Weight: 128.6 kg Body Mass Index (BMI) 47.2 Intake and Output for Last 24 Hours 07/06/20 07/07/20 07/08/20 23:59 23:59 23:59 Intake Total 3114.58 / 3314.58 3668.75 / 3668.75 645 / 645 Output Total 3750 / 4950 4150 / 4150 1300 / 1300 Balance -635.42 / -1635.42 -481.25 / -481.25 -655 / -655 General: Alert, Cooperative, No apparent distress Lungs: Clear to auscultation, Normal air movement Cardiovascular: Regular rate, Regular Rhythm Abdomen: Soft, Non Tender, Non-Distended Skin: No rashes Microbiology Past 72 Hours 07/04/20 14:36 Other - Other Gram Stain - Final 07/04/20 14:36 Other - Other Wound Culture - Preliminary Pseudomonas aeroginosa Corynebacterium striatum Pseudomonas mendocina 07/04/20 14:36 Other - Other Anaerobic Culture - Preliminary Checking for anaerobes, further studies to follow. 07/04/20 14:36 Other - Other Gram Stain - Final 07/04/20 14:36 Other - Other Wound Culture - Final Staphylococcus capitis Corynebacterium striatum 07/04/20 14:36 Other - Other Anaerobic Culture - Preliminary 06/30/20 17:20 Blood Culture (Wb) - Arm Left Blood Culture - Final No growth in 5 days. 06/30/20 15:55 Blood Culture (Wb) - Right Forearm Blood Culture - Final No growth in 5 days. Current Medications Acetaminophen (Acetaminophen 500 Mg Tablet) 1,000 mg PO TID [facility] Last Admin: 07/08/20 05:41 Dose: 1,000 mg Documented by: Albuterol Sulfate (Albuterol 2.5 Mg/3 Ml Vial.Neb.) 2.5 mg INHALATION Q2H PRN PRN PRN Reason: SOB &/OR WHEEZING Last Admin: 07/04/20 15:24 Dose: 2.5 mg Documented by: Apixaban (Apixaban 5 Mg Tablet) 5 mg PO BID [facility] Last Admin: 07/08/20 09:10 Dose: 5 mg Documented by: Atorvastatin Calcium (Atorvastatin Calcium 20 Mg Tablet) 20 mg PO QHS [facility] Last Admin: 07/07/20 21:09 Dose: 20 mg Documented by: Bumetanide (Bumetanide 0.5 Mg Tablet) 0.5 mg PO BIDLX [facility] Last Admin: 07/08/20 09:10 Dose: 0.5 mg Documented by: Calamine/Phenol (Menthol/Lanolin/Calamine/Znox 113 Gm Tube) 1 applic TOPICAL BID [facility]; Protocol Last Admin: 07/08/20 09:10 Dose: 1 applicatio Documented by: Doxycycline Monohydrate (Doxycycline 100 Mg Capsule) 100 mg PO BID [facility] Last Admin: 07/08/20 09:10 Dose: 100 mg Documented by: Ferrous Sulfate (Ferrous Sulfate 325 Mg Tablet) 325 mg PO DAILY@1200 [facility] Last Admin: 07/08/20 09:14 Dose: 325 mg Documented by: Fluticasone Propionate (Fluticasone 0.05% 1 [place] Nasal.Sry) 1 spray NASAL BID [facility] Last Admin: 07/08/20 09:11 Dose: 1 sprays Documented by: Gabapentin (Gabapentin 100 Mg Capsule) 100 mg PO BIDCM [facility] Last Admin: 07/08/20 08:56 Dose: 100 mg Documented by: Meropenem 500 mg/ Sodium (Chloride) 60 mls @ 100 mls/hr IV Q8 [facility] Last Infusion: 07/08/20 06:16 Dose: Infused Documented by: Sodium Chloride () 1,000 mls @ 75 mls/hr IV .[id number] [facility] Last Infusion: 07/08/20 06:16 Dose: 75 mls/hr Documented by: Lisinopril (Lisinopril 10 Mg Tablet) 10 mg PO DAILY [facility] Last Admin: 07/08/20 09:12 Dose: 10 mg Documented by: Magnesium Chloride (Magnesium Chloride 64 Mg Delay Rel.Tablet) 128 mg PO DAILY [facility] Last Admin: 07/08/20 09:12 Dose: 128 mg Documented by: Metoprolol Tartrate (Metoprolol Tartrate 25 Mg Tablet) 25 mg PO DAILY [facility] Last Admin: 07/08/20 05:57 Dose: 25 mg Documented by: Morphine Sulfate (Morphine 2 Mg/Ml Syringe) 1 - 2 mg IV Q2H PRN PRN PRN Reason: Pain Score 6-10 Last Admin: 07/07/20 09:25 Dose: 2 mg Documented by: Multivitamins (Multivitamins,Therapeutic Tablet) 1 tablet PO DAILY@0800 [facility] Last Admin: 07/08/20 08:56 Dose: 1 tablet Documented by: Nystatin (Nystatin Powder 15gm Bottle) 1 applic TOPICAL BID [facility]; Protocol Last Admin: 07/08/20 09:10 Dose: 1 applicatio Documented by: Nystatin (Nystatin 500,000 Unit/5 Ml Udc) 500,000 unit PO 4X/DAY [facility] Last Admin: 07/08/20 09:10 Dose: 500,000 unit Documented by: Ondansetron HCl (Ondansetron 4 Mg/2 Ml Vial) 4 mg IV Q8H PRN PRN PRN Reason: NAUSEA/VOMITING Last Admin: 07/07/20 16:16 Dose: 4 mg Documented by: Oxycodone HCl (Oxycodone 5 Mg Tablet) 5 mg PO Q6H PRN PRN PRN Reason: Pain Score 6-10 Last Admin: 07/08/20 09:20 Dose: 5 mg Documented by: Potassium Chloride (Potassium Ch[facility] 20 [facility]t) [facility] Last Admin: 07/08/20 08:55 Dose: 20 meq Documented by: Sodium Chloride (0.9% Saline Lock 10 Ml Syringe) 10 - 40 ml IV UD PRN PRN Reason: SALINE FLUSH Last Admin: 07/07/20 21:28 Dose: 10 ml Documented by: Tramadol HCl (Tramadol 50 Mg Tablet) 50 mg PO Q6H PRN PRN PRN Reason: Pain 1-5 Last Admin: 07/05/20 21:24 Dose: 50 mg Documented by: Medical Necessity - Tobacco Use Smoking Status: Never smoker Route of nutrition/ use of supplements: [] Nutritional Intake: [] IV Site: [] Estrada Catheter: [] - Assessment/Plan Antibiotics: [] Assessment/Plan: [] Active and Suspected Problems (This Medical Record has been edited. Action required.) UTI (urinary tract infection) (Acute) Sepsis (Acute) Chronic estrada, so abnormal UA may just represent colonization. Ucx pending. Several months of worsening bilat calf ulcers, particularly on L. Wound cx here 05/30/20 with MR-CoNs and Pseudomonas x2, but gram stain with no organisms or purulence seen so hard to know if those were true pathogens. Wound cx now with pseudomonas. Given extent of the ulcer, consulted Dr. Pedersen, OR 07/04. Surg cx with CoNS, PsA, GNR, corynebacteria. PsA from surg cx with I susc to cipro. POD 4 today, will continue meropenem and doxy for 3 more days and then stop on 07/11/20. Will follow, d/w child welfare caseworker
[2020-07-08] MEDS: 0.9% Saline Lock 10 ML Syringe IV ×2 (14:08→15:49)
[2020-07-08] MEDS: traMADol 50 MG Tablet PO (14:10)
[2020-07-08] MEDS: Ondansetron 4 MG/2 ML Vial IV (15:49)
== END 2020-07-08 15:48 | disposition skilled nursing facility (03) | DRG 854 ==
LOC: ED 16:49 → MS3 17:23
PROVIDERS: Anesthesiology; Nurse Practitioner Family; Physician Assistant; Student in an Organized Health Care Education/Training Program; Surgery; Admitting Provider Internal Medicine; Emergency Provider Student in an Organized Health Care Education/Training Program; PCP Nurse Practitioner Family
PROC: 0KBT0ZZ Excision of Left Lower Leg Muscle, Open Approach (ICD-10-PCS; principal; 2020-07-04 11:15)
DX: A41.9 Sepsis, unspecified organism (principal); L03.116 Cellulitis of left lower limb; L03.115 Cellulitis of right lower limb; B37.0 Candidal stomatitis; Z68.42 Body mass index [BMI] 45.0-49.9, adult; L97.222 Non-pressure chronic ulcer of left calf with fat layer exposed; L97.212 Non-pressure chronic ulcer of right calf with fat layer exposed; I96 Gangrene, not elsewhere classified; I48.0 Paroxysmal atrial fibrillation; I44.1 Atrioventricular block, second degree; I89.0 Lymphedema, not elsewhere classified; J44.9 Chronic obstructive pulmonary disease, unspecified; E66.01 Morbid (severe) obesity due to excess calories; D50.9 Iron deficiency anemia, unspecified; K21.9 Gastro-esophageal reflux disease without esophagitis; G47.33 Obstructive sleep apnea (adult) (pediatric); I10 Essential (primary) hypertension; I87.2 Venous insufficiency (chronic) (peripheral); I95.9 Hypotension, unspecified; B96.5 Pseudomonas (aeruginosa) (mallei) (pseudomallei) as the cause of diseases classified elsewhere; R41.89 Other symptoms and signs involving cognitive functions and awareness; E78.5 Hyperlipidemia, unspecified; F32.9 Major depressive disorder, single episode, unspecified; B95.7 Other staphylococcus as the cause of diseases classified elsewhere; Z79.01 Long term (current) use of anticoagulants
CPT/HCPCS: 36415; 36569; 51702; 71045; 80048; 80053; 80307; 81001; 83605; 84134; 84145; 84484; 85025; 85027; 85610; 85730; 87040; 87070; 87075; 87077; 87086; 87102; 87176; 87184; 87186; 87205; 87206; 87426; 87640; 88304; 88305; 93005; 93970; 94640; 94762; 97802; 99283; J2185; J7030; J7040; A4216; J2405

== ENCOUNTER 2020-07-08 16:02 | Inpatient (IN) | payer MEDICARE, BC, SELFPAY ==
[2020-07-04 10:10] VITALS: BMI 47.2
[2020-07-08 17:36] VITALS: BMI 47.2
[2020-07-08 17:41] VITALS: BP 100/44; PULSE 98; RESP 18; TEMP 36.8; O2SAT 95
[2020-07-08 18:10] VITALS: BMI 47.3
[2020-07-08] MEDS: NYSTATIN 500,000 UNIT/5 ML UDC 500000 UNIT PO (20:03)
[2020-07-08] MEDS: Doxycycline 100 MG CAPSULE PO (20:03)
[2020-07-08] MEDS: Bumetanide 0.5 MG Tablet 1 MG PO (20:03)
[2020-07-08] MEDS: APIXABAN 5 MG TABLET PO (20:03)
[2020-07-08] MEDS: Fluticasone 0.05% 1 SPRAY NASAL.SRY NASAL (20:04)
[2020-07-08] MEDS: Nystatin Powder 15gm Bottle 1 APPLIC TOPICAL (20:04)
[2020-07-08] MEDS: Atorvastatin Calcium 20 MG Tablet PO (20:04)
--- NOTE | 2020-07-08 20:04 | PCM.HP.STD ---
Problem List (1) Debility Status: Acute (2) Cellulitis of right lower extremity Status: Acute (3) Lymphedema Status: Chronic (4) Body mass index (BMI) 35 or more Status: Chronic (5) Obstructive sleep apnea Status: Chronic (6) Atrial fibrillation Status: Chronic (7) Hypomagnesemia Status: Chronic (8) Hypokalemia Status: Chronic (9) Nonhealing ulcer of right lower extremity with fat layer exposed Status: Chronic (10) Nonhealing ulcer of left lower extremity with fat layer exposed Status: Chronic (11) Sepsis Status: Acute (12) Depression Status: Chronic (13) COPD (chronic obstructive pulmonary disease) Status: Chronic (14) Hyperlipidemia Status: Chronic (15) Hypertension Status: Chronic (16) GERD (gastroesophageal reflux disease) Status: Chronic History of Present Illness Date of Admission: 07/08/20 Chief Complaint: Here for rehabilitation, strengthening, intravenous antibiotics, wound care, prior to discharge home with family. 06/30/20 The patient is a 70 year old Female with below past medical history presented to [facility] Emergency Department with cellulitis. 06/30/20 EKG normal sinus rhythm, inferior infarct, age undetermined. 06/30/20 Chest X-ray cardiomegaly. 06/30/20 Doppler ultrasound bilateral lower extremity NEGATIVE DVT. Malaise, nausea, COVID-19 negative. UA consistent with urinary tract infection, urine culture sent, patient has chronic indwelling estrada catheter, Rocephin IV given. IV fluids given for hypotension, BP 90 systolic. Meropenem given for cellulitis right leg wound. 06/30/20 Admit to Hospital. Meropenem for cellulitis right leg wound, urinary tract infection. 07/04/20 Plastic surgery performed surgical preparation left posterior leg, right lateral leg with incision and drainage, with excisional debridement nonhealing painful infected necrotic ulcers. UTI ruled out, urine culture negative, blood culture negative. IV Meropenem, Oral Doxycycline. Wound culture growing Pseudomonas, Corynebacterium, gram negative dasha, staph. 07/07/20 Wound VAC placed. Infectious Disease recommended IV Meropenem, oral doxycycline with stop date 07/11/20. 07/08/20 Admit to TCU with debility, here for rehabilitation, strengthening, intravenous antibiotics, wound care, prior to discharge home with family. Past Medical History Past Medical History (Chronic Problems): Chronic Problems (This Medical Record has been edited. Action required.) Lymphedema (Chronic) Body mass index (BMI) 35 or more (Chronic) Obstructive sleep apnea (Chronic) Atrial fibrillation (Chronic) Hypomagnesemia (Chronic) Hypokalemia (Chronic) Venous insufficiency of both lower extremities (Chronic) On apixaban therapy (Chronic) Nonhealing ulcer of right lower extremity with fat layer exposed (Chronic) Nonhealing ulcer of left lower extremity with fat layer exposed (Chronic) Anasarca (Chronic) Macrocytic anemia (Chronic) Edema due to hypoalbuminemia (Chronic) History of obstructive sleep apnea (Chronic) Paroxysmal atrial fibrillation (Chronic) Wenckebach second degree AV block (Chronic) Hypoalbuminemia (Chronic) Microcytic anemia (Chronic) Nonhealing left calf ulcer (Chronic) Cognitive impairment (Chronic) Depression (Chronic) COPD (chronic obstructive pulmonary disease) (Chronic) Hyperlipidemia (Chronic) Paroxysmal atrial fibrillation (Chronic) Chronic acquired lymphedema (Chronic) History of kidney stones (Chronic) Morbid obesity (Chronic) Hypertension (Chronic) GERD (gastroesophageal reflux disease) (Chronic) Medical History: Medical History (This Medical Record has been edited. Action required.) History of kidney stones (Chronic) Z87.442 Morbid obesity (Chronic) E66.01 Hypertension (Chronic) I10 GERD (gastroesophageal reflux disease) (Chronic) K21.9 Allergies hydromorphone Allergy (Verified 06/30/20 11:17) PT UNSURE OF REACTION piperacillin Allergy (Verified 06/30/20 11:17) PT UNSURE OF REACTION Home Medications: Ambulatory Orders Medication Instructions Recorded Lisinopril [Prinivil] 10 mg PO DAILY 03/19/20 Atorvastatin Calcium [Lipitor] 20 mg PO QHS 05/30/20 traMADol [Ultram] 50 mg PO Q6H PRN PRN 05/30/20 Bumetanide 1 mg PO BID 06/06/20 Potassium Chloride [K-Dur] 20 meq PO DAILYCM 06/06/20 Apixaban [Eliquis] 5 mg PO BID 06/30/20 Metoprolol Tartrate 25 mg PO DAILY 06/30/20 Acetaminophen [Tylenol] 1,000 mg PO TID PRN tab 07/08/20 Doxycycline 100 mg PO BID 07/08/20 Ferrous Sulfate 325 mg PO DAILY@1200 07/08/20 Fluticasone 0.05% [Flonase Nasal 1 spray NASAL BID 07/08/20 [place]] Meropenem [Merrem] 500 mg IV Q8 07/08/20 Nystatin 500,000 unit PO 4X/DAY 07/08/20 Nystatin Powder [Mycostatin Powder] 1 applic TOPICAL BID 07/08/20 Oxycodone [Oxyir] 5 mg PO Q6H PRN PRN 2 Days #2 tab 07/08/20 Surgical History: Surgical History (This Medical Record has been edited. Action required.) Hx of appendectomy (Inactive) Z90.49 Hx of tubal ligation (Inactive) Z98.51 Surgical History: appendectomy, - - Tubal ligation, Bilateral lower extremity ulcer debridement. 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 Action required.) Sister Diabetes Mother Diabetes Father Heart disease Myocardial infarction History Items: No pertinent history Paternal Family History: Family History (This Medical Record has been edited. Action required.) Sister Diabetes Mother Diabetes Father Heart disease Myocardial infarction History Items: No pertinent history Review of Systems Constitutional: Denies: Chills, Fever, Weight Change HEENT: Denies: Head Aches, Sinus Congestion, Sinus Drainage Cardiovascular: Denies: Chest Pain, Palpitations Respiratory: Denies: Cough, Shortness of breath at rest, Sputum production Gastrointestinal: Denies: Abdominal Pain, Nausea, Vomiting Genitourinary: Denies: Dysuria Musculoskeletal: Denies: Joint Pain, Joint Tenderness Skin: Denies: Rash, Wounds Neurological: Denies: Numbness, Tingling, Focal weakness Psychiatric: Denies: Anxiety, Depression, Homicidal Ideations, Suicidal Ideations Hematologic/ Lymphatic: Denies: Easy Bruising, Easy Bleeding VTE Information - Inpt Only VTE Present on Admission: No VTE Mechan Device Prophylaxis: Knee High SANDRA Hose VTE Pharm Prophylaxis ordered?: No Reason prophylaxis not ordered:: Treatment Not Indicated Patient Problems: Active and Suspected Problems (This Medical Record has been edited. Action required.) Debility (Acute) Cellulitis of right lower extremity (Acute) Sepsis (Acute) - Physical Exam Vitals/I&O's: Vital Signs Temp Pulse Resp BP Pulse Ox 98.3 F 98 18 100/44 L 95 07/08/20 17:41 07/08/20 17:41 07/08/20 17:41 07/08/20 17:41 07/08/20 17:41 Oxygen Delivery Method Room Air Weight: 128.82 kg Body Mass Index (BMI) 47.2 General: Alert, Oriented x3, Cooperative HEENT: Atraumatic, PERRLA, EOMI, Normocephalic Neck: Supple, No JVD, Negative Carotid Bruits Lungs: Clear to auscultation, Normal air movement Cardiovascular: Regular rate, No murmurs Abdomen: Bowel Sounds Present, Soft, Non Tender, - - Indwelling estrada catheter. Extremities: No edema, Capillary Refill Less than 3 Seconds, - - Bilateral lower extremities, ADEN wrap, Wound VAC. RUE PICC line. Skin: No rashes, No breakdown Musculoskeletal: No Tenderness to Palpation of Joints or Extremities Neurological: Cranial nerves II-XII grossly intact Psych/Mental Status: Normal Affect, Appropriate Laboratory Results 07/08/20 17:42: COVID-19 (MICHAEL) Pending Current Medications Acetaminophen (Acetaminophen 500 Mg Tablet) 1,000 mg PO TID PRN PRN Reason: Pain Score 1-10 Apixaban (Apixaban 5 Mg Tablet) 5 mg PO BID [facility] Atorvastatin Calcium (Atorvastatin Calcium 20 Mg Tablet) 20 mg PO QHS [facility] Bumetanide (Bumetanide 0.5 Mg Tablet) 1 mg PO BID [facility] Calamine/Phenol (Menthol/Lanolin/Calamine/Znox 113 Gm Tube) 1 applic TOPICAL 0600,2200 [facility]; Protocol Doxycycline Monohydrate (Doxycycline 100 Mg Capsule) 100 mg PO BID [facility] Stop: 07/11/20 22:00 Ferrous Sulfate (Ferrous Sulfate 325 Mg Tablet) 325 mg PO DAILY@1200 [facility] Fluticasone Propionate (Fluticasone 0.05% 1 [place] Nasal.Sry) 1 spray NASAL BID [facility] Heparin Sodium (Beef Lung) (Heparin Pf Lock 10 Units/Ml 50 Units/5 Ml Syringe) 50 units IV UD PRN PRN Reason: PICC Line Heparin Flush Meropenem 500 mg/ Sodium (Chloride) 60 mls @ 100 mls/hr IV Q8 [facility] Stop: 07/11/20 23:00 Influenza Virus Vaccine Quadrival (Influenza Vaccine (6mos+)/Pf 0.5 Ml Syringe) 0.5 ml IM .ONCE ONE Stop: 07/09/20 10:01 L-Arginine/L-Glutamine/Calcium HMB (Campos (Unflavored) Packet) 1 packet PO BIDCM [facility] Lisinopril (Lisinopril 10 Mg Tablet) 10 mg PO DAILY [facility] Metoprolol Tartrate (Metoprolol Tartrate 25 Mg Tablet) 25 mg PO DAILY [facility] Nystatin (Nystatin 500,000 Unit/5 Ml Udc) 500,000 unit PO 4X/DAY LIBIA Stop: 07/13/20 20:00 Last Admin: 07/08/20 20:00 Dose: Not Given Documented by: Nystatin (Nystatin Powder 15gm Bottle) 1 applic TOPICAL BID [facility]; Protocol Oxycodone HCl (Oxycodone 5 Mg Tablet) 5 mg PO Q6H PRN PRN PRN Reason: Pain Score 6-10 Potassium Chloride (Potassium Chloride 20 Meq Tablet) 20 meq PO DAILYCM [facility] Sodium Chloride (0.9% Saline Lock 10 Ml Syringe) 10 - 40 ml IV UD PRN PRN Reason: Open End PICC Flush Sodium Chloride (0.9 % Nacl (Sterile) Posiflush 10 Ml) 10 - 40 ml IV UD PRN PRN Reason: Port access or dressing change Tramadol HCl (Tramadol 50 Mg Tablet) 50 mg PO Q6H PRN PRN PRN Reason: Pain 1-5 Tuberculin PPD (Tuberculin,Purif.Prot.Deriv. 50 Tu/Ml Vial) 5 tu ID [id number] Stop: 07/09/20 10:01 Tuberculin PPD (Tuberculin,Purif.Prot.Deriv. 50 Tu/Ml Vial) 5 tu ID [id number] Stop: 07/16/20 10:01 Assessment/Plan All Active Problems (This Medical Record has been edited. Action required.) Debility (Acute) Cellulitis of right lower extremity (Acute) Necrosis of subcutaneous tissue (Acute) Cellulitis of right lower leg (Acute) Skin necrosis (Acute) Cellulitis of left lower leg (Acute) UTI (urinary tract infection) (Acute) Sepsis (Acute) Anasarca (Acute) 70 year old female with below past medical history hospitalized for cellulitis of right leg, complicated by bilateral chronic leg ulcers requiring debridement 07/04/20 per Plastic Surgery, wound VAC placement, admitted to TCU with debility, here for rehabilitation, strengthening, intravenous antibiotics, wound care, prior to discharge home with family. Debility - PT/OT. Pain - Tylenol 1000MG Q6H PRN pain (1-3), Tramadol 50MG Q6H PRN pain (4-5), Oxycodone 5MG Q4H PRN pain (6-10). Bowel - Miralax 17GM daily, Senna/colace 2 tablets BID, MOM 30ML daily PRN, Dulcolax 10MG [place] daily PRN. Adult immunization - Administer Prevnar 13, Pneumovax 23, Fluzone as appropriate, COVID-19 vaccine when available. DVT - Not necessary, already on Eliquis. Atrial fibrillation - Metoprolol 25MG daily, Eliquis 5MG BID. Hyperlipidemia - Atorvastatin 20MG QHS. Lymphedema - Bumex 1MG BID. Cellulitis right lower extremity - Meropenem 500MG IV Q8H thru 07/11/20, Doxycycline 100MG BID thru 07/11/20. Bilateral lower extremity ulcers - Wound VAC, consult wound nurse. Iron deficiency anemia - Ferrous sulfate 325MG daily. Allergic Rhinitis - Flonase 1 spray nasal BID. Nutrition - Campos 1 packet BID. Hypertension - Metoprolol 25MG daily, Lisinopril 10MG daily. Skin irritation - Calmoseptine BID. Thrush - Nystatin 500,000 4x/day thru 07/13/20. Tinea Corporis - Nystatin powder topical BID. Hypokalemia - K-Dur 20MEQ daily.
[2020-07-08] MEDS: Menthol/Lanolin/Calamine/Znox 113 GM Tube 1 APPLIC TOPICAL (20:07)
[2020-07-08] MEDS: Magnesium Hydroxide 30 ML UDC PO (22:05)
[2020-07-08] MEDS: 0.9% Saline Lock 10 ML Syringe IV (22:08)
[2020-07-08] MEDS: oxyCODONE 5 MG Tablet PO (22:19)
[2020-07-09 04:59] VITALS: BP 102/54; PULSE 100; RESP 16; TEMP 36.6; O2SAT 91
[2020-07-09] MEDS: Doxycycline 100 MG CAPSULE PO ×2 (05:01→18:05)
[2020-07-09] MEDS: 0.9% Saline Lock 10 ML Syringe IV ×2 (05:02→20:49)
[2020-07-09] MEDS: Menthol/Lanolin/Calamine/Znox 113 GM Tube 1 APPLIC TOPICAL ×2 (05:07→20:30)
[2020-07-09] MEDS: Nystatin Powder 15gm Bottle 1 APPLIC TOPICAL ×2 (05:07→18:08)
[2020-07-09 05:14] LABS: Absolute Lymphocyte Count 2.33 X10^3/uL (0.83-4.51); Absolute Neutrophil Count 7.3 X10^3/uL (2.0-7.7); Basophil# 0.06 X10^3/uL; Basophil% 0.5 % (0-1); Eosinophil# 0.57 X10^3/uL; Eosinophils% 4.8 % (0-5); Hematocrit 28.5 % (37-47); Hemoglobin 8.9 g/dL (12.0-15.0); Lymphocyte # 2.33 X10^3/ul (4.0); Lymphocyte % 19.5 % (19-41); Mean Corp Hgb Conc 31.2 g/dL (32-36); Mean Corpuscular Hgb 29.9 pg (27.0-32.0); Mean Corpuscular Volume 95.6 fL (81-99); Mean Platelet Vol. 8.5 fl (6.2-12.0); Monocyte# 1.24 X10^3/uL; Monocyte% 10.4 % (0-10); NRBC Flagged by Analyzer 0 % (0-5); Neutrophil % 61.3 % (47-70); Platelet Count 386 K/mm3 (150-450); RBC Distribution Width CV 16.2 % (11.6-14.6); RBC Distribution Width SD 56.2 fl (35.1-43.9); Red Blood Count 2.98 M/mm3 (4.2-5.4); White Blood Count 11.9 K/mm3 (4.4-11.0)
[2020-07-09 05:29] LABS: Anion Gap 4 (5-15); BUN 33 mg/dL (7-18); BUN/Creat Ratio 70.4 RATIO (10-20); Calcium,Total 8.7 mg/dL (8.5-10.1); Chloride 111 mmol/L (98-107); Creatinine, Serum 0.47 mg/dL (0.55-1.02); EST Glomerular Filtration Rate 140 mL/min (>60); Est Glom Filt Rate - Afr Amer 170 mL/min (>60); Estimated Creatinine Clearance 48.45 ml/min; Glucose 82 mg/dL (74-106); Potassium 3.9 mmol/L (3.5-5.1); Sodium Level 142 mmol/L (136-145)
[2020-07-09] MEDS: traMADol 50 MG Tablet PO (08:12)
[2020-07-09] MEDS: NYSTATIN 500,000 UNIT/5 ML UDC 500000 UNIT PO ×4 (08:16→20:26)
[2020-07-09] MEDS: Polyethylene Glycol 3350 17 GM PACKET PO (08:18)
[2020-07-09] MEDS: Juven (unflavored) Packet 1 PACKET PO ×2 (08:18→18:05)
[2020-07-09 08:19] VITALS: PULSE 100
[2020-07-09] MEDS: Metoprolol Tartrate 25 MG Tablet PO (08:19)
[2020-07-09] MEDS: Senna/Docusate Sodium 1 Tablet 2 TABLET PO ×2 (08:19→18:07)
[2020-07-09] MEDS: Lisinopril 10 MG Tablet PO (08:20)
[2020-07-09] MEDS: APIXABAN 5 MG TABLET PO ×2 (08:20→18:07)
[2020-07-09] MEDS: Bumetanide 0.5 MG Tablet 1 MG PO ×2 (08:20→18:06)
--- NOTE | 2020-07-09 09:35 | CASEMGMT ---
Social Work Discussed code status with pt. Pt confirmed full code. MOLST form reviewed, communication to , placed in chart. Kalyn Gentile, HEAD START TEACHER CLINICAL EDUCATOR
[2020-07-09] MEDS: Ferrous Sulfate 325 MG Tablet PO (11:36)
--- NOTE | 2020-07-09 11:41 | NURSING ---
This nurse spoke with patient about the flu vaccine and she stated she needed time to think about it. Will follow up with patient.
[2020-07-09] MEDS: oxyCODONE 5 MG Tablet PO ×2 (13:19→21:49)
[2020-07-09] MEDS: Acetaminophen 500 MG Tablet 1000 MG PO (13:19)
--- NOTE | 2020-07-09 15:19 | NURSING ---
wound photo: right posterolateral lower leg
--- NOTE | 2020-07-09 15:20 | NURSING ---
wound photo: left posterior lower leg
--- NOTE | 2020-07-09 15:21 | NURSING ---
wound photo: sacrum
[2020-07-09] MEDS: Tuberculin,Purif.prot.deriv. 50 TU/ML Vial 5 ML ID (15:28)
[2020-07-09 16:00] VITALS: BP 89/56; PULSE 95; RESP 20; TEMP 36.9; O2SAT 96
[2020-07-09 19:18] VITALS: PULSE 95; RESP 20; O2SAT 96
[2020-07-09] MEDS: Fluticasone 0.05% 1 SPRAY NASAL.SRY NASAL (20:26)
[2020-07-09] MEDS: Atorvastatin Calcium 20 MG Tablet PO (20:27)
[2020-07-10] MEDS: Doxycycline 100 MG CAPSULE PO ×3 (05:13→20:58)
[2020-07-10] MEDS: Menthol/Lanolin/Calamine/Znox 113 GM Tube 1 APPLIC TOPICAL ×2 (05:13→20:59)
[2020-07-10] MEDS: Nystatin Powder 15gm Bottle 1 APPLIC TOPICAL ×2 (05:15→18:44)
[2020-07-10 05:57] VITALS: BP 97/49; PULSE 103; RESP 19; TEMP 37; O2SAT 94
--- NOTE | 2020-07-10 08:31 | NURSING ---
pt c/o nausea, gingerale given along with saltine crackers. pt states it was from her ATB given on empty stomach this AM. times changed on Doxy to help with stomach issues.
[2020-07-10 09:36] VITALS: PULSE 103
[2020-07-10] MEDS: Bumetanide 0.5 MG Tablet 1 MG PO ×2 (09:36→18:44)
[2020-07-10] MEDS: APIXABAN 5 MG TABLET PO ×2 (09:36→18:45)
[2020-07-10] MEDS: Metoprolol Tartrate 25 MG Tablet PO (09:36)
[2020-07-10] MEDS: Fluticasone 0.05% 1 SPRAY NASAL.SRY NASAL ×2 (09:37→20:58)
[2020-07-10] MEDS: Lisinopril 10 MG Tablet PO (09:37)
[2020-07-10] MEDS: Juven (unflavored) Packet 1 PACKET PO ×2 (09:37→18:42)
[2020-07-10] MEDS: NYSTATIN 500,000 UNIT/5 ML UDC 500000 UNIT PO ×4 (09:37→20:59)
[2020-07-10] MEDS: oxyCODONE 5 MG Tablet PO ×3 (09:47→21:01)
[2020-07-10] MEDS: Ferrous Sulfate 325 MG Tablet PO (11:46)
[2020-07-10] MEDS: traMADol 50 MG Tablet PO (13:20)
[2020-07-10] MEDS: 0.9% Saline Lock 10 ML Syringe IV ×2 (14:17→21:03)
--- NOTE | 2020-07-10 14:42 | PCM.PN.RX ---
<Eli Reynolds - Last Filed: 07/10/20 14:42> Progress Note - Pharmacy Subjective: TCU Admission Objective: Allergies hydromorphone Allergy (Verified 06/30/20 11:17) PT UNSURE OF REACTION piperacillin Allergy (Verified 06/30/20 11:17) PT UNSURE OF REACTION Current Medications Generic Name Dose Route Start Last Admin Trade Name Freq PRN Reason Stop Dose Admin Acetaminophen 1,000 mg 07/08/20 20:26 07/09/20 13:19 Acetaminophen 500 Mg Tablet PO 1,000 mg Q6H PRN Administration Pain Score 1-3 Apixaban 5 mg 07/09/20 08:00 07/10/20 09:36 Apixaban 5 Mg Tablet PO 5 mg BID@0800,1800 [facility] Administration Atorvastatin Calcium 20 mg 07/08/20 22:00 07/09/20 20:27 Atorvastatin Calcium 20 Mg Tablet PO 20 mg QHS [facility] Administration Bisacodyl 10 mg 07/08/20 20:25 Bisacodyl 10 Mg Suppository RECTAL DAILY PRN Constipation Bumetanide 1 mg 07/09/20 08:00 07/10/20 09:36 Bumetanide 0.5 Mg Tablet PO 1 mg BID@0800,1800 [facility] Administration Calamine/Phenol 1 applic 07/08/20 22:00 07/10/20 05:13 Menthol/Lanolin/Calamine/Znox 113 Gm Tube TOPICAL 1 applicatio 0600,2200 [facility] Administration Protocol Doxycycline Monohydrate 100 mg 07/10/20 10:00 07/10/20 11:45 Doxycycline 100 Mg Capsule PO 07/11/20 22:00 100 mg 1000,2000 [facility] Administration Emollient Ointment 1 applic 07/10/20 22:00 Emollient Combination No.72 500 Ml Lotion TOPICAL 0600,2200 [facility] Protocol Ferrous Sulfate 325 mg 07/09/20 12:00 07/10/20 11:46 Ferrous Sulfate 325 Mg Tablet PO 325 mg DAILY@1200 [facility] Administration Fluticasone Propionate 1 spray 07/09/20 20:00 07/10/20 09:37 Fluticasone 0.05% 1 [place] Nasal.Sry NASAL 1 spray BID@0800,2000 [facility] Administration Heparin Sodium (Beef Lung) 50 units 07/08/20 17:43 Heparin Pf Lock 10 Units/Ml 50 Units/5 Ml Syringe IV UD PRN PICC Line Heparin Flush Meropenem 500 mg/ Sodium 60 mls @ 100 mls/hr 07/08/20 22:00 07/10/20 14:16 Chloride IV 07/11/20 23:00 Infused Q8 [facility] Infusion Sodium Chloride 250 mls @ 15 mls/hr 07/09/20 20:37 07/09/20 21:24 IV 0 mls/hr .[id number] PRN Infusion Saline Flush Sodium Chloride 250 mls @ 15 mls/hr 07/09/20 20:37 IV .[id number] PRN Additional IVPB Infusion L-Arginine/L-Glutamine/Calcium HMB 1 packet 07/09/20 08:00 07/10/20 09:37 Campos (Unflavored) Packet PO 1 packet BIDCM [facility] Administration Lisinopril 10 mg 07/09/20 08:00 07/10/20 09:37 Lisinopril 10 Mg Tablet PO 10 mg DAILYCM [facility] Administration Magnesium Hydroxide 30 ml 07/08/20 20:25 07/08/20 22:05 Magnesium Hydroxide 30 Ml Udc PO 30 ml DAILY PRN Administration Constipation Metoprolol Tartrate 25 mg 07/09/20 08:00 07/10/20 09:36 Metoprolol Tartrate 25 Mg Tablet PO 25 mg DAILYCM [facility] Administration Nystatin 1 applic 07/08/20 18:00 07/10/20 05:15 Nystatin Powder 15gm Bottle TOPICAL 1 applicatio BID [facility] Administration Protocol Nystatin 500,000 unit 07/09/20 12:00 07/10/20 11:46 Nystatin 500,000 Unit/5 Ml Udc PO 500,000 unit 0800,1200,1700,2200 [facility] Administration Oxycodone HCl 5 mg 07/08/20 20:26 07/10/20 09:47 Oxycodone 5 Mg Tablet PO 5 mg Q4H PRN Administration Pain Score 6-10 Polyethylene Glycol 17 gm 07/09/20 08:00 07/10/20 08:29 Polyethylene Glycol 3350 17 Gm Packet PO Not Given DAILYCM [facility]IA Potassium Chloride 20 meq 07/09/20 08:00 07/10/20 09:37 Potassium Chloride 20 Meq Tablet PO 20 meq DAILYCM [facility] Administration Senna/Docusate Sodium 2 tablet 07/09/20 08:00 07/10/20 08:29 Senna/Docusate Sodium 1 Tablet PO Not Given BID@0800,1800 [facility] Sodium Chloride 10 - 40 ml 07/08/20 17:43 07/10/20 14:17 0.9% Saline Lock 10 Ml Syringe IV 20 ml UD PRN Administration Open End PICC Flush Sodium Chloride 10 - 40 ml 07/08/20 17:43 0.9 % Nacl (Sterile) Posiflush 10 Ml IV UD PRN Port access or dressing change Tramadol HCl 50 mg 07/08/20 17:04 07/10/20 13:20 Tramadol 50 Mg Tablet PO 50 mg Q6H PRN PRN Administration Pain Score 4-5 Tuberculin PPD 5 tu 07/16/20 10:00 Tuberculin,Purif.Prot.Deriv. 50 Tu/Ml Vial ID 07/16/20 10:01 X1 ONE Problem List (This Medical Record has been edited. Action required.) Debility (Acute) Cellulitis of right lower extremity (Acute) Lymphedema (Chronic) Body mass index (BMI) 35 or more (Chronic) Obstructive sleep apnea (Chronic) Atrial fibrillation (Chronic) Hypomagnesemia (Chronic) Hypokalemia (Chronic) Nonhealing ulcer of right lower extremity with fat layer exposed (Chronic) Nonhealing ulcer of left lower extremity with fat layer exposed (Chronic) Sepsis (Acute) Depression (Chronic) COPD (chronic obstructive pulmonary disease) (Chronic) Hyperlipidemia (Chronic) Hypertension (Chronic) GERD (gastroesophageal reflux disease) (Chronic) Vital Signs Temp Pulse Resp BP Pulse Ox 98.6 F 103 H 19 H 97/49 L 94 07/10/20 05:57 07/10/20 09:36 07/10/20 05:57 07/10/20 05:57 07/10/20 05:57 Oxygen Delivery Method Room Air Weight: 128.82 kg Body Mass Index (BMI) 47.2 Sodium 142 mmol/L (136-145) 07/09/20 04:55 Potassium 3.9 mmol/L (3.5-5.1) 07/09/20 04:55 Chloride 111 mmol/L (98-107) H 07/09/20 04:55 Carbon Dioxide 27.0 mmol/L (21.0-32.0) 07/09/20 04:55 Anion Gap 4 (5-15) L 07/09/20 04:55 BUN 33 mg/dL (7-18) H 07/09/20 04:55 Creatinine 0.47 mg/dL (0.55-1.02) L 07/09/20 04:55 Est GFR (MDRD) Af Amer 170 mL/min (>60) 07/09/20 04:55 Est GFR (MDRD) Non-Af 140 mL/min (>60) 07/09/20 04:55 BUN/Creatinine Ratio 70.4 RATIO (10-20) H 07/09/20 04:55 Glucose 82 mg/dL (74-106) 07/09/20 04:55 Assessment/Plan: 1. Pain: acetaminophen 1000mg PO Q6H PRN pain 1-3/10, tramadol 50mg PO Q6H PRN pain 4-5/10, and oxycodone 5mg PO Q4H PRN pain 6-10/10. Please continue to monitor for increased pain, PRN usage, constipation, and respiratory depression. 2. Cellulitis right lower extremity: meropenem 500mg IV Q8H thru 07/11/20 and doxycycline 100mg PO BID thru 07/11/20. Please continue to monitor renal function, S/S of infection, and diarrhea. 3. Atrial fibrillation/hypertension: metoprolol tartrate 25mg PO daily, apixaban 5mg PO BID, and lisinopril 10mg PO daily. Please continue to monitor BP (last 102/44), HR (last 96), hemoglobin (last 8.9gm/dL), and S/S of bleeding. *4. Hyperlipidemia: atorvastatin 20mg PO QHS. Please consider ordering a lipid panel now and then annually as clinically appropriate. Thanks. 5. Lymphedema: bumetanide 1mg PO BID. Please continue to monitor renal function and for electrolytes. 6. Iron deficiency anemia: ferrous sulfate 325mg PO daily. Please continue to monitor hemoglobin and dark stools. 7. Thrush: nystatin 500,000units 4x/day thru 07/13/20. Please continue to monitor for resolution of thrush. 8. Hypokalemia: potassium chloride 20mEq PO DAILYCM. Please continue to monitor potassium levels (last 3.9mmol/L). 9. Allergic rhinitis: fluticasone nasal spray 1 spray nasally BID. Please continue to monitor for S/S of allergic rhinitis. Psychotropic Medications: None Unnecessary Medications: None Bowel Regimen: Miralax 17gm PO daily, senna/docusate 2T PO BID, MOM 30mL PO daily PRN constipation, and bisacodyl 10mg MT daily PRN constipation. Please continue to monitor for constipation and PRN usage. Date of Note:: 07/10/20 - Provider Comments Provider responsibility: Provider responsible to enter orders to implement recommendations <Roland Layne Chi - Last Filed: 07/10/20 17:19> Progress Note - Pharmacy Subjective: [] Objective: Allergies hydromorphone Allergy (Verified 06/30/20 11:17) PT UNSURE OF REACTION piperacillin Allergy (Verified 06/30/20 11:17) PT UNSURE OF REACTION Current Medications Generic Name Dose Route Start Last Admin Trade Name Freq PRN Reason Stop Dose Admin Acetaminophen 1,000 mg 07/08/20 20:26 07/09/20 13:19 Acetaminophen 500 Mg Tablet PO 1,000 mg Q6H PRN Administration Pain Score 1-3 Apixaban 5 mg 07/09/20 08:00 07/10/20 09:36 Apixaban 5 Mg Tablet PO 5 mg BID@0800,1800 [facility] Administration Atorvastatin Calcium 20 mg 07/08/20 22:00 07/09/20 20:27 Atorvastatin Calcium 20 Mg Tablet PO 20 mg QHS [facility]IA Administration Bisacodyl 10 mg 07/08/20 20:25 Bisacodyl 10 Mg Suppository RECTAL DAILY PRN Constipation Bumetanide 1 mg 07/09/20 08:00 07/10/20 09:36 Bumetanide 0.5 Mg Tablet PO 1 mg BID@0800,1800 [facility] Administration Calamine/Phenol 1 applic 07/08/20 22:00 07/10/20 05:13 Menthol/Lanolin/Calamine/Znox 113 Gm Tube TOPICAL 1 applicatio 599,2199 [facility] Administration Protocol Doxycycline Monohydrate 100 mg 07/10/20 10:00 07/10/20 11:45 Doxycycline 100 Mg Capsule PO 07/11/20 22:00 100 mg 1000,2000 [facility] Administration Emollient Ointment 1 applic 07/10/20 22:00 Emollient Combination No.72 500 Ml Lotion TOPICAL 599,2199 [facility] Protocol Ferrous Sulfate 325 mg 07/09/20 12:00 07/10/20 11:46 Ferrous Sulfate 325 Mg Tablet PO 325 mg DAILY@1200 [facility] Administration Fluticasone Propionate 1 spray 07/09/20 20:00 07/10/20 09:37 Fluticasone 0.05% 1 [place] Nasal.Sry NASAL 1 spray BID@0800,2000 [facility] Administration Heparin Sodium (Beef Lung) 50 units 07/08/20 17:43 Heparin Pf Lock 10 Units/Ml 50 Units/5 Ml Syringe IV UD PRN PICC Line Heparin Flush Meropenem 500 mg/ Sodium 60 mls @ 100 mls/hr 07/08/20 22:00 07/10/20 14:16 Chloride IV 07/11/20 23:00 Infused Q8 [facility] Infusion Sodium Chloride 250 mls @ 15 mls/hr 07/09/20 20:37 07/09/20 21:24 IV 0 mls/hr .[id number] PRN Infusion Saline Flush Sodium Chloride 250 mls @ 15 mls/hr 07/09/20 20:37 IV .[id number] PRN Additional IVPB Infusion L-Arginine/L-Glutamine/Calcium HMB 1 packet 07/09/20 08:00 07/10/20 09:37 Campos (Unflavored) Packet PO 1 packet BIDCM [facility] Administration Lisinopril 10 mg 07/09/20 08:00 07/10/20 09:37 Lisinopril 10 Mg Tablet PO 10 mg DAILYCM [facility] Administration Magnesium Hydroxide 30 ml 07/08/20 20:25 07/08/20 22:05 Magnesium Hydroxide 30 Ml Udc PO 30 ml DAILY PRN Administration Constipation Metoprolol Tartrate 25 mg 07/09/20 08:00 07/10/20 09:36 Metoprolol Tartrate 25 Mg Tablet PO 25 mg DAILYCM [facility] Administration Nystatin 1 applic 07/08/20 18:00 07/10/20 05:15 Nystatin Powder 15gm Bottle TOPICAL 1 applicatio BID [facility] Administration Protocol Nystatin 500,000 unit 07/09/20 12:00 07/10/20 11:46 Nystatin 500,000 Unit/5 Ml Udc PO 07/13/20 22:01 500,000 unit 0800,1200,1700,2200 [facility] Administration Oxycodone HCl 5 mg 07/08/20 20:26 07/10/20 15:58 Oxycodone 5 Mg Tablet PO 5 mg Q4H PRN Administration Pain Score 6-10 Polyethylene Glycol 17 gm 07/09/20 08:00 07/10/20 08:29 Polyethylene Glycol 3350 17 Gm Packet PO Not Given DAILYCM [facility] Potassium Chloride 20 meq 07/09/20 08:00 07/10/20 09:37 Potassium Chloride 20 Meq Tablet PO 20 meq DAILYCM [facility] Administration Senna/Docusate Sodium 2 tablet 07/09/20 08:00 07/10/20 08:29 Senna/Docusate Sodium 1 Tablet PO Not Given BID@0800,1800 [facility] Sodium Chloride 10 - 40 ml 07/08/20 17:43 07/10/20 14:17 0.9% Saline Lock 10 Ml Syringe IV 20 ml UD PRN Administration Open End PICC Flush Sodium Chloride 10 - 40 ml 07/08/20 17:43 0.9 % Nacl (Sterile) Posiflush 10 Ml IV UD PRN Port access or dressing change Tramadol HCl 50 mg 07/08/20 17:04 07/10/20 13:20 Tramadol 50 Mg Tablet PO 50 mg Q6H PRN PRN Administration Pain Score 4-5 Tuberculin PPD 5 tu 07/16/20 10:00 Tuberculin,Purif.Prot.Deriv. 50 Tu/Ml Vial ID 07/16/20 10:01 X1 ONE Problem List (This Medical Record has been edited. Action required.) Debility (Acute) Cellulitis of right lower extremity (Acute) Lymphedema (Chronic) Body mass index (BMI) 35 or more (Chronic) Obstructive sleep apnea (Chronic) Atrial fibrillation (Chronic) Hypomagnesemia (Chronic) Hypokalemia (Chronic) Nonhealing ulcer of right lower extremity with fat layer exposed (Chronic) Nonhealing ulcer of left lower extremity with fat layer exposed (Chronic) Sepsis (Acute) Depression (Chronic) COPD (chronic obstructive pulmonary disease) (Chronic) Hyperlipidemia (Chronic) Hypertension (Chronic) GERD (gastroesophageal reflux disease) (Chronic) Vital Signs Temp Pulse Resp BP Pulse Ox 96.9 F L 96 18 102/44 L 95 07/10/20 14:44 07/10/20 14:44 07/10/20 14:44 07/10/20 14:44 07/10/20 14:44 Oxygen Delivery Method Room Air Weight: 128.82 kg Body Mass Index (BMI) 47.2 Sodium 142 mmol/L (136-145) 07/09/20 04:55 Potassium 3.9 mmol/L (3.5-5.1) 07/09/20 04:55 Chloride 111 mmol/L (98-107) H 07/09/20 04:55 Carbon Dioxide 27.0 mmol/L (21.0-32.0) 07/09/20 04:55 Anion Gap 4 (5-15) L 07/09/20 04:55 BUN 33 mg/dL (7-18) H 07/09/20 04:55 Creatinine 0.47 mg/dL (0.55-1.02) L 07/09/20 04:55 Est GFR (MDRD) Af Amer 170 mL/min (>60) 07/09/20 04:55 Est GFR (MDRD) Non-Af 140 mL/min (>60) 07/09/20 04:55 BUN/Creatinine Ratio 70.4 RATIO (10-20) H 07/09/20 04:55 Glucose 82 mg/dL (74-106) 07/09/20 04:55 Assessment/Plan: Psychotropic Medications: Unnecessary Medications: Bowel Regimen: - Provider Comments Provider responsibility: Provider responsible to enter orders to implement recommendations Provider Comments to Recommendations by Pharmacy: Agree
[2020-07-10 14:44] VITALS: BP 102/44; PULSE 96; RESP 18; TEMP 36.1; O2SAT 95
[2020-07-10] MEDS: Atorvastatin Calcium 20 MG Tablet PO (20:59)
[2020-07-11] MEDS: oxyCODONE 5 MG Tablet PO ×3 (01:37→13:30)
[2020-07-11 05:07] VITALS: BP 88/44; PULSE 101; RESP 18; TEMP 37.1; O2SAT 93
[2020-07-11] MEDS: Nystatin Powder 15gm Bottle 1 APPLIC TOPICAL ×2 (05:09→16:46)
[2020-07-11] MEDS: Menthol/Lanolin/Calamine/Znox 113 GM Tube 1 APPLIC TOPICAL ×2 (05:09→21:01)
--- NOTE | 2020-07-11 05:27 | NURSING ---
Perez removed at this time per orders. Patient tolerated procedure well
[2020-07-11] MEDS: Polyethylene Glycol 3350 17 GM PACKET PO (08:31)
[2020-07-11] MEDS: NYSTATIN 500,000 UNIT/5 ML UDC 500000 UNIT PO ×4 (08:31→21:01)
[2020-07-11] MEDS: Juven (unflavored) Packet 1 PACKET PO ×2 (08:31→16:43)
[2020-07-11] MEDS: Bumetanide 0.5 MG Tablet 1 MG PO ×2 (08:31→16:45)
[2020-07-11] MEDS: Fluticasone 0.05% 1 SPRAY NASAL.SRY NASAL ×2 (08:32→20:57)
[2020-07-11] MEDS: APIXABAN 5 MG TABLET PO ×2 (08:32→16:45)
[2020-07-11 08:33] VITALS: BP 98/43; PULSE 107
[2020-07-11] MEDS: Metoprolol Tartrate 25 MG Tablet PO (08:33)
[2020-07-11] MEDS: Senna/Docusate Sodium 1 Tablet 2 TABLET PO (08:33)
[2020-07-11] MEDS: Lisinopril 10 MG Tablet PO (08:34)
--- NOTE | 2020-07-11 10:13 | NURSING ---
Pt tolerated wound VAC dressing changes fairly well.
[2020-07-11] MEDS: Doxycycline 100 MG CAPSULE PO ×2 (10:29→20:56)
[2020-07-11] MEDS: Ferrous Sulfate 325 MG Tablet PO (13:36)
[2020-07-11 13:45] VITALS: BP 91/40; PULSE 70; RESP 22; TEMP 36.5; O2SAT 98
[2020-07-11] MEDS: Atorvastatin Calcium 20 MG Tablet PO (21:01)
[2020-07-11] MEDS: traMADol 50 MG Tablet PO (21:01)
--- NOTE | 2020-07-11 22:46 | NURSING ---
PICC drsg changed at shift by dayshift RN and this RN to assist. Dried blood removed from catheter. Insertion site pink. Catheter noted a 1. Sterile technique maintained. Purple and red hubs changed and blood return noted to both lumens. Patient tolerated well.
[2020-07-12 05:34] VITALS: BP 93/46; PULSE 102; RESP 18; TEMP 36.4; O2SAT 90
[2020-07-12] MEDS: Menthol/Lanolin/Calamine/Znox 113 GM Tube 1 APPLIC TOPICAL ×2 (05:35→20:02)
[2020-07-12] MEDS: Nystatin Powder 15gm Bottle 1 APPLIC TOPICAL ×2 (05:35→17:04)
[2020-07-12] MEDS: Fluticasone 0.05% 1 SPRAY NASAL.SRY NASAL ×2 (09:05→20:02)
[2020-07-12] MEDS: Polyethylene Glycol 3350 17 GM PACKET PO (09:05)
[2020-07-12] MEDS: Senna/Docusate Sodium 1 Tablet 2 TABLET PO ×2 (09:05→17:04)
[2020-07-12] MEDS: APIXABAN 5 MG TABLET PO ×2 (09:06→17:04)
[2020-07-12] MEDS: NYSTATIN 500,000 UNIT/5 ML UDC 500000 UNIT PO ×4 (09:06→20:03)
[2020-07-12] MEDS: Bumetanide 0.5 MG Tablet 1 MG PO ×2 (09:06→17:04)
[2020-07-12] MEDS: Juven (unflavored) Packet 1 PACKET PO ×2 (09:07→17:03)
[2020-07-12 09:14] VITALS: BP 104/46; PULSE 120
[2020-07-12] MEDS: Lisinopril 10 MG Tablet PO (09:14)
[2020-07-12] MEDS: Metoprolol Tartrate 25 MG Tablet PO (09:14)
[2020-07-12] MEDS: Ferrous Sulfate 325 MG Tablet PO (11:13)
[2020-07-12] MEDS: traMADol 50 MG Tablet PO (11:13)
[2020-07-12] MEDS: 0.9% Saline Lock 10 ML Syringe IV ×2 (11:22→20:10)
[2020-07-12 16:39] VITALS: BP 103/55; PULSE 65; RESP 20; TEMP 36.1; O2SAT 95
[2020-07-12] MEDS: Atorvastatin Calcium 20 MG Tablet PO (20:04)
[2020-07-12] MEDS: oxyCODONE 5 MG Tablet PO (21:54)
--- NOTE | 2020-07-12 23:55 | NURSING ---
Spent time with pt educating about need to off load to prevent pressure, pt reluctant to turn and reposition, rt heel red and non blanchable, stage 2 pi noted on coccyx, see assessment.
[2020-07-13] MEDS: Acetaminophen 500 MG Tablet 1000 MG PO (02:02)
[2020-07-13] MEDS: oxyCODONE 5 MG Tablet PO ×3 (02:03→23:54)
[2020-07-13 05:17] VITALS: BP 74/38; PULSE 95; RESP 16; TEMP 37.1; O2SAT 95
[2020-07-13] MEDS: Menthol/Lanolin/Calamine/Znox 113 GM Tube 1 APPLIC TOPICAL ×2 (05:22→20:06)
[2020-07-13] MEDS: Nystatin Powder 15gm Bottle 1 APPLIC TOPICAL ×2 (05:22→16:14)
[2020-07-13 06:28] VITALS: BP 78/40
[2020-07-13 06:52] VITALS: BP 88/48
[2020-07-13 08:27] VITALS: BP 105/63; PULSE 111
[2020-07-13] MEDS: Senna/Docusate Sodium 1 Tablet 2 TABLET PO (08:32)
[2020-07-13] MEDS: NYSTATIN 500,000 UNIT/5 ML UDC 500000 UNIT PO ×4 (08:32→20:08)
[2020-07-13 08:33] VITALS: PULSE 111
[2020-07-13] MEDS: Metoprolol Tartrate 25 MG Tablet PO (08:33)
[2020-07-13] MEDS: Juven (unflavored) Packet 1 PACKET PO ×2 (08:33→17:38)
[2020-07-13] MEDS: Bumetanide 0.5 MG Tablet 1 MG PO ×2 (08:33→17:38)
[2020-07-13] MEDS: Fluticasone 0.05% 1 SPRAY NASAL.SRY NASAL ×2 (08:36→20:06)
[2020-07-13] MEDS: APIXABAN 5 MG TABLET PO ×2 (08:36→17:38)
--- NOTE | 2020-07-13 09:34 | SUR.HOLD ---
pt very tearful this AM, worried about her skin issues & not getting the food she wanted. Pt did not order a meal, it was 1st choice. ordered a sandwich and OJ that pt requested. pt repositioned in bed, pt really concered about closed blisters to RT inner calf, covered area with mepilex to protect leg from rubbing on pillows. Pillows are being used to keep heels suspended in air d/t mushy and redness. will try foam boots. Pt has very large body habitus and difficulty with turning & repositioning in bed, may need to get a larger bed/speciality bed. pt feeling better after pt repositioned and 1:1 support provided. call light in reach.
[2020-07-13] MEDS: traMADol 50 MG Tablet PO (10:31)
[2020-07-13] MEDS: Ferrous Sulfate 325 MG Tablet PO (12:19)
--- NOTE | 2020-07-13 12:24 | NURSING ---
dR YAÑEZ NOTIFIED OF LOW BPs. new order to dc lisinopril and decrease lopressor to 12.5mg
--- NOTE | 2020-07-13 14:06 | NURSING ---
Pt refusing to turn and reposition in bed, many attempts made but nursing staff, education and reassurance given. Much 1:1 as pt is tearful about being in the hospital since late March, missing her dog. Pt stating it just hurts too bad to move, BLE elevated on pillows, heel protectors on, call light in reach, cont to educate pt.
[2020-07-13] MEDS: 0.9% Saline Lock 10 ML Syringe IV ×2 (16:13→19:58)
[2020-07-13] MEDS: Atorvastatin Calcium 20 MG Tablet PO (20:08)
--- NOTE | 2020-07-13 23:21 | NURSING ---
Cont to encourage pt to allow staff to turn and reposition to off load pressure areas, heel protectors in place, pt did allow to turn to side and put HOB down, was incont large amt urine even though has purwick in place , front of gown also wet, pt states they pushed it down between my legs, given good skin care and repositioned, purwick is working correctly
[2020-07-14 04:28] VITALS: BP 82/48; PULSE 98; RESP 18; TEMP 36.6; O2SAT 95
[2020-07-14] MEDS: Acetaminophen 500 MG Tablet 1000 MG PO (04:32)
[2020-07-14] MEDS: oxyCODONE 5 MG Tablet PO ×3 (04:32→21:34)
[2020-07-14] MEDS: 0.9% Saline Lock 10 ML Syringe IV ×3 (04:33→21:35)
[2020-07-14] MEDS: Nystatin Powder 15gm Bottle 1 APPLIC TOPICAL ×2 (04:35→17:30)
--- NOTE | 2020-07-14 09:09 | NURSING ---
Pt C/O of not feeling well blood pressure 84/[address] Layne Notified ordered to increase Lopressor to 25mg. Will continue to monitor.
[2020-07-14] MEDS: Juven (unflavored) Packet 1 PACKET PO ×2 (09:11→17:26)
[2020-07-14] MEDS: Bumetanide 0.5 MG Tablet 1 MG PO ×2 (09:12→17:26)
[2020-07-14] MEDS: APIXABAN 5 MG TABLET PO ×2 (09:13→17:27)
[2020-07-14] MEDS: Fluticasone 0.05% 1 SPRAY NASAL.SRY NASAL ×2 (09:13→21:13)
[2020-07-14 09:27] VITALS: BP 84/52; PULSE 144
[2020-07-14] MEDS: Metoprolol Tartrate 25 MG Tablet PO (09:27)
--- NOTE | 2020-07-14 11:47 | NURSING ---
wound photo: left posterior lower leg
--- NOTE | 2020-07-14 11:48 | NURSING ---
wound photo: right posterolateral lower leg
--- NOTE | 2020-07-14 12:03 | NURSING ---
Talked with Dr Pedersen about the wounds to bilateral lower legs. no improvement noted. the periwound to the right posterolateral leg with a new ulcered area. will monitor. may need to hold VAC and start Dakins dressings daily. will reassess with VAC change Tuesday. for now, wound VAC reapplied to bilateral lower leg wounds. see wound photos.
[2020-07-14] MEDS: Ferrous Sulfate 325 MG Tablet PO (12:14)
--- NOTE | 2020-07-14 14:20 | CASEMGMT ---
Social Work SW was informed pt's house/property has sold and they have 60 days to vacate. IDT has concerns about pt DCing home and recommending SNF. Contacted to inquire about housing plans. stated their goal is to move to [place] or [place] - they are leaving the following day to go look at properties, as they are taking their farm animals with them. Discussed IDTs concerns, pt being a asad and having significant wounds, recommending SNF. stated she nor family want her at a SNF, they are prepared to take care of her at home. They cared for her about 2 weeks at home prior to her returning to the ED. They have a asad lift and were going to receive [facility] HHC. He understands her challenges. SW explained if pt were to DC to another state, SW will be unable to order DME or HHC, but to get established with PCP for pt to see within a week of DC and PCP can order needs. expressed understanding. Care plan meeting scheduled 07/16 and will discuss pt's progress thus far. SW to continue to follow. Kalyn Gentile, MITA ALVESW
[2020-07-14 15:00] VITALS: BP 95/53; PULSE 107; RESP 18; TEMP 36.4; O2SAT 94
--- NOTE | 2020-07-14 18:42 | NURSING ---
PICC double lumen hard to flush, blood return noted to both lumens, Heparin lock flush administered to red lumen per order
[2020-07-14] MEDS: Menthol/Lanolin/Calamine/Znox 113 GM Tube 1 APPLIC TOPICAL (21:14)
[2020-07-14] MEDS: Atorvastatin Calcium 20 MG Tablet PO (21:15)
[2020-07-15] MEDS: oxyCODONE 5 MG Tablet PO ×4 (02:33→20:51)
[2020-07-15 06:23] VITALS: BP 86/42; PULSE 98; RESP 16; TEMP 36.4; O2SAT 93
[2020-07-15] MEDS: Menthol/Lanolin/Calamine/Znox 113 GM Tube 1 APPLIC TOPICAL ×2 (06:23→20:46)
[2020-07-15] MEDS: Nystatin Powder 15gm Bottle 1 APPLIC TOPICAL ×2 (06:23→17:50)
[2020-07-15 08:13] VITALS: PULSE 101
[2020-07-15] MEDS: Bumetanide 0.5 MG Tablet 1 MG PO ×2 (08:13→17:49)
[2020-07-15] MEDS: Metoprolol Tartrate 25 MG Tablet PO (08:13)
[2020-07-15] MEDS: Juven (unflavored) Packet 1 PACKET PO ×2 (08:14→17:50)
[2020-07-15] MEDS: APIXABAN 5 MG TABLET PO ×2 (08:14→17:48)
[2020-07-15] MEDS: Fluticasone 0.05% 1 SPRAY NASAL.SRY NASAL ×2 (08:14→20:47)
--- NOTE | 2020-07-15 08:58 | PCA ---
pt rang out went to assist pt with her needs, pt explained to me that her wound vac was tangled around her foot last night and that it was bothering her i examined pt's skin did not see any markings on skin from wound vac and i readjusted wound vac hose to patients liking. pt also stated that her vagina was cold i asked pt to explain a little bit better to me what she meant. pt stated that when she pee's its so hot on her skin and than after she pee's it turns cold, pt has a purewick in place so i explained to patient that when she urinates it is going to be warm on her skin and when the purewick is in place it sucks the urine away from the skin so it is going to feel cold as it draws the urine away from your skin, pt stated i don't understand no one has ever heard of this before no one understands why this is happening to me. what do you people think i am just a cold hearted bitch? i informed pt that no one thinks that of her an i was just trying to explain to her why she is getting a sensation of coldness in her laura area.
[2020-07-15] MEDS: Ferrous Sulfate 325 MG Tablet PO (12:14)
[2020-07-15 15:17] VITALS: BP 108/63; PULSE 93; RESP 16; TEMP 36.1; O2SAT 96
[2020-07-15 16:23] VITALS: RESP 18
[2020-07-15] MEDS: 0.9% Saline Lock 10 ML Syringe IV (20:46)
[2020-07-15] MEDS: Atorvastatin Calcium 20 MG Tablet PO (20:49)
[2020-07-16 02:52] VITALS: BP 103/46; PULSE 105; RESP 18; TEMP 36.4; O2SAT 97
[2020-07-16 06:07] LABS: Absolute Neutrophil Count 6.3 X10^3/uL (2.0-7.7); Basophil# 0.07 X10^3/uL; Basophil% 0.6 % (0-1); Eosinophil# 0.54 X10^3/uL; Eosinophils% 4.6 % (0-5); Hematocrit 28.5 % (37-47); Mean Corp Hgb Conc 31.6 g/dL (32-36); Mean Corpuscular Hgb 29.4 pg (27.0-32.0); Mean Corpuscular Volume 93.1 fL (81-99); Mean Platelet Vol. 8.6 fl (6.2-12.0); Monocyte# 1.76 X10^3/uL; Monocyte% 14.9 % (0-10); NRBC Flagged by Analyzer 0 % (0-5); Neutrophil # 6.33 X10^3/uL (2.7-7.7); Neutrophil % 53.5 % (47-70); POSITIVE DIFFERENTIAL YES; Platelet Count 413 K/mm3 (150-450); RBC Distribution Width CV 15.6 % (11.6-14.6); RBC Distribution Width SD 53.1 fl (35.1-43.9); Red Blood Count 3.06 M/mm3 (4.2-5.4); White Blood Count 11.8 K/mm3 (4.4-11.0)
[2020-07-16 06:18] LABS: Differential Indicated SCAN CRITERIA MET
[2020-07-16 06:29] LABS: Anion Gap 6 (5-15); BUN 81 mg/dL (7-18); BUN/Creat Ratio 85.6 RATIO (10-20); Calcium,Total 9.2 mg/dL (8.5-10.1); Chloride 101 mmol/L (98-107); Creatinine, Serum 0.95 mg/dL (0.55-1.02); EST Glomerular Filtration Rate 62 mL/min (>60); Est Glom Filt Rate - Afr Amer 76 mL/min (>60); Glucose 79 mg/dL (74-106); Sodium Level 137 mmol/L (136-145)
[2020-07-16] MEDS: Menthol/Lanolin/Calamine/Znox 113 GM Tube 1 APPLIC TOPICAL ×2 (06:30→20:44)
[2020-07-16] MEDS: Nystatin Powder 15gm Bottle 1 APPLIC TOPICAL ×2 (06:30→17:03)
[2020-07-16] MEDS: Fluticasone 0.05% 1 SPRAY NASAL.SRY NASAL ×2 (08:26→20:44)
[2020-07-16] MEDS: APIXABAN 5 MG TABLET PO ×2 (08:27→17:03)
[2020-07-16 08:28] VITALS: BP 113/55; PULSE 123
[2020-07-16] MEDS: Metoprolol Tartrate 25 MG Tablet PO (08:28)
[2020-07-16] MEDS: Juven (unflavored) Packet 1 PACKET PO ×2 (08:30→17:02)
[2020-07-16] MEDS: Bumetanide 0.5 MG Tablet 1 MG PO ×2 (08:30→17:03)
[2020-07-16 10:00] VITALS: PULSE 100; RESP 18; O2SAT 97
[2020-07-16] MEDS: Tuberculin,Purif.prot.deriv. 50 TU/ML Vial 5 ML ID (11:15)
[2020-07-16] MEDS: Ferrous Sulfate 325 MG Tablet PO (11:55)
[2020-07-16] MEDS: oxyCODONE 5 MG Tablet PO ×2 (12:27→17:01)
[2020-07-16] MEDS: 0.9% Saline Lock 10 ML Syringe IV (12:31)
[2020-07-16 12:58] LABS: Pathologist Review Reviewed
[2020-07-16 14:30] VITALS: BP 99/54; PULSE 96; RESP 18; TEMP 37.3; O2SAT 90
[2020-07-16] MEDS: traMADol 50 MG Tablet PO (14:38)
--- NOTE | 2020-07-16 14:42 | CASEMGMT ---
Social Work IDT met with patient and son via conference call for care plan meeting. Discussed patient's progress in therapy. Pt is max x3 for rolling in bed, and to asad. Pt cannot tolerate LE in dep. position, so LE always elevated. Pt is total assist for all ADLS. Pt has severe shoulder limitation. ModA for grooming. Pt using 1# wts for BUE. Pt is on a regular, low sodium diet, 1500 cc. fluid restriction, and receiving Campos. Pt is out of isolation 07/22, has wound vac and several wounds. Explained Medicare benefit. Pt and son still stating pt will DC home in family's care at [place]. Will continue to follow. Kalyn Gentile, MERCHANDISING INTERN RELIEF OPERATOR
[2020-07-16] MEDS: Acetaminophen 500 MG Tablet 1000 MG PO (17:01)
[2020-07-16] MEDS: Senna/Docusate Sodium 1 Tablet 2 TABLET PO (17:02)
[2020-07-16] MEDS: Atorvastatin Calcium 20 MG Tablet PO (20:45)
[2020-07-16] MEDS: oxyCODONE 5 MG Tablet 10 MG PO (21:19)
[2020-07-17 04:00] VITALS: BP 96/52; PULSE 107; RESP 18; TEMP 36.9; O2SAT 92
[2020-07-17 06:42] LABS: Anion Gap 6 (5-15); BUN 79 mg/dL (7-18); Calcium,Total 9.3 mg/dL (8.5-10.1); Chloride 101 mmol/L (98-107); Creatinine, Serum 0.84 mg/dL (0.55-1.02); EST Glomerular Filtration Rate 72 mL/min (>60); Est Glom Filt Rate - Afr Amer 87 mL/min (>60); Estimated Creatinine Clearance 57.68 ml/min; Glucose 83 mg/dL (74-106); Potassium 4.3 mmol/L (3.5-5.1); Sodium Level 137 mmol/L (136-145)
[2020-07-17] MEDS: Menthol/Lanolin/Calamine/Znox 113 GM Tube 1 APPLIC TOPICAL ×2 (07:02→20:35)
[2020-07-17] MEDS: Nystatin Powder 15gm Bottle 1 APPLIC TOPICAL ×2 (07:02→17:07)
[2020-07-17] MEDS: oxyCODONE 5 MG Tablet 10 MG PO ×3 (07:07→20:38)
--- NOTE | 2020-07-17 08:17 | PCM.CONS.GEN ---
Reason for Consult Date of Consultation: 07/18/20 Reason for Consultation: Long, painful, thick, ingrown toenails History of Present Illness: The patient is a 70 year old female with multiple medical problems was seen for ingrown thick painful toenails. She relates she is not able to reduce them herself. He has wounds to legs being treated by Dr. Pedersen. Patient has no other pedal complaints. No complaints of fever, chills, nausea or vomiting at this time. Past Medical History Past Medical History (Chronic Problems): Chronic Problems (This Medical Record has been edited. Action required.) Lymphedema (Chronic) Body mass index (BMI) 35 or more (Chronic) Obstructive sleep apnea (Chronic) Atrial fibrillation (Chronic) Hypomagnesemia (Chronic) Hypokalemia (Chronic) Venous insufficiency of both lower extremities (Chronic) On apixaban therapy (Chronic) Nonhealing ulcer of right lower extremity with fat layer exposed (Chronic) Nonhealing ulcer of left lower extremity with fat layer exposed (Chronic) Anasarca (Chronic) Macrocytic anemia (Chronic) Edema due to hypoalbuminemia (Chronic) History of obstructive sleep apnea (Chronic) Paroxysmal atrial fibrillation (Chronic) Wenckebach second degree AV block (Chronic) Hypoalbuminemia (Chronic) Microcytic anemia (Chronic) Nonhealing left calf ulcer (Chronic) Cognitive impairment (Chronic) Depression (Chronic) COPD (chronic obstructive pulmonary disease) (Chronic) Hyperlipidemia (Chronic) Paroxysmal atrial fibrillation (Chronic) Chronic acquired lymphedema (Chronic) History of kidney stones (Chronic) Morbid obesity (Chronic) Hypertension (Chronic) GERD (gastroesophageal reflux disease) (Chronic) Medical History: Medical History (This Medical Record has been edited. Action required.) History of kidney stones (Chronic) Z87.442 Morbid obesity (Chronic) E66.01 Hypertension (Chronic) I10 GERD (gastroesophageal reflux disease) (Chronic) K21.9 Allergies hydromorphone Allergy (Verified 06/30/20 11:17) PT UNSURE OF REACTION piperacillin Allergy (Verified 06/30/20 11:17) PT UNSURE OF REACTION Home Medications: Ambulatory Orders Medication Instructions Recorded Lisinopril [Prinivil] 10 mg PO DAILY 03/19/20 Atorvastatin Calcium [Lipitor] 20 mg PO QHS 05/30/20 traMADol [Ultram] 50 mg PO Q6H PRN PRN 05/30/20 Bumetanide 1 mg PO BID 06/06/20 Potassium Chloride [K-Dur] 20 meq PO DAILYCM 06/06/20 Apixaban [Eliquis] 5 mg PO BID 06/30/20 Metoprolol Tartrate 25 mg PO DAILY 06/30/20 Acetaminophen [Tylenol] 1,000 mg PO TID PRN tab 07/08/20 Doxycycline 100 mg PO BID 07/08/20 Ferrous Sulfate 325 mg PO DAILY@1200 07/08/20 Fluticasone 0.05% [Flonase Nasal 1 spray NASAL BID 07/08/20 [place]] Meropenem [Merrem] 500 mg IV Q8 07/08/20 Nystatin 500,000 unit PO 4X/DAY 07/08/20 Nystatin Powder [Mycostatin Powder] 1 applic TOPICAL BID 07/08/20 Oxycodone [Oxyir] 5 mg PO Q6H PRN PRN 2 Days #2 tab 07/08/20 Surgical History: Surgical History (This Medical Record has been edited. Action required.) Hx of appendectomy (Inactive) Z90.49 Hx of tubal ligation (Inactive) Z98.51 Surgical History: appendectomy, - - Tubal ligation, Bilateral lower extremity ulcer debridement. 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 Action required.) Sister Diabetes Mother Diabetes Father Heart disease Myocardial infarction History Items: No pertinent history Paternal Family History: Family History (This Medical Record has been edited. Action required.) Sister Diabetes Mother Diabetes Father Heart disease Myocardial infarction History Items: No pertinent history Review of Systems Constitutional: Denies: Anorexia, Chills, Fever Gastrointestinal: Denies: Nausea, Vomiting Skin: Reports: Wounds Patient Problems: Active and Suspected Problems (This Medical Record has been edited. Action required.) Debility (Acute) Cellulitis of right lower extremity (Acute) Sepsis (Acute) - Physical Exam Vitals/I&O's: Vital Signs Temp Pulse Resp BP Pulse Ox 98.5 F 107 H 18 96/52 L 92 07/17/20 04:00 07/17/20 04:00 07/17/20 04:00 07/17/20 04:00 07/17/20 04:00 Oxygen Delivery Method Room Air Weight: 128.82 kg Body Mass Index (BMI) 47.2 Intake and Output for Last 24 Hours 07/15/20 07/16/20 07/17/20 23:59 23:59 23:59 Intake Total 820 / 820 780 / 780 Output Total 400 / 400 1150 / 1150 600 / 600 Balance 420 / 420 -370 / -370 -600 / -600 General: Alert, Oriented x3, Cooperative, No apparent distress, - - Morbid obesity, laying in bed Extremities: Capillary Refill Less than 3 Seconds, Peripheral Pulses Normal, - - Toenails 1,2,3,4,5 bilateral are incurvated, elongated, thickened, dystrophic, yellow, crumby, painful with subungual debris. There is noted to be mild paronychia to the right 1st toenail fibular border, no deep involvement. There is no necrosis, no maloder, no streaking, no fluctuance to foot milo. Skin: No rashes - to the foot bilateral. Musculoskeletal: No Muscle Wasting, - - There is no m/s POP or pain on ROM to the foot bilateral. Sensation intact to the foot and ankle bilateral. Psych/Mental Status: Appropriate, Alert and oriented to time, place, person, mood and affect Laboratory Results 07/16/20 05:35: Diff Path Review Reviewed 07/17/20 06:00: Sodium 137, Potassium 4.3, Chloride 101, Carbon Dioxide 30.0, Anion Gap 6, BUN 79 H, Creatinine 0.84, Estim Creat Clear Calc 57.68, Est GFR (MDRD) Af Amer 87, Est GFR (MDRD) Non-Af 72, BUN/Creatinine Ratio 94.0 H, Glucose 83, Calcium 9.3 Current Medications Acetaminophen (Acetaminophen 500 Mg Tablet) 1,000 mg PO Q6H PRN PRN Reason: Pain Score 1-3 Last Admin: 07/16/20 17:01 Dose: 1,000 mg Documented by: Apixaban (Apixaban 5 Mg Tablet) 5 mg PO BID@0800,1800 [facility] Last Admin: 07/16/20 17:03 Dose: 5 mg Documented by: Atorvastatin Calcium (Atorvastatin Calcium 20 Mg Tablet) 20 mg PO QHS [facility] Last Admin: 07/16/20 20:45 Dose: 20 mg Documented by: Bisacodyl (Bisacodyl 10 Mg Suppository) 10 mg RECTAL DAILY PRN PRN Reason: Constipation Bumetanide (Bumetanide 0.5 Mg Tablet) 1 mg PO BID@0800,1800 [facility] Last Admin: 07/16/20 17:03 Dose: 1 mg Documented by: Calamine/Phenol (Menthol/Lanolin/Calamine/Znox 113 Gm Tube) 1 applic TOPICAL 0600,2200 [facility]; Protocol Last Admin: 07/17/20 07:02 Dose: 1 applicatio Documented by: Emollient Ointment (Emollient Combination No.72 500 Ml Lotion) 1 applic TOPICAL 0600,2200 [facility]; Protocol Last Admin: 07/17/20 07:01 Dose: 1 applicatio Documented by: Ferrous Sulfate (Ferrous Sulfate 325 Mg Tablet) 325 mg PO DAILY@1200 [facility] Last Admin: 07/16/20 11:55 Dose: 325 mg Documented by: Fluticasone Propionate (Fluticasone 0.05% 1 [place] Nasal.Sry) 1 spray NASAL BID@0800,2000 [facility] Last Admin: 07/16/20 20:44 Dose: 1 spray Documented by: Heparin Sodium (Beef Lung) (Heparin Pf Lock 10 Units/Ml 50 Units/5 Ml Syringe) 50 units IV UD PRN PRN Reason: PICC Line Heparin Flush Last Admin: 07/14/20 10:13 Dose: 50 units Documented by: Sodium Chloride () 250 mls @ 15 mls/hr IV .[id number] PRN PRN Reason: Saline Flush Last Infusion: 07/12/20 01:45 Dose: Infused Documented by: Sodium Chloride () 250 mls @ 15 mls/hr IV .[id number] PRN PRN Reason: Additional IVPB Infusion L-Arginine/L-Glutamine/Calcium HMB (Campos (Unflavored) Packet) [facility] Last Admin: 07/16/20 17:02 Dose: 1 packet Documented by: Magnesium Hydroxide (Magnesium Hydroxide 30 Ml Udc) 30 ml PO DAILY PRN PRN Reason: Constipation Last Admin: 07/08/20 22:05 Dose: 30 ml Documented by: Metoprolol Tartrate (Metoprolol Tartrate 25 Mg Tablet) [facility] Last Admin: 07/16/20 08:28 Dose: 25 mg Documented by: Nystatin (Nystatin Powder 15gm Bottle) 1 applic TOPICAL BID [facility]; Protocol Last Admin: 07/17/20 07:02 Dose: 1 applicatio Documented by: Oxycodone HCl (Oxycodone 5 Mg Tablet) 10 mg PO Q4H PRN PRN Reason: Pain Score 6-10 Last Admin: 07/17/20 07:07 Dose: 10 mg Documented by: Polyethylene Glycol (Polyethylene Glycol 3350 17 Gm Packet) [facility] Last Admin: 07/16/20 08:31 Dose: Not Given Documented by: Potassium Chloride (Potassium Chloride 20 Meq Tablet) 20 meq PO DAILYCM [facility] Last Admin: 07/16/20 08:30 Dose: 20 meq Documented by: Senna/Docusate Sodium (Senna/Docusate Sodium 1 Tablet) 2 tablet PO BID@0800,1800 [facility] Last Admin: 07/16/20 17:02 Dose: 2 tablet Documented by: Sodium Chloride (0.9% Saline Lock 10 Ml Syringe) 10 - 40 ml IV UD PRN PRN Reason: Open End PICC Flush Last Admin: 07/16/20 12:31 Dose: 10 ml Documented by: Sodium Chloride (0.9 % Nacl (Sterile) Posiflush 10 Ml) 10 - 40 ml IV UD PRN PRN Reason: Port access or dressing change Tramadol HCl (Tramadol 50 Mg Tablet) 100 mg PO Q6H PRN PRN PRN Reason: Pain Score 4-5 Assessment/Plan All Active Problems (This Medical Record has been edited. Action required.) Debility (Acute) Cellulitis of right lower extremity (Acute) Necrosis of subcutaneous tissue (Acute) Cellulitis of right lower leg (Acute) Skin necrosis (Acute) Cellulitis of left lower leg (Acute) UTI (urinary tract infection) (Acute) Sepsis (Acute) Anasarca (Acute) Ingrown toenails, right 1st toenail the worst Paronychia right 1st toenail, fibular border Dystrophic toenails/Onychomycosis Pain in toe right and left Examination performed. Debrided toenails 1-5 bilateral using a nail nipper without incident, removing bulk. There is noted to be paronychia to the right 1st toenail fibular border - removed ingrown toenail, applied betadine soln to site, and gauze dressing - change daily. Reviewed proper foot care with patient. Podiatry will continue to follow, thank you for consults.
[2020-07-17] MEDS: Fluticasone 0.05% 1 SPRAY NASAL.SRY NASAL ×2 (08:19→20:34)
[2020-07-17] MEDS: Senna/Docusate Sodium 1 Tablet 2 TABLET PO (08:19)
[2020-07-17 08:20] VITALS: PULSE 109
[2020-07-17] MEDS: Juven (unflavored) Packet 1 PACKET PO ×2 (08:20→17:07)
[2020-07-17] MEDS: Bumetanide 0.5 MG Tablet 1 MG PO ×2 (08:20→17:06)
[2020-07-17] MEDS: Metoprolol Tartrate 25 MG Tablet PO (08:20)
[2020-07-17] MEDS: APIXABAN 5 MG TABLET PO ×2 (08:23→17:06)
[2020-07-17] MEDS: Ferrous Sulfate 325 MG Tablet PO (11:06)
--- NOTE | 2020-07-17 11:21 | NURSING ---
Interior Design Project Manager Note: 1:1 Visit with resident. In bed, watching TV. Provided [employer] and puzzle. Also offered to set up paint supplies provided to resident. Declined. Encouraged resident to get up today to chair. Resident states that she was up late talking with via phone regarding their plans to move to [place]. Resident states that they have purchased new property and will be moving within 90 days. States that at home she got up and about every day, however is very tired and not feeling well and therefore uncertain if she will get up today. Encouraged resident to participate in therapy and get up to change positions for her health and wellness and strength. Resident states that at home she enjoys being very busy. Offered additional paint supplies, additional puzzles, books, magazines and craft supplies. Has refused offers and continues to refuse. Will continue to encourage leisure activities and time out of bed.
[2020-07-17 16:00] VITALS: BP 98/54; PULSE 90; RESP 20; TEMP 36.5; O2SAT 94
[2020-07-17 18:40] VITALS: PULSE 90; RESP 18; O2SAT 94
--- NOTE | 2020-07-17 20:00 | RAD_ITS ---
STUDY: X-RAY - ABDOMEN/PELVIS REASON FOR EXAM: Female, 70 years old. vomiting TECHNIQUE: Single AP view of the abdomen / pelvis. COMPARISON: None. FINDINGS: Normal visualized lung bases. Gas noted in the small and large bowel. The visualized liver, spleen and kidneys are grossly normal in size and morphology. Normal soft tissue structures. There are diffuse degenerative changes of the visualized lumbar spine. RAD/Abdomen Single View IMPRESSION: Mild ileus. Electronically Signed: Jesus Klein MD at 21:00 EST , Service support ,
[2020-07-17] MEDS: Atorvastatin Calcium 20 MG Tablet PO (20:35)
[2020-07-17] MEDS: 0.9% Saline Lock 10 ML Syringe IV (22:30)
[2020-07-17] MEDS: 0.9% Normal Saline 1,000 ML 75 ML IV (22:58)
--- NOTE | 2020-07-17 23:30 | NURSING ---
Dr Layne notified of KUB results, Pt given SSE at this time, yari fair, able to retain some fluid, had med dark firm stool and mod amt brown soft stool , iv fluids restarted as ordered, , cont to need to be educated about need to off load as much as possible, labias very red, purwick left off at this time,
[2020-07-18] MEDS: oxyCODONE 5 MG Tablet 10 MG PO ×2 (02:23→08:47)
[2020-07-18 05:30] VITALS: BP 102/51; PULSE 89; RESP 16; TEMP 36.3; O2SAT 92
[2020-07-18] MEDS: Menthol/Lanolin/Calamine/Znox 113 GM Tube 1 APPLIC TOPICAL ×2 (05:31→19:57)
[2020-07-18] MEDS: Nystatin Powder 15gm Bottle 1 APPLIC TOPICAL ×2 (05:32→18:42)
[2020-07-18 06:34] LABS: Anion Gap 6 (5-15); BUN 65 mg/dL (7-18); BUN/Creat Ratio 87.7 RATIO (10-20); Calcium,Total 8.9 mg/dL (8.5-10.1); Chloride 98 mmol/L (98-107); Creatinine, Serum 0.74 mg/dL (0.55-1.02); EST Glomerular Filtration Rate 83 mL/min (>60); Est Glom Filt Rate - Afr Amer 100 mL/min (>60); Estimated Creatinine Clearance 48.45 ml/min; Glucose 76 mg/dL (74-106); Potassium 4.1 mmol/L (3.5-5.1); Sodium Level 136 mmol/L (136-145)
--- NOTE | 2020-07-18 08:54 | NURSING ---
holding 0800 meds d/t pt c/o nausea/upset stomach. pt refusing brkfst at this time but would like to eat. dr garcia notified, new order for nedra [id number]
[2020-07-18] MEDS: Ondansetron ODT 4 MG Tablet 8 MG PO ×2 (09:01→18:38)
--- NOTE | 2020-07-18 11:10 | NURSING ---
Pt tolerated wound VAC dressings much better today. still had lots of complaints. will have Dr Pedersen assess the right leg wound next week. some necrotic areas to the periwound that may need further debridement. will continue to closely monitor.
--- NOTE | 2020-07-18 11:26 | MDS.RN ---
Information for the mds was obtained from review of the clinical record, interview of resident, staff, and direct observation of resident's care.
--- NOTE | 2020-07-18 13:12 | NURSING ---
Dr Milner here to remove ingrown toenial
[2020-07-18 13:45] VITALS: PULSE 112
[2020-07-18] MEDS: APIXABAN 5 MG TABLET PO ×2 (13:45→18:41)
[2020-07-18] MEDS: Metoprolol Tartrate 25 MG Tablet PO (13:45)
[2020-07-18] MEDS: Bumetanide 0.5 MG Tablet 1 MG PO ×2 (13:46→18:41)
[2020-07-18] MEDS: Fluticasone 0.05% 1 SPRAY NASAL.SRY NASAL ×2 (13:46→19:56)
[2020-07-18] MEDS: Ferrous Sulfate 325 MG Tablet PO (13:52)
[2020-07-18] MEDS: 0.9% Normal Saline 1,000 ML 75 ML IV (13:56)
[2020-07-18] MEDS: Lidocaine 1% (30 ml sdv) 30 ML Vial INFILT (14:09)
--- NOTE | 2020-07-18 14:29 | PN_ITS ---
Patient Problems: Active and Suspected Problems (This Medical Record has been edited. Action required.) Debility (Acute) Cellulitis of right lower extremity (Acute) Sepsis (Acute) Subjective: Patient was seen today for follow up on right 1st toenail. She is resting in bed. Afebrile today. She had leg ulcer wound vac dressings changed today. - Physical Exam Vitals/I&O's: Vital Signs Temp Pulse Resp BP Pulse Ox 97.3 F L 112 H 16 102/51 L 92 07/18/20 05:30 07/18/20 13:45 07/18/20 05:30 07/18/20 05:30 07/18/20 05:30 Oxygen Delivery Method Room Air Weight: 128.82 kg Body Mass Index (BMI) 47.2 Intake and Output for Last 24 Hours 07/16/20 07/17/20 07/18/20 23:59 23:59 23:59 Intake Total 780 / 780 480 / 480 1240 / 1240 Output Total 1150 / 1150 600 / 600 500 / 500 Balance -370 / -370 -120 / -120 740 / 740 General: Alert, Oriented x3, Cooperative, No apparent distress Extremities: Capillary Refill Less than 3 Seconds, - - Otherwise no new areas of tissue break down or erythema to the foot or ankle bilateral. Skin: - - There is persistant ingrown toenail to the right 1st toenail, there is noted to be some erythema to the tibial and fibular borders with POP, there is some small amount of purulent drainage localized to the area, there is no streaking, no maloder, no crepitus, no evidence of deeper involvement. Psych/Mental Status: Alert and oriented to time, place, person, mood and affect Laboratory Results 07/18/20 05:30: Sodium 136, Potassium 4.1, Chloride 98, Carbon Dioxide 32.0, Anion Gap 6, BUN 65 H, Creatinine 0.74, Estim Creat Clear Calc 48.45, Est GFR (MDRD) Af Amer 100, Est GFR (MDRD) Non-Af 83, BUN/Creatinine Ratio 87.7 H, Glucose 76, Calcium 8.9 07/18/20 14:15: S.aureus Protein A PCR Pending, MRSA (PCR) Pending Current Medications Acetaminophen (Acetaminophen 500 Mg Tablet) 1,000 mg PO Q6H PRN PRN Reason: Pain Score 1-3 Last Admin: 07/16/20 17:01 Dose: 1,000 mg Documented by: Apixaban (Apixaban 5 Mg Tablet) 5 mg PO BID@0800,1800 [facility] Last Admin: 07/18/20 13:45 Dose: 5 mg Documented by: Atorvastatin Calcium (Atorvastatin Calcium 20 Mg Tablet) 20 mg PO QHS [facility] Last Admin: 07/17/20 20:35 Dose: 20 mg Documented by: Bisacodyl (Bisacodyl 10 Mg Suppository) 10 mg RECTAL DAILY PRN PRN Reason: Constipation Bumetanide (Bumetanide 0.5 Mg Tablet) 1 mg PO BID@0800,1800 [facility] Last Admin: 07/18/20 13:46 Dose: 1 mg Documented by: Calamine/Phenol (Menthol/Lanolin/Calamine/Znox 113 Gm Tube) 1 applic TOPICAL 0600,2200 [facility]; Protocol Last Admin: 07/18/20 05:31 Dose: 1 applicatio Documented by: Doxycycline Monohydrate (Doxycycline 100 Mg Capsule) 100 mg PO Q12 [facility] Emollient Ointment (Emollient Combination No.72 500 Ml Lotion) 1 applic TOPICAL 0600,2200 [facility]; Protocol Last Admin: 07/18/20 05:32 Dose: 1 applicatio Documented by: Ferrous Sulfate (Ferrous Sulfate 325 Mg Tablet) 325 mg PO DAILY@1200 [facility] Last Admin: 07/18/20 13:52 Dose: 325 mg Documented by: Fluticasone Propionate (Fluticasone 0.05% 1 [place] Nasal.Sry) 1 spray NASAL BID@0800,2000 [facility] Last Admin: 07/18/20 13:46 Dose: 1 spray Documented by: Heparin Sodium (Beef Lung) (Heparin Pf Lock 10 Units/Ml 50 Units/5 Ml Syringe) 50 units IV UD PRN PRN Reason: PICC Line Heparin Flush Last Admin: 07/14/20 10:13 Dose: 50 units Documented by: Sodium Chloride () 250 mls @ 15 mls/hr IV .[id number] PRN PRN Reason: Saline Flush Last Infusion: 07/12/20 01:45 Dose: Infused Documented by: Sodium Chloride () 250 mls @ 15 mls/hr IV .[id number] PRN PRN Reason: Additional IVPB Infusion Sodium Chloride () 1,000 mls @ 75 mls/hr IV .[id number] [facility] Last Admin: 07/18/20 13:56 Dose: 75 mls/hr Documented by: L-Arginine/L-Glutamine/Calcium HMB (Campos (Unflavored) Packet) [facility] Last Admin: 07/18/20 13:48 Dose: Not Given Documented by: Magnesium Hydroxide (Magnesium Hydroxide 30 Ml Ud) 30 ml PO DAILY PRN PRN Reason: Constipation Last Admin: 07/08/20 22:05 Dose: 30 ml Documented by: Metoprolol Tartrate (Metoprolol Tartrate 25 Mg Tablet) [facility] Last Admin: 07/18/20 13:45 Dose: 25 mg Documented by: Nystatin (Nystatin Powder 15gm Bottle) 1 applic TOPICAL BID [facility]; Protocol Last Admin: 07/18/20 05:32 Dose: 1 applicatio Documented by: Ondansetron HCl (Ondansetron Odt 4 Mg Tablet) 8 mg PO Q8H PRN PRN PRN Reason: NAUSEA Last Admin: 07/18/20 09:01 Dose: 8 mg Documented by: Oxycodone HCl (Oxycodone 5 Mg Tablet) 10 mg PO Q4H PRN PRN Reason: Pain Score 6-10 Last Admin: 07/18/20 08:47 Dose: 10 mg Documented by: Polyethylene Glycol (Polyethylene Glycol 3350 17 Gm Packet) [facility] Last Admin: 07/18/20 13:48 Dose: Not Given Documented by: Potassium Chloride (Potassium Chloride 20 Meq Tablet) 20 meq [facility] Last Admin: 07/18/20 13:48 Dose: Not Given Documented by: Senna/Docusate Sodium (Senna/Docusate Sodium 1 Tablet) 2 tablet PO B ID@0800,1800 [facility] Last Admin: 07/18/20 13:49 Dose: Not Given Documented by: Sodium Chloride (0.9% Saline Lock 10 Ml Syringe) 10 - 40 ml IV UD PRN PRN Reason: Open End PICC Flush Last Admin: 07/17/20 22:30 Dose: 20 ml Documented by: Sodium Chloride (0.9 % Nacl (Sterile) Posiflush 10 Ml) 10 - 40 ml IV UD PRN PRN Reason: Port access or dressing change Tramadol HCl (Tramadol 50 Mg Tablet) 100 mg PO Q6H PRN PRN PRN Reason: Pain Score 4-5 Medical Necessity - Tobacco Use Smoking Status: Never smoker Tobacco Use: Non-smoker Assessment/Plan All Active Problems (This Medical Record has been edited. Action required.) Debility (Acute) Cellulitis of right lower extremity (Acute) Necrosis of subcutaneous tissue (Acute) Cellulitis of right lower leg (Acute) Skin necrosis (Acute) Cellulitis of left lower leg (Acute) UTI (urinary tract infection) (Acute) Sepsis (Acute) Anasarca (Acute) Ingrown toenails, right 1st toenail w/ paronychia right 1st toenail, tibial and fibular borders Examination performed. Right 1st toenail was re-evaluated, there is still ingrown toenail, some improvement to the fibular side proximally but there is noted to be some slight purulence noted distally, also there is noted to be ingrown toenail to the tibial border with some purulence distally. There is mild localized erythema localized to the tibial and fibular nail folds - more so distally, none to the proximal nail fold or rest of the foot or ankle. Due to this we discussed removal of ingrown toenail via avulsion to the tibial and fibular borders of the right 1st toenail. Reviewed rationale of this, as well as the possible benefits vs risks, goals and expectations. Advised patient the risks included but not limited to pain, further/worsening infection, need for further procedures, bleeding, drainage, nonhealing. The consent form was reviewed with her, patient expressed understanding and agreement. The patient freely signed the consent form, no guarantees were given nor implied. After consent obtained, the toe was cleansed with 70% Isopropyl alcohol. 5mL of 1& Lidocaine plain was given as a local nerve block around the toe. A culture was obtained from the sites and sent to microbiology for further evaluation. The toe was again cleansed with 70% Isopropyl alcohol and the tibial and fibular nails were avulsed and removed using a nail nipper and hemostat. There was significant ingrown toenail growing into the nail folds - this was removed as just noted. The underlying nail bed was noted to be intact and viable. The sites were cleansed with normal saline soln. Betadine soln was applied with overlying gauze and noe dressing - change daily. Patient tolerated very well with no problems. Hemostasis achieved with pressure and gauze, EBL < 1 mL Doxycycline 100mg q 12 hr was prescribed. Podiatry will continue to follow.
[2020-07-18 14:41] VITALS: BP 120/57; PULSE 112; RESP 20; TEMP 36.6; O2SAT 95
[2020-07-18] MEDS: Doxycycline 100 MG CAPSULE PO (15:18)
--- NOTE | 2020-07-18 15:57 | PCM.PN.SRG ---
Patient Problems: Active and Suspected Problems (This Medical Record has been edited. Action required.) Debility (Acute) Cellulitis of right lower extremity (Acute) Sepsis (Acute) Subjective: Post op day #4 Patient in bed having PT help with range of motion. She complains of ulcer discomfort. - Physical Exam Vitals/I&O's: Vital Signs Temp Pulse Resp BP Pulse Ox 97.8 F 112 H 20 H 120/57 L 95 07/18/20 14:41 07/18/20 14:41 07/18/20 14:41 07/18/20 14:41 07/18/20 14:41 Oxygen Flow Rate (L/min) 2 Oxygen Delivery Method Room Air Weight: 283 lb 15.992 oz Body Mass Index (BMI) 47.2 Intake and Output for Last 24 Hours 07/16/20 07/17/20 07/18/20 23:59 23:59 23:59 Intake Total 780 / 780 480 / 480 1240 / 1240 Output Total 1150 / 1150 600 / 600 1700 / 1700 Balance -370 / -370 -120 / -120 -460 / -460 General: Alert, Oriented x3 HEENT: Atraumatic Oral: Moist Mucosa Lungs: Normal air movement Cardiovascular: Regular rate Extremities: Capillary Refill Less than 3 Seconds, Edema - Bilateral lower extremity edema. Skin: Ulcer/ Wound - Right posterior leg ulcer and left posterior leg ulcer both with wound VAC dressing in place. Musculoskeletal: Tenderness Neurological: Cranial nerves II-XII grossly intact Psych/Mental Status: Normal Affect, Appropriate Laboratory Results 07/18/20 05:30: Sodium 136, Potassium 4.1, Chloride 98, Carbon Dioxide 32.0, Anion Gap 6, BUN 65 H, Creatinine 0.74, Estim Creat Clear Calc 48.45, Est GFR (MDRD) Af Amer 100, Est GFR (MDRD) Non-Af 83, BUN/Creatinine Ratio 87.7 H, Glucose 76, Calcium 8.9 07/18/20 14:15: S.aureus Protein A PCR Pending, MRSA (PCR) Pending Current Medications Acetaminophen (Acetaminophen 500 Mg Tablet) 1,000 mg PO Q6H PRN PRN Reason: Pain Score 1-3 Last Admin: 07/16/20 17:01 Dose: 1,000 mg Documented by: Apixaban (Apixaban 5 Mg Tablet) 5 mg PO BID@0800,1800 [facility] Last Admin: 07/18/20 13:45 Dose: 5 mg Documented by: Atorvastatin Calcium (Atorvastatin Calcium 20 Mg Tablet) 20 mg PO QHS [facility] Last Admin: 07/17/20 20:35 Dose: 20 mg Documented by: Bisacodyl (Bisacodyl 10 Mg Suppository) 10 mg RECTAL DAILY PRN PRN Reason: Constipation Bumetanide (Bumetanide 0.5 Mg Tablet) 1 mg PO BID@0800,1800 [facility] Last Admin: 07/18/20 13:46 Dose: 1 mg Documented by: Calamine/Phenol (Menthol/Lanolin/Calamine/Znox 113 Gm Tube) 1 applic TOPICAL 0600,2200 [facility]; Protocol Last Admin: 07/18/20 05:31 Dose: 1 applicatio Documented by: Doxycycline Monohydrate (Doxycycline 100 Mg Capsule) 100 mg PO Q12 [facility] Last Admin: 07/18/20 15:18 Dose: 100 mg Documented by: Emollient Ointment (Emollient Combination No.72 500 Ml Lotion) 1 applic TOPICAL 0600,2200 [facility]; Protocol Last Admin: 07/18/20 05:32 Dose: 1 applicatio Documented by: Ferrous Sulfate (Ferrous Sulfate 325 Mg Tablet) 325 mg PO DAILY@1200 [facility] Last Admin: 07/18/20 13:52 Dose: 325 mg Documented by: Fluticasone Propionate (Fluticasone 0.05% 1 [place] Nasal.Sry) 1 spray NASAL BID@0800,2000 [facility] Last Admin: 07/18/20 13:46 Dose: 1 spray Documented by: Heparin Sodium (Beef Lung) (Heparin Pf Lock 10 Units/Ml 50 Units/5 Ml Syringe) 50 units IV UD PRN PRN Reason: PICC Line Heparin Flush Last Admin: 07/14/20 10:13 Dose: 50 units Documented by: Sodium Chloride () 250 mls @ 15 mls/hr IV .[id number] PRN PRN Reason: Saline Flush Last Infusion: 07/12/20 01:45 Dose: Infused Documented by: Sodium Chloride () 250 mls @ 15 mls/hr IV .[id number] PRN PRN Reason: Additional IVPB Infusion Sodium Chloride () 1,000 mls @ 75 mls/hr IV .[id number] [facility] Last Admin: 07/18/20 13:56 Dose: 75 mls/hr Documented by: L-Arginine/L-Glutamine/Calcium HMB (Campos ([facility]flavored) Packet) [facility] Last Admin: 07/18/20 13:48 Dose: Not Given Documented by: Magnesium Hydroxide (Magnesium Hydroxide 30 Ml Udc) 30 ml PO DAILY PRN PRN Reason: Constipation Last Admin: 07/08/20 22:05 Dose: 30 ml Documented by: Metoprolol Tartrate (Metoprolol Tartrate 25 Mg Tablet) [facility] Last Admin: 07/18/20 13:45 Dose: 25 mg Documented by: Nystatin (Nystatin Powder 15gm Bottle) 1 applic TOPICAL BID [facility]; Protocol Last Admin: 07/18/20 05:32 Dose: 1 applicatio Documented by: Ondansetron HCl (Ondansetron Odt 4 Mg Tablet) 8 mg PO Q8H PRN PRN PRN Reason: NAUSEA Last Admin: 07/18/20 09:01 Dose: 8 mg Documented by: Oxycodone HCl (Oxycodone 5 Mg Tablet) 10 mg PO Q4H PRN PRN Reason: Pain Score 6-10 Last Admin: 07/18/20 08:47 Dose: 10 mg Documented by: Polyethylene Glycol (Polyethylene Glycol 3350 17 Gm Packet) [facility] Last Admin: 07/18/20 13:48 Dose: Not Given Documented by: Potassium Chloride (Potassium Chloride 20 Meq Tablet) 20 meq [facility] Last Admin: 07/18/20 13:48 Dose: Not Given Documented by: Senna/Docusate Sodium (Senna/Docusate Sodium 1 Tablet) 2 tablet PO BID@0800,1800 [facility] Last Admin: 07/18/20 13:49 Dose: Not Given Documented by: Sodium Chloride (0.9% Saline Lock 10 Ml Syringe) 10 - 40 ml IV UD PRN PRN Reason: Open End PICC Flush Last Admin: 07/17/20 22:30 Dose: 20 ml Documented by: Sodium Chloride (0.9 % Nacl (Sterile) Posiflush 10 Ml) 10 - 40 ml IV UD PRN PRN Reason: Port access or dressing change Tramadol HCl (Tramadol 50 Mg Tablet) 100 mg PO Q6H PRN PRN PRN Reason: Pain Score 4-5 Medical Necessity - Tobacco Use Smoking Status: Never smoker Tobacco Use: Non-smoker Assessment/Plan All Active Problems (This Medical Record has been edited. Action required.) Debility (Acute) Cellulitis of right lower extremity (Acute) Necrosis of subcutaneous tissue (Acute) Cellulitis of right lower leg (Acute) Skin necrosis (Acute) Cellulitis of left lower leg (Acute) UTI (urinary tract infection) (Acute) Sepsis (Acute) Anasarca (Acute) 1. Nonhealing painful infected ulcer left posterior leg. 2. Nonhealing painful infected ulcer right lateral leg with skin necrosis. 3. Sepsis. 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 5. Chronic venous insufficiency with ulceration. 6. Obesity. Continue Doxycycline Preop wound culture shows Pseudomonas aeroginosa. Operative cultures from 07/04/20 right leg ulcer positive for Staphylococcus capitis and Corynebacterium striatum. Left leg positive for Pseudomonas aeroginosa, Corynebacterium striatum, Pseudomonas mendocina. She was placed on Meropenem and Doxycycline which was completed 07/11/20 per ID. She is currently on Doxycycline from Dr. Milner for her right 1st toenail with paronychia. Bilateral leg wounds are stable. Wound VAC to 150 mmHg. Prealbumin was 12.8. Encourage nutritional supplementation with protein to help the healing process. After discharge will followup at [facility]. If there is a plateau in the healing process, can proceed with delayed closure with skin grafting.
--- NOTE | 2020-07-18 16:30 | NURSING ---
Resident and son, Leland, notified of staff member testing positive for COVID.
[2020-07-18] MEDS: Atorvastatin Calcium 20 MG Tablet PO (19:58)
[2020-07-18 20:49] LABS: M R Staph aureus DNA By PCR Negative (Negative); Probe Check PASS; Specimen Processing Control PASS; Staph aureus DNA By PCR NEGATIVE (Negative)
[2020-07-19] MEDS: oxyCODONE 5 MG Tablet 10 MG PO (02:00)
[2020-07-19] MEDS: 0.9% Normal Saline 1,000 ML 75 ML IV ×2 (02:00→15:57)
[2020-07-19 05:06] VITALS: BP 112/60; PULSE 90; RESP 16; TEMP 36.3; O2SAT 97
[2020-07-19] MEDS: Doxycycline 100 MG CAPSULE PO ×2 (05:08→17:21)
[2020-07-19] MEDS: Menthol/Lanolin/Calamine/Znox 113 GM Tube 1 APPLIC TOPICAL ×2 (05:10→20:20)
[2020-07-19] MEDS: Nystatin Powder 15gm Bottle 1 APPLIC TOPICAL ×2 (05:11→17:22)
--- NOTE | 2020-07-19 06:21 | PCA ---
Attempted to assist with A.M. care. Patients depends soaked with urine. Patient refusing to let me do any care. Yelling and me to leave her alone, i don't care if I'm wet. Reminded patient about importance of not laying in urine. Still will not do anything. Will attempt later. RN notified
[2020-07-19] MEDS: Fluticasone 0.05% 1 SPRAY NASAL.SRY NASAL ×2 (09:06→20:19)
[2020-07-19] MEDS: APIXABAN 5 MG TABLET PO ×2 (09:09→17:21)
[2020-07-19] MEDS: Bumetanide 0.5 MG Tablet 1 MG PO ×2 (09:09→17:21)
[2020-07-19] MEDS: Juven (unflavored) Packet 1 PACKET PO ×2 (09:09→16:03)
[2020-07-19 09:10] VITALS: BP 112/52; PULSE 99
[2020-07-19] MEDS: Metoprolol Tartrate 25 MG Tablet PO (09:10)
[2020-07-19] MEDS: Ferrous Sulfate 325 MG Tablet PO (10:59)
[2020-07-19 13:48] VITALS: BP 104/56; PULSE 83; RESP 18; TEMP 36.4; O2SAT 93
[2020-07-19] MEDS: Senna/Docusate Sodium 1 Tablet 2 TABLET PO (17:21)
[2020-07-19] MEDS: Atorvastatin Calcium 20 MG Tablet PO (20:20)
[2020-07-19] MEDS: Povidone-Iodine Swabstick 1 PACKET TOPICAL (22:25)
[2020-07-20] MEDS: oxyCODONE 5 MG Tablet 10 MG PO (01:22)
[2020-07-20 04:00] VITALS: BP 92/53; PULSE 99; RESP 18; TEMP 37.2; O2SAT 98
[2020-07-20] MEDS: 0.9% Normal Saline 1,000 ML 75 ML IV ×2 (05:45→19:20)
[2020-07-20] MEDS: Doxycycline 100 MG CAPSULE PO ×2 (06:42→16:55)
[2020-07-20] MEDS: Menthol/Lanolin/Calamine/Znox 113 GM Tube 1 APPLIC TOPICAL ×2 (06:45→19:27)
[2020-07-20] MEDS: Nystatin Powder 15gm Bottle 1 APPLIC TOPICAL ×2 (06:46→16:54)
--- NOTE | 2020-07-20 07:50 | NURSING ---
During this shift, patient refused to turn, discussed bed sores but she says since she has painful sores on her legs, she cannot roll over. Was in room regularly throughout the night.
[2020-07-20 09:20] VITALS: BP 135/62; PULSE 104
[2020-07-20] MEDS: Metoprolol Tartrate 25 MG Tablet PO (09:20)
[2020-07-20] MEDS: Bumetanide 0.5 MG Tablet 1 MG PO ×2 (09:20→16:55)
[2020-07-20] MEDS: Fluticasone 0.05% 1 SPRAY NASAL.SRY NASAL ×2 (09:21→19:23)
[2020-07-20] MEDS: Juven (unflavored) Packet 1 PACKET PO ×2 (09:21→16:54)
[2020-07-20] MEDS: APIXABAN 5 MG TABLET PO ×2 (09:21→16:55)
[2020-07-20] MEDS: traMADol 50 MG Tablet 100 MG PO ×2 (09:28→23:32)
[2020-07-20] MEDS: Ferrous Sulfate 325 MG Tablet PO (12:43)
[2020-07-20 13:51] VITALS: BP 84/45; PULSE 83; RESP 20; TEMP 36.6; O2SAT 94
[2020-07-20] MEDS: Povidone-Iodine Swabstick 1 PACKET TOPICAL (15:42)
[2020-07-20] MEDS: Senna/Docusate Sodium 1 Tablet 2 TABLET PO (16:55)
[2020-07-20] MEDS: Atorvastatin Calcium 20 MG Tablet PO (19:26)
[2020-07-21 05:46] LABS: Absolute Lymphocyte Count 2.33 X10^3/uL (0.83-4.51); Absolute Neutrophil Count 6.5 X10^3/uL (2.0-7.7); Basophil# 0.05 X10^3/uL; Basophil% 0.4 % (0-1); Eosinophil# 0.39 X10^3/uL; Eosinophils% 3.5 % (0-5); Hematocrit 30.9 % (37-47); Hemoglobin 9.4 g/dL (12.0-15.0); Lymphocyte # 2.33 X10^3/ul (4.0); Mean Corp Hgb Conc 30.4 g/dL (32-36); Mean Corpuscular Volume 95.4 fL (81-99); Mean Platelet Vol. 8.5 fl (6.2-12.0); Monocyte# 1.38 X10^3/uL; Monocyte% 12.4 % (0-10); NRBC Flagged by Analyzer 0 % (0-5); Neutrophil # 6.53 X10^3/uL (2.7-7.7); Neutrophil % 58.7 % (47-70); Platelet Count 403 K/mm3 (150-450); RBC Distribution Width CV 15.8 % (11.6-14.6); Red Blood Count 3.24 M/mm3 (4.2-5.4); White Blood Count 11.1 K/mm3 (4.4-11.0)
[2020-07-21 05:53] VITALS: BP 95/63; PULSE 96; RESP 16; TEMP 37.1; O2SAT 94
[2020-07-21] MEDS: Doxycycline 100 MG CAPSULE PO ×2 (05:55→17:22)
[2020-07-21] MEDS: Menthol/Lanolin/Calamine/Znox 113 GM Tube 1 APPLIC TOPICAL ×2 (05:55→21:16)
[2020-07-21] MEDS: Nystatin Powder 15gm Bottle 1 APPLIC TOPICAL ×2 (05:56→17:27)
[2020-07-21 06:09] LABS: Anion Gap 5 (5-15); BUN 35 mg/dL (7-18); BUN/Creat Ratio 56.9 RATIO (10-20); Calcium,Total 8.9 mg/dL (8.5-10.1); Chloride 102 mmol/L (98-107); Creatinine, Serum 0.62 mg/dL (0.55-1.02); EST Glomerular Filtration Rate 103 mL/min (>60); Est Glom Filt Rate - Afr Amer 124 mL/min (>60); Estimated Creatinine Clearance 48.45 ml/min; Glucose 83 mg/dL (74-106); Potassium 3.4 mmol/L (3.5-5.1); Sodium Level 138 mmol/L (136-145)
[2020-07-21 08:54] VITALS: PULSE 96
[2020-07-21] MEDS: Metoprolol Tartrate 25 MG Tablet PO (08:54)
[2020-07-21] MEDS: Juven (unflavored) Packet 1 PACKET PO ×2 (08:54→17:21)
[2020-07-21] MEDS: APIXABAN 5 MG TABLET PO ×2 (08:54→17:22)
[2020-07-21] MEDS: Senna/Docusate Sodium 1 Tablet 2 TABLET PO ×2 (08:54→17:22)
[2020-07-21] MEDS: Fluticasone 0.05% 1 SPRAY NASAL.SRY NASAL ×2 (08:55→21:16)
[2020-07-21] MEDS: Bumetanide 0.5 MG Tablet 1 MG PO ×2 (08:55→17:22)
[2020-07-21] MEDS: oxyCODONE 5 MG Tablet 10 MG PO ×2 (09:04→17:26)
[2020-07-21] MEDS: Ondansetron ODT 4 MG Tablet 8 MG PO (09:07)
--- NOTE | 2020-07-21 10:19 | NURSING ---
no mepilex to coccyx, use ameena per wound nurse. pt continues to be incont even with purewick. continue turning as much as possible.
[2020-07-21] MEDS: Povidone-Iodine Swabstick 1 PACKET TOPICAL (11:02)
--- NOTE | 2020-07-21 11:04 | NURSING ---
wound photo: buttocks
--- NOTE | 2020-07-21 11:04 | NURSING ---
wound photo: left posterior lower leg
--- NOTE | 2020-07-21 11:05 | NURSING ---
wound photo: right posterolateral lower leg
--- NOTE | 2020-07-21 11:48 | PN_ITS ---
Patient Problems: Active and Suspected Problems (This Medical Record has been edited. Action required.) Debility (Acute) Cellulitis of right lower extremity (Acute) Sepsis (Acute) Subjective: This 70-year-old female seen bedside status post nail bulging procedure performed on 07-18-2020. She relates decreased pain. She denies fever, chill, nausea, vomiting, diarrhea. She does not appreciate any side effects from the antibiotics. She is nonambulatory. - Physical Exam Vitals/I&O's: Vital Signs Temp Pulse Resp BP Pulse Ox 98.7 F 96 16 95/63 94 07/21/20 05:53 07/21/20 08:54 07/21/20 05:53 07/21/20 05:53 07/21/20 05:53 Oxygen Flow Rate (L/min) 2 Oxygen Delivery Method Room Air Weight: 128.82 kg Body Mass Index (BMI) 47.2 Intake and Output for Last 24 Hours 07/19/20 07/20/20 07/21/20 23:59 23:59 23:59 Intake Total 2385 / 2385 2720 / 2720 1000 / 1000 Output Total 1800 / 1800 1300 / 1300 Balance 585 / 585 1420 / 1420 1000 / 1000 General: Alert, Oriented x3, Cooperative Extremities: No cyanosis, Capillary Refill Less than 3 Seconds, Edema, Peripheral Pulses Normal - Palpable DP right, Tenderness - Pain to palpate nail avulsion site mild No pain to palpate hallux interphalangeal joint No additional loosening of the hallux nail. No bogginess or fluctuance on palpation Musculoskeletal: Muscle Wasting Neurological: Sensory exam intact to light touch and pain Psych/Mental Status: Normal Affect, Appropriate Microbiology Past 72 Hours 07/18/20 14:15 Wound - Right Foot Gram Stain - Final 07/18/20 14:15 Wound - Right Foot Wound Culture - Final Coag Negative Staph 07/18/20 14:15 Wound - Right Foot Anaerobic Culture - Preliminary Checking for anaerobes, further studies to follow. Laboratory Results 07/21/20 05:15: WBC 11.1 H, RBC 3.24 L, Hgb 9.4 L, Hct 30.9 L, MCV 95.4, MCH 29.0, MCHC 30.4 L, RDW Std Deviation 55.0 H, RDW Coeff of [place] 15.8 H, Plt Count 403, MPV 8.5, Immature Gran % (Auto) 4.000 H, Neut % (Auto) 58.7, Lymph % (Auto) 21.0, [place] % (Auto) 12.4 H, Eos % (Auto) 3.5, Baso % (Auto) 0.4, Absolute Neuts (auto) 6.5, Absolute Lymphs (auto) 2.33, Nucleated RBC % 0 07/21/20 05:15: Sodium 138, Potassium 3.4 L, Chloride 102, Carbon Dioxide 31.0, Anion Gap 5, BUN 35 H, Creatinine 0.62, Estim Creat Clear Calc 48.45, Est GFR (MDRD) Af Amer 124, Est GFR (MDRD) Non-Af 103, BUN/Creatinine Ratio 56.9 H, Glucose 83, Calcium 8.9 Current Medications Acetaminophen (Acetaminophen 500 Mg Tablet) 1,000 mg PO Q6H PRN PRN Reason: Pain Score 1-3 Last Admin: 07/16/20 17:01 Dose: 1,000 mg Documented by: Apixaban (Apixaban 5 Mg Tablet) 5 mg PO BID@0800,1800 [facility] Last Admin: 07/21/20 08:54 Dose: 5 mg Documented by: Atorvastatin Calcium (Atorvastatin Calcium 20 Mg Tablet) 20 mg PO QHS [facility] Last Admin: 07/20/20 19:26 Dose: 20 mg Documented by: Bisacodyl (Bisacodyl 10 Mg Suppository) 10 mg RECTAL DAILY PRN PRN Reason: Constipation Bumetanide (Bumetanide 0.5 Mg Tablet) 1 mg PO BID@0800,1800 [facility] Last Admin: 07/21/20 08:55 Dose: 1 mg Documented by: Calamine/Phenol (Menthol/Lanolin/Calamine/Znox 113 Gm Tube) 1 applic TOPICAL 0600,2200 [facility]; Protocol Last Admin: 07/21/20 05:55 Dose: 1 applicatio Documented by: Doxycycline Monohydrate (Doxycycline 100 Mg Capsule) 100 mg PO Q12 [facility] Last Admin: 07/21/20 05:55 Dose: 100 mg Documented by: Emollient Ointment (Emollient Combination No.72 500 Ml Lotion) 1 applic TOPICAL 0600,2200 [facility]; Protocol Last Admin: 07/21/20 05:55 Dose: 1 applicatio Documented by: Ferrous Sulfate (Ferrous Sulfate 325 Mg Tablet) 325 mg PO DAILY@1200 [facility] Last Admin: 07/20/20 12:43 Dose: 325 mg Documented by: Fluticasone Propionate (Fluticasone 0.05% 1 [place] Nasal.Sry) 1 spray NASAL BID@0800,2000 [facility] Last Admin: 07/21/20 08:55 Dose: 1 spray Documented by: Heparin Sodium (Beef Lung) (Heparin Pf Lock 10 Units/Ml 50 Units/5 Ml Syringe) 50 units IV UD PRN PRN Reason: PICC Line Heparin Flush Last Admin: 07/14/20 10:13 Dose: 50 units Documented by: Sodium Chloride () 250 mls @ 15 mls/hr IV .[id number] PRN PRN Reason: Saline Flush Last Infusion: 07/12/20 01:45 Dose: Infused Documented by: Sodium Chloride () 250 mls @ 15 mls/hr IV .[id number] PRN PRN Reason: Additional IVPB Infusion L-Arginine/L-Glutamine/Calcium HMB (Campos (Unflavored) Packet) [facility] Last Admin: 07/21/20 08:54 Dose: 1 packet Documented by: Magnesium Hydroxide (Magnesium Hydroxide 30 Ml [facility]) 30 ml PO DAILY PRN PRN Reason: Constipation Last Admin: 07/08/20 22:05 Dose: 30 ml Documented by: Metoprolol Tartrate (Metoprolol Tartrate 25 Mg Tablet) [facility] Last Admin: 07/21/20 08:54 Dose: 25 mg Documented by: Nystatin (Nystatin Powder 15gm Bottle) 1 applic TOPICAL BID [facility]; Protocol Last Admin: 07/21/20 05:56 Dose: 1 applicatio Documented by: Ondansetron HCl (Ondansetron Odt 4 Mg Tablet) 8 mg PO Q8H PRN PRN PRN Reason: NAUSEA Last Admin: 07/21/20 09:07 Dose: 8 mg Documented by: Oxycodone HCl (Oxycodone 5 Mg Tablet) 10 mg PO Q4H PRN PRN Reason: Pain Score 6-10 Last Admin: 07/21/20 09:04 Dose: 10 mg Documented by: Polyethylene Glycol (Polyethylene Glycol 3350 17 Gm Packet) [facility] Last Admin: 07/21/20 08:54 Dose: Not Given Documented by: Potassium Chloride (Potassium Chloride 20 Meq Tablet) 20 meq PO DAILYCM [facility] Last Admin: 07/21/20 08:54 Dose: 20 meq Documented by: Povidone Iodine (Povidone-Iodine Swabstick) 1 packet TOPICAL DAILY@1000 [facility]; Protocol Last Admin: 07/21/20 11:02 Dose: 1 packet Documented by: Senna/Docusate Sodium (Senna/Docusate Sodium 1 Tablet) 2 tablet PO BID@0800,1800 [facility] Last Admin: 07/21/20 08:54 Dose: 2 tablet Documented by: Sodium Chloride (0.9% Saline Lock 10 Ml Syringe) 10 - 40 ml IV UD PRN PRN Reason: Open End PICC Flush Last Admin: 07/17/20 22:30 Dose: 20 ml Documented by: Sodium Chloride (0.9 % Nacl (Sterile) Posiflush 10 Ml) 10 - 40 ml IV UD PRN PRN Reason: Port access or dressing change Tramadol HCl (Tramadol 50 Mg Tablet) 100 mg PO Q6H PRN PRN PRN Reason: Pain Score 4-5 Last Admin: 07/20/20 23:32 Dose: 100 mg Documented by: Medical Necessity - Tobacco Use Smoking Status: Never smoker Tobacco Use: Non-smoker Assessment/Plan All Active Problems (This Medical Record has been edited. Action required.) Debility (Acute) Cellulitis of right lower extremity (Acute) Necrosis of subcutaneous tissue (Acute) Cellulitis of right lower leg (Acute) Skin necrosis (Acute) Cellulitis of left lower leg (Acute) UTI (urinary tract infection) (Acute) Sepsis (Acute) Anasarca (Acute) Onychocryptosis status nail avulsino post medial and lateral hallux nail borders Cellulitis resolving Examination performed. Her vitals are stable and she is afebrile. She is status post nail avulsion. She is reassured no local signs of infection are appreciated. Dressing was changed with Aquacel Ag and a dry gauze. She reports some sensitivity with a Band-Aid. To wash with dynahexsoap and water daily and to avoid soaking. Recommend changing this dressing every 24-48 hours. Her cultures are growing out coag negative staph. She is on oral doxycycline. This coag neg staph may be a part of the normal skin meet but given her recent infection the cultures will be monitored until finalized. MRSA PCR was negative. She will be seen next week if she is still in the transitional care unit otherwise she can follow-up in outpatient setting at the [facility] with Dr. Milner. Nan Flannery DPM, [facility] [phone]
[2020-07-21] MEDS: Ferrous Sulfate 325 MG Tablet PO (12:31)
[2020-07-21] MEDS: 0.9% Saline Lock 10 ML Syringe IV (12:35)
[2020-07-21 12:36] VITALS: PULSE 116
--- NOTE | 2020-07-21 13:43 | DCINST_ITS ---
Discharge Activity: May Shower - from a foot standpoint Weight Bearing Status: Full weight bearing Call your doctor if your incision/area has: Continuous Slow Oozing, Sudden Increased Bleeding, Increased Pain/ Swelling, Increased Redness, Foul Smelling Discharge, Swelling at the incision site Call your doctor if you observe: Fever of 101 or Higher Cleanse incision/area with: Soap & Water Additional Dressing/Incision Instructions:: change right hallux dressing every 1-2 days with aquacel ag and dry gauze Allergies/Adverse Reactions: Allergies hydromorphone Allergy (Verified 06/30/20 11:17) PT UNSURE OF REACTION piperacillin Allergy (Verified 06/30/20 11:17) PT UNSURE OF REACTION Medications to take at Discharge Lisinopril [Prinivil] 10 mg PO DAILY 03/19/20 Atorvastatin Calcium [Lipitor] 20 mg PO QHS 05/30/20 traMADol [Ultram] 50 mg PO Q6H PRN PRN 05/30/20 Bumetanide 1 mg PO BID 06/06/20 Potassium Chloride [K-Dur] 20 meq PO DAILYCM 06/06/20 Apixaban [Eliquis] 5 mg PO BID 06/30/20 Metoprolol Tartrate 25 mg PO DAILY 06/30/20 Acetaminophen [Tylenol] 1,000 mg PO TID PRN tab 07/08/20 Doxycycline 100 mg PO BID 07/08/20 Ferrous Sulfate 325 mg PO DAILY@1200 07/08/20 Fluticasone 0.05% [Flonase Nasal [place]] 1 spray NASAL BID 07/08/20 Meropenem [Merrem] 500 mg IV Q8 07/08/20 Nystatin 500,000 unit PO 4X/DAY 07/08/20 Nystatin Powder [Mycostatin Powder] 1 applic TOPICAL BID 07/08/20 Oxycodone [Oxyir] 5 mg PO Q6H PRN PRN 2 Days #2 tab 07/08/20 Primary Care Physician: Tomeka Adams NP, [employer] [Primary Care Provider] - Test Results: Test results from this visit will be discussed in further detail at your follow- up appointment, if applicable. Please Follow Up With: Ming Pedesren MD When: After D/C Please Follow Up With: Ollie Milner DPM When: 1 week [facility], call [phone]
[2020-07-21 14:51] VITALS: BP 87/59; PULSE 99; RESP 18; TEMP 36.3; O2SAT 96
--- NOTE | 2020-07-21 21:20 | NURSING ---
Pt spilled her dinner tray on the bed and herself, cleaned upo and bed linens changed, Crystal care given and new mepilex applied to coccyx,pt states she just is not feeling good tonight, feels like she is getting too many meds. BP 89/46, P 89. Cool washcloth to forehead and fan put in room, pt states that she feels better after that, but does not want anymore meds tonight. Pt given yogurt per request. Will continue to monitor, pt talking to son on phone as we left the room.
[2020-07-22] MEDS: oxyCODONE 5 MG Tablet 10 MG PO ×2 (02:37→08:53)
[2020-07-22 02:44] VITALS: BP 94/57; PULSE 69; RESP 18; TEMP 36.8; O2SAT 98
[2020-07-22] MEDS: Doxycycline 100 MG CAPSULE PO ×2 (04:59→17:11)
[2020-07-22] MEDS: Menthol/Lanolin/Calamine/Znox 113 GM Tube 1 APPLIC TOPICAL ×2 (05:00→20:24)
[2020-07-22] MEDS: Nystatin Powder 15gm Bottle 1 APPLIC TOPICAL ×2 (05:01→17:10)
[2020-07-22 05:48] LABS: Anion Gap 6 (5-15); BUN 41 mg/dL (7-18); BUN/Creat Ratio 28.5 RATIO (10-20); Calcium,Total 9.3 mg/dL (8.5-10.1); Chloride 99 mmol/L (98-107); Creatinine, Serum 1.44 mg/dL (0.55-1.02); EST Glomerular Filtration Rate 38 mL/min (>60); Est Glom Filt Rate - Afr Amer 47 mL/min (>60); Estimated Creatinine Clearance 33.65 ml/min; Glucose 81 mg/dL (74-106); Potassium 3.9 mmol/L (3.5-5.1); Sodium Level 135 mmol/L (136-145)
[2020-07-22] MEDS: Fluticasone 0.05% 1 SPRAY NASAL.SRY NASAL ×2 (08:32→20:17)
[2020-07-22] MEDS: Juven (unflavored) Packet 1 PACKET PO ×2 (08:34→17:10)
[2020-07-22] MEDS: Senna/Docusate Sodium 1 Tablet 2 TABLET PO ×2 (08:54→17:10)
[2020-07-22 08:55] VITALS: PULSE 102
[2020-07-22] MEDS: APIXABAN 5 MG TABLET PO ×2 (08:55→17:10)
[2020-07-22] MEDS: Bumetanide 0.5 MG Tablet 1 MG PO ×2 (08:55→17:11)
[2020-07-22] MEDS: Polyethylene Glycol 3350 17 GM PACKET PO (08:55)
[2020-07-22] MEDS: Metoprolol Tartrate 25 MG Tablet PO (08:55)
[2020-07-22] MEDS: Ferrous Sulfate 325 MG Tablet PO (11:20)
[2020-07-22] MEDS: 0.9% Saline Lock 10 ML Syringe IV (11:20)
[2020-07-22] MEDS: Ondansetron ODT 4 MG Tablet 8 MG PO (11:28)
--- NOTE | 2020-07-22 11:29 | NURSING ---
R' C/O NOT FEELING WELL. C/O SLIGHT NAUSEA. ZOFRAN GIVEN AT THIS TIME. CURRENTLY SITTING UP IN CHAIR.
[2020-07-22 11:36] VITALS: BP 101/72; PULSE 99
[2020-07-22 14:29] VITALS: BP 98/47; PULSE 89; RESP 17; TEMP 36.1; O2SAT 94
[2020-07-22] MEDS: Atorvastatin Calcium 20 MG Tablet PO (20:22)
[2020-07-23 05:00] VITALS: BP 84/45; PULSE 107; RESP 16; TEMP 36.6; O2SAT 95
[2020-07-23 05:39] LABS: Hematocrit 30.1 % (37-47); Hemoglobin 9.5 g/dL (12.0-15.0); Mean Corp Hgb Conc 31.6 g/dL (32-36); Mean Corpuscular Hgb 29.2 pg (27.0-32.0); Mean Corpuscular Volume 92.6 fL (81-99); Mean Platelet Vol. 8.7 fl (6.2-12.0); POSITIVE COUNT YES; POSITIVE MORPHOLOGY YES; Platelet Count 437 K/mm3 (150-450); RBC Distribution Width CV 15.7 % (11.6-14.6); RBC Distribution Width SD 52.6 fl (35.1-43.9); Red Blood Count 3.25 M/mm3 (4.2-5.4); White Blood Count 13.2 K/mm3 (4.4-11.0)
[2020-07-23 05:56] LABS: Differential Indicated MANUAL DIFF
[2020-07-23 06:10] LABS: Anion Gap 6 (5-15); BUN 58 mg/dL (7-18); BUN/Creat Ratio 26.4 RATIO (10-20); Calcium,Total 9.6 mg/dL (8.5-10.1); Chloride 98 mmol/L (98-107); EST Glomerular Filtration Rate 24 mL/min (>60); Est Glom Filt Rate - Afr Amer 29 mL/min (>60); Estimated Creatinine Clearance 22.02 ml/min; Glucose 84 mg/dL (74-106); Potassium 4.2 mmol/L (3.5-5.1); Sodium Level 133 mmol/L (136-145)
[2020-07-23] MEDS: Menthol/Lanolin/Calamine/Znox 113 GM Tube 1 APPLIC TOPICAL ×2 (06:54→20:35)
[2020-07-23] MEDS: Nystatin Powder 15gm Bottle 1 APPLIC TOPICAL ×2 (06:55→17:05)
[2020-07-23] MEDS: Doxycycline 100 MG CAPSULE PO (06:55)
[2020-07-23 07:19] LABS: Lymphocyte 13 % (19-41); Metamyelocyte 5 % (0-1); Monocyte 8 % (0-10); Neutrophil-Segmented 74 % (47-70); Total Cells Counted 100 (MANUAL DIFF)
[2020-07-23 07:20] LABS: Absolute Neutrophil Count 9.8 X10^3/uL (2.0-7.7); Platelet Estimate ADEQUATE (ADEQ); Red Cell Morphology NORM C+C NORMAL (NORM C&C)
--- NOTE | 2020-07-23 07:30 | NURSING ---
Pt Blood pressure 84/[address] Layne made aware and held Lopressor. Also, made him aware her picc line was not flushing ordered cathflo x1. Will continue to monitor.
--- NOTE | 2020-07-23 08:12 | PN_ITS ---
Patient Problems: Active and Suspected Problems (This Medical Record has been edited. Action required.) Debility (Acute) Cellulitis of right lower extremity (Acute) Sepsis (Acute) Subjective: This 70-year-old female seen bedside status post nail avulsion procedure performed on 07-18-2020. She denies pain to her right great toe. She denies fever, chill, nausea, vomiting, diarrhea. - Physical Exam Vitals/I&O's: Vital Signs Temp Pulse Resp BP Pulse Ox 97.8 F 107 H 16 84/45 L 95 07/23/20 05:00 07/23/20 05:00 07/23/20 05:00 07/23/20 05:00 07/23/20 05:00 Oxygen Flow Rate (L/min) 2 Oxygen Delivery Method Room Air Weight: 128.083 kg Body Mass Index (BMI) 47.2 Intake and Output for Last 24 Hours 07/21/20 07/22/20 07/23/20 23:59 23:59 23:59 Intake Total 1480 / 1480 1080 / 1080 Output Total 1150 / 1150 1000 / 1000 Balance 330 / 330 1080 / 1080 -1000 / -1000 General: Alert, Oriented x3, Cooperative HEENT: Atraumatic Extremities: No cyanosis, Capillary Refill Less than 3 Seconds, Edema Skin: Ulcer/ Wound - Nail avulsion sites appear healthy without active drainage. There is no erythema, purulence, streaking, odor or necrosis or bogginess or fluctuance on palpation., - Neurological: Sensory exam intact to light touch and pain Psych/Mental Status: Normal Affect, Appropriate Microbiology Past 72 Hours 07/21/20 14:00 Nasal Secretion SARS-CoV-2 Antigen (Rapid) - Final 07/18/20 14:15 Wound - Right Foot Gram Stain - Final 07/18/20 14:15 Wound - Right Foot Wound Culture - Final Coag Negative Staph 07/18/20 14:15 Wound - Right Foot Anaerobic Culture - Preliminary Checking for anaerobes, further studies to follow. Laboratory Results 07/23/20 04:55: WBC 13.2 H, RBC 3.25 L, Hgb 9.5 L, Hct 30.1 L, MCV 92.6, MCH 29.2, MCHC 31.6 L, RDW Std Deviation 52.6 H, RDW Coeff of Galindo 15.7 H, Plt Count 437, MPV 8.7, Neut % (Auto) Not Reportable, Absolute Neuts (auto) 9.8 H, Absolute Lymphs (auto) 1.70, Total Counted 100, Neutrophils % (Manual) 74 H, Lymphocytes % (Manual) 13 L, Monocytes % (Manual) 8, Metamyelocytes % 5 H, Diff Path Review November, Platelet Estimate ADEQUATE, RBC Morphology NORM C+C 07/23/20 04:55: Sodium 133 L, Potassium 4.2, Chloride 98, Carbon Dioxide 29.0, Anion Gap 6, BUN 58 H, Creatinine 2.20 H, Estim Creat Clear Calc 22.02, Est GFR (MDRD) Af Amer 29 L, Est GFR (MDRD) Non-Af 24 L, BUN/Creatinine Ratio 26.4 H, Glucose 84, Calcium 9.6 Current Medications Acetaminophen (Acetaminophen 500 Mg Tablet) 1,000 mg PO Q6H PRN PRN Reason: Pain Score 1-3 Last Admin: 07/16/20 17:01 Dose: 1,000 mg Documented by: Apixaban (Apixaban 5 Mg Tablet) 5 mg PO BID@0800,1800 [facility] Last Admin: 07/22/20 17:10 Dose: 5 mg Documented by: Atorvastatin Calcium (Atorvastatin Calcium 20 Mg Tablet) 20 mg PO QHS [facility] Last Admin: 07/22/20 20:22 Dose: 20 mg Documented by: Bisacodyl (Bisacodyl 10 Mg Suppository) 10 mg RECTAL DAILY PRN PRN Reason: Constipation Calamine/Phenol (Menthol/Lanolin/Calamine/Znox 113 Gm Tube) 1 applic TOPICAL 0600,2200 [facility]; Protocol Last Admin: 07/23/20 06:54 Dose: 1 applicatio Documented by: Doxycycline Monohydrate (Doxycycline 100 Mg Capsule) 100 mg PO Q12 [facility] Stop: 07/28/20 14:31 Last Admin: 07/23/20 06:55 Dose: 100 mg Documented by: Emollient Ointment (Emollient Combination No.72 500 Ml Lotion) 1 applic TOPICAL 0600,2200 [facility]; Protocol Last Admin: 07/23/20 06:55 Dose: 1 applicatio Documented by: Ferrous Sulfate (Ferrous Sulfate 325 Mg Tablet) 325 mg PO DAILY@1200 LIBIA Last Admin: 07/22/20 11:20 Dose: 325 mg Documented by: Fluticasone Propionate (Fluticasone 0.05% 1 [place] Nasal.Sry) 1 spray NASAL BID@0800,1999 [facility] Last Admin: 07/22/20 20:17 Dose: 1 spray Documented by: Heparin Sodium (Beef Lung) (Heparin Pf Lock 10 Units/Ml 50 Units/5 Ml Syringe) 50 units IV UD PRN PRN Reason: PICC Line Heparin Flush Last Admin: 07/14/20 10:13 Dose: 50 units Documented by: Sodium Chloride () 250 mls @ 15 mls/hr IV .[id number] PRN PRN Reason: Saline Flush Last Infusion: 07/12/20 01:45 Dose: Infused Documented by: Sodium Chloride () 250 mls @ 15 mls/hr IV .[id number] PRN PRN Reason: Additional IVPB Infusion L-Arginine/L-Glutamine/Calcium HMB (Campos (Unflavored) Packet) [facility] Last Admin: 07/22/20 17:10 Dose: 1 packet Documented by: Magnesium Hydroxide (Magnesium Hydroxide 30 Ml [facility]) 30 ml PO DAILY PRN PRN Reason: Constipation Last Admin: 07/08/20 22:05 Dose: 30 ml Documented by: Metoprolol Tartrate (Metoprolol Tartrate 25 Mg Tablet) [facility] Last Admin: 07/22/20 08:55 Dose: 25 mg Documented by: Nystatin (Nystatin Powder 15gm Bottle) 1 applic TOPICAL BID [facility]; Protocol Last Admin: 07/23/20 06:55 Dose: 1 applicatio Documented by: Ondansetron HCl (Ondansetron Odt 4 Mg Tablet) 8 mg PO Q8H PRN PRN PRN Reason: NAUSEA Last Admin: 07/22/20 11:28 Dose: 8 mg Documented by: Oxycodone HCl (Oxycodone 5 Mg Tablet) 10 mg PO Q4H PRN PRN Reason: Pain Score 6-10 Last Admin: 07/22/20 08:53 Dose: 10 mg Documented by: Polyethylene Glycol (Polyethylene Glycol 3350 17 Gm Packet) [facility] Last Admin: 07/22/20 08:55 Dose: 17 gm Documented by: Potassium Chloride (Potassium Chloride 20 Meq Tablet) 20 meq [facility] Last Admin: 07/22/20 08:55 Dose: 20 meq Documented by: Povidone Iodine (Povidone-Iodine Swabstick) 1 packet TOPICAL DAILY@1000 [facility]; Protocol Last Admin: 07/22/20 11:25 Dose: Not Given Documented by: Senna/Docusate Sodium (Senna/Docusate Sodium 1 Tablet) 2 tablet PO BID@0800,1800 [facility] Last Admin: 07/22/20 17:10 Dose: 2 tablet Documented by: Sodium Chloride (0.9% Saline Lock 10 Ml Syringe) 10 - 40 ml IV UD PRN PRN Reason: Open End PICC Flush Last Admin: 07/22/20 11:20 Dose: 20 ml Documented by: Sodium Chloride (0.9 % Nacl (Sterile) Posiflush 10 Ml) 10 - 40 ml IV UD PRN PRN Reason: Port access or dressing change Tramadol HCl (Tramadol 50 Mg Tablet) 100 mg PO Q6H PRN PRN PRN Reason: Pain Score 4-5 Last Admin: 07/20/20 23:32 Dose: 100 mg Documented by: Medical Necessity - Tobacco Use Smoking Status: Never smoker Tobacco Use: Non-smoker Assessment/Plan All Active Problems (This Medical Record has been edited. Action required.) Debility (Acute) Cellulitis of right lower extremity (Acute) Necrosis of subcutaneous tissue (Acute) Cellulitis of right lower leg (Acute) Skin necrosis (Acute) Cellulitis of left lower leg (Acute) UTI (urinary tract infection) (Acute) Sepsis (Acute) Anasarca (Acute) Onychocryptosis status nail avulsion post medial and lateral hallux nail borders Cellulitis resolved Examination performed. Her vitals are stable and she is afebrile. She is status post nail avulsion. She is reassured no local signs of infection are appreciated. Dressing was changed with Aquacel Ag and a dry gauze. To wash with antibacterial soap and water daily. Recommend changing this dressing every 24-48 hours. Ok to d/c oral doxycycline for paronychia treatment. She will be seen next week if she is still in the transitional care unit otherwise she can follow-up in outpatient setting [facility] with Dr. Milner. Nan Flannery DPM, [facility] [phone]
[2020-07-23 08:59] VITALS: BP 84/45; PULSE 107
[2020-07-23] MEDS: APIXABAN 5 MG TABLET PO ×2 (09:00→17:05)
[2020-07-23] MEDS: Polyethylene Glycol 3350 17 GM PACKET PO (09:00)
[2020-07-23] MEDS: Senna/Docusate Sodium 1 Tablet 2 TABLET PO ×2 (09:00→17:05)
[2020-07-23] MEDS: Fluticasone 0.05% 1 SPRAY NASAL.SRY NASAL ×2 (09:01→20:35)
[2020-07-23] MEDS: Juven (unflavored) Packet 1 PACKET PO ×2 (09:01→17:04)
--- NOTE | 2020-07-23 09:45 | PCA ---
chemist food went into wash her up this morning and she stated her pur wick was disinagrated and that she was bleeding down there, when we checked the pur wick was in very good condition and there was no evidence of any bleeding. said manager night had told her these things. she also rang this morning because she said she didnt get her breakfast, when i called [facility] they told me because she didnt order any breakfast. she told me she gave her menu to the manager night nurse last night to turn in. i asked manager night and they said no she never did give them anything last night.
[2020-07-23] MEDS: oxyCODONE 5 MG Tablet 10 MG PO ×2 (10:26→20:38)
[2020-07-23] MEDS: Acetaminophen 500 MG Tablet 1000 MG PO (10:26)
--- NOTE | 2020-07-23 12:18 | NURSING ---
Attempted to flush purple PICC line without success. Red line flushes with good blood return. Nursing supervisor kennel made aware.
[2020-07-23] MEDS: Alteplase 2 MG/2 ML Vial IV (12:51)
[2020-07-23] MEDS: Ferrous Sulfate 325 MG Tablet PO (13:01)
[2020-07-23] MEDS: traMADol 50 MG Tablet 100 MG PO (13:01)
--- NOTE | 2020-07-23 13:33 | PCM.PN.SRG ---
Patient Problems: Active and Suspected Problems (This Medical Record has been edited. Action required.) Debility (Acute) Cellulitis of right lower extremity (Acute) Sepsis (Acute) Subjective: Patient is in bed. Getting wound VAC changed. - Physical Exam Vitals/I&O's: Vital Signs Temp Pulse Resp BP Pulse Ox 97.8 F 107 H 16 84/45 L 95 07/23/20 05:00 07/23/20 08:59 07/23/20 05:00 07/23/20 08:59 07/23/20 05:00 Oxygen Flow Rate (L/min) 2 Oxygen Delivery Method Room Air Weight: 282 lb 5.987 oz Body Mass Index (BMI) 47.2 Intake and Output for Last 24 Hours 07/21/20 07/22/20 07/23/20 23:59 23:59 23:59 Intake Total 1480 / 1480 1080 / 1080 240 / 240 Output Total 1150 / 1150 1000 / 1000 Balance 330 / 330 1080 / 1080 -760 / -760 General: Alert, Oriented x3 HEENT: Atraumatic Oral: Moist Mucosa Lungs: Normal air movement Cardiovascular: Regular rate Abdomen: Obese Extremities: Capillary Refill Less than 3 Seconds, Diminished Peripheral Pulses - Diminished pedal pulses bilaterally., Edema Skin: Ulcer/ Wound - Left posterior leg. Right posterior leg ulcer receiving a wound VAC change. The area medially to the ulcer has an area of ortiz, soft , necrotic tissue that I was able to debride at the bedside with pickups and scissors. Unable to completely debride all the slough. Will place the wound VAC., - - Bilateral heels are pink. Right heel is tender to palpation and has a mushy tone. Musculoskeletal: Muscle Wasting, Tenderness Neurological: Cranial nerves II-XII grossly intact Psych/Mental Status: Normal Affect, Appropriate Microbiology Past 72 Hours 07/18/20 14:15 Wound - Right Foot Gram Stain - Final 07/18/20 14:15 Wound - Right Foot Wound Culture - Final Coag Negative Staph 07/18/20 14:15 Wound - Right Foot Anaerobic Culture - Final No anaerobic bacteria isolated. 07/21/20 14:00 Nasal Secretion SARS-CoV-2 Antigen (Rapid) - Final Laboratory Results 07/23/20 04:55: WBC 13.2 H, RBC 3.25 L, Hgb 9.5 L, Hct 30.1 L, MCV 92.6, MCH 29.2, MCHC 31.6 L, RDW Std Deviation 52.6 H, RDW Coeff of Galindo 15.7 H, Plt Count 437, MPV 8.7, Neut % (Auto) Not Reportable, Absolute Neuts (auto) 9.8 H, Absolute Lymphs (auto) 1.70, Total Counted 100, Neutrophils % (Manual) 74 H, Lymphocytes % (Manual) 13 L, Monocytes % (Manual) 8, Metamyelocytes % 5 H, Diff Path Review November, Platelet Estimate ADEQUATE, RBC Morphology NORM C+C 07/23/20 04:55: Sodium 133 L, Potassium 4.2, Chloride 98, Carbon Dioxide 29.0, Anion Gap 6, BUN 58 H, Creatinine 2.20 H, Estim Creat Clear Calc 22.02, Est GFR (MDRD) Af Amer 29 L, Est GFR (MDRD) Non-Af 24 L, BUN/Creatinine Ratio 26.4 H, Glucose 84, Calcium 9.6 Current Medications Acetaminophen (Acetaminophen 500 Mg Tablet) 1,000 mg PO Q6H PRN PRN Reason: Pain Score 1-3 Last Admin: 07/23/20 10:26 Dose: 1,000 mg Documented by: Apixaban (Apixaban 5 Mg Tablet) 5 mg PO BID@0800,1800 [facility] Last Admin: 07/23/20 09:00 Dose: 5 mg Documented by: Atorvastatin Calcium (Atorvastatin Calcium 20 Mg Tablet) 20 mg PO QHS [facility] Last Admin: 07/22/20 20:22 Dose: 20 mg Documented by: Bisacodyl (Bisacodyl 10 Mg Suppository) 10 mg RECTAL DAILY PRN PRN Reason: Constipation Calamine/Phenol (Menthol/Lanolin/Calamine/Znox 113 Gm Tube) 1 applic TOPICAL 0600,2200 [facility]; Protocol Last Admin: 07/23/20 06:54 Dose: 1 applicatio Documented by: Emollient Ointment (Emollient Combination No.72 500 Ml Lotion) 1 applic TOPICAL 0600,2200 [facility]; Protocol Last Admin: 07/23/20 06:55 Dose: 1 applicatio Documented by: Ferrous Sulfate (Ferrous Sulfate 325 Mg Tablet) 325 mg PO DAILY@1200 [facility]IA Last Admin: 07/23/20 13:01 Dose: 325 mg Documented by: Fluticasone Propionate (Fluticasone 0.05% 1 [place] Nasal.Sry) 1 spray NASAL BID@0800,1999 [facility] Last Admin: 07/23/20 09:01 Dose: 1 spray Documented by: Heparin Sodium (Beef Lung) (Heparin Pf Lock 10 Units/Ml 50 Units/5 Ml Syringe) 50 units IV UD PRN PRN Reason: PICC Line Heparin Flush Last Admin: 07/14/20 10:13 Dose: 50 units Documented by: Sodium Chloride () 250 mls @ 15 mls/hr IV .[id number] PRN PRN Reason: Saline Flush Last Infusion: 07/12/20 01:45 Dose: Infused Documented by: Sodium Chloride () 250 mls @ 15 mls/hr IV .[id number] PRN PRN Reason: Additional IVPB Infusion L-Arginine/L-Glutamine/Calcium HMB (Campos ([facility]flavored) Packet) [facility] Last Admin: 07/23/20 09:01 Dose: 1 packet Documented by: Magnesium Hydroxide (Magnesium Hydroxide 30 Ml [facility]) 30 ml PO DAILY PRN PRN Reason: Constipation Last Admin: 07/08/20 22:05 Dose: 30 ml Documented by: Metoprolol Tartrate (Metoprolol Tartrate 25 Mg Tablet) [facility] Last Admin: 07/23/20 08:59 Dose: Not Given Documented by: Nystatin (Nystatin Powder 15gm Bottle) 1 applic TOPICAL BID [facility]; Protocol Last Admin: 07/23/20 06:55 Dose: 1 applicatio Documented by: Ondansetron HCl (Ondansetron Odt 4 Mg Tablet) 8 mg PO Q8H PRN PRN PRN Reason: NAUSEA Last Admin: 07/22/20 11:28 Dose: 8 mg Documented by: Oxycodone HCl (Oxycodone 5 Mg Tablet) 10 mg PO Q4H PRN PRN Reason: Pain Score 6-10 Last Admin: 07/23/20 10:26 Dose: 10 mg Documented by: Polyethylene Glycol (Polyethylene Glycol 3350 17 Gm Packet) [facility] Last Admin: 07/23/20 09:00 Dose: 17 gm Documented by: Potassium Chloride (Potassium Chloride 20 Meq Tablet) [facility]q [facility] Last Admin: 12/23/20 09:00 Dose: 20 meq Documented by: Povidone Iodine (Povidone-Iodine Swabstick) 1 packet TOPICAL DAILY@1000 [facility]; Protocol Last Admin: 07/22/20 11:25 Dose: Not Given Documented by: Senna/Docusate Sodium (Senna/Docusate Sodium 1 Tablet) 2 tablet PO BID@0800,1800 [facility] Last Admin: 07/23/20 09:00 Dose: 2 tablet Documented by: Sodium Chloride (0.9% Saline Lock 10 Ml Syringe) 10 - 40 ml IV UD PRN PRN Reason: Open End PICC Flush Last Admin: 07/22/20 11:20 Dose: 20 ml Documented by: Sodium Chloride (0.9 % Nacl (Sterile) Posiflush 10 Ml) 10 - 40 ml IV UD PRN PRN Reason: Port access or dressing change Tramadol HCl (Tramadol 50 Mg Tablet) 100 mg PO Q6H PRN PRN PRN Reason: Pain Score 4-5 Last Admin: 07/23/20 13:01 Dose: 100 mg Documented by: Medical Necessity - Tobacco Use Smoking Status: Never smoker Tobacco Use: Non-smoker Assessment/Plan All Active Problems (This Medical Record has been edited. Action required.) Debility (Acute) Cellulitis of right lower extremity (Acute) Necrosis of subcutaneous tissue (Acute) Cellulitis of right lower leg (Acute) Skin necrosis (Acute) Cellulitis of left lower leg (Acute) UTI (urinary tract infection) (Acute) Sepsis (Acute) Anasarca (Acute) 1. Nonhealing painful infected ulcer left posterior leg. 2. Nonhealing painful infected ulcer right lateral leg with skin necrosis. 3. Sepsis. 4. [facility] use of anticoagulant - Eliquis. 5. Chronic venous insufficiency with ulceration. 6. Obesity. Preop wound culture shows Pseudomonas aeroginosa. Operative cultures from 07/04/20 right leg ulcer positive for Staphylococcus capitis and Corynebacterium striatum. Left leg positive for Pseudomonas aeroginosa, Corynebacterium striatum, Pseudomonas mendocina. She was placed on Meropenem and Doxycycline which she completed per ID. She has completed Doxycycline from Dr. Milner for her right 1st toenail with paronychia. Right posterior leg ulcer with area medial portion with slough and necrotic tissue that was debrided at the bedside. Will place the wound VAC reapplied at 150 mmHg to both bilateral leg ulcers. If the right posterior ulcer where there was a selective debridement done at the bedside does not improve, then it may require further operative debridement by Dr. Pedersen. Bilateral heels are pink and sore, right heel is soft and mushy. Skin intact. Continue to wear heel protectors and place pillow to keep heels off of the bed. Prealbumin was 12.8. Encourage nutritional supplementation with protein to help the healing process. After discharge will followup at the [facility]. If there is a plateau in the healing process, can proceed with delayed closure with skin grafting.
[2020-07-23 14:28] VITALS: PULSE 114; RESP 20; O2SAT 92
[2020-07-23 14:38] LABS: Pathologist Review Reviewed
[2020-07-23 14:47] VITALS: BP 82/52; PULSE 114; RESP 20; TEMP 36.3; O2SAT 92
[2020-07-23] MEDS: Povidone-Iodine Swabstick 1 PACKET TOPICAL (17:03)
[2020-07-23] MEDS: Ondansetron ODT 4 MG Tablet 8 MG PO (17:12)
[2020-07-23] MEDS: Atorvastatin Calcium 20 MG Tablet PO (20:35)
[2020-07-24] MEDS: Acetaminophen 500 MG Tablet 1000 MG PO (01:49)
[2020-07-24 04:00] VITALS: BP 81/42; PULSE 108; RESP 18; TEMP 36.8; O2SAT 95
[2020-07-24] MEDS: Menthol/Lanolin/Calamine/Znox 113 GM Tube 1 APPLIC TOPICAL ×2 (05:07→19:55)
[2020-07-24] MEDS: Nystatin Powder 15gm Bottle 1 APPLIC TOPICAL ×2 (05:08→17:08)
[2020-07-24] MEDS: 0.9% Saline Lock 10 ML Syringe IV ×3 (05:21→14:00)
[2020-07-24 05:36] LABS: Anion Gap 8 (5-15); BUN 70 mg/dL (7-18); BUN/Creat Ratio 23.8 RATIO (10-20); Calcium,Total 9.2 mg/dL (8.5-10.1); Chloride 95 mmol/L (98-107); Creatinine, Serum 2.94 mg/dL (0.55-1.02); EST Glomerular Filtration Rate 17 mL/min (>60); Est Glom Filt Rate - Afr Amer 20 mL/min (>60); Estimated Creatinine Clearance 16.48 ml/min; Glucose 78 mg/dL (74-106); Potassium 4.5 mmol/L (3.5-5.1); Sodium Level 130 mmol/L (136-145)
[2020-07-24] MEDS: oxyCODONE 5 MG Tablet 10 MG PO ×2 (09:24→19:43)
[2020-07-24] MEDS: Ondansetron ODT 4 MG Tablet 8 MG PO (09:25)
[2020-07-24] MEDS: APIXABAN 5 MG TABLET PO ×2 (09:26→17:08)
[2020-07-24] MEDS: Fluticasone 0.05% 1 SPRAY NASAL.SRY NASAL ×2 (09:28→19:39)
[2020-07-24] MEDS: Senna/Docusate Sodium 1 Tablet 2 TABLET PO (10:41)
[2020-07-24 10:44] VITALS: BP 117/47; PULSE 109
[2020-07-24] MEDS: Metoprolol Tartrate 25 MG Tablet PO (10:44)
[2020-07-24] MEDS: Alteplase 2 MG/2 ML Vial IV (11:36)
[2020-07-24] MEDS: Povidone-Iodine Swabstick 1 PACKET TOPICAL (13:59)
[2020-07-24 14:17] VITALS: BP 94/55; PULSE 106; RESP 11; TEMP 36.7
--- NOTE | 2020-07-24 15:43 | PN_ITS ---
Progress Note Asked by nursing to see patient for low BP and low urine OP. This is a 70-year-old female with a past medical history of morbid obesity, obstructive sleep apnea, atrial fibrillation, this insufficiency, chronic anticoagulation with apixaban, hyperlipidemia, GERD, hypertension and history of nephrolithiasis who was admitted to the transitional care unit on 07/08/2020 for treatment of cellulitis of the lower extremities and nonhealing wounds of both lower extremities. She currently has wound vacs and I reviewed the notes of the wound care nurse who changed the wound VAC yesterday. I also reviewed Dr. Flannery's note from 07/23/2020. Medication list was reviewed. Her only blood pressure medication is metoprolol 25 mg p.o. daily. She is taking oxycodone 10 mg usually twice daily for pain. She takes a rare tramadol 100 mg. Last dose of tramadol was 07/23/2020. She is on no antibiotics currently and she is not on a diuretic. H&P was reviewed. she was admitted to the hospital on 07/08/20. She has been in other SNF's for wound care and has also been in [facility]. She has OA of the knees and does not ambulate. she gets around on a scooter and she lays in bed a lot. Has been declining getting out of bed and a asad is being used to move her. OT documents that she has not been OOB since March. She has been afebrile. She is tachycardic with heart rates ranging from 10 6-1 14 over the past 2 days. Current blood pressure is 94/55 but was 81/42 at 04 100 today. She is maintaining appropriate oxygen saturation on room air. Poor oral intake. Weight has decreased from 284 pounds at admission on 07/08/2022 282 pounds and 6 ounces on 07/23/2020. All lab was personally reviewed. White blood cell count on 07/23/2020 was 13.2. She had 74% neutrophils and 5% metamyelocytes. Platelets are within normal limits. Creatinine has increased from 0.62 on 07/21/2022 2.2 on 07/23/2020. She had an echocardiogram in May 2020 that showed a 60% ejection fraction with no wall motion abnormalities. Atria were of normal size. No significant valvular heart disease. Poor appetite and intake the past week due to nausea and some dry heaves. She thinks it is the pain medication that causes the nausea. She sat in the chair today with her legs dependent for the first time since being admitted. I looked at the photos of the wounds and they appear to be stage 3 decubs to the posterior R and left LE over the calf. There are brown areas of necrosis and yellow areas of slough. There is some red granulation tissue present. She also has Stage 1 and 2 pressure ulcers over the buttocks. When entered the room she was lying flat on her back and the foot of the bed was in a vascular position so the legs are dependent. She is pale MM are dry There is no JVD She is not tachypneic and she has no conversational dyspnea She does not appear to be in any distress She is not mobile in the bed The heart is regular with an increased HR, no gallop abd is obese but soft and NT Lungs are CTA anteriorly She can not really be turned from side to side in the bed and so she is mostly on her back with pressure on the buttocks and the wounds. The urine is very concentrated......has been using a purewik catheter. Impressions 1. ARF - suspect due to IV volume depletion 2. Hyponatremia 3. non-healing stage 3 decubitus ulcers on the posterior R and L calves 4. stage 1 and 2 decubitus ulcers on the buttocks 5. hypotension 6. LILLIE - does not wear PAP device 7. OA 8. venous insufficiency 9. Morbid obesity 10. I suspect she has Pulmonary HTN that contributes to the LE edema Insert a Perez for accurate output in this patient with oliguria, hypotension and tachycardia today Accurate I&O check a UA and urine culture urine sodium and creatinine Start an IV of NS at 100 Hold the Metoprolol for a systolic < 100 recheck lab in the AM If there is no improvement in creat with hydration will get a renal US and consult nephrology I suspect that these wounds are not going to heal unless more aggressive pressure relief is instituted. Her size and immobility preclude any effective pressure relief in the beds we have available. start a PPI Continue Zofran Hold Potassium - it is 4.5 today and she is in ARF STROKE Vital Signs/Narrative: Vital Signs Temp Pulse Resp BP 07/24/20 14:17 98.0 F 106 H 11 L 94/55 L Inpatient E&M: 08152 Subs Hosp L3
[2020-07-24] MEDS: Juven (unflavored) Packet 1 PACKET PO (17:08)
[2020-07-24] MEDS: 0.9% Normal Saline 1,000 ML 100 ML IV (17:23)
[2020-07-24] MEDS: Atorvastatin Calcium 20 MG Tablet PO (19:43)
[2020-07-24 20:02] LABS: Mucous, Urine 0 SEEN /hpf (<or=2+); Red Blood Cells-Urine 0 SEEN /hpf (0-5)
[2020-07-24 20:08] LABS: Color, Urine Yellow (Yellow); Glucose, Dipstick Normal (Normal); Ketone-Dipstick Negative (Negative); Leukocyte Esterase-Dipstick 500 /ul (Negative); Nitrite-Dipstick Negative (Negative); Occult Blood-Urine 50 /ul (Negative); Protein-Dipstick 30 mg/dl (Negative); Urine Bilirubin Dipstick Negative (Negative); Urine Clarity Cloudy (Clear); Urine Urobilinogen Normal (Normal)
[2020-07-24 20:20] LABS: Bacteria 1+ /hpf (None Seen); Squamous Epithelial Cells - UA 0-5 SEEN /hpf (5-10); White Blood Cells 50-100 SEEN /hpf (0-5)
[2020-07-24 20:25] LABS: Urine Sodium 10 mmol/L (Not Establ.)
--- NOTE | 2020-07-25 00:32 | NURSING ---
Wound vac alarming 2345. RN and FOREST ECOLOGIST entered room. Blockage alert. Dried blood clot noted to left leg hose close to foam connector. RN informed patient the drsg needs to be changed. Patient stated, just leave it I don't want the pain to chelle Mims. RN informed patient the wound vac drsg can no be left with out proper suction or it can cause more damage. RN informed patient she could attempt to change the connector and not the entire drsg to allow proper suction. Patient agreeable. Patient began crying before RN even started removing tape. RN gently removed old tape and connector. RN gently applied new tape and connector. RN and FOREST ECOLOGIST talked to patient throughout connecter change and provided distraction for patient as patient focused on pain. New connector provided proper suction. RN and FOREST ECOLOGIST adjusted patient in bed for comfort. Patient denied further needs.
[2020-07-25] MEDS: 0.9% Normal Saline 1,000 ML 100 ML IV ×2 (03:55→22:15)
[2020-07-25] MEDS: oxyCODONE 5 MG Tablet 10 MG PO ×3 (03:58→22:23)
[2020-07-25 04:00] VITALS: BP 95/50; PULSE 93; RESP 18; TEMP 36.4; O2SAT 92
[2020-07-25] MEDS: Nystatin Powder 15gm Bottle 1 APPLIC TOPICAL ×2 (04:07→17:42)
[2020-07-25] MEDS: Menthol/Lanolin/Calamine/Znox 113 GM Tube 1 APPLIC TOPICAL ×2 (04:07→20:43)
[2020-07-25 06:15] LABS: Hematocrit 28.6 % (37-47); Hemoglobin 8.6 g/dL (12.0-15.0); Mean Corp Hgb Conc 30.1 g/dL (32-36); Mean Corpuscular Hgb 29.4 pg (27.0-32.0); Mean Corpuscular Volume 97.6 fL (81-99); Mean Platelet Vol. 8.5 fl (6.2-12.0); POSITIVE COUNT YES; POSITIVE DIFFERENTIAL YES; POSITIVE MORPHOLOGY YES; Platelet Count 376 K/mm3 (150-450); RBC Distribution Width CV 15.9 % (11.6-14.6); RBC Distribution Width SD 56.7 fl (35.1-43.9); Red Blood Count 2.93 M/mm3 (4.2-5.4); White Blood Count 12.2 K/mm3 (4.4-11.0)
[2020-07-25 06:34] LABS: Differential Indicated MANUAL DIFF
[2020-07-25 06:40] LABS: ALB/GLOB Ratio 0.3 RATIO (0.9-2.4); AST(SGOT) 28 U/L (15-37); Alanine Aminotransfer ALT/SGPT 15 U/L (13-56); Albumin, Serum 1.3 g/dL (3.2-5.0); Alkaline Phosphatase 84 U/L (45-117); Anion Gap 6 (5-15); BUN 72 mg/dL (7-18); BUN/Creat Ratio 30.3 RATIO (10-20); Calcium,Total 8.9 mg/dL (8.5-10.1); Chloride 99 mmol/L (98-107); Creatinine, Serum 2.38 mg/dL (0.55-1.02); EST Glomerular Filtration Rate 22 mL/min (>60); Est Glom Filt Rate - Afr Amer 26 mL/min (>60); Estimated Creatinine Clearance 20.36 ml/min; Globulin 4.5 g/dL (2.2-4.2); Glucose 87 mg/dL (74-106); Magnesium 1.4 mg/dL (1.6-2.6); Potassium 4.2 mmol/L (3.5-5.1); Protein, Total 5.8 g/dL (6.4-8.2); Sodium Level 130 mmol/L (136-145)
[2020-07-25 06:54] LABS: Eosinophil 6 % (0-5); Lymphocyte 22 % (19-41); Monocyte 9 % (0-10); Neutrophil-Band 2 % (0-5); Neutrophil-Segmented 61 % (47-70); Platelet Estimate ADEQUATE (ADEQ); Platelet Morphology COMM; Red Cell Morphology NORM C+C NORMAL (NORM C&C); Total Cells Counted 100 (MANUAL DIFF)
[2020-07-25 06:55] LABS: Absolute Lymphocyte Count 2.68 X10^3/uL (0.83-4.51); Absolute Neutrophil Count 7.7 X10^3/uL (2.0-7.7); Lymphocyte # 2.68 X10^3/ul (4.0); Neutrophil # 7.68 X10^3/uL (2.7-7.7)
[2020-07-25] MEDS: Juven (unflavored) Packet 1 PACKET PO ×2 (08:47→17:43)
[2020-07-25 08:48] VITALS: BP 101/44; PULSE 104
[2020-07-25] MEDS: Senna/Docusate Sodium 1 Tablet 2 TABLET PO ×2 (08:48→17:41)
[2020-07-25] MEDS: Polyethylene Glycol 3350 17 GM PACKET PO (08:48)
[2020-07-25] MEDS: Fluticasone 0.05% 1 SPRAY NASAL.SRY NASAL ×2 (08:48→20:23)
[2020-07-25] MEDS: Metoprolol Tartrate 25 MG Tablet PO (08:48)
[2020-07-25] MEDS: APIXABAN 5 MG TABLET PO (08:48)
[2020-07-25] MEDS: Acetaminophen 500 MG Tablet 1000 MG PO (08:58)
--- NOTE | 2020-07-25 09:04 | PN_ITS ---
Progress Note Afebrile Blood pressure is improving and today is 101/44. The heart rate is down to 93 at 4 AM this morning and currently while she is awake is 104. She had 750 cc of urine out overnight. Perez catheter was placed yesterday for excoriated perineum and for accurate I&O in a patient with acute renal failure and decreased urine output of 200 cc yesterday. The recorded oral intakes are very poor. All labs personally reviewed. The white blood cell count today is 12.2 with an unremarkable differential except for a mild increase in eosinophils to 6%. Hemoglobin is 8.6 and the platelets are within normal limits. Sodium remains at 130 today but the chloride is up to 99. The BUN is 72 and the creatinine is 2.38, down from 2.94 on 07/24/2020. Magnesium is low at 1.4 and phosphorus is normal at 4. Albumin is markedly decreased at 1.3. UA yesterday showed 50-100 WBCs per high-power field with +1 bacteria. Urine sodium was low at 10. The fractional excretion of sodium is 0.3% which is consistent with prerenal azotemia. She was given a 500 cc bolus of saline yesterday and is currently on normal saline at 100 cc/h. 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 alert, lying in bed on her back with the legs dependent on pillows there is much less edema in the dorsum of the feet today The urine is a little cloudy Lungs are CTA anteriorly. HRRR Impressions 1. Acute renal failure secondary to intravascular volume to lesion due to severe hypoalbuminemia with third spacing of fluids 2. Severe hypoalbuminemia 3. Urinary tract infection 4. Proteinuria 5. Nonhealing stage III pressure ulcers on the posterior calf bilaterally 6. Super obesity 7. Stage I and II decubitus ulcers over the sacrum/buttocks-due to the patient's size nursing is not able to turn her adequately 8. venous insufficiency 9. suspected pulmonary HTN 10. LILLIE - non-compliant with PAP Continue IV fluids DC Tramadol and continue the Oxycodone recheck a BMP in the AM Supplement the MAG and recheck in the AM Decrease apixaban to 2.5 mg p.o. twice daily in light of decreased creatinine clearance at 20.36. Give 2 doses of Albumin, 1 today and 1 at 2100, to mobilize the third spaced fluids in the LE's Start Rocephin empirically and await the results of the urine culture I have little hope that these wounds are going to heal without getting her into a large bed and this bed must be a low air loss mattress......a Clinitron would be better. We need to mobilize her and get her off her back. Intake poor. Start Vitamin C, Zinc and Vitamin E for wound healing. Continue the Campos. STROKE Vital Signs/Narrative: Vital Signs Pulse BP 07/25/20 08:48 104 H 101/44 L Inpatient E&M: 94186 Subs Hosp L2
[2020-07-25] MEDS: Albumin Human 25% (100 mL) 25 GM/100 ML BAG IV ×2 (11:12→20:24)
[2020-07-25] MEDS: Acetaminophen 325 MG Tablet 650 MG PO ×3 (11:15→20:22)
[2020-07-25 11:36] VITALS: PULSE 104; RESP 20; O2SAT 94
[2020-07-25] MEDS: Povidone-Iodine Swabstick 1 PACKET TOPICAL (11:50)
[2020-07-25] MEDS: Ferrous Sulfate 325 MG Tablet PO (11:51)
[2020-07-25] MEDS: Ondansetron ODT 4 MG Tablet 8 MG PO (12:51)
[2020-07-25] MEDS: Magnesium Sulfate 4gm/100mL 4 GM/100 ML IV.SOLN. IV (13:27)
[2020-07-25 15:25] VITALS: BP 101/44; PULSE 104; RESP 20; TEMP 36.6; O2SAT 94
[2020-07-25] MEDS: APIXABAN 2.5 MG TABLET PO (19:27)
[2020-07-25] MEDS: Atorvastatin Calcium 20 MG Tablet PO (20:22)
[2020-07-25] MEDS: 0.9% Saline Lock 10 ML Syringe IV ×2 (20:41→22:16)
[2020-07-26 03:34] VITALS: BP 108/62; PULSE 85; RESP 20; TEMP 36.4; O2SAT 95
[2020-07-26] MEDS: Acetaminophen 325 MG Tablet 650 MG PO ×3 (06:58→20:08)
[2020-07-26] MEDS: Magnesium Chloride 64 MG Delay Rel.Tablet 128 MG PO (06:58)
[2020-07-26] MEDS: Nystatin Powder 15gm Bottle 1 APPLIC TOPICAL ×2 (06:59→18:05)
[2020-07-26] MEDS: 0.9% Normal Saline 1,000 ML 100 ML IV (07:03)
[2020-07-26] MEDS: Fluticasone 0.05% 1 SPRAY NASAL.SRY NASAL ×2 (08:35→20:09)
[2020-07-26] MEDS: Juven (unflavored) Packet 1 PACKET PO ×2 (08:35→18:02)
[2020-07-26] MEDS: Polyethylene Glycol 3350 17 GM PACKET PO (08:35)
[2020-07-26] MEDS: Senna/Docusate Sodium 1 Tablet 2 TABLET PO ×2 (08:35→18:05)
[2020-07-26 08:36] VITALS: PULSE 85
[2020-07-26] MEDS: APIXABAN 2.5 MG TABLET PO ×2 (08:36→18:05)
[2020-07-26] MEDS: Metoprolol Tartrate 25 MG Tablet PO (08:36)
[2020-07-26 08:55] LABS: Anion Gap 4 (5-15); BUN 48 mg/dL (7-18); BUN/Creat Ratio 39.3 RATIO (10-20); Calcium,Total 9.3 mg/dL (8.5-10.1); Chloride 110 mmol/L (98-107); Creatinine, Serum 1.22 mg/dL (0.55-1.02); EST Glomerular Filtration Rate 47 mL/min (>60); Est Glom Filt Rate - Afr Amer 56 mL/min (>60); Estimated Creatinine Clearance 39.71 ml/min; Glucose 79 mg/dL (74-106); Magnesium 2.5 mg/dL (1.6-2.6); Potassium 3.6 mmol/L (3.5-5.1); Sodium Level 143 mmol/L (136-145)
[2020-07-26] MEDS: 0.9% Saline Lock 10 ML Syringe IV (09:46)
[2020-07-26] MEDS: Ferrous Sulfate 325 MG Tablet PO (12:19)
--- NOTE | 2020-07-26 12:41 | PCM.PN.BLA ---
Progress Note Day #1 Rocephin for UTI Afebrile VSS-heart rate is now down to 85 following hydration. Blood pressure this a.m. was 108/62. Maintaining appropriate oxygen saturation on RA Oral intake is poor-there was only 120 cc of oral intake recorded for 07/25/2020. She had a total of 2377 in and 2250 of urine. Discussed with nursing - She has been confused last night and today. Medication list reviewed. She sat at the edge of the bed with PT today for 20 minutes. Urine culture results are still pending. All lab was personally reviewed. Sodium is up to 143 today and the chloride is 110. Potassium is 3.6 and the BUN is down to 48 from 72. Creatinine is 1.22 today, down from 2.94 on 07/24/2020. Following supplementation the magnesium is 2.5, up from 1.4. She received 2 doses of 25 g of albumin yesterday and diuresed very well. alert, she was talking on the phone when I entered the room Lungs - CTA anterior HRRR abd - obese and NT the edema in the LE's is improving and the skin over the distal LE's is now wrinkled no focal neurologic deficits Impressions 1. ARF due to IV volume depletion -improving with hydration/diuresis 2. Hyponatremia - resolves. 3. severe hypoalbuminemia leading to third spacing of fluids 4. UTI 5. Hypomagnesemia resolved 6. proteinuria 7. encephalopathy due to infection +/- narcotics. Suspect the infection is the most likely culprit here since she had previously beentolerating 10 mg of Oxy without confusion Change IV fluid to D5 half-normal saline at 100 Continue Rocephin Decrease the Oxycodone due to confusion BMP, albumin, CBC, mag, Phos in the a.m. Await the results of the urine culture and sensitivities to change antibiotic. The wound vacs were not changed yesterday.......it is not recorded in the documentation. Today is day #3 without a wound vac change. D/W nursing and they will change the vacs and take photos. Inpatient E&M: 90800 Subs Hosp L2
[2020-07-26] MEDS: Potassium Chloride 10 MEQ in Dext 5%-0.45% NS 1,000 ML 100 MEQ IV (13:48)
[2020-07-26] MEDS: oxyCODONE 5 MG Tablet PO ×2 (14:57→20:07)
[2020-07-26 16:00] VITALS: BP 102/60; PULSE 86; RESP 18; TEMP 36.3; O2SAT 94
[2020-07-26] MEDS: Povidone-Iodine Swabstick 1 PACKET TOPICAL (18:01)
[2020-07-26] MEDS: Ascorbic Acid 500 MG Tablet PO (18:05)
--- NOTE | 2020-07-26 19:11 | NURSING ---
Wound vac dressing changed earlier this shift. Patient tolerated procedure fair.
[2020-07-26 19:13] VITALS: PULSE 110; RESP 22; O2SAT 93
[2020-07-26] MEDS: Menthol/Lanolin/Calamine/Znox 113 GM Tube 1 APPLIC TOPICAL (20:10)
[2020-07-26] MEDS: Atorvastatin Calcium 20 MG Tablet PO (20:10)
[2020-07-27] MEDS: Potassium Chloride 10 MEQ in Dext 5%-0.45% NS 1,000 ML 100 MEQ IV (00:21)
[2020-07-27 04:31] VITALS: BP 108/86; PULSE 92; RESP 16; TEMP 37; O2SAT 97
[2020-07-27] MEDS: Acetaminophen 325 MG Tablet 650 MG PO ×2 (04:34→20:04)
[2020-07-27] MEDS: Nystatin Powder 15gm Bottle 1 APPLIC TOPICAL ×2 (04:37→16:55)
[2020-07-27] MEDS: Menthol/Lanolin/Calamine/Znox 113 GM Tube 1 APPLIC TOPICAL ×2 (04:37→22:07)
[2020-07-27 05:50] LABS: Hematocrit 27.7 % (37-47); Hemoglobin 8.6 g/dL (12.0-15.0); Mean Corpuscular Hgb 29.7 pg (27.0-32.0); Mean Corpuscular Volume 95.5 fL (81-99); Mean Platelet Vol. 8.2 fl (6.2-12.0); Platelet Count 370 K/mm3 (150-450); RBC Distribution Width CV 16.2 % (11.6-14.6); RBC Distribution Width SD 56.4 fl (35.1-43.9); White Blood Count 9.7 K/mm3 (4.4-11.0)
[2020-07-27] MEDS: oxyCODONE 5 MG Tablet PO (06:02)
[2020-07-27 06:25] LABS: Anion Gap 6 (5-15); BUN 36 mg/dL (7-18); BUN/Creat Ratio 41.6 RATIO (10-20); Calcium,Total 9.2 mg/dL (8.5-10.1); Chloride 107 mmol/L (98-107); Creatinine, Serum 0.86 mg/dL (0.55-1.02); EST Glomerular Filtration Rate 69 mL/min (>60); Est Glom Filt Rate - Afr Amer 84 mL/min (>60); Estimated Creatinine Clearance 56.34 ml/min; Glucose 101 mg/dL (74-106); Phosphorus 1.8 mg/dL (2.5-4.9); Potassium 3.6 mmol/L (3.5-5.1); Sodium Level 139 mmol/L (136-145)
[2020-07-27 08:11] VITALS: PULSE 92
[2020-07-27] MEDS: APIXABAN 2.5 MG TABLET PO (08:11)
[2020-07-27] MEDS: Magnesium Chloride 64 MG Delay Rel.Tablet 128 MG PO (08:11)
[2020-07-27] MEDS: Metoprolol Tartrate 25 MG Tablet PO (08:11)
[2020-07-27] MEDS: Fluticasone 0.05% 1 SPRAY NASAL.SRY NASAL ×2 (08:12→20:01)
[2020-07-27] MEDS: Polyethylene Glycol 3350 17 GM PACKET PO (08:12)
[2020-07-27] MEDS: Juven (unflavored) Packet 1 PACKET PO ×2 (08:12→16:55)
[2020-07-27] MEDS: Senna/Docusate Sodium 1 Tablet 2 TABLET PO (08:12)
--- NOTE | 2020-07-27 10:35 | PCM.PN.BLA ---
Progress Note Day #2 Rocephin Afebrile VSS-hypotension has resolved with hydration. Maintaining appropriate oxygen saturation on RA Oral intake is improving. Yesterday she took 1640 in and today so far 1220. Good urine output - oliguria has resolved Last bowel movement was 07/23/2020. Discussed with nursing - Medication list reviewed. All lab was personally reviewed. Hemoglobin is stable at 8.6. Following initiation of Rocephin the WBC is now normal at 9.7. Platelets are within normal limits. Hyponatremia has resolved and today the sodium is 139. Potassium is 3.6 and the BUN is 36 with a creatinine of 0.86, down from 2.94 on 07/24/2020. Phosphorus is low today at 1.8 and the magnesium is good at 2.0. The urine culture is growing a an ESBL + E. Coli......it is sensitive to Cetriaxone. Also sensitive to Cefuroxime and FQ's. No change in PE today Lungs - diminished HRRR, no gallop edema in the legs keeps improving. The skin is wrinkled but also very dry no calf tenderness No focal neurologic deficits Impressions 1. UTI due to ESBL E. Coli - sensitive to Rocephin so will continue......WBC is finally normal. 2. Oliguric ARF - resolved with hydration 3. stage 3 pressure ulcers on BL posterior thighs 4. Stage 1 and 2 pressure ulcers on the sacrum/buttocks 5. super obesity 6. severe hypoalbuminemia leading to third spacing of fluids - good improvement in the LE edema with hydration (better renal function) and Albumin 7. Normochromic normocytic anemia - has been on full dose Apixaban.......does she just need prophylaxis? Venous US negative on 8. Hyponatremia-resolved 9. Hypophosphatemia-supplementation ordered 10. Leukocytosis-resolved with Rocephin 11. Hypotension-resolved with hydration 12. LILLIE-not compliant with PAP therapy 13. Chronic venous insufficiency Supplement the phosphorous DC IV fluids Continue to encourage her to increase the fluid intake Why is she on anticoagulation? IF it is for DVT prophylaxis we should continue 2.5 mg BID. I can find no where in the notes any hx of VTE? She had BL venous US's on 06/30/20 and then were negative for DVT. MOM today Should be able to get the hemoccult done today. BRIJESH, terrence, HH Tuesday Wound vac change on Tuesday.......needs debrided 24Hr urine while the Perez is in for 24 hour quantitative protein........could she be nephrotic? Need to address the bed situation.......can not turn her effectively because the bed is not big enough to get her comfortably on her side. Either need a bariatric bed to get her on her side and off her back OR she needs a Clinitron or other low air mattress. I am going to leave her on 2.5 mg of Apixaban for DVT prophylaxis. Will discuss with Dr. Layne if he knows of hx of VTE in the past that has been recurrent.....she is a poor historian STROKE Vital Signs/Narrative: Vital Signs Pulse 07/27/20 08:11 92 Inpatient E&M: [id number] Subs Hosp L3
[2020-07-27] MEDS: Povidone-Iodine Swabstick 1 PACKET TOPICAL (10:38)
[2020-07-27] MEDS: Ceftriaxone 1 GM/50 ML BAG IV (10:38)
[2020-07-27] MEDS: Ondansetron ODT 4 MG Tablet 8 MG PO (11:05)
--- NOTE | 2020-07-27 11:24 | NURSING ---
Patient to have urine collected over 24hrs. Emptied estrada at this time. Start of collection 07/27/20 at 1124. Collection to be completed 07/28/20 at 1124. Container for collection to remain on ice.
[2020-07-27] MEDS: Magnesium Hydroxide 30 ML UDC PO (11:30)
[2020-07-27] MEDS: Vitamin E 400 UNITS Capsule 800 UNITS PO (13:30)
[2020-07-27] MEDS: Na Biphos/Potassium Phosphate PACKET 1 PACKET PO ×3 (13:31→20:03)
[2020-07-27] MEDS: Ascorbic Acid 500 MG Tablet PO ×2 (13:31→16:55)
[2020-07-27] MEDS: Ferrous Sulfate 325 MG Tablet PO (13:32)
[2020-07-27 14:43] VITALS: PULSE 104; RESP 20; O2SAT 94
[2020-07-27 15:52] VITALS: BP 99/49; PULSE 87; RESP 18; TEMP 36.2; O2SAT 94
--- NOTE | 2020-07-27 18:36 | NURSING ---
Multiple attempts made to give evening medications. Patient refused because she states she does not feel good and feels sick to her stomach. Very confused this shift. Charge nurse made aware of resident status
[2020-07-27] MEDS: Atorvastatin Calcium 20 MG Tablet PO (22:09)
[2020-07-28 04:49] VITALS: BP 117/56; PULSE 100; RESP 16; TEMP 37.1; O2SAT 94
[2020-07-28] MEDS: Acetaminophen 325 MG Tablet 650 MG PO ×3 (04:51→20:41)
[2020-07-28] MEDS: Na Biphos/Potassium Phosphate PACKET 1 PACKET PO ×4 (04:51→20:42)
[2020-07-28] MEDS: Nystatin Powder 15gm Bottle 1 APPLIC TOPICAL ×2 (04:53→17:54)
[2020-07-28] MEDS: Menthol/Lanolin/Calamine/Znox 113 GM Tube 1 APPLIC TOPICAL ×2 (04:54→20:40)
[2020-07-28 09:14] VITALS: BP 112/63; PULSE 105
[2020-07-28] MEDS: Vitamin E 400 UNITS Capsule 800 UNITS PO (09:14)
[2020-07-28] MEDS: Ascorbic Acid 500 MG Tablet PO ×2 (09:14→17:53)
[2020-07-28] MEDS: Metoprolol Tartrate 25 MG Tablet PO (09:14)
[2020-07-28] MEDS: APIXABAN 2.5 MG TABLET PO ×2 (09:15→17:54)
[2020-07-28] MEDS: Juven (unflavored) Packet 1 PACKET PO ×2 (09:15→17:53)
[2020-07-28] MEDS: Magnesium Chloride 64 MG Delay Rel.Tablet 128 MG PO (09:15)
[2020-07-28] MEDS: Fluticasone 0.05% 1 SPRAY NASAL.SRY NASAL ×2 (09:16→20:40)
[2020-07-28] MEDS: Ceftriaxone 1 GM/50 ML BAG IV (10:25)
[2020-07-28] MEDS: 0.9% Saline Lock 10 ML Syringe IV (10:26)
--- NOTE | 2020-07-28 10:43 | CASEMGMT ---
Addendum entered by Kalyn Gentile 07/28/20 15:04: Pt's dtr contacted SW to get update as her brother called her. Explained below. Dtr stated she is realistic about pt not being well to DC home and believes her family is trying to keep her home but cannot provide the amount of care pt requires. Dtr concerned about cycle pt will be in with going home then back to the hosp. etc. Explained IDT is concerned as well. Explained recommendations for LTP at SNF until wounds can heal and she can care for herself safely at home. Pt is total assist and wounds are still severe. Dtr agrees and appreciates SW conversation. Met with pt to follow up. Pt stated she will try hard this week to make progress but doesn't feel ready to go home yet. Explained no DC date has been set, SW is just having conversations to explain insurance standpoint, and cannot continue to remain if not making progress. Encouraged pt to be motivated and push through any discomfort, to follow along to therapy and nursing instructions. Pt agreed. Will continue to follow. Original Note: Social Work Contacted family. Spoke with son, Naveen, and explained pt is refusing to get out of bed, not allowing nursing and therapy to assist pt fully. Pt not participating in rehab and healing of wound care. Explained pt is not making much progress and Medicare will not continue to approve skilled days if pt is not progressing. Dr. Bills had [id number] with pt about reality of pt's future if not allowing wounds to heal and to get further rehab. Inquired to son about DC plans and his thoughts on pt's progress. Son stated [place] are not moving to [place]. Pt would DC home. Son still confident they can take care of pt at home. Concerned about wound sand wound vac. Explained pt can DC home with wound vac, but reiterated pt is not getting out of bed to allow for wounds to heal. Inquired if son could have conversation with pt and SW would speak with pt as well. Son agreed and will try to motivate pt to participate more. SW to continue to follow. Kalyn Gentile, MITA ALVESW
[2020-07-28] MEDS: Ferrous Sulfate 325 MG Tablet PO (11:52)
[2020-07-28 11:58] LABS: 24 Hour Urine Protein 178.8 mg/24HR (<150 MG/24HR); 24HR. UA Prot. Total Volume 1525 mL; Urine Protein (24 Hour) 14.6 mg/dL (<11.9)
[2020-07-28 12:04] LABS: Pathologist Review Reviewed
[2020-07-28] MEDS: oxyCODONE 5 MG Tablet PO ×2 (13:26→17:57)
--- NOTE | 2020-07-28 14:25 | PCM.PROGNOTE ---
Patient Problems: Active and Suspected Problems (This Medical Record has been edited. Action required.) Debility (Acute) Cellulitis of right lower extremity (Acute) Sepsis (Acute) Subjective: Patient seen and examined bedside. Patient denies any N/F/V/C/CP/SOB. - Physical Exam Vitals/I&O's: Vital Signs Temp Pulse Resp BP Pulse Ox 98.7 F 105 H 16 112/63 94 07/28/20 04:49 07/28/20 09:14 07/28/20 04:49 07/28/20 09:14 07/28/20 04:49 Oxygen Flow Rate (L/min) 94 Oxygen Delivery Method Room Air Weight: 128.083 kg Body Mass Index (BMI) 47.2 Intake and Output for Last 24 Hours 07/26/20 07/27/20 07/28/20 23:59 23:59 23:59 Intake Total 4575 / 4575 2275 / 2275 420 / 420 Output Total 1800 / 1800 1500 / 1500 1000 / 1000 Balance 2775 / 2775 775 / 775 -580 / -580 General: Alert, Oriented x3 HEENT: Atraumatic Abdomen: Obese Extremities: No clubbing, No cyanosis, Capillary Refill Less than 3 Seconds, No Calf Tenderness, Diminished Peripheral Pulses, Edema Skin: Ulcer/ Wound - bilateral legs, covered with a wound vac with good seal, - - Nail avulsion sites appear healthy without active drainage. There is no erythema, purulence, streaking, odor or necrosis or bogginess or fluctuance on palpation. Some dried blood noted Musculoskeletal: No Tenderness to Palpation of Joints or Extremities, Muscle Wasting, - - left foot decreased muscle strength to all muscle groups Neurological: Sensory exam intact to light touch and pain Psych/Mental Status: Normal Affect, Appropriate, Alert and oriented to time, place, person, mood and affect Microbiology Past 72 Hours 07/28/20 12:25 Nasal Secretion SARS-CoV-2 Antigen (Rapid) - Final 07/24/20 19:50 Urine, Random Urine Culture - Final Escherichia coli Laboratory Results 07/25/20 05:48: Diff Path Review Reviewed 07/28/20 11:02: Urine Collection Time 24.0, Timed Urine Volume 1525, Ur Total Protein 24 Hr 178.8 H, Urine Total Protein 14.6 H Current Medications Acetaminophen (Acetaminophen 325 Mg Tablet) 650 mg PO Q8 LIBIA Last Admin: 12/28/20 12:51 Dose: 650 mg Documented by: Apixaban (Apixaban 2.5 Mg Tablet) 2.5 mg PO BID@0800,1800 [facility] Last Admin: 07/28/20 09:15 Dose: 2.5 mg Documented by: Ascorbic Acid (Ascorbic Acid 500 Mg Tablet) 500 mg PO BIDCM [facility] Last Admin: 07/28/20 09:14 Dose: 500 mg Documented by: Atorvastatin Calcium (Atorvastatin Calcium 20 Mg Tablet) 20 mg PO QHS [facility] Last Admin: 07/27/20 22:09 Dose: 20 mg Documented by: Bisacodyl (Bisacodyl 10 Mg Suppository) 10 mg RECTAL DAILY PRN PRN Reason: Constipation Calamine/Phenol (Menthol/Lanolin/Calamine/Znox 113 Gm Tube) 1 applic TOPICAL 0600,2200 [facility]; Protocol Last Admin: 07/28/20 04:54 Dose: 1 applicatio Documented by: Emollient Ointment (Emollient Combination No.72 500 Ml Lotion) 1 applic TOPICAL 0600,2200 [facility]; Protocol Last Admin: 07/28/20 04:53 Dose: 1 applicatio Documented by: Ferrous Sulfate (Ferrous Sulfate 325 Mg Tablet) 325 mg PO DAILY@1200 [facility] Last Admin: 07/28/20 11:52 Dose: 325 mg Documented by: Fluticasone Propionate (Fluticasone 0.05% 1 [place] Nasal.Sry) 1 spray NASAL BID@0800,2000 [facility] Last Admin: 07/28/20 09:16 Dose: 1 spray Documented by: Heparin Sodium (Beef Lung) (Heparin Pf Lock 10 Units/Ml 50 Units/5 Ml Syringe) 50 units IV UD PRN PRN Reason: PICC Line Heparin Flush Last Admin: 07/14/20 10:13 Dose: 50 units Documented by: Sodium Chloride () 250 mls @ 15 mls/hr IV .[id number] PRN PRN Reason: Saline Flush Last Admin: 07/28/20 10:26 Dose: 15 mls/hr Documented by: Sodium Chloride () 250 mls @ 15 mls/hr IV .[id number] PRN PRN Reason: Additional IVPB Infusion Ceftriaxone Sodium (Rocephin) 1 gm in 50 mls @ 100 mls/hr IV Q24 [facility] Last Infusion: 07/28/20 11:17 Dose: Infused Documented by: L-Arginine/L-Glutamine/Calcium HMB (Campos (Unflavored) Packet) [facility] Last Admin: 07/28/20 09:15 Dose: 1 packet Documented by: Magnesium Chloride (Magnesium Chloride 64 Mg Delay Rel.Tablet) 128 mg PO DAILY@0800 [facility] Last Admin: 07/28/20 09:15 Dose: 128 mg Documented by: Magnesium Hydroxide (Magnesium Hydroxide 30 Ml Udc) 30 ml PO DAILY PRN PRN Reason: Constipation Last Admin: 07/08/20 22:05 Dose: 30 ml Documented by: Metoprolol Tartrate (Metoprolol Tartrate 25 Mg Tablet) [facility] Last Admin: 07/28/20 09:14 Dose: 25 mg Documented by: Nystatin (Nystatin Powder 15gm Bottle) 1 applic TOPICAL BID [facility]; Protocol Last Admin: 07/28/20 04:53 Dose: 1 applicatio Documented by: Ondansetron HCl (Ondansetron Odt 4 Mg Tablet) 8 mg PO Q8H PRN PRN PRN Reason: NAUSEA Last Admin: 07/27/20 11:05 Dose: 8 mg Documented by: Oxycodone HCl (Oxycodone 5 Mg Tablet) 5 mg PO Q4H PRN PRN PRN Reason: Pain Score 6-10 Last Admin: 07/28/20 13:26 Dose: 5 mg Documented by: Polyethylene Glycol (Polyethylene Glycol 3350 17 Gm Packet) [facility] Last Admin: 07/28/20 09:16 Dose: Not Given Documented by: Potassium Chloride (Potassium Chloride 20 Meq Tablet) 20 meq [facility] Last Admin: 07/28/20 09:15 Dose: 20 meq Documented by: Potassium Phos/Sodium Phos (Na Biphos/Potassium Phosphate Packet) 1 packet PO 4X/DAY [facility] Stop: 07/30/20 06:01 Last Admin: 07/28/20 11:52 Dose: 1 packet Documented by: Povidone Iodine (Povidone-Iodine Swabstick) 1 packet TOPICAL DAILY@1000 [facility]; Protocol Last Admin: 07/27/20 10:38 Dose: 1 packet Documented by: Senna/Docusate Sodium (Senna/Docusate Sodium 1 Tablet) 2 tablet PO BID@0800,1800 [facility] Last Admin: 07/28/20 09:16 Dose: Not Given Documented by: Sodium Chloride (0.9% Saline Lock 10 Ml Syringe) 10 - 40 ml IV UD PRN PRN Reason: Open End PICC Flush Last Admin: 07/28/20 10:26 Dose: 40 ml Documented by: Sodium Chloride (0.9 % Nacl (Sterile) Posiflush 10 Ml) 10 - 40 ml IV UD PRN PRN Reason: Port access or dressing change Vitamin E (Vitamin E 400 Units Capsule) 800 units PO DAILYCM [facility] Last Admin: 07/28/20 09:14 Dose: 800 units Documented by: Zinc Sulfate (Zinc Sulfate (50mg Elemental) 220 Mg Capsule) 220 mg PO DAILY@0800 [facility] Last Admin: 07/28/20 09:13 Dose: 220 mg Documented by: Medical Necessity - Tobacco Use Smoking Status: Never smoker Tobacco Use: Non-smoker Assessment/Plan All Active Problems (This Medical Record has been edited. Action required.) Paronychia of great toe, right (Acute) Debility (Acute) Cellulitis of right lower extremity (Acute) Necrosis of subcutaneous tissue (Acute) Cellulitis of right lower leg (Acute) Skin necrosis (Acute) Cellulitis of left lower leg (Acute) UTI (urinary tract infection) (Acute) Sepsis (Acute) Anasarca (Acute) Onychocryptosis status nail avulsion post medial and lateral hallux nail borders Cellulitis resolved Examination performed. Her vitals are stable and she is afebrile. She is status post nail avulsion. She is reassured no local signs of infection are appreciated. Patient also noted to have bilateral legs wound vacs. These are being managed by wound care and Dr Pedersen Some dried blood noted on exam. To wash with antibacterial soap and water daily. Recommend changing this dressing every 24-48 hours. Recommend keeping covered with bandaid at this time All questions answered. She can follow-up in outpatient setting at [facility] with Dr. Milner.
[2020-07-28 14:29] VITALS: BP 114/57; PULSE 86; RESP 17; TEMP 37; O2SAT 95
--- NOTE | 2020-07-28 15:56 | NURSING ---
wound photo: buttocks
--- NOTE | 2020-07-28 15:56 | NURSING ---
wound photo: right posterolateral lower leg
--- NOTE | 2020-07-28 15:57 | NURSING ---
wound photo: left posterior lower leg
[2020-07-28] MEDS: Povidone-Iodine Swabstick 1 PACKET TOPICAL (17:53)
--- NOTE | 2020-07-28 18:18 | NURSING ---
DR. YAÑEZ AWARE OF 24 HR URINE RESULTS.
[2020-07-28] MEDS: Atorvastatin Calcium 20 MG Tablet PO (20:43)
[2020-07-29] MEDS: oxyCODONE 5 MG Tablet PO ×2 (00:57→10:49)
[2020-07-29 05:24] VITALS: BP 123/50; PULSE 95; RESP 16; TEMP 37.1; O2SAT 98
[2020-07-29] MEDS: Menthol/Lanolin/Calamine/Znox 113 GM Tube 1 APPLIC TOPICAL ×2 (05:25→21:02)
[2020-07-29] MEDS: Na Biphos/Potassium Phosphate PACKET 1 PACKET PO ×4 (05:26→20:56)
[2020-07-29] MEDS: Acetaminophen 325 MG Tablet 650 MG PO ×3 (05:26→20:55)
[2020-07-29] MEDS: Nystatin Powder 15gm Bottle 1 APPLIC TOPICAL ×2 (05:27→17:24)
[2020-07-29] MEDS: Fluticasone 0.05% 1 SPRAY NASAL.SRY NASAL ×2 (09:16→20:55)
[2020-07-29] MEDS: Vitamin E 400 UNITS Capsule 800 UNITS PO (09:16)
[2020-07-29] MEDS: Juven (unflavored) Packet 1 PACKET PO ×2 (09:16→17:18)
[2020-07-29] MEDS: APIXABAN 2.5 MG TABLET PO ×2 (09:16→17:19)
[2020-07-29] MEDS: Ascorbic Acid 500 MG Tablet PO ×2 (09:16→17:19)
[2020-07-29 09:17] VITALS: PULSE 95
[2020-07-29] MEDS: Metoprolol Tartrate 25 MG Tablet PO (09:17)
[2020-07-29] MEDS: Magnesium Chloride 64 MG Delay Rel.Tablet 128 MG PO (09:18)
--- NOTE | 2020-07-29 10:27 | CASEMGMT ---
SARAVANAN ALFORD NOTE: Received fax from [facility]. Call placed to them and they state pt remains in active status. They were made aware is still in TCU. Spoke w/JOE Mccain on TCU, and she is aware pt still active [facility]. She states she will notify them when pt is discharged from TCU. Em MALHOTRA RN CM
[2020-07-29] MEDS: Ceftriaxone 1 GM/50 ML BAG IV (10:28)
[2020-07-29] MEDS: 0.9% Saline Lock 10 ML Syringe IV (10:28)
[2020-07-29] MEDS: Povidone-Iodine Swabstick 1 PACKET TOPICAL (11:10)
[2020-07-29] MEDS: Ferrous Sulfate 325 MG Tablet PO (13:03)
[2020-07-29 14:31] VITALS: BP 102/47; PULSE 89; RESP 20; TEMP 36.2; O2SAT 95
--- NOTE | 2020-07-29 15:24 | NURSING ---
Resident and family updated on COVID status on the unit.
[2020-07-29] MEDS: Ondansetron ODT 4 MG Tablet 8 MG PO (15:27)
--- NOTE | 2020-07-29 16:00 | NURSING ---
Up in wheelchair and out of room for therapy. Requesting something to settle her stomach. Resident has complained to Vasquez Styles, that her left food and ankle is hurting. Upon assessing foot, she cannot flex or plant that foot. She states that it started hurting after it hit the floor on the other side of the hospital when they were moving her. Will update Dr Layne regarding this as resident is also requesting an xray be taken of foot.
[2020-07-29] MEDS: Atorvastatin Calcium 20 MG Tablet PO (20:56)
[2020-07-30 06:04] VITALS: BP 126/51; PULSE 100; RESP 16; TEMP 36.9; O2SAT 94
[2020-07-30 06:06] LABS: Absolute Lymphocyte Count 2.62 X10^3/uL (0.83-4.51); Basophil# 0.08 X10^3/uL; Basophil% 0.7 % (0-1); Eosinophils% 4.6 % (0-5); Hematocrit 29.4 % (37-47); Hemoglobin 9.1 g/dL (12.0-15.0); Lymphocyte # 2.62 X10^3/ul (4.0); Lymphocyte % 23.9 % (19-41); Mean Corpuscular Hgb 29.5 pg (27.0-32.0); Mean Corpuscular Volume 95.5 fL (81-99); Monocyte% 11.9 % (0-10); NRBC Flagged by Analyzer 0 % (0-5); Neutrophil # 5.95 X10^3/uL (2.7-7.7); Neutrophil % 54.2 % (47-70); Platelet Count 387 K/mm3 (150-450); RBC Distribution Width SD 58.5 fl (35.1-43.9); Red Blood Count 3.08 M/mm3 (4.2-5.4)
[2020-07-30] MEDS: Fluticasone 0.05% 1 SPRAY NASAL.SRY NASAL ×2 (06:06→20:40)
[2020-07-30] MEDS: Acetaminophen 325 MG Tablet 650 MG PO ×3 (06:07→20:41)
[2020-07-30] MEDS: Na Biphos/Potassium Phosphate PACKET 1 PACKET PO (06:08)
[2020-07-30] MEDS: Menthol/Lanolin/Calamine/Znox 113 GM Tube 1 APPLIC TOPICAL ×2 (06:09→20:42)
[2020-07-30] MEDS: Nystatin Powder 15gm Bottle 1 APPLIC TOPICAL ×2 (06:09→17:45)
[2020-07-30] MEDS: 0.9% Saline Lock 10 ML Syringe IV (06:14)
[2020-07-30 06:32] LABS: Anion Gap 4 (5-15); BUN 29 mg/dL (7-18); BUN/Creat Ratio 49.4 RATIO (10-20); Calcium,Total 9.5 mg/dL (8.5-10.1); Chloride 111 mmol/L (98-107); Creatinine, Serum 0.59 mg/dL (0.55-1.02); EST Glomerular Filtration Rate 108 mL/min (>60); Est Glom Filt Rate - Afr Amer 131 mL/min (>60); Estimated Creatinine Clearance 48.45 ml/min; Glucose 75 mg/dL (74-106); Phosphorus 3.7 mg/dL (2.5-4.9); Potassium 4.9 mmol/L (3.5-5.1); Sodium Level 140 mmol/L (136-145)
[2020-07-30 08:02] VITALS: BP 122/66; PULSE 111
[2020-07-30] MEDS: Juven (unflavored) Packet 1 PACKET PO ×2 (08:02→17:43)
[2020-07-30] MEDS: APIXABAN 2.5 MG TABLET PO ×2 (08:02→17:45)
[2020-07-30] MEDS: Metoprolol Tartrate 25 MG Tablet PO (08:02)
[2020-07-30] MEDS: Magnesium Chloride 64 MG Delay Rel.Tablet 128 MG PO (08:03)
[2020-07-30] MEDS: Ascorbic Acid 500 MG Tablet PO ×2 (08:04→17:45)
[2020-07-30] MEDS: Vitamin E 400 UNITS Capsule 800 UNITS PO (08:05)
[2020-07-30] MEDS: Povidone-Iodine Swabstick 1 PACKET TOPICAL (08:05)
--- NOTE | 2020-07-30 08:07 | RAD_ITS ---
STUDY: X-RAY - LEFT FOOT CLINICAL: Female, 70 years old. left foot pain -- cellulitis TECHNIQUE: 3 view(s) of the foot. COMPARISON: None. FINDINGS: No acute fracture, dislocation or osseous destruction. Osteopenia. Plantar spur. Joint space narrowing at distal interphalangeal joints, first interphalangeal joint, first metatarsophalangeal joint and midfoot. Soft tissue swelling. Soft tissue calcifications. RAD/Foot min 3 Views IMPRESSION: Soft tissue swelling/cellulitis without osteomyelitis Degenerative changes, as above Electronically Signed: Galo Fry DO at 10:13 EST Tel , Service support ,
--- NOTE | 2020-07-30 09:26 | NURSING ---
Patient back to unit from radiology. Transported via bed back to room.
[2020-07-30] MEDS: Ceftriaxone 1 GM/50 ML BAG IV (10:56)
[2020-07-30] MEDS: Ferrous Sulfate 325 MG Tablet PO (10:58)
[2020-07-30] MEDS: oxyCODONE 5 MG Tablet PO ×2 (12:40→17:46)
[2020-07-30 13:30] VITALS: BP 122/66; PULSE 111; RESP 20; TEMP 36.9; O2SAT 92
[2020-07-30] MEDS: Atorvastatin Calcium 20 MG Tablet PO (20:41)
[2020-07-31 05:03] VITALS: BP 101/56; PULSE 107; RESP 18; TEMP 37.6; O2SAT 94
[2020-07-31] MEDS: Acetaminophen 325 MG Tablet 650 MG PO ×3 (05:05→21:59)
[2020-07-31] MEDS: 0.9% Saline Lock 10 ML Syringe IV (05:06)
[2020-07-31] MEDS: Menthol/Lanolin/Calamine/Znox 113 GM Tube 1 APPLIC TOPICAL ×2 (05:08→20:32)
[2020-07-31] MEDS: Nystatin Powder 15gm Bottle 1 APPLIC TOPICAL ×2 (05:08→17:59)
[2020-07-31 09:01] VITALS: BP 146/66; PULSE 118
[2020-07-31] MEDS: Ascorbic Acid 500 MG Tablet PO ×2 (09:01→17:59)
[2020-07-31] MEDS: Vitamin E 400 UNITS Capsule 800 UNITS PO (09:01)
[2020-07-31] MEDS: Magnesium Chloride 64 MG Delay Rel.Tablet 128 MG PO (09:01)
[2020-07-31] MEDS: Metoprolol Tartrate 25 MG Tablet PO (09:01)
[2020-07-31] MEDS: Juven (unflavored) Packet 1 PACKET PO ×2 (09:02→17:59)
[2020-07-31] MEDS: Fluticasone 0.05% 1 SPRAY NASAL.SRY NASAL ×2 (09:02→20:32)
[2020-07-31] MEDS: APIXABAN 2.5 MG TABLET PO ×2 (09:02→17:59)
[2020-07-31 10:00] VITALS: PULSE 18; RESP 96; O2SAT 95
[2020-07-31] MEDS: Ceftriaxone 1 GM/50 ML BAG IV (10:44)
[2020-07-31] MEDS: Ferrous Sulfate 325 MG Tablet PO (11:00)
--- NOTE | 2020-07-31 11:59 | CASEMGMT ---
Addendum entered by Kalyn Gentile 07/31/20 14:39: Son contacted to discuss plans. Son requesting DC 08/11 to home. IDT agreeable. Will determine wound needs closer to DC. Referral made to [facility] to restart PT/OT/SN/R[facility]ARDS/SW. [place] [facility] [place] for [place]. Son deciding on transport needs. Will notify . Plan: DC home 08/11 with [facility] PT/OT/SN/RICHARDS/SW, hospital bed Original Note: Social Work Spoke with pt's to discuss DC planning. Explained pt's IV ATB will be done 08/03 and no significant progress has been made in therapy. Explained pt is on day 76 of Medicare days and the benefit is 100 days which would be 08/24. Since no progress is being made, ID does not want to continue to use [facility] days if not needed. expressed understanding. Explained IDT possibly setting DC date soon - inquired about 's thoughts and a date. stated that is not a problem, he just needs to figure out transportation. Explained SW can schedule cot transport but cannot guarantee insurance will pay for any or all of the cost. Provided out pocket cost if insurance does not cover. stated he will talk with his sons and contact . Will continue to follow. MITA EspinalW
--- NOTE | 2020-07-31 13:25 | NURSING ---
pt incontinent of small amount of stool. pt cleaned and linens changed. Repositioned pt to right side and educated on the importance of not continually laying on her back d/t increase risk of skin breakdown. pt complaining that she does not like to lay on her side and prefers laying on her back. This nurse stressed the importance of the need for repositioning to protect the patient from further skin breakdown. pt now on phone speaking with family and c/o having to lay on her side. Will continue to monitor.
[2020-07-31] MEDS: Ondansetron ODT 4 MG Tablet 8 MG PO (14:27)
[2020-07-31 16:00] VITALS: BP 99/69; PULSE 109; RESP 18; TEMP 36.2; O2SAT 98
[2020-07-31] MEDS: Povidone-Iodine Swabstick 1 PACKET TOPICAL (18:01)
[2020-07-31] MEDS: Atorvastatin Calcium 20 MG Tablet PO (21:59)
[2020-08-01] MEDS: Nystatin Powder 15gm Bottle 1 APPLIC TOPICAL ×3 (04:37→20:07)
[2020-08-01] MEDS: Menthol/Lanolin/Calamine/Znox 113 GM Tube 1 APPLIC TOPICAL ×2 (04:37→20:06)
[2020-08-01] MEDS: Acetaminophen 325 MG Tablet 650 MG PO ×3 (04:37→20:04)
[2020-08-01] MEDS: Juven (unflavored) Packet 1 PACKET PO ×2 (09:08→17:13)
[2020-08-01] MEDS: Fluticasone 0.05% 1 SPRAY NASAL.SRY NASAL ×2 (09:09→20:04)
[2020-08-01] MEDS: APIXABAN 2.5 MG TABLET PO ×2 (09:09→17:13)
[2020-08-01 09:10] VITALS: BP 115/61; PULSE 109
[2020-08-01] MEDS: Metoprolol Tartrate 25 MG Tablet PO (09:10)
[2020-08-01] MEDS: Magnesium Chloride 64 MG Delay Rel.Tablet 128 MG PO (09:10)
[2020-08-01] MEDS: Vitamin E 400 UNITS Capsule 800 UNITS PO (09:10)
[2020-08-01] MEDS: Ascorbic Acid 500 MG Tablet PO ×2 (09:10→17:13)
[2020-08-01] MEDS: Ceftriaxone 1 GM/50 ML BAG IV (09:53)
[2020-08-01] MEDS: Ferrous Sulfate 325 MG Tablet PO (11:37)
[2020-08-01] MEDS: oxyCODONE 5 MG Tablet PO ×2 (13:36→18:01)
[2020-08-01] MEDS: Povidone-Iodine Swabstick 1 PACKET TOPICAL (13:38)
[2020-08-01 13:40] VITALS: BP 125/55; PULSE 90; RESP 18; TEMP 37.4; O2SAT 94
[2020-08-01] MEDS: 0.9% Saline Lock 10 ML Syringe IV (17:15)
--- NOTE | 2020-08-01 17:35 | NURSING ---
Pt refused Pneumonia Vaccine d/t already receiving it from PCP.
[2020-08-01] MEDS: Atorvastatin Calcium 20 MG Tablet PO (20:05)
[2020-08-02] MEDS: oxyCODONE 5 MG Tablet PO (03:06)
[2020-08-02 04:00] VITALS: BP 111/59; PULSE 109; RESP 18; TEMP 36.6; O2SAT 95
[2020-08-02] MEDS: Menthol/Lanolin/Calamine/Znox 113 GM Tube 1 APPLIC TOPICAL ×2 (06:05→20:20)
[2020-08-02] MEDS: Acetaminophen 325 MG Tablet 650 MG PO ×3 (06:05→20:20)
[2020-08-02] MEDS: Juven (unflavored) Packet 1 PACKET PO ×2 (08:53→16:23)
[2020-08-02 08:54] VITALS: PULSE 96
[2020-08-02] MEDS: Metoprolol Tartrate 25 MG Tablet PO (08:54)
[2020-08-02] MEDS: APIXABAN 2.5 MG TABLET PO ×2 (08:54→16:23)
[2020-08-02] MEDS: Ascorbic Acid 500 MG Tablet PO ×2 (08:55→16:23)
[2020-08-02] MEDS: Vitamin E 400 UNITS Capsule 800 UNITS PO (08:55)
[2020-08-02] MEDS: Fluticasone 0.05% 1 SPRAY NASAL.SRY NASAL ×2 (08:56→20:17)
[2020-08-02] MEDS: Magnesium Chloride 64 MG Delay Rel.Tablet 128 MG PO (08:56)
[2020-08-02] MEDS: 0.9% Saline Lock 10 ML Syringe IV (10:19)
[2020-08-02] MEDS: Ceftriaxone 1 GM/50 ML BAG IV (10:19)
[2020-08-02] MEDS: Povidone-Iodine Swabstick 1 PACKET TOPICAL (10:31)
[2020-08-02] MEDS: Ferrous Sulfate 325 MG Tablet PO (12:58)
[2020-08-02 13:50] VITALS: BP 111/61; PULSE 101; RESP 16; TEMP 36; O2SAT 95
[2020-08-02] MEDS: Nystatin Powder 15gm Bottle 1 APPLIC TOPICAL (16:23)
[2020-08-02] MEDS: Atorvastatin Calcium 20 MG Tablet PO (20:20)
[2020-08-03 05:16] VITALS: BP 105/54; PULSE 104; RESP 16; TEMP 35.9; O2SAT 95
[2020-08-03] MEDS: Acetaminophen 325 MG Tablet 650 MG PO ×3 (05:18→20:47)
[2020-08-03] MEDS: Nystatin Powder 15gm Bottle 1 APPLIC TOPICAL ×2 (05:18→17:24)
[2020-08-03] MEDS: Menthol/Lanolin/Calamine/Znox 113 GM Tube 1 APPLIC TOPICAL ×2 (05:18→20:48)
[2020-08-03] MEDS: 0.9% Saline Lock 10 ML Syringe IV ×2 (05:20→10:19)
[2020-08-03] MEDS: Juven (unflavored) Packet 1 PACKET PO ×2 (09:14→17:19)
[2020-08-03] MEDS: Fluticasone 0.05% 1 SPRAY NASAL.SRY NASAL ×2 (09:14→20:49)
[2020-08-03 09:15] VITALS: PULSE 104
[2020-08-03] MEDS: Magnesium Chloride 64 MG Delay Rel.Tablet 128 MG PO (09:15)
[2020-08-03] MEDS: Ascorbic Acid 500 MG Tablet PO ×2 (09:15→17:19)
[2020-08-03] MEDS: Vitamin E 400 UNITS Capsule 800 UNITS PO (09:15)
[2020-08-03] MEDS: Metoprolol Tartrate 25 MG Tablet PO (09:15)
[2020-08-03] MEDS: APIXABAN 2.5 MG TABLET PO ×2 (09:15→17:19)
[2020-08-03] MEDS: Ceftriaxone 1 GM/50 ML BAG IV (10:14)
[2020-08-03] MEDS: Povidone-Iodine Swabstick 1 PACKET TOPICAL (10:19)
[2020-08-03] MEDS: Ferrous Sulfate 325 MG Tablet PO (11:02)
--- NOTE | 2020-08-03 12:14 | NURSING ---
pt c/o oxyir causing her to have bad dreams per fire chief's aide report, feels that ultram works better. DR Layne notified, new order received
[2020-08-03 14:00] VITALS: BP 127/58; PULSE 95; RESP 17; TEMP 36.8; O2SAT 97
[2020-08-03] MEDS: traMADol 50 MG Tablet PO (17:26)
[2020-08-03] MEDS: Atorvastatin Calcium 20 MG Tablet PO (20:47)
[2020-08-04] MEDS: traMADol 50 MG Tablet PO ×3 (00:30→20:03)
[2020-08-04 06:22] VITALS: BP 129/58; PULSE 71; RESP 16; TEMP 36.4; O2SAT 98
[2020-08-04] MEDS: Acetaminophen 325 MG Tablet 650 MG PO ×3 (06:24→20:56)
[2020-08-04] MEDS: Nystatin Powder 15gm Bottle 1 APPLIC TOPICAL ×2 (06:25→17:48)
[2020-08-04] MEDS: Menthol/Lanolin/Calamine/Znox 113 GM Tube 1 APPLIC TOPICAL ×2 (06:26→20:55)
[2020-08-04] MEDS: Fluticasone 0.05% 1 SPRAY NASAL.SRY NASAL ×2 (08:17→20:04)
[2020-08-04] MEDS: Ascorbic Acid 500 MG Tablet PO ×2 (08:18→17:47)
[2020-08-04] MEDS: Vitamin E 400 UNITS Capsule 800 UNITS PO (08:18)
[2020-08-04] MEDS: APIXABAN 2.5 MG TABLET PO ×2 (08:18→17:48)
[2020-08-04] MEDS: Magnesium Chloride 64 MG Delay Rel.Tablet 128 MG PO (08:18)
[2020-08-04 08:19] VITALS: PULSE 71
[2020-08-04] MEDS: Metoprolol Tartrate 25 MG Tablet PO (08:19)
[2020-08-04] MEDS: Juven (unflavored) Packet 1 PACKET PO ×2 (08:20→17:47)
[2020-08-04] MEDS: Ferrous Sulfate 325 MG Tablet PO (11:59)
--- NOTE | 2020-08-04 14:32 | PN_ITS ---
Patient Problems: Active and Suspected Problems (This Medical Record has been edited. Action required.) Debility (Acute) Cellulitis of right lower extremity (Acute) Sepsis (Acute) Subjective: Patient was seen today for follow up on ingrown toenail right 1st toe which is doing well. No pain or problems. Otherwise she relates to chronic left foot/ankle, she relates to previous injury, now has weakness with pain, not getting better. She relates she had it massaged which did help relieve some of the pain. She relates she has not walked since the summer due to bad knees. - Physical Exam Vitals/I&O's: Vital Signs Temp Pulse Resp BP Pulse Ox 97.5 F L 71 16 129/58 H 98 08/04/20 06:22 08/04/20 08:19 08/04/20 06:22 08/04/20 06:22 08/04/20 06:22 Oxygen Flow Rate (L/min) 94 Oxygen Delivery Method Room Air Weight: 128.537 kg Body Mass Index (BMI) 47.2 Intake and Output for Last 24 Hours 08/02/20 08/03/20 08/04/20 23:59 23:59 23:59 Intake Total 1260 / 1260 1140 / 1140 240 / 240 Output Total 1300 / 1300 900 / 900 400 / 400 Balance -40 / -40 240 / 240 -160 / -160 General: Alert, Oriented x3, Cooperative, No apparent distress Extremities: Capillary Refill Less than 3 Seconds, - - Resolved ingrown toenail right 1st toe -site is healed with no evidence of infection. No open lesions to the foot or ankle bilateral. She has significant weakness to the left foot and ankle - not able to dorsiflex, plantarflex, shar or invert foot/ankle. There is smooth ROM to the left foot/ankle. Musculoskeletal: - - She relates to some pain to the left ankle. Microbiology Past 72 Hours 08/04/20 11:35 Nasal Secretion SARS-CoV-2 Antigen (Rapid) - Final Current Medications Acetaminophen (Acetaminophen 325 Mg Tablet) 650 mg PO Q8 [facility] Last Admin: 08/04/20 13:34 Dose: 650 mg Documented by: Apixaban (Apixaban 2.5 Mg Tablet) 2.5 mg PO BID@0800,1800 [facility] Last Admin: 08/04/20 08:18 Dose: 2.5 mg Documented by: Ascorbic Acid (Ascorbic Acid 500 Mg Tablet) [facility] Admin: 08/04/20 08:18 Dose: 500 mg Documented by: Atorvastatin Calcium (Atorvastatin Calcium 20 Mg Tablet) 20 mg PO QHS [facility] Last Admin: 08/03/20 20:47 Dose: 20 mg Documented by: Bisacodyl (Bisacodyl 10 Mg Suppository) 10 mg RECTAL DAILY PRN PRN Reason: Constipation Calamine/Phenol (Menthol/Lanolin/Calamine/Znox 113 Gm Tube) 1 applic TOPICAL 0600,2200 [facility]; Protocol Last Admin: 08/04/20 06:26 Dose: 1 applicatio Documented by: Emollient Ointment (Emollient Combination No.72 500 Ml Lotion) 1 applic TOPICAL 0600,0 [facility]; Protocol Last Admin: 08/04/20 06:26 Dose: 1 applicatio Documented by: Ferrous Sulfate (Ferrous Sulfate 325 Mg Tablet) 325 mg PO DAILY@1200 [facility] Last Admin: 08/04/20 11:59 Dose: 325 mg Documented by: Fluticasone Propionate (Fluticasone 0.05% 1 Happy Nasal.Sry) 1 spray NASAL BID@0800,2000 [facility] Last Admin: 08/04/20 08:17 Dose: 1 spray Documented by: Heparin Sodium (Beef Lung) (Heparin Pf Lock 10 Units/Ml 50 Units/5 Ml Syringe) 50 units IV UD PRN PRN Reason: PICC Line Heparin Flush Last Admin: 07/14/20 10:13 Dose: 50 units Documented by: L-Arginine/L-Glutamine/Calcium HMB (Campos (Unflavored) Packet) 1 [facility] Last Admin: 08/04/20 08:20 Dose: 1 packet Documented by: Magnesium Chloride (Magnesium Chloride 64 Mg Delay Rel.Tablet) 128 mg PO DAILY@0800 [facility] Last Admin: 08/04/20 08:18 Dose: 128 mg Documented by: Magnesium Hydroxide (Magnesium Hydroxide 30 Ml Udc) 30 ml PO DAILY PRN PRN Reason: Constipation Last Admin: 07/08/20 22:05 Dose: 30 ml Documented by: Metoprolol Tartrate (Metoprolol Tartrate 25 Mg Tablet) 25 mg [facility]ILY[facility] Last Admin: 08/04/20 08:19 Dose: 25 mg Documented by: Nystatin (Nystatin Powder 15gm Bottle) 1 applic TOPICAL BID [facility]; Protocol Last Admin: 08/04/20 06:25 Dose: 1 applicatio Documented by: Ondansetron HCl (Ondansetron Odt 4 Mg Tablet) 8 mg PO Q8H PRN PRN PRN Reason: NAUSEA Last Admin: 07/31/20 14:27 Dose: 8 mg Documented by: Polyethylene Glycol (Polyethylene Glycol 3350 17 Gm Packet) 17 gm [facility] Last Admin: 08/04/20 08:23 Dose: Not Given Documented by: Potassium Chloride (Potassium Chloride 20 Meq Tablet) 20 meq PO [facility]ILY[facility] Last Admin: 08/04/20 08:18 Dose: 20 meq Documented by: Povidone Iodine (Povidone-Iodine Swabstick) 1 packet TOPICAL DAILY@1000 [facility]; P rotocol Last Admin: 08/03/20 10:19 Dose: 1 packet Documented by: Senna/Docusate Sodium (Senna/Docusate Sodium 1 Tablet) 2 tablet PO BID@0800,1800 [facility] Last Admin: 08/04/20 08:22 Dose: Not Given Documented by: Tramadol HCl (Tramadol 50 Mg Tablet) 50 mg PO Q6H PRN PRN PRN Reason: Pain Score 6-10 Last Admin: 08/04/20 13:33 Dose: 50 mg Documented by: Vitamin E (Vitamin E 400 Units Capsule) 800 [facility]ILY[facility] Last Admin: 08/04/20 08:18 Dose: 800 units Documented by: Zinc Sulfate (Zinc Sulfate (50mg Elemental) 220 Mg Capsule) 220 mg PO DAILY@0800 [facility] Last Admin: 08/04/20 08:18 Dose: 220 mg Documented by: Medical Necessity - Tobacco Use Smoking Status: Never smoker Tobacco Use: Non-smoker Assessment/Plan All Active Problems (This Medical Record has been edited. Action required.) Paronychia of great toe, right (Acute) Debility (Acute) Cellulitis of right lower extremity (Acute) Necrosis of subcutaneous tissue (Acute) Cellulitis of right lower leg (Acute) Skin necrosis (Acute) Cellulitis of left lower leg (Acute) UTI (urinary tract infection) (Acute) Sepsis (Acute) Anasarca (Acute) Ingrown toenails, right 1st toenail w/ paronychia right 1st toenail, tibial and fibular borders - resolved Left foot/ankle pain with foot drop Examination performed. the ingrown toenail and paronychia is resolved and healed at this time. d/c dressing changes. Monitor for any recurrence and patient to follow up with podiatry if present. Patient also relating to left foot/ankle pain with weakness - she relates this is chronic. Reviewed left foot xrays from 07/30/2020 - there is noted degenerative changes. Clinically she has complete weakness to the foot and ankle. She relates there is pain. Further evaluation is indicated. MRI was ordered for further evaluation.
[2020-08-04] MEDS: Povidone-Iodine Swabstick 1 PACKET TOPICAL (14:52)
--- NOTE | 2020-08-04 15:00 | RAD_ITS ---
STUDY: X-RAY - LEFT ANKLE REASON FOR EXAM: Female, 70 years old. Pain increase, cellulitis, wound vac TECHNIQUE: 3 view(s) of the ankle. COMPARISON: None. FINDINGS: Bones are demineralized Normal visualized distal tibia and fibula. Normal medial and lateral malleoli. Normal tibiotalar articulation and mild ankle mortise arthrosis. Normal visualized talus, calcaneal spurs. The visualized subtalar, talonavicular, calcaneocuboid and tarsal articulations are normal. Diffuse nonspecific soft tissue swelling with soft tissue calcifications in the lower leg RAD/Ankle min 3 Views IMPRESSION: Diffuse osteopenia with calcaneal spurs and No demonstrated fracture Nonspecific soft tissue swelling with soft tissue calcifications over the distal tibia and fibula Electronically Signed: Solomon Cuellar MD at 15:16 EST , Service support ,
--- NOTE | 2020-08-04 15:18 | NURSING ---
wound photo: sacrum
--- NOTE | 2020-08-04 15:19 | NURSING ---
wound photo: right posterior lower leg
--- NOTE | 2020-08-04 15:20 | NURSING ---
wound photo: left posterior lower leg
--- NOTE | 2020-08-04 15:43 | NURSING ---
Son Best called this nurse questioning about getting paperwork [facility]. assured son that nurse fills out the wound VAC paperwork. currently awaiting approval for the home VAC. plan is for discharge home on 08/11/20.
[2020-08-04 15:44] VITALS: BP 134/54; PULSE 70; RESP 18; TEMP 36.7; O2SAT 97
[2020-08-04] MEDS: Atorvastatin Calcium 20 MG Tablet PO (20:56)
--- NOTE | 2020-08-04 21:08 | NURSING ---
1914 heard wound vac alarming. Unclamped clamp on tubing, 150mmhg continuous suction achieved. Pt c/o pain. PRN ultram given.
[2020-08-05 04:00] VITALS: BP 129/78; PULSE 104; RESP 18; TEMP 36.8; O2SAT 94
[2020-08-05] MEDS: Menthol/Lanolin/Calamine/Znox 113 GM Tube 1 APPLIC TOPICAL ×2 (04:57→20:22)
[2020-08-05] MEDS: Nystatin Powder 15gm Bottle 1 APPLIC TOPICAL ×2 (04:58→18:49)
[2020-08-05] MEDS: Acetaminophen 325 MG Tablet 650 MG PO ×3 (04:59→20:22)
[2020-08-05 07:42] VITALS: PULSE 104
[2020-08-05] MEDS: Metoprolol Tartrate 25 MG Tablet PO (07:42)
[2020-08-05] MEDS: Ascorbic Acid 500 MG Tablet PO ×2 (07:42→18:48)
[2020-08-05] MEDS: APIXABAN 2.5 MG TABLET PO ×2 (07:42→18:48)
[2020-08-05] MEDS: Vitamin E 400 UNITS Capsule 800 UNITS PO (07:42)
[2020-08-05] MEDS: Juven (unflavored) Packet 1 PACKET PO ×2 (07:42→18:48)
[2020-08-05] MEDS: Magnesium Chloride 64 MG Delay Rel.Tablet 128 MG PO (07:42)
[2020-08-05] MEDS: Fluticasone 0.05% 1 SPRAY NASAL.SRY NASAL ×2 (07:43→20:21)
[2020-08-05] MEDS: Povidone-Iodine Swabstick 1 PACKET TOPICAL (10:27)
[2020-08-05] MEDS: Ferrous Sulfate 325 MG Tablet PO (11:21)
[2020-08-05 14:11] VITALS: BP 123/66; PULSE 90; RESP 22; TEMP 36.7; O2SAT 94
[2020-08-05] MEDS: traMADol 50 MG Tablet PO (18:53)
--- NOTE | 2020-08-05 20:14 | PCM.DC ---
- Discharge Diagnoses Current Active Problems: Current Active and Chronic Problems (This Medical Record has been edited. Action required.) Debility (Acute) Cellulitis of right lower extremity (Acute) Lymphedema (Chronic) Body mass index (BMI) 35 or more (Chronic) Obstructive sleep apnea (Chronic) Atrial fibrillation (Chronic) Hypomagnesemia (Chronic) Hypokalemia (Chronic) Nonhealing ulcer of right lower extremity with fat layer exposed (Chronic) Nonhealing ulcer of left lower extremity with fat layer exposed (Chronic) Sepsis (Acute) Depression (Chronic) COPD (chronic obstructive pulmonary disease) (Chronic) Hyperlipidemia (Chronic) Hypertension (Chronic) GERD (gastroesophageal reflux disease) (Chronic) You will use the following diet at home:: No restrictions, Regular Your food should be the consistency of: Regular Your liquids should be the consistency of: Regular/Thin Discharge Activity: Return to Normal Activity, May Shower - from a foot standpoint Weight Bearing Status: Full weight bearing Call your doctor if your incision/area has: Continuous Slow Oozing, Sudden Increased Bleeding, Increased Pain/ Swelling, Increased Redness, Foul Smelling Discharge, Swelling at the incision site Call your doctor if you observe: Fever of 101 or Higher, Inability to urinate, Inability to have a bowel movement, Shortness of breath, Chest pain, Uncontrolled pain Cleanse incision/area with: Soap & Water Additional Dressing/Incision Instructions:: change right hallux dressing every 1-2 days with aquacel ag and dry gauze Allergies/Adverse Reactions: Allergies hydromorphone Allergy (Verified 06/30/20 11:17) PT UNSURE OF REACTION piperacillin Allergy (Verified 06/30/20 11:17) PT UNSURE OF REACTION Medications to take at Discharge Atorvastatin Calcium [Lipitor] 20 mg PO QHS 05/30/20 traMADol [Ultram] 50 mg PO Q6H PRN PRN 05/30/20 Potassium Chloride [K-Dur] 20 meq PO DAILYCM 06/06/20 Metoprolol Tartrate 25 mg PO DAILY 06/30/20 Acetaminophen [Tylenol] 1,000 mg PO TID PRN tab 07/08/20 Ferrous Sulfate 325 mg PO DAILY@1200 07/08/20 Nystatin Powder [Mycostatin Powder] 1 applic TOPICAL BID 07/08/20 Apixaban [Eliquis] 2.5 mg PO BID@0800,1800 #60 tab 08/05/20 Ascorbic Acid [Vitamin C] 500 mg PO BIDCM tablet 08/05/20 Emollient Combination No.72 [Eucerin Intensive Repair] 1 applic TOPICAL 0600,2200 lotion 08/05/20 Fluticasone 0.05% [Flonase Nasal [place]] 1 spray NASAL BID #1 08/05/20 Campos (unflavored) [Campos Packet] 1 packet PO BIDCM #60 packet 08/05/20 Menthol/Lanolin/Calamine/Znox [Calmoseptine Ointment] 1 applic TOPICAL 0600,2200 tube 08/05/20 Potassium Chloride [K-Dur] 20 meq PO DAILYCM tablet 08/05/20 Senna/Docusate Sodium [Senokot-S] 2 tab PO BID@0800,1800 #120 tab 08/05/20 Zinc Sulfate (50mg elemental) [Zinc Sulfate] 220 mg PO DAILY@0800 capsule 08/05/20 traMADol [Ultram] 50 mg PO Q6H PRN PRN #28 tablet 08/05/20 The following prescriptions were given: Apixaban [Eliquis] 2.5 mg PO BID@0800,1800 #60 tab Transmission Status: Pending to [facility] Fluticasone 0.05% [Flonase Nasal [place]] 1 spray NASAL BID #1 Campos (unflavored) [Campos Packet] 1 packet PO BIDCM #60 packet Transmission Status: Pending to [facility] Senna/Docusate Sodium [Senokot-S] 2 tab PO BID@0800,1800 #120 tab Transmission Status: Pending to [facility] traMADol [Ultram] 50 mg PO Q6H PRN PRN #28 tablet PRN Reason: Pain Score 6-10 Transmission Status: Sent to [facility] Primary Care Physician: Tomeka Adams NP, [employer] [Primary Care Provider] - Please follow up with your Primary Care Physician in: 1 week. Test Results: Test results from this visit will be discussed in further detail at your follow-up appointment, if applicable. Please Follow Up With: Ming Pedersen MD When: After D/C Please Follow Up With: Ollie Milner DPM When: 1 week [facility], call [phone] Proposed Discharge Date: 08/11/20
--- NOTE | 2020-08-05 20:15 | PCM.DC.SUM ---
Discharge Date and Diagnosis - Problem List Patient Problems: Active and Suspected Problems (This Medical Record has been edited. Action required.) Debility (Acute) Cellulitis of right lower extremity (Acute) Sepsis (Acute) Date of Admission: 07/08/20 Date of Discharge: 08/11/20 - Primary Discharge Diagnosis Acute Problems: Active Problems (This Medical Record has been edited. Action required.) Debility (Acute) Cellulitis of right lower extremity (Acute) Sepsis (Acute) - Secondary Discharge Diagnosis Chronic Problems: Chronic Problems (This Medical Record has been edited. Action required.) Lymphedema (Chronic) Body mass index (BMI) 35 or more (Chronic) Obstructive sleep apnea (Chronic) Atrial fibrillation (Chronic) Hypomagnesemia (Chronic) Hypokalemia (Chronic) Venous insufficiency of both lower extremities (Chronic) On apixaban therapy (Chronic) Nonhealing ulcer of right lower extremity with fat layer exposed (Chronic) Nonhealing ulcer of left lower extremity with fat layer exposed (Chronic) Anasarca (Chronic) Macrocytic anemia (Chronic) Edema due to hypoalbuminemia (Chronic) History of obstructive sleep apnea (Chronic) Paroxysmal atrial fibrillation (Chronic) Wenckebach second degree AV block (Chronic) Hypoalbuminemia (Chronic) Microcytic anemia (Chronic) Nonhealing left calf ulcer (Chronic) Cognitive impairment (Chronic) Depression (Chronic) COPD (chronic obstructive pulmonary disease) (Chronic) Hyperlipidemia (Chronic) Paroxysmal atrial fibrillation (Chronic) Chronic acquired lymphedema (Chronic) History of kidney stones (Chronic) Morbid obesity (Chronic) Hypertension (Chronic) GERD (gastroesophageal reflux disease) (Chronic) Hospital Course and Treatment Imaging Results: 07/08/20 17:12 Diet: Regular - General Food consistency:: Regular Liquid Consistency:: Regular/Thin Dietary Modifications:: Sodium Restricted Is pt able to select menu?: Yes Diet Comments: 4 oz chocolate ensure w/ breakfast only Clinical Impression(s) from Imaging Studies KUB X-Ray 07/17/20 20:00 IMPRESSION: Mild ileus. Electronically Signed: Jesus Klein MD at 21:00 EST , Service support , Foot X-Ray 07/30/20 08:07 IMPRESSION: Soft tissue swelling/cellulitis without osteomyelitis Degenerative changes, as above Electronically Signed: Galo Fry DO at 10:13 EST Tel , Service support , Ankle X-Ray 08/04/20 15:00 IMPRESSION: Diffuse osteopenia with calcaneal spurs and No demonstrated fracture Nonspecific soft tissue swelling with soft tissue calcifications over the distal tibia and fibula Electronically Signed: Solomon Cuellar MD at 15:16 EST , Service support , Microbiology 08/04/20 11:35 Nasal Secretion SARS-CoV-2 Antigen (Rapid) - Final Consultations 07/08/20 19:19 Consult: Onc/Wound/table worker packager Routine Comment: Reason for Consult:: BLE wound vac; pressure ulcers to coccyx/buttock Operations: None, - Procedures: None Summary of Care Provided: The patient is a 70 year old Female with below past medical history hospitalized for cellulitis of right leg, complicated by bilateral chronic leg ulcers requiring debridement 07/04/20 per Plastic Surgery, wound VAC placement, admitted to TCU with debility, here for rehabilitation, strengthening, intravenous antibiotics, wound care, prior to discharge home with family. Discharge home with family, [facility] PT/OT/SN/RICHARDS/SW, hospital bed. Patient Problems: Active and Suspected Problems (This Medical Record has been edited. Action required.) Debility (Acute) Cellulitis of right lower extremity (Acute) Sepsis (Acute) - Physical Exam Vitals/I&O's: Vital Signs Temp Pulse Resp BP Pulse Ox 98.0 F 90 22 H 123/66 H 94 08/05/20 14:11 08/05/20 14:11 08/05/20 14:11 08/05/20 14:11 08/05/20 14:11 Oxygen Flow Rate (L/min) 94 Oxygen Delivery Method Room Air Weight: 128.537 kg Body Mass Index (BMI) 47.2 Intake and Output for Last 24 Hours 08/03/20 08/04/20 08/05/20 23:59 23:59 23:59 Intake Total 1140 / 1140 480 / 480 120 / 120 Output Total 900 / 900 600 / 600 900 / 900 Balance 240 / 240 -120 / -120 -780 / -780 Microbiology Past 72 Hours 08/04/20 11:35 Nasal Secretion SARS-CoV-2 Antigen (Rapid) - Final Current Medications Acetaminophen (Acetaminophen 325 Mg Tablet) 650 mg PO Q8 [facility] Last Admin: 08/05/20 13:29 Dose: 650 mg Documented by: Apixaban (Apixaban 2.5 Mg Tablet) 2.5 mg PO BID@0800,1800 [facility] Last Admin: 08/05/20 18:48 Dose: 2.5 mg Documented by: Ascorbic Acid (Ascorbic Acid 500 Mg Tablet) 500 mg PO BIDCM [facility] Last Admin: 08/05/20 18:48 Dose: 500 mg Documented by: Atorvastatin Calcium (Atorvastatin Calcium 20 Mg Tablet) 20 mg PO QHS [facility] Last Admin: 08/04/20 20:56 Dose: 20 mg Documented by: Bisacodyl (Bisacodyl 10 Mg Suppository) 10 mg RECTAL DAILY PRN PRN Reason: Constipation Calamine/Phenol (Menthol/Lanolin/Calamine/Znox 113 Gm Tube) 1 applic TOPICAL 0600,2200 [facility]; Protocol Last Admin: 08/05/20 04:57 Dose: 1 applicatio Documented by: Emollient Ointment (Emollient Combination No.72 500 Ml Lotion) 1 applic TOPICAL 0600,2200 [facility]; Protocol Last Admin: 08/05/20 04:58 Dose: 1 applicatio Documented by: Ferrous Sulfate (Ferrous Sulfate 325 Mg Tablet) 325 mg PO DAILY@1200 [facility] Last Admin: 08/05/20 11:21 Dose: 325 mg Documented by: Fluticasone Propionate (Fluticasone 0.05% 1 [place] Nasal.Sry) 1 spray NASAL BID@0800,2000 [facility] Last Admin: 08/05/20 07:43 Dose: 1 spray Documented by: Heparin Sodium (Beef Lung) (Heparin Pf Lock 10 Units/Ml 50 Units/5 Ml Syringe) 50 units IV UD PRN PRN Reason: PICC Line Heparin Flush Last Admin: 07/14/20 10:13 Dose: 50 units Documented by: L-Arginine/L-Glutamine/Calcium HMB (Campos (Unflavored) Packet) [facility] Last Admin: 08/05/20 18:48 Dose: 1 packet Documented by: Magnesium Chloride (Magnesium Chloride 64 Mg Delay Rel.Tablet) 128 mg PO DAILY@0800 [facility] Last Admin: 08/05/20 07:42 Dose: 128 mg Documented by: Magnesium Hydroxide (Magnesium Hydroxide 30 Ml Udc) 30 ml PO DAILY PRN PRN Reason: Constipation Last Admin: 07/08/20 22:05 Dose: 30 ml Documented by: Metoprolol Tartrate (Metoprolol Tartrate 25 Mg Tablet) [facility] Last Admin: 08/05/20 07:42 Dose: 25 mg Documented by: Nystatin (Nystatin Powder 15gm Bottle) 1 applic TOPICAL BID [facility]; Protocol Last Admin: 08/05/20 18:49 Dose: 1 applicatio Documented by: Ondansetron HCl (Ondansetron Odt 4 Mg Tablet) 8 mg PO Q8H PRN PRN PRN Reason: NAUSEA Last Admin: 07/31/20 14:27 Dose: 8 mg Documented by: Polyethylene Glycol (Polyethylene Glycol 3350 17 Gm Packet) [facility] Last Admin: 08/05/20 07:43 Dose: Not Given Documented by: Potassium Chloride (Potassium Chloride 20 Meq Tablet) 20 meq [facility] Last Admin: 08/05/20 07:42 Dose: 20 meq Documented by: Povidone Iodine (Povidone-Iodine Swabstick) 1 packet TOPICAL DAILY@1000 [facility]; Protocol Last Admin: 08/05/20 10:27 Dose: 1 packet Documented by: Senna/Docusate Sodium (Senna/Docusate Sodium 1 Tablet) 2 tablet PO BID@0800,1800 [facility] Last Admin: 08/05/20 18:49 Dose: Not Given Documented by: Tramadol HCl (Tramadol 50 Mg Tablet) 50 mg PO Q6H PRN PRN PRN Reason: Pain Score 6-10 Last Admin: 08/05/20 18:53 Dose: 50 mg Documented by: Vitamin E (Vitamin E 400 Units Capsule) 800 [facility] Last Admin: 08/05/20 07:42 Dose: 800 units Documented by: Zinc Sulfate (Zinc Sulfate (50mg Elemental) 220 Mg Capsule) 220 mg PO DAILY@0800 [facility] Last Admin: 08/05/20 07:42 Dose: 220 mg Documented by: Discharge Diet: No Restrictions Discharge Activity: Return to Normal Activity, May Shower - from a foot standpoint Weight Bearing Status: Full weight bearing Call your doctor if your incision/area has: Continuous Slow Oozing, Sudden Increased Bleeding, Increased Pain/ Swelling, Increased Redness, Foul Smelling Discharge, Swelling at the incision site Call your doctor if you observe: Fever of 101 or Higher, Inability to urinate, Inability to have a bowel movement, Shortness of breath, Chest pain, Uncontrolled pain Cleanse incision/area with: Soap & Water Additional Dressing/Incision Instructions:: change right hallux dressing every 1-2 days with aquacel ag and dry gauze Home Medications: Medications to take at Discharge Atorvastatin Calcium [Lipitor] 20 mg PO QHS 05/30/20 traMADol [Ultram] 50 mg PO Q6H PRN PRN 05/30/20 Potassium Chloride [K-Dur] 20 meq PO DAILYCM 06/06/20 Metoprolol Tartrate 25 mg PO DAILY 06/30/20 Acetaminophen [Tylenol] 1,000 mg PO TID PRN tab 07/08/20 Ferrous Sulfate 325 mg PO DAILY@1200 07/08/20 Nystatin Powder [Mycostatin Powder] 1 applic TOPICAL BID 07/08/20 Apixaban [Eliquis] 2.5 mg PO BID@0800,1800 #60 tab 08/05/20 Ascorbic Acid [Vitamin C] 500 mg PO BIDCM tablet 08/05/20 Emollient Combination No.72 [Eucerin Intensive Repair] 1 applic TOPICAL 0600,2200 lotion 08/05/20 Fluticasone 0.05% [Flonase Nasal [place]] 1 spray NASAL BID #1 08/05/20 Campos (unflavored) [Campos Packet] 1 packet PO BIDCM #60 packet 08/05/20 Menthol/Lanolin/Calamine/Znox [Calmoseptine Ointment] 1 applic TOPICAL 0600,2200 tube 08/05/20 Potassium Chloride [K-Dur] 20 meq PO DAILYCM tablet 08/05/20 Senna/Docusate Sodium [Senokot-S] 2 tab PO BID@0800,1800 #120 tab 08/05/20 Zinc Sulfate (50mg elemental) [Zinc Sulfate] 220 mg PO DAILY@0800 capsule 08/05/20 traMADol [Ultram] 50 mg PO Q6H PRN PRN #28 tablet 08/05/20 Following Prescriptions Were Given to Patient: Apixaban [Eliquis] 2.5 mg PO BID@0800,1800 #60 tab Transmission Status: Pending to [facility] Fluticasone 0.05% [Flonase Nasal [place]] 1 spray NASAL BID #1 Campos (unflavored) [Campos Packet] 1 packet PO BIDCM #60 packet Transmission Status: Pending to [facility] Senna/Docusate Sodium [Senokot-S] 2 tab PO BID@0800,1800 #120 tab Transmission Status: Pending to [facility] traMADol [Ultram] 50 mg PO Q6H PRN PRN #28 tablet PRN Reason: Pain Score 6-10 Transmission Status: Sent to [facility] Primary Care Physician: Tomeka Adams ABLE BODIED TANKERMAN, ABLE BODIED TANKERMAN-C [Primary Care Provider] - Please follow up with your Primary Care Physician in: 1 week. Please Follow Up With: Ming Pedersen MD When: After D/C Please Follow Up With: Ollie Milner DPM When: 1 week [facility], call [phone] Disposition: Home with Home Health Minutes spent on discharge:: 35 Patient Condition:: Stable Medical Necessity - Tobacco Use Smoking Status: Never smoker Tobacco Use: Non-smoker Meaningful Use Info Meaningful Use Diagnoses (Choose all that apply): None applicable
[2020-08-05] MEDS: Atorvastatin Calcium 20 MG Tablet PO (20:23)
[2020-08-06 05:13] LABS: Absolute Lymphocyte Count 2.47 X10^3/uL (0.83-4.51); Absolute Neutrophil Count 6.1 X10^3/uL (2.0-7.7); Basophil# 0.06 X10^3/uL; Basophil% 0.6 % (0-1); Eosinophil# 0.47 X10^3/uL; Eosinophils% 4.3 % (0-5); Hematocrit 27.2 % (37-47); Hemoglobin 8.5 g/dL (12.0-15.0); Lymphocyte # 2.47 X10^3/ul (4.0); Lymphocyte % 22.8 % (19-41); Mean Corp Hgb Conc 31.3 g/dL (32-36); Mean Corpuscular Hgb 29.4 pg (27.0-32.0); Mean Corpuscular Volume 94.1 fL (81-99); Mean Platelet Vol. 8.3 fl (6.2-12.0); Monocyte# 1.27 X10^3/uL; Monocyte% 11.7 % (0-10); NRBC Flagged by Analyzer 0.2 % (0-5); Neutrophil # 6.14 X10^3/uL (2.7-7.7); Neutrophil % 56.6 % (47-70); Platelet Count 465 K/mm3 (150-450); RBC Distribution Width CV 17.9 % (11.6-14.6); RBC Distribution Width SD 60.3 fl (35.1-43.9); Red Blood Count 2.89 M/mm3 (4.2-5.4); White Blood Count 10.8 K/mm3 (4.4-11.0)
[2020-08-06 05:29] LABS: Anion Gap 3 (5-15); BUN 23 mg/dL (7-18); Calcium,Total 9.2 mg/dL (8.5-10.1); Chloride 109 mmol/L (98-107); Creatinine, Serum 0.35 mg/dL (0.55-1.02); EST Glomerular Filtration Rate 194 mL/min (>60); Est Glom Filt Rate - Afr Amer 235 mL/min (>60); Estimated Creatinine Clearance 48.45 ml/min; Glucose 80 mg/dL (74-106); Potassium 4.1 mmol/L (3.5-5.1); Sodium Level 137 mmol/L (136-145)
[2020-08-06 06:21] VITALS: BP 135/66; PULSE 109; RESP 16; TEMP 37.1; O2SAT 91
[2020-08-06] MEDS: Acetaminophen 325 MG Tablet 650 MG PO ×3 (06:23→21:03)
[2020-08-06] MEDS: Menthol/Lanolin/Calamine/Znox 113 GM Tube 1 APPLIC TOPICAL ×2 (06:24→21:09)
[2020-08-06] MEDS: Nystatin Powder 15gm Bottle 1 APPLIC TOPICAL ×2 (06:24→18:24)
[2020-08-06] MEDS: Fluticasone 0.05% 1 SPRAY NASAL.SRY NASAL ×2 (09:19→21:02)
[2020-08-06] MEDS: Juven (unflavored) Packet 1 PACKET PO ×2 (09:20→18:22)
[2020-08-06] MEDS: APIXABAN 2.5 MG TABLET PO ×2 (09:20→18:23)
[2020-08-06 09:21] VITALS: BP 147/73; PULSE 116
[2020-08-06] MEDS: Metoprolol Tartrate 25 MG Tablet PO (09:21)
[2020-08-06] MEDS: Vitamin E 400 UNITS Capsule 800 UNITS PO (09:21)
[2020-08-06] MEDS: Ascorbic Acid 500 MG Tablet PO ×2 (09:21→18:23)
[2020-08-06] MEDS: Magnesium Chloride 64 MG Delay Rel.Tablet 128 MG PO (09:22)
[2020-08-06] MEDS: Ferrous Sulfate 325 MG Tablet PO (11:12)
[2020-08-06] MEDS: traMADol 50 MG Tablet PO (13:00)
[2020-08-06] MEDS: Povidone-Iodine Swabstick 1 PACKET TOPICAL (13:04)
--- NOTE | 2020-08-06 15:29 | CASEMGMT ---
Social Work Spoke with to inquire about scheduling transport - stated they got it covered. Kalyn Gentile, ELECTRICAL INSTRUMENTATION TECHNICIAN [employer]
[2020-08-06 15:59] VITALS: BP 139/73; PULSE 100; RESP 22; TEMP 36.6; O2SAT 94
[2020-08-06 16:04] VITALS: PULSE 100; RESP 22; O2SAT 94
[2020-08-06] MEDS: Atorvastatin Calcium 20 MG Tablet PO (21:08)
[2020-08-07 05:27] VITALS: BP 122/71; PULSE 77; RESP 16; TEMP 36.8; O2SAT 98
[2020-08-07] MEDS: Acetaminophen 325 MG Tablet 650 MG PO ×3 (05:28→21:09)
[2020-08-07] MEDS: Menthol/Lanolin/Calamine/Znox 113 GM Tube 1 APPLIC TOPICAL ×2 (05:29→20:16)
[2020-08-07] MEDS: Nystatin Powder 15gm Bottle 1 APPLIC TOPICAL ×2 (05:30→17:28)
[2020-08-07] MEDS: Vitamin E 400 UNITS Capsule 800 UNITS PO (08:00)
[2020-08-07] MEDS: Fluticasone 0.05% 1 SPRAY NASAL.SRY NASAL ×2 (08:00→20:15)
[2020-08-07] MEDS: Magnesium Chloride 64 MG Delay Rel.Tablet 128 MG PO (08:00)
[2020-08-07 08:01] VITALS: PULSE 77
[2020-08-07] MEDS: Ascorbic Acid 500 MG Tablet PO ×2 (08:01→17:27)
[2020-08-07] MEDS: Metoprolol Tartrate 25 MG Tablet PO (08:01)
[2020-08-07] MEDS: APIXABAN 2.5 MG TABLET PO ×2 (08:01→17:28)
[2020-08-07] MEDS: Juven (unflavored) Packet 1 PACKET PO ×2 (08:01→17:27)
[2020-08-07] MEDS: Ferrous Sulfate 325 MG Tablet PO (11:55)
[2020-08-07] MEDS: Povidone-Iodine Swabstick 1 PACKET TOPICAL (11:58)
--- NOTE | 2020-08-07 13:14 | PN_ITS ---
Patient Problems: Active and Suspected Problems (This Medical Record has been edited. Action required.) Debility (Acute) Cellulitis of right lower extremity (Acute) Sepsis (Acute) Subjective: Patient was seen today for follow up on left ankle MRI. She is resting in bed, no complaints of fever, chills, nausea or vomiting. No new pedal complaints. She does relate left ankle symptoms started several months ago when she was brought to the hospital (although she never told me about it when I first saw her). - Physical Exam Vitals/I&O's: Vital Signs Temp Pulse Resp BP Pulse Ox 98.3 F 77 16 122/71 H 98 08/07/20 05:27 08/07/20 08:01 08/07/20 05:27 08/07/20 05:27 08/07/20 05:27 Oxygen Flow Rate (L/min) 94 Oxygen Delivery Method Room Air Weight: 129.331 kg Body Mass Index (BMI) 47.2 Intake and Output for Last 24 Hours 08/05/20 08/06/20 08/07/20 23:59 23:59 23:59 Intake Total 480 / 480 360 / 360 580 / 580 Output Total 900 / 900 1250 / 1250 400 / 400 Balance -420 / -420 -890 / -890 180 / 180 General: Alert, Oriented x3, Cooperative, No apparent distress Extremities: - - She has significant weakness to the left foot and ankle - not able to dorsiflex, plantarflex, shar or invert foot/ankle. There is chronic osteoarthritis to the foot and ankle - left. No evidence of ischemia to the foot or ankle - left. Microbiology Past 72 Hours 08/04/20 11:35 Nasal Secretion SARS-CoV-2 Antigen (Rapid) - Final Current Medications Acetaminophen (Acetaminophen 325 Mg Tablet) 650 mg PO Q8 [facility] Last Admin: 08/07/20 05:28 Dose: 650 mg Documented by: Apixaban (Apixaban 2.5 Mg Tablet) 2.5 mg PO BID@0800,1800 [facility] Last Admin: 08/07/20 08:01 Dose: 2.5 mg Documented by: Ascorbic Acid (Ascorbic Acid 500 Mg Tablet) 500 mg PO BIDCM [facility] Last Admin: 08/07/20 08:01 Dose: 500 mg Documented by: Atorvastatin Calcium (Atorvastatin Calcium 20 Mg Tablet) 20 mg PO QHS [facility] Last Admin: 08/06/20 21:08 Dose: 20 mg Documented by: Bisacodyl (Bisacodyl 10 Mg Suppository) 10 mg RECTAL DAILY PRN PRN Reason: Constipation Calamine/Phenol (Menthol/Lanolin/Calamine/Znox 113 Gm Tube) 1 applic TOPICAL 06,0 [facility]; Protocol Last Admin: 08/07/20 05:29 Dose: 1 applicatio Documented by: Emollient Ointment (Emollient Combination No.72 500 Ml Lotion) 1 applic TOPICAL 06,2199 [facility]; Protocol Last Admin: 08/07/20 05:29 Dose: 1 applicatio Documented by: Ferrous Sulfate (Ferrous Sulfate 325 Mg Tablet) 325 mg PO DAILY@1200 [facility] Last Admin: 08/07/20 11:55 Dose: 325 mg Documented by: Fluticasone Propionate (Fluticasone 0.05% 1 [place] Nasal.Sry) 1 spray NASAL BID@0800,1999 [facility] Last Admin: 08/07/20 08:00 Dose: 1 spray Documented by: Heparin Sodium (Beef Lung) (Heparin Pf Lock 10 Units/Ml 50 Units/5 Ml Syringe) 50 units IV UD PRN PRN Reason: PICC Line Heparin Flush Last Admin: 07/14/20 10:13 Dose: 50 units Documented by: L-Arginine/L-Glutamine/Calcium HMB (Campos (Unflavored) Packet) [facility] Last Admin: 08/07/20 08:01 Dose: 1 packet Documented by: Magnesium Chloride (Magnesium Chloride 64 Mg Delay Rel.Tablet) 128 mg PO DAILY@0800 [facility] Last Admin: 08/07/20 08:00 Dose: 128 mg Documented by: Magnesium Hydroxide (Magnesium Hydroxide 30 Ml Udc) 30 ml PO DAILY PRN PRN Reason: Constipation Last Admin: 07/08/20 22:05 Dose: 30 ml Documented by: Metoprolol Tartrate (Metoprolol Tartrate 25 Mg Tablet) [facility] Last Admin: 08/07/20 08:01 Dose: 25 mg Documented by: Nystatin (Nystatin Powder 15gm Bottle) 1 applic TOPICAL BID [facility]; Protocol Last Admin: 08/07/20 05:30 Dose: 1 applicatio Documented by: Ondansetron HCl (Ondansetron Odt 4 Mg Tablet) 8 mg PO Q8H PRN PRN PRN Reason: NAUSEA Last Admin: 07/31/20 14:27 Dose: 8 mg Documented by: Polyethylene Glycol (Polyethylene Glycol 3350 17 Gm Packet) [facility] Last Admin: 08/07/20 08:01 Dose: Not Given Documented by: Potassium Chloride (Potassium Chloride 20 Meq Tablet) 20 meq [facility] Last Admin: 08/07/20 08:00 Dose: 20 meq Documented by: Povidone Iodine (Povidone-Iodine Swabstick) 1 packet TOPICAL DAILY@1000 [facility]; Protocol Last Admin: 08/07/20 11:58 Dose: 1 packet Documented by: Senna/Docusate Sodium (Senna/Docusate Sodium 1 Tablet) 2 tablet PO BID@0800,1800 [facility] Last Admin: 08/07/20 08:01 Dose: Not Given Documented by: Sodium Chloride (0.9% Saline Lock 10 Ml Syringe) 10 - 40 ml IV UD PRN PRN Reason: Open End PICC Flush Tramadol HCl (Tramadol 50 Mg Tablet) 50 mg PO Q6H PRN PRN PRN Reason: Pain Score 6-10 Last Admin: 08/06/20 13:00 Dose: 50 mg Documented by: Vitamin E (Vitamin E 400 Units Capsule) 800 [facility] Last Admin: 08/07/20 08:00 Dose: 800 units Documented by: Zinc Sulfate (Zinc Sulfate (50mg Elemental) 220 Mg Capsule) 220 mg PO DAILY@0800 [facility] Last Admin: 08/07/20 08:01 Dose: 220 mg Documented by: Medical Necessity - Tobacco Use Smoking Status: Never smoker Tobacco Use: Non-smoker Assessment/Plan All Active Problems (This Medical Record has been edited. Action required.) Paronychia of great toe, right (Acute) Debility (Acute) Cellulitis of right lower extremity (Acute) Necrosis of subcutaneous tissue (Acute) Cellulitis of right lower leg (Acute) Skin necrosis (Acute) Cellulitis of left lower leg (Acute) UTI (urinary tract infection) (Acute) Sepsis (Acute) Anasarca (Acute) Left drop foot/weakness Osteoarthritis left foot/ankle Left hinfoot/ankle MRI was reviewed, tendons intact, no acute pathology noted. There are chronic degenerative changes to the joints of the foot/ankle. Advised patient drop foot/weakness could be due to more proximal etiology, such as from her back. She does relate to painful wounds, and pain could be from wounds which is in relative proximity to ankle. She is receiving wound care and follows with Dr. Pedersen. Advised patient she will need to discuss more proximal causes/workup with Dr. Layne as well as her PCP. Also did order ABIs and TBIs for further evaluation as well. Advised patient she can follow up with [facility] as [facility] for a AFO as well. Patient can also follow up with us for further toenail care -toenails are doing well at this time.
--- NOTE | 2020-08-07 13:27 | NURSING ---
R' NOTIFIED OF COVID STATUS ON UNIT.
[2020-08-07 14:26] VITALS: BP 102/60; PULSE 91; RESP 18; TEMP 35.8; O2SAT 95
--- NOTE | 2020-08-07 14:29 | NURSING ---
Resident and family updated on current COVID stratus on the unit.
--- NOTE | 2020-08-07 15:00 | NURSING ---
Notified imaging that Dr. Milner wanted the HAILEY completed for PVD.
[2020-08-07] MEDS: traMADol 50 MG Tablet PO (20:16)
[2020-08-07] MEDS: Atorvastatin Calcium 20 MG Tablet PO (20:19)
[2020-08-08 06:51] VITALS: BP 126/70; PULSE 106; RESP 16; TEMP 37; O2SAT 94
[2020-08-08] MEDS: Acetaminophen 325 MG Tablet 650 MG PO ×3 (06:53→20:31)
[2020-08-08] MEDS: Nystatin Powder 15gm Bottle 1 APPLIC TOPICAL ×2 (06:54→16:37)
[2020-08-08] MEDS: Menthol/Lanolin/Calamine/Znox 113 GM Tube 1 APPLIC TOPICAL ×2 (06:54→20:33)
[2020-08-08 09:36] VITALS: PULSE 106
[2020-08-08] MEDS: Juven (unflavored) Packet 1 PACKET PO ×2 (09:36→16:37)
[2020-08-08] MEDS: Magnesium Chloride 64 MG Delay Rel.Tablet 128 MG PO (09:36)
[2020-08-08] MEDS: APIXABAN 2.5 MG TABLET PO ×2 (09:36→16:37)
[2020-08-08] MEDS: Metoprolol Tartrate 25 MG Tablet PO (09:36)
[2020-08-08] MEDS: Vitamin E 400 UNITS Capsule 800 UNITS PO (09:37)
[2020-08-08] MEDS: Ascorbic Acid 500 MG Tablet PO ×2 (09:37→16:37)
[2020-08-08] MEDS: Fluticasone 0.05% 1 SPRAY NASAL.SRY NASAL ×2 (09:38→20:31)
[2020-08-08] MEDS: Povidone-Iodine Swabstick 1 PACKET TOPICAL (10:55)
[2020-08-08] MEDS: Ferrous Sulfate 325 MG Tablet PO (11:00)
[2020-08-08] MEDS: traMADol 50 MG Tablet PO ×2 (13:00→20:32)
--- NOTE | 2020-08-08 13:15 | PCM.PN.SRG ---
Patient Problems: Active and Suspected Problems (This Medical Record has been edited. Action required.) Debility (Acute) Cellulitis of right lower extremity (Acute) Sepsis (Acute) - Physical Exam Vitals/I&O's: Vital Signs Temp Pulse Resp BP Pulse Ox 98.6 F 106 H 16 126/70 H 94 08/08/20 06:51 08/08/20 09:36 08/08/20 06:51 08/08/20 06:51 08/08/20 06:51 Oxygen Flow Rate (L/min) 94 Oxygen Delivery Method Room Air Weight: 285 lb 2 oz Body Mass Index (BMI) 47.2 Intake and Output for Last 24 Hours 08/06/20 08/07/20 08/08/20 23:59 23:59 23:59 Intake Total 360 / 360 2140 / 2140 360 / 360 Output Total 1250 / 1250 1000 / 1000 1150 / 1150 Balance -890 / -890 1140 / 1140 -790 / -790 General: Alert, Oriented x3, Cooperative HEENT: Atraumatic Oral: Moist Mucosa Lungs: Normal air movement Cardiovascular: Regular rate Abdomen: Obese Extremities: Capillary Refill Less than 3 Seconds, Edema Skin: Ulcer/ Wound - Left posterior leg ulcer and right lateral leg ulcer both beefy pink with granulation tissue and decrease depth. Musculoskeletal: Tenderness Neurological: Cranial nerves II-XII grossly intact Psych/Mental Status: Normal Affect, Appropriate Current Medications Acetaminophen (Acetaminophen 325 Mg Tablet) 650 mg PO Q8 [facility] Last Admin: 08/08/20 06:53 Dose: 650 mg Documented by: Apixaban (Apixaban 2.5 Mg Tablet) 2.5 mg PO BID@0800,1800 [facility] Last Admin: 08/08/20 09:36 Dose: 2.5 mg Documented by: Ascorbic Acid (Ascorbic Acid 500 Mg Tablet) 500 mg PO BIDCM [facility] Last Admin: 08/08/20 09:37 Dose: 500 mg Documented by: Atorvastatin Calcium (Atorvastatin Calcium 20 Mg Tablet) 20 mg PO QHS [facility] Last Admin: 08/07/20 20:19 Dose: 20 mg Documented by: Bisacodyl (Bisacodyl 10 Mg Suppository) 10 mg RECTAL DAILY PRN PRN Reason: Constipation Calamine/Phenol (Menthol/Lanolin/Calamine/Znox 113 Gm Tube) 1 applic TOPICAL 0600,2200 [facility]; Protocol Last Admin: 08/08/20 06:54 Dose: 1 applicatio Documented by: Emollient Ointment (Emollient Combination No.72 500 Ml Lotion) 1 applic TOPICAL 599,2199 [facility]; Protocol Last Admin: 08/08/20 06:54 Dose: 1 applicatio Documented by: Ferrous Sulfate (Ferrous Sulfate 325 Mg Tablet) 325 mg PO DAILY@1200 [facility] Last Admin: 08/08/20 11:00 Dose: 325 mg Documented by: Fluticasone Propionate (Fluticasone 0.05% 1 Mckinney Nasal.Sry) 1 spray NASAL BID@08,1999 [facility] Last Admin: 08/08/20 09:38 Dose: 1 spray Documented by: Heparin Sodium (Beef Lung) (Heparin Pf Lock 10 Units/Ml 50 Units/5 Ml Syringe) 50 units IV UD PRN PRN Reason: PICC Line Heparin Flush Last Admin: 07/14/20 10:13 Dose: 50 units Documented by: L-Arginine/L-Glutamine/Calcium HMB (Campos (Unflavored) Packet) [facility] Last Admin: 08/08/20 09:36 Dose: 1 packet Documented by: Magnesium Chloride (Magnesium Chloride 64 Mg Delay Rel.Tablet) 128 mg PO DAILY@0800 [facility] Last Admin: 08/08/20 09:36 Dose: 128 mg Documented by: Magnesium Hydroxide (Magnesium Hydroxide 30 Ml Udc) 30 ml PO DAILY PRN PRN Reason: Constipation Last Admin: 07/08/20 22:05 Dose: 30 ml Documented by: Metoprolol Tartrate (Metoprolol Tartrate 25 Mg Tablet) [facility] Last Admin: 08/08/20 09:36 Dose: 25 mg Documented by: Nystatin (Nystatin Powder 15gm Bottle) 1 applic TOPICAL BID [facility]; Protocol Last Admin: 08/08/20 06:54 Dose: 1 applicatio Documented by: Ondansetron HCl (Ondansetron Odt 4 Mg Tablet) 8 mg PO Q8H PRN PRN PRN Reason: NAUSEA Last Admin: 07/31/20 14:27 Dose: 8 mg Documented by: Polyethylene Glycol (Polyethylene Glycol 3350 17 Gm Packet) [facility] Last Admin: 08/08/20 09:37 Dose: Not Given Documented by: Potassium Chloride (Potassium Chloride 20 Meq Tablet) 20 meq PO DAILYCM [facility] Last Admin: 08/08/20 09:36 Dose: 20 meq Documented by: Povidone Iodine (Povidone-Iodine Swabstick) 1 packet TOPICAL DAILY@1000 [facility]; Protocol Last Admin: 08/08/20 10:55 Dose: 1 packet Documented by: Senna/Docusate Sodium (Senna/Docusate Sodium 1 Tablet) 2 tablet PO BID@0800,1800 [facility] Last Admin: 08/08/20 09:37 Dose: Not Given Documented by: Sodium Chloride (0.9% Saline Lock 10 Ml Syringe) 10 - 40 ml IV UD PRN PRN Reason: Open End PICC Flush Tramadol HCl (Tramadol 50 Mg Tablet) 50 mg PO Q6H PRN PRN PRN Reason: Pain Score 6-10 Last Admin: 08/08/20 13:00 Dose: 50 mg Documented by: Vitamin E (Vitamin E 400 Units Capsule) [facility] Last Admin: 08/08/20 09:37 Dose: 800 units Documented by: Zinc Sulfate (Zinc Sulfate (50mg Elemental) 220 Mg Capsule) 220 mg PO DAILY@0800 [facility] Last Admin: 08/08/20 09:37 Dose: 220 mg Documented by: Medical Necessity - Tobacco Use Smoking Status: Never smoker Tobacco Use: Non-smoker Assessment/Plan All Active Problems (This Medical Record has been edited. Action required.) Paronychia of great toe, right (Acute) Debility (Acute) Cellulitis of right lower extremity (Acute) Necrosis of subcutaneous tissue (Acute) Cellulitis of right lower leg (Acute) Skin necrosis (Acute) Cellulitis of left lower leg (Acute) UTI (urinary tract infection) (Acute) Sepsis (Acute) Anasarca (Acute) 1. Nonhealing painful infected ulcer left posterior leg. 2. Nonhealing painful infected ulcer right lateral leg with skin necrosis. 3. Sepsis. 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 5. Chronic venous insufficiency with ulceration. 6. Obesity. Preop wound culture shows Pseudomonas aeroginosa. Operative cultures from 07/04/20 right leg ulcer positive for Staphylococcus capitis and Corynebacterium striatum. Left leg positive for Pseudomonas aeroginosa, Corynebacterium striatum, Pseudomonas mendocina. She was placed on Meropenem and Doxycycline which she completed per ID. She has completed Doxycycline from Dr. Milner for her right 1st toenail with paronychia. Right posterior leg ulcer with area medial portion with slough and necrotic tissue that was debrided at the bedside a couple weeks ago now has granulation present and has much less biofilm. Continue the wound VAC reapplied at 150 mmHg to both bilateral leg ulcers. Continue to wear heel protectors and place pillow to keep heels off of the bed to help prevent bilateral heel breakdown. Prealbumin was 12.8. Encourage nutritional supplementation with protein to help the healing process. The plan is she will discharged to home 08/11/19. After discharge will followup at [facility]. She states she is moving to [place] in September. She will need to establish care with a PCP and wound center for wound care management. If there is a plateau in the healing process, can proceed with delayed closure with skin grafting. [id number]: [id number] Global Visit
[2020-08-08 15:24] VITALS: BP 124/81; PULSE 71; RESP 20; TEMP 36.7; O2SAT 96
[2020-08-08] MEDS: Atorvastatin Calcium 20 MG Tablet PO (20:32)
[2020-08-09] MEDS: Menthol/Lanolin/Calamine/Znox 113 GM Tube 1 APPLIC TOPICAL ×2 (06:45→22:02)
[2020-08-09] MEDS: Acetaminophen 325 MG Tablet 650 MG PO ×3 (06:46→22:00)
[2020-08-09] MEDS: Nystatin Powder 15gm Bottle 1 APPLIC TOPICAL ×2 (06:46→16:57)
[2020-08-09 06:51] VITALS: BP 141/72; PULSE 119; RESP 18; TEMP 36.6; O2SAT 95
[2020-08-09] MEDS: Fluticasone 0.05% 1 SPRAY NASAL.SRY NASAL ×2 (08:28→22:00)
[2020-08-09] MEDS: Ascorbic Acid 500 MG Tablet PO ×2 (08:31→16:57)
[2020-08-09] MEDS: Vitamin E 400 UNITS Capsule 800 UNITS PO (08:31)
[2020-08-09] MEDS: Magnesium Chloride 64 MG Delay Rel.Tablet 128 MG PO (08:31)
[2020-08-09] MEDS: Juven (unflavored) Packet 1 PACKET PO ×2 (08:31→16:57)
[2020-08-09 08:32] VITALS: PULSE 94
[2020-08-09] MEDS: APIXABAN 2.5 MG TABLET PO ×2 (08:32→16:57)
[2020-08-09] MEDS: Metoprolol Tartrate 25 MG Tablet PO (08:32)
[2020-08-09] MEDS: Ferrous Sulfate 325 MG Tablet PO (11:23)
[2020-08-09] MEDS: Povidone-Iodine Swabstick 1 PACKET TOPICAL (11:34)
[2020-08-09] MEDS: traMADol 50 MG Tablet PO ×2 (17:02→23:30)
[2020-08-09 19:41] VITALS: BP 102/48; PULSE 93; RESP 20; TEMP 36.8; O2SAT 95
[2020-08-09] MEDS: Atorvastatin Calcium 20 MG Tablet PO (22:00)
[2020-08-10 06:40] VITALS: BP 117/98; PULSE 109; RESP 18; TEMP 37.1; O2SAT 95
[2020-08-10] MEDS: Acetaminophen 325 MG Tablet 650 MG PO ×3 (06:41→19:50)
[2020-08-10] MEDS: Menthol/Lanolin/Calamine/Znox 113 GM Tube 1 APPLIC TOPICAL ×2 (06:42→19:53)
[2020-08-10] MEDS: Nystatin Powder 15gm Bottle 1 APPLIC TOPICAL ×2 (06:43→16:58)
[2020-08-10] MEDS: Fluticasone 0.05% 1 SPRAY NASAL.SRY NASAL ×2 (09:04→19:49)
[2020-08-10] MEDS: Juven (unflavored) Packet 1 PACKET PO ×2 (09:05→16:59)
[2020-08-10] MEDS: APIXABAN 2.5 MG TABLET PO ×2 (09:05→16:59)
[2020-08-10] MEDS: Vitamin E 400 UNITS Capsule 800 UNITS PO (09:07)
[2020-08-10 09:08] VITALS: PULSE 118
[2020-08-10] MEDS: Ascorbic Acid 500 MG Tablet PO ×2 (09:08→16:59)
[2020-08-10] MEDS: Metoprolol Tartrate 25 MG Tablet PO (09:08)
[2020-08-10] MEDS: Magnesium Chloride 64 MG Delay Rel.Tablet 128 MG PO (09:08)
[2020-08-10] MEDS: Senna/Docusate Sodium 1 Tablet 2 TABLET PO (09:09)
[2020-08-10] MEDS: Povidone-Iodine Swabstick 1 PACKET TOPICAL (11:39)
[2020-08-10] MEDS: Ferrous Sulfate 325 MG Tablet PO (11:39)
[2020-08-10] MEDS: Ciprofloxacin 500 MG Tablet PO ×2 (14:50→19:50)
[2020-08-10 14:55] VITALS: PULSE 108; RESP 20; O2SAT 95
[2020-08-10 16:00] VITALS: BP 121/67; PULSE 108; RESP 20; TEMP 36.6; O2SAT 95
[2020-08-10 16:16] LABS: Mucous, Urine 0 SEEN /hpf (<or=2+)
[2020-08-10 16:20] LABS: Color, Urine Yellow (Yellow); Glucose, Dipstick Normal (Normal); Ketone-Dipstick Negative (Negative); Leukocyte Esterase-Dipstick 100 /ul (Negative); Nitrite-Dipstick Positive (Negative); Occult Blood-Urine 150 /ul (Negative); Protein-Dipstick Negative (Negative); Urine Bilirubin Dipstick Negative (Negative); Urine Clarity Sl. Cloudy (Clear); Urine Urobilinogen Normal (Normal)
[2020-08-10 16:27] LABS: Bacteria 1+ /hpf (None Seen); Red Blood Cells-Urine 10-25 SEEN /hpf (0-5); Squamous Epithelial Cells - UA 0-5 SEEN /hpf (5-10); White Blood Cells 5-10 SEEN /hpf (0-5)
[2020-08-10 16:28] LABS: Amorphous Sediment 1+ URATE; Yeast-Urine 1+ /hpf (None Seen)
[2020-08-10] MEDS: Atorvastatin Calcium 20 MG Tablet PO (19:50)
[2020-08-10] MEDS: traMADol 50 MG Tablet PO (23:58)
[2020-08-11 06:03] VITALS: BP 119/84; PULSE 89; RESP 18; TEMP 36.4; O2SAT 96
[2020-08-11] MEDS: Menthol/Lanolin/Calamine/Znox 113 GM Tube 1 APPLIC TOPICAL ×2 (06:05→19:51)
[2020-08-11] MEDS: Nystatin Powder 15gm Bottle 1 APPLIC TOPICAL ×2 (06:05→17:42)
[2020-08-11] MEDS: Acetaminophen 325 MG Tablet 650 MG PO ×3 (06:05→19:49)
--- NOTE | 2020-08-11 08:40 | CASEMGMT ---
Social Work Received call from Dr. Milner inquiring about postponing pt's DC as he is wanting to run several more tests due to a few changes with pt's condition. He explained he spoke with the family and they expressed concerns with transport once the pt is discharged if he were to order them outpatient. JOE spoke with director, Dr. Layne and IDT about information - all agreeable to get tests run luis enrique and determine results, but due to wound vac and Medicare days, pt to be discharged by the end of the week if nothing remarkable is shown. Dr. Milner appreciative and ordered testing. Notified nursing and wound nurse. SW notified dtrLynn, as that is whom Dr. Milner had been in contact with. Dtr appreciative and will notify pt. [facility] SW to continue to follow. Kalyn Gentile, MITA ALVESW
[2020-08-11] MEDS: Vitamin E 400 UNITS Capsule 800 UNITS PO (09:12)
[2020-08-11 09:13] VITALS: PULSE 89
[2020-08-11] MEDS: Metoprolol Tartrate 25 MG Tablet PO (09:13)
[2020-08-11] MEDS: APIXABAN 2.5 MG TABLET PO ×2 (09:13→17:43)
[2020-08-11] MEDS: Juven (unflavored) Packet 1 PACKET PO ×2 (09:13→17:41)
[2020-08-11] MEDS: Ascorbic Acid 500 MG Tablet PO ×2 (09:13→17:43)
[2020-08-11] MEDS: Magnesium Chloride 64 MG Delay Rel.Tablet 128 MG PO (09:13)
[2020-08-11] MEDS: Fluticasone 0.05% 1 SPRAY NASAL.SRY NASAL ×2 (09:14→19:50)
[2020-08-11] MEDS: Ciprofloxacin 500 MG Tablet PO ×2 (09:16→19:49)
--- NOTE | 2020-08-11 09:21 | NURSING ---
PT DISTRESSED OVER HAVING TO HAVE MORE TESTING PER DR GONZALES REQUEST. ENTERED ROOM AND HEARD PT VERY FRUSTRATED WITH PHONE CALL AND HUNG UP, STATED WHAT A BITCH. THIS NURSE ASKED PT WHO SHE WAS TALKING TO & SHE STATED MANDO. PT VERBALIZED THAT SHE JUST DOESNT KNOW WHO TO TRUST, SHE DOESNT KNOW IF SHE REALLY WANTS TO DO THESE TESTS. WANTS TO SPEAK WITH JUAN, WOUND NURSE. JUAN, NOTIFIED. PT ATTEMPTING TO EAT BUT STILL UPSET AND CONFUSED ABOUT EVERYTHING. 1:1 EMOTIONAL SUPPORT GIVEN.
[2020-08-11] MEDS: traMADol 50 MG Tablet PO (09:31)
[2020-08-11] MEDS: Povidone-Iodine Swabstick 1 PACKET TOPICAL (11:22)
--- NOTE | 2020-08-11 11:27 | NURSING ---
Addendum entered by Nguyen Torres 08/11/20 12:21: Dr Simpson office called and message left to see if he could call and talk to resident about why he wants the tests he ordered. I am told he is out of the office today but they would send him a message with the request. Original Note: Colleen johns RN, finished with wound vac changes. resident in room and upset and crying. States I dont know what I am going to do! I wanted to go home today but now everything is changing! I was told my ride home would be covered but now I find out it will cost me $800 and now I dont have a bed even delivered to my home! I feel so bad for my son who is having to deal with all of this. I dont know Dr Milner and haven't even talked to or seen him in awhile. Emotional support given.
--- NOTE | 2020-08-11 11:34 | CASEMGMT ---
Social Work Spoke with pt and pt upset about getting more tests. Encouraged pt to contact dtr as she was the one who spoke with Dr. Milner that ordered these tests. Explained if pt does not want the tests, she does not have to get them and she can be discharged. Pt still expressing frustration with someone telling when she was admitted to the hospital that we would provide her transport. Reexplained this worker has explained to pt and all family members that is unfortunately is not accurate information - staff can assist in coordinating transportation but that it is not covered by the hospital. The insurance decides if it is covered at any percentage. Explained unfortunately, this outcome will not change. Spoke with wound nurse about one test ordered and it cannot be completed due to location of pt's wounds. Received call from neurology about nerve testing and both cannot be completed inpatient - they must be completed outpatient and scheduling is starting 08/26. Contacted dtr to explain this information and to proceed with DC 08/12. Dtr completely understandable and stated pt will be happy. She is coordinating mushroom picker transport for tomorrow. Spoke with pt and pt happy and appreciative of the information - she expressed ready to be going home. Notified [facility] and [facility] of new DC date. IDT aware. Plan: DC home 08/12 Kalyn Gentile, DIRECTOR [employer]ING CLAY THROWER
[2020-08-11] MEDS: Ferrous Sulfate 325 MG Tablet PO (12:36)
--- NOTE | 2020-08-11 13:37 | NURSING ---
wound photo: right posterior lower leg
--- NOTE | 2020-08-11 13:38 | NURSING ---
wound photo: left posterior lower leg
[2020-08-11 14:40] VITALS: BP 106/57; PULSE 96; RESP 24; TEMP 36.5; O2SAT 96
[2020-08-11] MEDS: Senna/Docusate Sodium 1 Tablet 2 TABLET PO (17:44)
[2020-08-11] MEDS: Atorvastatin Calcium 20 MG Tablet PO (19:52)
[2020-08-12] MEDS: traMADol 50 MG Tablet PO ×2 (01:00→10:43)
[2020-08-12 05:23] VITALS: BP 125/68; PULSE 114; RESP 18; TEMP 36.9; O2SAT 95
[2020-08-12] MEDS: Menthol/Lanolin/Calamine/Znox 113 GM Tube 1 APPLIC TOPICAL (05:27)
[2020-08-12] MEDS: Nystatin Powder 15gm Bottle 1 APPLIC TOPICAL (05:28)
[2020-08-12] MEDS: Acetaminophen 325 MG Tablet 650 MG PO ×2 (05:29→13:02)
[2020-08-12] MEDS: Fluticasone 0.05% 1 SPRAY NASAL.SRY NASAL (08:40)
[2020-08-12] MEDS: Vitamin E 400 UNITS Capsule 800 UNITS PO (08:40)
[2020-08-12] MEDS: Ascorbic Acid 500 MG Tablet PO (08:40)
[2020-08-12] MEDS: APIXABAN 2.5 MG TABLET PO (08:40)
[2020-08-12 08:41] VITALS: PULSE 114
[2020-08-12] MEDS: Magnesium Chloride 64 MG Delay Rel.Tablet 128 MG PO (08:41)
[2020-08-12] MEDS: Metoprolol Tartrate 25 MG Tablet PO (08:41)
[2020-08-12] MEDS: Juven (unflavored) Packet 1 PACKET PO (08:45)
--- NOTE | 2020-08-12 10:28 | CASEMGMT ---
Addendum entered by Kalyn Gentile 08/12/20 12:56: Spoke with to get clarification on mode of transportation. did explain a box truck. However, SW then spoke with other son, Leland, who explained they are renting a minivan - caravan from [employer] that was described as w/c accessible and pt can be secured in back of van, with seats folded down, in w/c. Expressed concern if pt would be transported in box truck and pt would unable to be transported home. Provided pricing for scheduling w/c transport, if family would like to reconsider. Family stated no and pt will be safe in caravan. Original Note: Social Work Son contacted SW to follow up on DC plans today. [employer] will have bed delivered to the home by noon. Son has transport arranged for sheepskin pickler between 2-4 pm. He indicated he is renting a truck/van for transport. According to medical record, pt has been dropped off and picked up in a box truck several times to ED and to/from previous SNF. No further details on box truck. IDT concerned about DC home. [facility] referral made to [facility]. Provided detailed information. SW at [facility] expressed major concern with hx of transport in a box truck and unsure about legality of that mode of transport. SW advised this worker to view mode of transport at [place] and alert HRO for further direction. This worker contacted HRO, hospital security and provided above information. HRO concerned as well about that mode of transport being legal and safe. He will look into it but would like to present with this worker at time of DC. JOE to notify HRO. Kalyn Gentile, MITA GLEASON
[2020-08-12] MEDS: Ferrous Sulfate 325 MG Tablet PO (10:30)
[2020-08-12] MEDS: Ciprofloxacin 500 MG Tablet PO (10:30)
[2020-08-12] MEDS: Povidone-Iodine Swabstick 1 PACKET TOPICAL (10:31)
[2020-08-12 13:05] VITALS: PULSE 95; RESP 20; O2SAT 95
--- NOTE | 2020-08-12 13:39 | NURSING ---
Pt switched over to the home VAC for discharge later this afternoon. Proof of delivery signed and faxed to [facility]. Reviewed alarms, etc. with patient and reviewed how to change the canisters. Pt states her son will be here to pick her up approx 3pm. all belongings bagged up. pt denies further needs and questions at this time.
[2020-08-12 16:00] VITALS: BP 114/64; PULSE 95; RESP 22; TEMP 36.8; O2SAT 95
--- NOTE | 2020-08-12 17:20 | CASEMGMT ---
Social Work Assisted pt and porcelain enamel repairer to main entrance for pt's DC. Son's did arrive in [facility]. Had wooden planks for ramps to wheel w/c into back of van. Attempted three times, unsuccessful at pt did not have enough height clearance to fit in back of van. SW insistent on ordering w/c transport for pt. Pt and son's agreed. Physician's called for w/c bulk picker 7 pm. Son waited with pt until pick pup. Kalyn Gentile, BRIDGE RIGGER SLATE WORKER
== END 2020-08-12 17:10 | disposition home health service (06) | DRG 593 ==
PROVIDERS: Internal Medicine; Podiatrist; Admitting Provider Family Medicine Geriatric Medicine; PCP Nurse Practitioner Family; Visit Provider Family Medicine Geriatric Medicine
DX: L97.222 Non-pressure chronic ulcer of left calf with fat layer exposed (principal); L03.115 Cellulitis of right lower limb; Z68.42 Body mass index [BMI] 45.0-49.9, adult; N39.0 Urinary tract infection, site not specified; N17.9 Acute kidney failure, unspecified; Z16.12 Extended spectrum beta lactamase (ESBL) resistance; L03.116 Cellulitis of left lower limb; I87.2 Venous insufficiency (chronic) (peripheral); L97.812 Non-pressure chronic ulcer of other part of right lower leg with fat layer exposed; I10 Essential (primary) hypertension; E87.6 Hypokalemia; B35.4 Tinea corporis; B37.9 Candidiasis, unspecified; J30.9 Allergic rhinitis, unspecified; D50.9 Iron deficiency anemia, unspecified; I48.0 Paroxysmal atrial fibrillation; E78.5 Hyperlipidemia, unspecified; I89.0 Lymphedema, not elsewhere classified; G47.33 Obstructive sleep apnea (adult) (pediatric); J44.9 Chronic obstructive pulmonary disease, unspecified; K21.9 Gastro-esophageal reflux disease without esophagitis; E66.01 Morbid (severe) obesity due to excess calories; L60.0 Ingrowing nail; L03.031 Cellulitis of right toe; B96.5 Pseudomonas (aeruginosa) (mallei) (pseudomallei) as the cause of diseases classified elsewhere; M17.0 Bilateral primary osteoarthritis of knee; L89.302 Pressure ulcer of unspecified buttock, stage 2; Z91.19 Patient's noncompliance with other medical treatment and regimen; B96.20 Unspecified Escherichia coli [E. coli] as the cause of diseases classified elsewhere; E88.09 Other disorders of plasma-protein metabolism, not elsewhere classified; L89.152 Pressure ulcer of sacral region, stage 2
CPT/HCPCS: 36415; 73610; 73630; 74018; 80048; 80053; 81001; 82040; 82570; 83735; 84100; 84156; 84300; 85025; 85027; 87070; 87075; 87077; 87086; 87088; 87186; 87205; 87426; 87635; 87640; 97110; 97162; 97166; 97530; 97535; 97542; 97802; J2185; J2997; J7030; J7040; J7050; P9047; A4216; J0696; J7799; U0003

== ENCOUNTER → 2020-08-04 15:37 | Outpatient (CLI) | payer MEDICARE, BC, SELFPAY ==
[2020-07-08 17:36] VITALS: BMI 47.2
--- NOTE | 2020-08-04 17:12 | MRI_ITS ---
STUDY: MRI LEFT ANKLE WITHOUT CONTRAST REASON FOR EXAM: Female, 70 years old. left ankle foot drop, weakness, pain -- swelling calf , foot and ankle, 2 wound vac areas,looking at ankle/hind foot area TECHNIQUE: Standardized fat and water weighted pulse sequences were obtained in all 3 orthogonal planes. COMPARISON: X-ray dated 08/04/2020. FINDINGS: Extensive soft tissue swelling/cellulitis with diffuse soft tissue calcifications. Advanced muscle atrophy. Extensor tendons intact. Posterior tibialis and flexor tendons intact with posterior tibialis tendinosis. Peroneus longus/brevis tendons intact. Achilles tendon intact with mild tendinosis. Plantar spur. Chronic plantar fascial thickening. No acute fracture. No acute dislocation. No acute bone destruction. Mild/moderate tibiotalar joint arthrosis. Moderate subtalar joint arthrosis. Moderate talonavicular arthrosis. Mild calcaneocuboid arthrosis. Mild navicular cuneiform arthrosis. Mild tarsometatarsal joint arthrosis. Moderate anterior and posterior syndesmotic ligament thickening. Low-grade chronic partial tear of the anterior talofibular ligament. Chronic sprain of the posterior talofibular ligament. Normal deltoid ligament. Normal spring ligament. Normal sinus Tarsi/subtalar ligaments. MRI/Lower Ext Joint Only (Routine) IMPRESSION: Advanced muscle atrophy/denervation Extensive soft tissue swelling/cellulitis with diffuse soft tissue calcifications Posterior tibialis tendinosis without tendon tear Achilles tendinosis without tear Plantar spur with chronic plantar fascial thickening Mild/moderate osteoarthritic features without fracture or dislocation Chronic ligament sprains with low-grade chronic partial ATFL tear Electronically Signed: Galo Fry DO at 9:27 EST Tel , Service support ,
== END ==
PROVIDERS: PCP Nurse Practitioner Family; Referring Provider Podiatrist; Visit Provider Podiatrist
DX: M21.372 Foot drop, left foot (principal); M79.672 Pain in left foot; M21.42 Flat foot [pes planus] (acquired), left foot
CPT/HCPCS: 73721

== ENCOUNTER → 2020-08-11 15:17 | Outpatient (CLI) | payer MEDICARE, BC, SELFPAY | PROVIDERS: PCP Nurse Practitioner Family; Visit Provider Podiatrist | DX: M25.572 Pain in left ankle and joints of left foot (principal); I49.3 Ventricular premature depolarization ==

== ENCOUNTER → 2020-08-12 08:08 | Outpatient (CLI) | payer MEDICARE, BC, SELFPAY ==
--- NOTE | 2020-08-12 08:10 | MRI_ITS ---
STUDY: MRI LUMBAR SPINE WITHOUT CONTRAST REASON FOR EXAM: Female, 70 years old. Bilat lower extremity weakness and pain, left foot drop TECHNIQUE: Standardized fat and water weighted pulse sequences were obtained in the sagittal and axial planes. COMPARISON: None FINDINGS: T12-L1: Normal endplates. Normal disc height, hydration and morphology. Normal bilateral facet joints. Normal central canal and bilateral lateral recesses. Normal bilateral intervertebral neural foramina. Normal lumbar lordosis. There is no substantial scoliosis. Normal conus medullaris that terminates at the L1/L2. Heterogeneous marrow signal of the lumbar spine and sacrum suggestive of marrow regeneration from chronic hypoventilation, lung disease, or anemia. L1-2: Normal endplates. Normal disc height, hydration and morphology. Normal bilateral facet joints. Normal central canal and bilateral lateral recesses. Normal bilateral intervertebral neural foramina. L2-3: Moderate broad disc protrusion produces moderate spinal stenosis with moderate bilateral lateral recess stenosis with abutment of the L3 nerve roots bilaterally and mild bilateral neural foraminal stenosis. L3-4: Mild bilateral facet hypertrophy and ligament flavum hypertrophy. Moderate broad disc protrusion produces moderate spinal stenosis with moderate bilateral lateral recess stenosis with abutment of the L4 nerve roots bilaterally and mild bilateral neural foraminal stenosis. L4-5: Mild bilateral facet hypertrophy and ligament flavum hypertrophy. Moderate bilobed disc protrusion produces mild spinal stenosis with mild bilateral lateral recess stenosis but moderate bilateral neural foraminal stenosis with abutment of the exiting L4 nerve roots bilaterally. L5-S1: Moderate bilobed disc protrusion produces mild spinal stenosis with mild bilateral lateral recess stenosis but moderate bilateral neural foraminal stenosis with abutment of exiting L5 nerve roots bilaterally. Normal visualized sacral ala. Normal visualized paraspinous soft tissue structures. MRI/Spine Lumbar (Routine) IMPRESSION: 1. Multilevel degenerative changes, as described above. 2. Marrow regeneration from chronic hypoventilation, lung disease, or anemia. Electronically Signed: Mike Tran MD at 13:12 EST Tel , Service support ,
== END ==
PROVIDERS: PCP Nurse Practitioner Family; Referring Provider Family Medicine Geriatric Medicine; Visit Provider Family Medicine Geriatric Medicine
DX: R53.1 Weakness (principal)
CPT/HCPCS: 72148

== ENCOUNTER 2020-09-12 15:44 | Emergency (ER) | payer MEDICARE, BC, SELFPAY ==
[2020-09-12 15:45] VITALS: BP 117/74; PULSE 90; RESP 20; TEMP 35.4; O2SAT 96; BMI 47.5
--- NOTE | 2020-09-12 16:04 | ED.DCSUM_ITS ---
History of Present Illness Chief Complaint: Cellulitis Informant: Patient Narrative: 70 yo F with multiple comorbities presents with concern for worsening bilateral leg wounds. Has been in and out of hospital for the past 5 months. Is concerned because she has a new wound versus abscess on her left leg. States it is been present and growing over the past 1 month. States she has aching pain in this area. Denies any new trauma. Denies any persistent fevers. Past Medical History - Allergies and Home Meds Allergies/Adverse Reactions: Allergies hydromorphone Allergy (Verified 09/12/20 15:47) PT UNSURE OF REACTION piperacillin Allergy (Verified 09/12/20 15:47) PT UNSURE OF REACTION Primary Care Physician: Tomeka Adams CLINICAL OUTCOMES MANAGER, CLINICAL OUTCOMES MANAGER-C [Primary Care Provider] - Prior records reviewed: Yes Past Medical History: - - PAF, HTN, HLD, COPD, DMII Surgical History: appendectomy, - - Tubal ligation, Bilateral lower extremity ulcer debridement. Lives: With Family Smoking Status: Never smoker Alcohol: None Drugs: None - Family History Maternal Family History: Family History (This Medical Record has been edited. Action required.) Sister Diabetes Mother Diabetes Father Heart disease Myocardial infarction Family History: Reports: No pertinent history Paternal Family History: Family History (This Medical Record has been edited. Action required.) Sister Diabetes Mother Diabetes Father Heart disease Myocardial infarction Family History: Reports: No pertinent history Review of Systems General: Denies: Chills, Fever, Sweats Eyes: Denies: Visual changes - bilaterally, Diplopia ENT: Denies: Rhinorrhea, Sore throat Cardiovascular: Denies: Chest pain, Palpitations Respiratory: Denies: Dyspnea, Cough, Dyspnea on exertion Gastrointestinal: Denies: Abdominal pain, Nausea, Vomiting, Diarrhea, Melena, Hematochezia Genitourinary: Denies: Dysuria, Hematuria, Frequency Musculoskeletal: Denies: Back pain, Extremity Pain Skin: Reports: Abscess, Wounds. Denies: Rash Neurological: Denies: Headache, Weakness, Numbness Physical Exam Vital Signs/Narrative: Vital Signs Temp Pulse Resp BP Pulse Ox 09/12/20 15:45 95.8 F L 90 20 H 117/74 96 Inital Vital Signs reviewed: Yes General: Well nourished, Well developed, No Acute Distress Head: Normocephalic, Atraumatic Eyes: Perrl, EOMI ENT: Moist mucous membranes, No rhinorrhea Neck: Supple, Nontender Cardiovascular: Regular rate, Regular rhythm, No murmurs Respiratory: No distress, CTA bilaterally, Chest nontender Abdomen: Soft, Nontender, Nondistended, Normal bowel sounds Back: Nontender, Normal Inspection Extremities: Nontender, No edema Skin: Normal color, No rash, - - Bilateral lymphedema. Patient has packed and well-appearing bilateral posterior wounds. Patient also has evidence of a likely abscess to the left lower extremity distal to the knee. Slightly draining. No surrounding cellulitis. Neurological: Alert, Oriented x3, Cranial nerves II-XII grossly intact, Normal Strength, Normal Sensation Psychological: Normal affect, Normal Mood Diagnostic/Tx/Re-eval Laboratory Data 09/12/20 09/12/20 16:15 16:15 WBC 10.7 RBC 3.29 L Hgb 10.2 L Hct 33.2 L MCV 100.9 H MCH 31.0 MCHC 30.7 L RDW Std Deviation 66.4 H RDW Coeff of Galindo 17.7 H Plt Count 566 H MPV 8.2 Immature Gran % (Auto) 3.100 H Neut % (Auto) 57.1 Lymph % (Auto) 22.2 Sherman % (Auto) 11.5 H Eos % (Auto) 5.4 H Baso % (Auto) 0.7 Absolute Neuts (auto) 6.1 Absolute Lymphs (auto) 2.36 Nucleated RBC % 0 Differential Comment SCANNED Hypochromasia 1+ Anisocytosis 1+ Target Cells RARE Sodium 137 Potassium 4.7 Chloride 107 Carbon Dioxide 26.0 Anion Gap 4 L BUN 19 H Creatinine 0.62 Estim Creat Clear Calc 46.50 Est GFR (MDRD) Af Amer 124 Est GFR (MDRD) Non-Af 103 BUN/Creatinine Ratio 30.9 H Glucose 103 Calcium 8.9 Total Bilirubin 0.40 AST 42 H ALT 26 Alkaline Phosphatase 206 H C-React Prot Ext Range 32.40 H Total Protein 7.7 Albumin 2.1 L Globulin 5.6 H Albumin/Globulin Ratio 0.4 L - Medical Decision Making Patient appears well and nontoxic. Afebrile. Vital signs within normal limits. Given the patient's history of sepsis secondary to these wounds lab work was obtained. No significant leukocytosis. Patient has no crepitus on exam. The wound was opened with a 15 blade and slight pressure. Purulent material was expressed. Patient will be placed on doxycycline and will be seen by her home health care nurse tomorrow. Advised to return for any new or worsening symptoms. Patient agreeable and stable at time of discharge. Impression: 1. Left lower extremity abscess 2. Bilateral lymphedema 3. Bilateral chronic wounds ED Disposition - Plan for ED Patient: Disposition: Home or Assisted Living Instructions: ED Abscess Incision And Drainage Prescriptions: Doxycycline 100 mg PO BID #14 cap Prescription Printed Oxycodone HCl/Acetaminophen [Percocet 5/325] 1 tab PO Q6H PRN PRN 3 Days #12 tab PRN Reason: Pain Prescription Printed Referrals: Tomeka Adams NP, CLINICAL OUTCOMES MANAGER-C [Primary Care Provider] - 2 Days
[2020-09-12] MEDS: Morphine 4 MG/ML Syringe IV (16:17)
[2020-09-12] MEDS: Ondansetron 4 MG/2 ML Vial IV (16:18)
[2020-09-12 16:37] LABS: Absolute Lymphocyte Count 2.36 X10^3/uL (0.83-4.51); Absolute Neutrophil Count 6.1 X10^3/uL (2.0-7.7); Basophil# 0.07 X10^3/uL; Basophil% 0.7 % (0-1); Eosinophil# 0.58 X10^3/uL; Eosinophils% 5.4 % (0-5); Hematocrit 33.2 % (37-47); Hemoglobin 10.2 g/dL (12.0-15.0); Lymphocyte # 2.36 X10^3/ul (4.0); Lymphocyte % 22.2 % (19-41); Mean Corp Hgb Conc 30.7 g/dL (32-36); Mean Corpuscular Volume 100.9 fL (81-99); Mean Platelet Vol. 8.2 fl (6.2-12.0); Monocyte# 1.22 X10^3/uL; Monocyte% 11.5 % (0-10); NRBC Flagged by Analyzer 0 % (0-5); Neutrophil # 6.09 X10^3/uL (2.7-7.7); Neutrophil % 57.1 % (47-70); POSITIVE MORPHOLOGY YES; Platelet Count 566 K/mm3 (150-450); RBC Distribution Width CV 17.7 % (11.6-14.6); RBC Distribution Width SD 66.4 fl (35.1-43.9); Red Blood Count 3.29 M/mm3 (4.2-5.4); White Blood Count 10.7 K/mm3 (4.4-11.0)
[2020-09-12 16:38] LABS: Differential Indicated SCAN CRITERIA MET
[2020-09-12 16:46] VITALS: BP 102/59; PULSE 78; RESP 16; TEMP 36.1; O2SAT 97
[2020-09-12 17:07] LABS: ALB/GLOB Ratio 0.4 RATIO (0.9-2.4); AST(SGOT) 42 U/L (15-37); Alanine Aminotransfer ALT/SGPT 26 U/L (13-56); Albumin, Serum 2.1 g/dL (3.2-5.0); Alkaline Phosphatase 206 U/L (45-117); Anion Gap 4 (5-15); BUN 19 mg/dL (7-18); BUN/Creat Ratio 30.9 RATIO (10-20); Calcium,Total 8.9 mg/dL (8.5-10.1); Chloride 107 mmol/L (98-107); Creatinine, Serum 0.62 mg/dL (0.55-1.02); EST Glomerular Filtration Rate 103 mL/min (>60); Est Glom Filt Rate - Afr Amer 124 mL/min (>60); Globulin 5.6 g/dL (2.2-4.2); Glucose 103 mg/dL (74-106); Potassium 4.7 mmol/L (3.5-5.1); Protein, Total 7.7 g/dL (6.4-8.2); Sodium Level 137 mmol/L (136-145)
[2020-09-12 17:10] LABS: Differential Comment SCANNED
[2020-09-12 17:11] LABS: Anisocytosis 1+; Hypochromasia 1+; Target Cells RARE
[2020-09-12 17:45] VITALS: BP 91/59; RESP 18; O2SAT 100
[2020-09-12 17:50] VITALS: PULSE 86
== END 2020-09-12 17:52 | disposition home or self-care (01) ==
PROVIDERS: Emergency Provider Emergency Medicine; PCP Nurse Practitioner Family
DX: L02.416 Cutaneous abscess of left lower limb (principal); I89.0 Lymphedema, not elsewhere classified; E78.5 Hyperlipidemia, unspecified; I10 Essential (primary) hypertension; I48.0 Paroxysmal atrial fibrillation; Z79.899 Other long term (current) drug therapy; Z79.02 Long term (current) use of antithrombotics/antiplatelets
CPT/HCPCS: 80053; 85025; 86140; 96374; 96375; 99284; A4216; J2405